=== PATIENT | female | born 1960 | race Caucasian/White ===

== ENCOUNTER 2016-05-23 11:23 | Outpatient (CLI) | payer MEDICARE ==
[~2016-05-23] VITALS: Ht 156.2 cm; Wt 61.8 kg
--- NOTE | ~2016-05-23 | HEMODYNAMI ---
PATIENT:CORRINE TOMLIN MEDICAL RECORD: [id number] : 56 LOCATION:[facility] ADMISSION DATE: 05/23/16 Generatedon:05/23/201613:53 Patient name: CORRINE TOMLIN Patient #: [id number] SSN: : 1960 Date of study: 05/23/2016 Page: Of Hemodynamic Procedure Report Patient Data Patient Demographics First Name: CORRINE Gender: Female Last Name: SADA : 1960 [facility] Initial: GET Age: 55 year(s) Patient #: [id number] Race: Additional ID: [id number] Contact details [address]: [address] [place] [address] State: [place] City: [place] Zip code: [address] Past Medical History Allergies Allergen Reaction Date Comments Reported Other allergy 07/14/2015 lisinopril Admission Admission Data Admission Date: 05/23/2016 Admission Time: 11:23 Admit Source: Emergency department Lab Results Lab Result Date: 05/23/2016 Lab Result Time: 0:00 Biochemistry Name Units Result Min Max CK-MB ng/ml 0.5 --(*---)-- 0 3.6 Creatinine mg/dl 0.8 --(-*--)-- 0.6 1.3 Troponin l ng/ml 0.017 --(-*--)-- 0 0.06 CBC Name Units Result Min Max Hemoglobin g/dl 12.9 -*(----)-- 13.5 17.5 Procedure Procedure Types Cath Procedure Diagnostic Procedure LHC LHC w/Coronaries PCI Procedure PTCA Initial Procedure Description Procedure Date Procedure Date: 05/23/2016 Procedure Start Time: 13:37 Procedure End Time: 13:52 Procedure Staff Name Function Geoffrey Mcduffie MD Performing Physician Reanna Hanks RT Scrub John Paul Moran RN Nurse Frida Field RT Monitor Procedure Data Cath Procedure Fluoroscopy Diagnostic fluoroscopy Total fluoroscopy Time: 2.3 time: 2.3 min min Diagnostic fluoroscopy Total fluoroscopy dose: 574 dose: 574 mGy mGy Contrast Material Contrast Material Type Amount (ml) Isovue 300 86 Entry Location Entry Primary Successful Side Size Upsize Upsize Entry Closure Succes sful Closure Location (Fr) 1 (Fr) 2 (Fr) Remarks Device Remarks Femoral Right 5 Fr 6 Fr Vascade artery Short Closure System Estimated blood loss: 10 ml Diagnostic catheters Device Type Used For End Catheter Placement Cordis 5Fr Pigtail LV Angiography Catheter (MP) Cordis 5Fr JL 4.0 Left Coronary Catheter (MP) Angiography Cordis 5Fr 3DRC Catheter (MP) Procedure Complications No complications Procedure Medications Medication Administration Route Dosage Oxygen NC 2 l/min Heparin Flush Bag added to field 2 bags (1000units/500ml NS) 0.9% NaCl I.V. 100 ml/hr Benadryl I.V. 50 mg Fentanyl I.V. 50 mcg Versed I.V. 1 mg Fentanyl I.V. 50 mcg Versed I.V. 1 mg Heparin Bolus I.V. 4000 units Plavix P.O. 75 mg Hemodynamics Rest Heart Rate: 75 (bpm) Snapshots Pre Cath Intra NCS Post Cath Vital Signs Time Heart Resp SPO2 NIBP (mmHg) Rhythm Pain Sedation Rate (ipm) (%) Status Level (bpm) 13:29:48 71 16 99 174/95(158) NSR 0 (11) 10(A) , No pain 13:34:10 70 18 98 178/108(160) NSR 0 (11) 10(A) , No pain 13:38:34 74 17 96 156/100(126) NSR 0 (11) 9(A) , No pain 13:42:52 81 16 95 140/87(107) NSR 0 (11) 9(A) , No pain 13:47:02 81 17 95 158/94(133) NSR 0 (11) 9(A) , No pain 13:51:22 80 11 97 149/80(118) NSR 0 (11) 9(A) , No pain Medications Time Medication Route Dose Verified Delivered Reason Notes Effectiveness by by 13:37:33 Oxygen NC 2 John Paul Coker used for l/min Dean Moran synchronizer RN 13:37:50 Heparin Flush added 2 John Paul Coker used for Bag to bags Dean Moran synchronizer (1000units/500ml field RN NS) 13:38:01 0.9% NaCl I.V. 100 John Paul John Paul Per physician ml/hr Dean Moran RN RN 13:38:09 Benadryl I.V. 50 mg John Paul John Paul Per physician Dean Moran RN RN 13:38:17 Fentanyl I.V. 50 John Paul John Paul for sedation mcg Dean Moran RN RN 13:38:23 Versed I.V. 1 mg John Paul John Paul for sedation Dean Moran RN RN 13:43:28 Fentanyl I.V. 50 John Paul John Paul for sedation mcg Dean Moran RN RN 13:43:30 Versed I.V. 1 mg John Paul John Paul for sedation Dean Moran RN RN 13:43:39 Heparin Bolus I.V. 4000 John Paul John Paul for units Dean Moran RN anticoagulation RN 13:49:58 Plavix P.O. 75 mg John Paul John Paul for Dean Moran RN antiplatelet RN therapy Procedure Log Time Note 13:05:15 John Paul Moran RN sent for patient. Start room use. 13:19:19 Time tracking: Call back 13:19:23 Plan of Care:Hemodynamics will remain stable., Cardiac rhythm will remain stable., Comfort level will be maintained., Respiratory function will remain adequate., Patient/ family verbilizes understanding of procedure., Procedure tolerated without complication., Recovers from procedure without complications.. 13:19:26 ACC Patient presents with Unstable Angina CCS Anginal Class 4--Inability to carry out any physical activity w/o angina. Angina may occur at rest. 13:19:33 Admit Source: Emergency department 13:19:35 Diagnostic Cath status Urgent 13:19:48 H&P Date Dictated: 05/23/2016 ER History on chart.. 13:21:14 Lab Result : Creatinine 0.8 mg/dl 13:21:14 Lab Result : CK-MB 0.5 ng/ml 13:21:14 Lab Result : Troponin l 0.017 ng/ml 13:21:14 Lab Result : Hemoglobin 12.9 g/dl 13:21:55 Patient received from ED to CCL 1 Alert and oriented. Tansferred to table in Supine position. 13:21:56 Warm blankets applied, and ascencion hugger turned on for patient comfort. 13:21:57 Correct patient and procedure confirmed by team. 13:21:59 ECG and BP/O2 sat monitors applied to patient. 13:21:59 Full Disclosure recording started 13:28:38 Vital chart was started 13:33:47 Rhythm: sinus rhythm 13:33:50 Pre-procedure instructions explained to patient. 13:33:50 Pre-op teaching completed and patient verbalized understanding. 13:33:52 Family in waiting room. 13:33:54 Patient NPO since Midnight. 13:33:59 Is the patient allergic to Iodine/contrast media? No. 13:34:01 Was the patient premedicated? No 13:34:07 Patient diabetic? No. 13:34:10 Previous problem with sedation/anesthesia? No ? 13:34:11 Snore? Yes 13:34:12 Sleep apnea? No 13:34:13 Deviated septum? No 13:34:13 Opens mouth fully? Yes 13:34:14 Sticks out tongue? Yes 13:34:17 Airway obstruction? No ? 13:34:19 Dentures? No ? 13:34:22 Pre procedure: right dorsailis pedis pulse 2+ Normal; easily identifiable; not easily obliterated 13:34:24 Patient pain scale 0/10 ?. 13:34:29 IV patent on arrival in right hand with 0.9% NaCl at [facility]. 13:34:34 Right groin area was prepped with chlora-prep and draped in sterile fashion 13:34:35 Alarms reviewed by R. N. 13:34:35 Sharps counted by scrub and verified by R.N. 13:34:37 Final Timeout: patient, procedure, and site verified with staff and physician. All members of the team are in agreement. 13:34:39 Right groin site verified by team. 13:34:42 Physical assessment completed. ASA score P 3 - A patient with severe systemic disease as per Geoffrey Mcduffie MD. 13:34:46 Sedation plan: IV Moderate Sedation Versed, Fentanyl 13:36:27 Zero performed for pressure channel P1 13:36:53 Use device set Femoral Dx 13:36:54 Acist Syringe opened to sterile field. 13:36:55 Bag Decanter opened to sterile field. 13:36:55 Cardinal Cath Pack opened to sterile field. 13:36:55 Terumo 5Fr [place] Sheath opened to sterile field. 13:36:56 St Wesley 260cm J .035 wire opened to sterile field. 13:37:00 Acist Hand Control opened to sterile field. 13:37:01 Acist Manifold opened to sterile field. 13:37:01 Cordis Infinity 5Fr Multipack catheter opened to sterile field. 13:37:02 Tegaderm 4 x 4 opened to sterile field. 13:37:03 IV Extension Set opened to sterile field. 13:37:06 Procedure started. 13:37:09 Local anesthetic to right femoral artery with Lidocaine 2% by Geoffrey Mcduffie MD.INITIAL ACCESS ONLY 13:37:16 A 5 Fr sheath was inserted into the Right Femoral artery 13:37:33 Oxygen 2 l/min NC was given by John Paul Moran RN; used for procedure; 13:37:41 Baseline sample Acquired. 13:37:50 Heparin Flush Bag (1000units/500ml NS) 2 bags added to field was given by John Paul Moran RN; used for procedure; 13:38:01 0.9% NaCl 100 ml/hr I.V. was given by John Paul Moran RN; Per physician; 13:38:08 A Cordis 5Fr Pigtail Catheter (MP) was advanced over the wire and used for LV Angiography. 13:38:09 Benadryl 50 mg I.V. was given by John Paul Moran RN; Per physician; 13:38:17 Fentanyl 50 mcg I.V. was given by John Paul Moran RN; for sedation; 13:38:23 Versed 1 mg I.V. was given by John Paul Moran RN; for sedation; 13:38:36 LV gram done using TAYLOR 13:38:40 EF : 50 % 13:38:43 Injector settings: Ml/sec: 5, Volume: 15, 13:38:44 Catheter removed. 13:38:52 A Cordis 5Fr JL 4.0 Catheter (MP) was advanced over the wire and used for Left Coronary Angiography. 13:41:39 Catheter removed. 13:41:53 A Cordis 5Fr 3DRC Catheter (MP) was advanced over the wire and used for . 13:42:19 Munguia Whisper J 300cm 0.014 guide wire opened to sterile field. 13:42:20 Acquia BasixCompak Inflation Kit opened to sterile field. 13:42:21 Terumo 6Fr [place] Sheath opened to sterile field. 13:42:29 Cordis 6FR XBLAD 3.5 guide catheter opened to sterile field. 13:42:39 Sheath upsized to a 6 Fr Short. 13:43:28 Fentanyl 50 mcg I.V. was given by John Paul Moran RN; for sedation; 13:43:30 Versed 1 mg I.V. was given by John Paul Moran RN; for sedation; 13:43:39 Heparin Bolus 4000 units I.V. was given by John Paul Moran RN; for anticoagulation; 13:43:54 ACC PCI Site: [facility] has 70% stenosis. 13:43:55 ACC Pre-intervention SREEDHAR Flow is 3. 13:44:41 6 Fr XBLAD 3.5 guide catheter was inserted over the wire 13:44:44 Whisper wire advanced. 13:45:02 Inflation number: 1 A [place] Sci Macomb 3.0 X 15 balloon was prepped and advanced across the Mid CX, then inflated to 21 CORINA for 0:08 (min:sec). 13:45:47 Inflation number: 2 The [place] Sci Macomb 3.0 X 15 balloon was reinflated across the Mid CX, to 23 CORINA for 0:30 (min:sec). 13:46:03 Vascade 6/7 Fr Closure Device opened to sterile field. 13:46:09 ACC Post-intervention SREEDHAR Flow is 3. 13:46:12 Balloon removed over the wire. 13:46:13 Wire removed. 13:46:13 Guide catheter removed. 13:46:20 Sheath removed intact; hemostasis achieved with Vascade Closure System to the Right Femoral artery. 13:46:21 Procedure ended.(Physican Out) 13:46:57 Fluoroscopy time 02.30 minutes. 13:47:04 Flurop Dose total: 574 13:47:04 Fluoroscopy dose: 574 mGy 13:47:07 Contrast amount:Isovue 300 86ml. 13:47:08 Sharps counted by scrub and verified by R.N. 13:47:09 Insertion/operative site no bleeding no hematoma. 13:47:12 Post-op/insertion site Right Femoral artery dressed using a 4 x 4 and Tegaderm. 13:47:15 Post right femoral artery:stable, clean and dry 13:47:17 Post Procedure Pulses reassessed and unchanged 13:47:20 Post-procedure physical assessment completed. ASA score P 2 - A patient with mild systemic disease as per Geoffrey Mcduffie MD. 13:47:22 Post procedure rhythm: unchanged. 13:47:24 Estimated blood loss: 10 ml 13:47:26 Post procedure instruction explained to patient.Patient verbalizes understanding. 13:47:26 Patient needs reinforcement of post procedure teaching. 13:47:31 Procedure type changed to Cath procedure, Diagnostic procedure, LHC, LHC w/Coronaries, PCI procedure, PTCA Initial 13:47:38 Procedure Complication : No complications 13:47:40 See physician's report for complete and final results. 13:47:48 Report given to PCU. 13:49:58 Plavix 75 mg P.O. was given by John Paul Moran RN; for antiplatelet therapy; 13:52:31 Patient transfered to PCU with Bed. 13:52:39 Procedure ended. 13:52:39 Full Disclosure recording stopped 13:53:00 End room use (Document Last) 13:53:14 Vital chart was stopped Intervention Summary Intervention Notes Time ActionType Lesion and Equipment Action# Pressure Duration Attributes Used 13:45:02 Inflate Mid CX [place] 1 21 00:08 balloon Sci Macomb 3.0 X 15 balloon 13:45:47 Reinflate Mid CX [place] 2 23 00:30 balloon Sci [place]omb 3.0 X 15 balloon Device Usage Item Name Manufacture Quantity Catalog Number Hospital Part Current [facility] Lot# / Charge Number Stock Stock Serial# Code Acist Acist 1 90130 197751 905354 308885 20 Syringe Medical Systems Inc Bag Microtek 1 2002S 748652 95857 814911 5 Decanter Medical Inc. Cardinal Cardinal 1 [id number] 101893 37615 785883 5 Cath Pack Health Terumo 5Fr Terumo 1 [id number] 308358 516121 665923 [address] [facility] Wesley 1 489947 516077 180094 563138 30 260cm J .035 wire Acist Hand Acist 1 37362 739650 902115 859536 5 Control Medical Systems Inc Acist Acist 1 98506 769651 548439 426458 5 Manifold Medical Systems Inc Cordis Cardinal 1 SO7135 763612 36448 139881 30 Infinity Health 5Fr Multipack catheter Tegaderm 4 3M 1 1626W 580343 782240 194764 5 x 4 IV Hospira 1 83702-03 468632 55542 530445 5 Extension Set Cordis 5Fr Cardinal 1 698904 5 Pigtail Health Catheter (MP) Cordis 5Fr Cardinal 1 449950 5 JL 4.0 Health Catheter (MP) Cordis 5Fr Cardinal 1 547240 5 3DRC Health Catheter (MP) Munguia Munguia 1 [id number] 921631 878489 870818 5 Whisper J Vascular 300cm 0.014 guide wire Merit Merit 1 [id number] 196299 145559 929077 15 [employer] Medical Inflation Kit Terumo 6Fr Terumo 1 FGX931 138558 904560 339895 40 Colebrook Sheath Cordis 6FR Cardinal 1 [id number] 692893 689587 366857 10 XBLAD 3.5 Health guide catheter Dayton Sci Dayton 1 [id number] 057426 245055 766020 1 [id number] [employer] 3.0 X 15 balloon Vascade 6/7 Cardiva 1 [id number] 163130 212058 388697 5 Fr Closure Medical, Device Inc. Signature Audit [place] Stage Time Signature Unsigned Intra-Procedure 05/23/2016 Frida 1:53:10 PM Counts RT(R) Signatures Monitor : Frida Signature : Counts RT Date : Time : [facility] [address] [place] [address]
[~2016-05-23 11:23] MED LIST: ADVAIR HFA [SP]12 GM INH; ASPIRIN EC81 M1 PO; ATROVENT HFA12.9 GM INH; BENADRYL25 MG PO; FLUTICASONE PRO16 GM NS; HCTZ25 MG PO; INCRUSE ELPT INH 62. IH; ISOSORBIDE DINI20 MG PO; LANOXIN125 MCG PO; LOPRESSOR25 MG PO; MELATONIN 3 MG1 TAB PO; METOPROLOL TART50 MG PO; NEURONTIN 300300 MG PO; NITRO-DUR0.4 MG TRANSDERM; NITROQUICK0.4 MG SL; NITROSTAT0.4 MG; PLAVIX75 MG PO; PRAVACHOL40 MG PO; PROAIR HFA8.5 GM INH; PROTONIX40 MG PO; PROZAC20 MG PO; RANEXA500 MG PO; SINGULAIR10 MG PO; SPIRIVA18 MCG INH; SYMBICORT 16010.2 GM INH
[2016-05-23 11:51] LABS: BASOPHILS 0.4 % (0.0-2.0); EOSINOPHILS 2.7 % (0-7); HEMATOCRIT 38.7 % (36.0-48.0); HEMOGLOBIN 12.9 g/dL (12-16); IMMATURE GRANULOCYTES 0.2 % (0-5); LYMPHOCYTES 24.7 % (15-50); MCH 29.1 pg (26.0-34.0); MCHC 33.3 g/dL (31.0-37.0); MCV 87.2 fL (80.0-100.0); MEAN PLATELET VOLUME 8.5 fL (7.4-10.4); MONOCYTES 11.9 % (2-11); NEUTROPHILS 60.1 % (40-80); PLATELET COUNT 257 10x3/uL (130-400); RBC 4.44 10x6/uL (4.00-5.40); RDW 14.5 % (11.5-14.5); WBC 5.6 10x3/uL (4.8-10.8)
[2016-05-23 12:05] LABS: ALBUMIN 3.8 g/dL (3.4-5.0); ALKALINE PHOSPHATASE 76 U/L (46-116); ALT (SGPT) 26 U/L (10-68); BILIRUBIN - TOTAL 0.36 mg/dL (0.2-1.3); CALC OSMOLALITY 263 mosm/kg (275-300); CALCIUM 9.6 mg/dL (8.5-10.1); CARBON DIOXIDE 31.8 mmol/L (21.0-32.0); CHLORIDE - SERUM 95 mmol/L (98-107); CREATININE - SERUM 0.8 mg/dL (0.6-1.3); GLUCOSE 87 mg/dL (74-106); POTASSIUM - SERUM 3.9 mmol/L (3.5-5.1); SODIUM 133 mmol/L (136-145); UREA NITROGEN 9 mg/dL (7-18); eGFR NON AFRICAN AMERICAN 78 mL/min (90-120)
[2016-05-23 12:16] LABS: CKMB 0.5 U/L (0.0-3.6); CREATINE KINASE 47 UL (21-215)
[2016-05-23 12:20] LABS: TROPONIN-I < 0.017 ng/mL (0.000-0.060)
[2016-05-23 13:33] LABS: CALC OSMOLALITY 264 mosm/kg (275-300); CALCIUM 9.6 mg/dL (8.5-10.1); CARBON DIOXIDE 30.6 mmol/L (21.0-32.0); CHLORIDE - SERUM 95 mmol/L (98-107); CREATININE - SERUM 0.8 mg/dL (0.6-1.3); GLUCOSE 85 mg/dL (74-106); SODIUM 134 mmol/L (136-145); UREA NITROGEN 8 mg/dL (7-18); eGFR NON AFRICAN AMERICAN 78 mL/min (90-120)
--- NOTE | 2016-05-23 14:15 | NUR ---
RECIEVED FROM SEED SPECIALIST BY BED. VS WNL. RIGHT GROIN STABLE WITHOUT BLEEDING OR HEMATOMA NOTED. WILL MONITOR.
[2016-05-23] MEDS ORDERED: NEURONTIN 300300 MG PO (14:26)
[2016-05-23 14:43] VITALS: BP 186/93; Ht 156.2 cm; Wt 61.8 kg
--- NOTE | 2016-05-23 17:46 | NUR ---
BED REST UP GROIN STABLE. IV AND TELEMETRY DCD. DC PLAN GIVEN. UNDERSTANDING VOICED.
--- NOTE | 2016-05-23 18:34 | NUR ---
ESCORTED TO CAR BY W/C.
--- NOTE | 2016-05-28 11:11 | HP ---
PATIENT: CORRINE ORELLANA MEDICAL RECORD: [id number] ACCOUNT: [id number] LOCATION:[facility] : 56 ADMISSION DATE: 05/23/16 HISTORY AND PHYSICAL EXAMINATION DIAGNOSES: 1. Unstable angina. 2. Coronary artery disease. 3. Previous percutaneous transluminal coronary angioplasty stent. 4. Hypertension. 5. Hyperlipidemia. 6. Smoking history. 7. Chronic obstructive pulmonary disease. HISTORY OF PRESENT ILLNESS: Ms. Orellana presents with 2 weeks of increasing chest pain or chest discomfort. She has no class IV unstable angina with rest pain. She has a past history of cardiac stents, the last being approximately 1 year ago. PHYSICAL EXAMINATION: GENERAL APPEARANCE: Well-nourished, well-developed, appears stated age. Level of distress, comfortable. PSYCHIATRIC: Mental status, alert, normal affect. Orientation, oriented to time, place and person. EYES: Lids and conjunctiva, noninjected. No discharge, no pallor. ENT: Lips, teeth, gums, normal dentition. Oropharynx, no cyanosis, no pallor. NECK: Carotid arteries, bilateral normal upstroke, no bruits, no thrills. JUGULAR VEINS: No jugular venous pressure or distention. CERVICAL LYMPH NODES: Nontender, nonenlarged. THYROID: Not enlarged. Nontender. No nodules. LUNGS: Respiratory effort, unlabored. CHEST: Normal curvature. No thoracic deformity. No chest wall tenderness. Percussion, resonant. Auscultation, clear. No wheezes, no rales, no rhonchi. CARDIOVASCULAR: Precordial exam, nondisplaced. No heaves or pericardial thrills. Rate and rhythm, regular. Heart sounds, normal S1, normal S2. No S3, no gallop, no rub. Systolic murmur, not heard. Diastolic murmur, not heard. EXTREMITIES: No cyanosis, no edema. Peripheral pulses, full and equal in all extremities, except as noted. No bruits appreciated. ABDOMEN: Soft, nondistended. Normal aorta. No bruit. Nontender. No masses. Liver, nontender, no hepatomegaly. Spleen, nontender, no splenomegaly. MUSCULOSKELETAL: No joint tenderness. No joint swelling. No erythema. NEUROLOGICAL: Normal gait, normal strength, normal tone. SKIN: Warm and dry. REVIEW OF SYSTEMS: The patient reports easy bruising but reports no swollen glands. The patient reports no fever, no night sweats, no significant weight gain, no significant weight loss. No significant exercise tolerance. The patient reports no dry eyes, no irritation, no vision change. Patient reports no difficulty hearing and no ear pain. Patient reports no frequent nose bleeds or nose and sinus problems. Patient reports on arm pain on exertion. No shortness of breath while lying down. No history of heart murmur. Patient reports no cough, no wheezing or coughing up blood. Patient reports no abdominal pain, no vomiting. Normal appetite. No diarrhea and not vomiting blood. No nausea and no constipation. Patient reports no incontinence. No difficulty urinating. No hematuria. No increased frequency. Patient reports HISTORY AND PHYSICAL [id number] ORELLANACORRINE DEUTSCH no muscle aches. No weakness, no arthralgias, no back pain. No swelling of the extremities. Patient reports no abnormal mole, no jaundice, no rashes. Reports no loss of consciousness. No weakness and no numbness. No seizures, dizziness, or headaches. The patient reports no depression, no sleep disturbance, feeling safe in a relationship and no alcohol abuse. Patient reports on fatigue. Reports no runny nose or sinus pressure. No itching, no hives, and no frequent sneezing. OVERALL IMPRESSION: Increasing angina, unstable fashion now with episodes of rest pain. Her EKG is with no acute ST-T abnormalities, but she has continued to have pain while in the ER. We will proceed with coronary angiography. Further care depends upon the findings of the angiography. TRANSINT:[id number] Voice Confirmation ID: [id number] DOCUMENT ID: [id number] JOZEF HARDING MD at 1111 CC: [id number] DICTATION DATE: 05/23/16 1309 VMWARE ARCHITECT: 05/23/16 1320 DEP CLI 05/23/16 [place] [address]
--- NOTE | 2016-05-28 11:11 | OP ---
PATIENT NAME: CORRINE TOMLIN MEDICAL RECORD: [id number] :56 LOCATION:D.OPS ADMISSION DATE: SURGEON: JOZEF HARDING MD DATE OF OPERATION: 05/23/2016 PROCEDURES: 1. PTCA, left circumflex. 2. Left heart catheterization. 3. Selective coronary angiography. 4. Left ventriculogram. INDICATION: Unstable angina. PROCEDURE IN DETAIL: After informed consent was obtained and after detailed explanation of risks, benefits as well as alternative therapies, the patient elected to proceed with angiogram and angioplasty. The right femoral area was prepped and draped in normal sterile fashion. The right femoral artery was cannulated via modified Seldinger technique with placement of 6-Georgian sheath. All catheters exchanged through this sheath. FINDINGS: The left ventriculogram was performed in standard 30-degree TAYLOR view, reveals good cardiac wall motion throughout all segments. Overall ejection fraction estimated 60%. SELECTIVE CORONARY ANGIOGRAPHY: 1. Left main is really nonexistent. There are separate ostia ____ circumflex and LAD. 2. Left anterior descending has previously placed stents proximally. These are widely patent with no significant restenosis. No disease elsewise to the LAD or its branches. 3. Left circumflex has previously placed stents in the proximal aspect. There is 70% to 75% stenosis with a combination of in-stent restenosis, hazy area and a crux of the vessel that the stent is not well opposed. 4. The right coronary has previously placed stents. These are widely patent with no significant restenosis. No disease elsewise. PERCUTANEOUS TRANSLUMINAL CORONARY ANGIOPLASTY OF THE LEFT CIRCUMFLEX: High pressure PTCA was performed to the area of in-stent restenosis with a 3-0 balloon taken to 23 atmospheres. Result was 0% residual stenosis. OVERALL IMPRESSION: Successful percutaneous transluminal coronary angioplasty for in-stent restenosis of the left circumflex. TRANSINT:[id number] Voice Confirmation ID: [id number] DOCUMENT ID: [id number] JOZEF HARDING MD at 1111 CC: [id number] DICTATION DATE: 05/23/16 1352 LABORER CHEESEMAKING: 05/23/16 1404 DEP CLI 05/23/16 [place] [address]
== END 2016-05-23 18:35 | disposition home or self-care (01) ==
LOC: OBSVTIME → D.OPS 11:23 → D.ER 11:23 → EDSTATUS 12:50 → D.M2 13:55 → D.ER 13:55 → OBSVTIME 16:38 → D.M2 16:38 → D.OPS 16:38 → D.M2 18:35 → D.OPS 18:35 → D.M2 18:35
PROVIDERS: Family Medicine; Internal Medicine Interventional Cardiology
DX: I25.110 Atherosclerotic heart disease of native coronary artery with unstable angina pectoris (principal); T82.855A Stenosis of coronary artery stent, initial encounter; I10 Essential (primary) hypertension; F17.200 Nicotine dependence, unspecified, uncomplicated; J44.9 Chronic obstructive pulmonary disease, unspecified

== ENCOUNTER → 2016-07-14 10:29 | Outpatient (CLI) | payer MEDICARE ==
[2016-05-23 14:43] VITALS: BMI 25.3
== END | disposition home or self-care (01) ==
LOC: D.RT 10:29
DX: J44.9 Chronic obstructive pulmonary disease, unspecified (principal)

== ENCOUNTER 2016-07-22 19:10 | Emergency (ER) | payer MEDICARE ==
[2016-05-23 14:43] VITALS: BMI 25.3
[2016-07-22 19:51] LABS: BASOPHILS 0.3 % (0.0-2.0); EOSINOPHILS 1.5 % (0-7); HEMATOCRIT 35.3 % (36.0-48.0); IMMATURE GRANULOCYTES 0.1 % (0-5); MCH 29.5 pg (26.0-34.0); MCV 86.7 fL (80.0-100.0); MEAN PLATELET VOLUME 9.3 fL (7.4-10.4); MONOCYTES 11.8 % (2-11); NEUTROPHILS 57.3 % (40-80); PLATELET COUNT 207 10x3/uL (130-400); RBC 4.07 10x6/uL (4.00-5.40); RDW 12.8 % (11.5-14.5); WBC 7.3 10x3/uL (4.8-10.8)
[2016-07-22 20:12] LABS: ALBUMIN 3.9 g/dL (3.4-5.0); ALKALINE PHOSPHATASE 69 U/L (46-116); ALT (SGPT) 28 U/L (10-68); CALC OSMOLALITY 258 mosm/kg (275-300); CALCIUM 9.1 mg/dL (8.5-10.1); CARBON DIOXIDE 29.2 mmol/L (21.0-32.0); CHLORIDE - SERUM 94 mmol/L (98-107); CREATININE - SERUM 0.6 mg/dL (0.6-1.3); GLUCOSE 100 mg/dL (74-106); POTASSIUM - SERUM 3.5 mmol/L (3.5-5.1); PROTEIN - SERUM 7.3 g/dL (6.4-8.2); SODIUM 129 mmol/L (136-145); UREA NITROGEN 12 mg/dL (7-18); eGFR NON AFRICAN AMERICAN > 90 mL/min (90-120)
[2016-07-22 20:19] LABS: APPEARANCE CLEAR (CLEAR); BILIRUBIN NEGATIVE (NEGATIVE); COLOR YELLOW (YELLOW); GLUCOSE NEGATIVE (NEGATIVE); KETONE NEGATIVE (NEGATIVE); LEUKOCYTE ESTERASE NEGATIVE (NEGATIVE); NITRITE NEGATIVE (NEGATIVE); PROTEIN NEGATIVE (NEGATIVE); SPECIFIC GRAVITY 1.005 (1.005-1.020); UROBILINOGEN NORMAL (NORMAL)
[2016-07-22 20:23] LABS: CKMB 0.4 U/L (0.0-3.6); CREATINE KINASE 73 UL (21-215); PRO BNP 52 pg/mL (0-125)
[2016-07-22 20:39] LABS: TROPONIN-I < 0.017 ng/mL (0.000-0.060)
== END 2016-07-22 21:30 | disposition home or self-care (01) ==
LOC: D.ER 19:10
PROVIDERS: Emergency Medicine; Nurse Practitioner Family
DX: R07.9 Chest pain, unspecified (principal); R11.0 Nausea; J44.9 Chronic obstructive pulmonary disease, unspecified; F32.9 Major depressive disorder, single episode, unspecified; I10 Essential (primary) hypertension; E78.5 Hyperlipidemia, unspecified; Z86.73 Personal history of transient ischemic attack (TIA), and cerebral infarction without residual deficits

== ENCOUNTER 2016-10-14 08:00 | Observation (INO) | payer MEDICARE ==
[~2016-10-14] VITALS: Ht 156.2 cm; Wt 63.3 kg
--- NOTE | ~2016-10-14 | HEMODYNAMI ---
PATIENT:CORRINE TOMLIN MEDICAL RECORD: [id number] : 56 LOCATION:[facility] D.2117 ADMISSION DATE: 10/14/16 Generatedon:10/15/20169:55 Patient name: CORRINE TOMLIN Patient #: [id number] SSN: : 1960 Date of study: 10/15/2016 Page: Of Hemodynamic Procedure Report Patient Data Patient Demographics Procedure consent was obtained First Name: CORRINE Gender: Female Last Name: SADA : 1960 Middle Initial: GET Age: 56 year(s) Patient #: [id number] Race: Additional ID: [id number] Contact details Address: [address] [place] [address] State: [place] City: [place] Zip code: [address] Past Medical History Allergies Allergen Reaction Date Comments Reported Other allergy 07/14/2015 lisinopril Admission Admission Data Admission Date: 10/14/2016 Admission Time: 11:43 Room #: D.2117 Lab Results Lab Result Date: 10/15/2016 Lab Result Time: 9:45 Biochemistry Name Units Result Min Max BUN mg/dl 7 --(*---)-- 7 18 Creatinine mg/dl 0.6 --(*---)-- 0.6 1.3 CBC Name Units Result Min Max Hematocrit % 35.6 *-(----)-- 42 54 Hemoglobin g/dl 12 *-(----)-- 13.5 17.5 Procedure Procedure Types Cath Procedure Diagnostic Procedure LHC LHC w/Coronaries Miscellaneous Procedures Moderate Sedation up to 15 minutes Procedure Description Procedure Date Procedure Date: 10/15/2016 Procedure Start Time: 9:41 Procedure End Time: 9:55 Procedure Staff Name Function Geoffrey Mcduffie MD Performing Physician Frida Field RT Scrub John Paul Moran RN Nurse Duglas Yuen RT Monitor Procedure Data Cath Procedure Fluoroscopy Diagnostic fluoroscopy Total fluoroscopy Time: 1.5 time: 1.5 min min Diagnostic fluoroscopy Total fluoroscopy dose: 457 dose: 457 mGy mGy Contrast Material Contrast Material Type Amount (ml) Isovue 300 72 Entry Location Entry Primary Successful Side Size Upsize Upsize Entry Closure Succes sful Closure Location (Fr) 1 (Fr) 2 (Fr) Remarks Device Remarks Femoral Right 5 Fr Exoseal artery Estimated blood loss: 5 ml Diagnostic catheters Device Type Used For End Catheter Placement Cordis 5Fr Pigtail Procedure Catheter (MP) Cordis 5Fr JL 4.0 Procedure Catheter (MP) Cordis 5Fr 3DRC Catheter Procedure (MP) Procedure Medications Medication Administration Route Dosage Oxygen NC 2 l/min Heparin Flush Bag added to field 2 bags (1000units/500ml NS) 0.9% NaCl I.V. 100 ml/hr Fentanyl I.V. 50 mcg Versed I.V. 1 mg Fentanyl I.V. 50 mcg Versed I.V. 1 mg Hemodynamics Rest Heart Rate: 69 (bpm) Pressure Samples Time Site Value (mmHg) Purpose Heart Use Rate(bpm) 9:42 LV 165/17,25 Snapshot 80 Snapshots Pre Cath Intra NCS Post Cath Vital Signs Time Heart Resp SPO2 etCO2 UP0tste NIBP (mmHg) Rhythm Pain Sedation Rate (ipm) (%) (mmHg) (mmHg) Status Level (bpm) 9:22:32 68 17 93 0 0 166/94(120) NSR 0 (11) 10(A) , No pain 9:26:53 73 17 93 0 0 175/102(141) NSR 0 (11) 10(A) , No pain 9:31:15 77 17 100 0 0 169/93(138) NSR 0 (11) 10(A) , No pain 9:35:31 66 17 98 0 0 140/80(113) NSR 0 (11) 10(A) , No pain 9:39:47 65 17 97 0 0 132/78(110) NSR 0 (11) 9(A) , No pain 9:44:03 71 17 97 0 0 149/74(121) NSR 0 (11) 9(A) , No pain 9:48:23 70 16 96 0 0 117/70(91) NSR 0 (11) 9(A) , No pain 9:52:33 66 10 96 0 0 110/71(90) NSR 0 (11) 9(A) , No pain Medications Time Medication Route Dose Verified Delivered Reason Notes Effect iveness by by 9:28:08 Oxygen NC 2 John Paul John Paul Per l/min Dean Moran RN physician RN 9:28:17 Heparin Flush added 2 John Paul John Paul used for Bag to bags Dean Moran managing partner (1000units/500ml field RN NS) 9:28:30 0.9% NaCl I.V. 100 John Paul John Paul Per ml/hr Dean Moran RN physician RN 9:38:00 Fentanyl I.V. 50 John Paul John Paul for domi Moran RN sedation RN 9:38:07 Versed I.V. 1 mg John Paul John Paul for Dean Moran RN sedation RN 9:45:48 Fentanyl I.V. 50 John Paul John Paul for domi Moran RN sedation RN 9:45:53 Versed I.V. 1 mg John Paul John Paul for Dean Moran RN sedation mottle lay up operator Log Time Note 9:06:11 Frida Counts RT(R) sent for patient. Start room use. 9:06:12 Time tracking: Regular hours 9:06:18 Plan of Care:Hemodynamics will remain stable., Cardiac rhythm will remain stable., Comfort level will be maintained., Respiratory function will remain adequate., Patient/ family verbilizes understanding of procedure., Procedure tolerated without complication., Recovers from procedure without complications.. 9:21:21 Patient received from PCU to CCL 1 Alert and oriented. Tansferred to table in Supine position. 9:21:22 Warm blankets applied, and ascencion hugger turned on for patient comfort. 9:21:23 Correct patient and procedure confirmed by team. 9:21:24 Signed procedure consent form obtained from patient. 9:21:25 ECG and BP/O2 sat monitors applied to patient. 9:21:25 Vital chart was started 9:21:28 Rhythm: sinus rhythm 9:21:30 Full Disclosure recording started 9:24:47 H&P Date Dictated: 10/14/2016 Within 30 days and on chart.. 9:24:48 Pre-procedure instructions explained to patient. 9:24:49 Pre-op teaching completed and patient verbalized understanding. 9:25:02 Family unavailable. 9:25:06 Patient NPO since Midnight. 9:25:22 Is the patient allergic to Iodine/contrast media? No. 9:25:31 Is patient on blood thinner?Yes 9:25:34 ACC The patient was administered the following blood thiners within the last 24 hours: ACCPlavix 9:25:35 Patient diabetic? No. 9:25:37 Previous problem with sedation/anesthesia? No ? 9:25:38 Snore? Yes 9:25:40 Sleep apnea? No 9:25:41 Deviated septum? No 9:25:42 Opens mouth fully? Yes 9:25:43 Sticks out tongue? Yes 9:25:56 Airway obstruction? Yes COPD/ASTHMA 9:25:59 Dentures? No ? 9:26:04 Pre procedure: right dorsailis pedis pulse Doppler 9:26:09 Patient pain scale 1/10 ?. 9:26:20 IV left forearm D/C'd due to infiltration. 9:26:29 IV started by John Paul Moran RN inright hand with a 22 gauge IV catheter with 0.9% NaCl at KVO. 9:28:08 Oxygen 2 l/min NC was administered by John Paul Morna RN; Per physician; 9:28:17 Heparin Flush Bag (1000units/500ml NS) 2 bags added to field was administered by John Paul Moran RN; used for procedure; 9:28:30 0.9% NaCl 100 ml/hr I.V. was administered by John Paul Moran RN; Per physician; 9:29:54 IV Extension Set opened to sterile field. 9:29:55 22g IV Catheter opened to sterile field. 9:30:30 Lab Result : BUN 7 mg/dl 9:30:30 Lab Result : Hemoglobin 12 g/dl 9:30:30 Lab Result : Creatinine 0.6 mg/dl 9:30:30 Lab Result : Hematocrit 35.6 % 9:30:33 Lab results completed and on chart. 9:30:35 Right groin area was prepped with chlora-prep and draped in sterile fashion 9:30:36 Alarms reviewed by R. N. 9:30:37 Sharps counted by scrub and verified by R.N. 9:30:40 Use device set Femoral Dx 9:30:41 Tegaderm 4 x 4 opened to sterile field. 9:30:41 Acist Manifold opened to sterile field. 9:30:42 Acist Hand Control opened to sterile field. 9:30:43 Acist Syringe opened to sterile field. 9:30:43 Bag Decanter opened to sterile field. 9:30:44 Medline Cath Pack opened to sterile field. 9:30:45 Terumo 5Fr [place] Sheath opened to sterile field. 9:30:47 St Wesley 260cm J .035 wire opened to sterile field. 9:30:47 Diagnostic Infinity 5Fr Multipack catheter opened to sterile field. 9:31:47 Baseline sample Acquired. 9:31:58 Physician paged 9:37:12 Physician arrived 9:37:12 --------ALL STOP TIME OUT------ 9:37:13 Final Timeout: patient, procedure, and site verified with staff and physician. All members of the team are in agreement. 9:37:14 Right groin site verified by team. 9:37:17 Physical assessment completed. ASA score P 2 - A patient with mild systemic disease as per Geoffrey Mcduffie MD. 9:37:19 Sedation plan: IV Moderate Sedation Versed, Fentanyl 9:38:00 Fentanyl 50 mcg I.V. was administered by John Paul Moran RN; for sedation; 9:38:01 Zero performed for pressure channel P1 9:38:07 Versed 1 mg I.V. was administered by John Paul Moran RN; for sedation; 9:41:18 Procedure started. 9:41:21 Local anesthetic to right femoral artery with Lidocaine 2% by Geoffrey Mcduffie MD.INITIAL ACCESS ONLY 9:41:29 A 5 Fr sheath was inserted into the Right Femoral artery 9:42:22 A Cordis 5Fr Pigtail Catheter (MP) was advanced over the wire and used for Procedure. 9:42:54 LV gram done using TAYLOR 9:42:56 Injector settings: Ml/sec: 10, Volume: 20, 9:43:01 EF : 60 % 9:43:03 Catheter exchanged over wire. 9:43:07 A Cordis 5Fr JL 4.0 Catheter (MP) was advanced over the wire and used for Procedure. 9:43:26 LCA angiography performed. 9:45:41 Catheter exchanged over wire. 9:45:48 Fentanyl 50 mcg I.V. was administered by John Paul Moran RN; for sedation; 9:45:48 A Cordis 5Fr 3DRC Catheter (MP) was advanced over the wire and used for Procedure. 9:45:53 Versed 1 mg I.V. was administered by John Paul Moran RN; for sedation; 9:46:29 RCA angiography performed. 9:48:06 Catheter removed. 9:48:12 Cordis 5Fr Exoseal opened to sterile field. 9:48:18 Sheath removed intact; hemostasis achieved with Exoseal to the Right Femoral artery. 9:48:20 Procedure ended.(Physican Out) 9:53:27 Fluoroscopy time 01.50 minutes. 9:53:31 Flurop Dose total: 457 9:53:31 Fluoroscopy dose: 457 mGy 9:53:35 Contrast amount:Isovue 300 72ml. 9:53:36 Sharps counted by scrub and verified by R.N. 9:53:38 Insertion/operative site no bleeding no hematoma. 9:53:44 Post-op/insertion site Right Femoral artery dressed using a 4 x 4 and Tegaderm. 9:53:48 Post right femoral artery:stable, soft, clean and dry 9:53:49 Post Procedure Pulses reassessed and unchanged 9:53:52 Post-procedure physical assessment completed. ASA score P 2 - A patient with mild systemic disease as per Geoffrey Mcduffie MD. 9:53:54 Post procedure rhythm: unchanged. 9:53:57 Estimated blood loss: 5 ml 9:53:58 Post procedure instruction explained to patient.Patient verbalizes understanding. 9:53:58 Patient needs reinforcement of post procedure teaching. 9:54:33 Procedure type changed to Cath procedure, Diagnostic procedure, LHC, LHC w/Coronaries, Miscellaneous Procedures, Moderate Sedation up to 15 minutes 9:54:59 Procedure and supply charges have been captured, reviewed, submitted and are correct. 9:55:08 Vital chart was stopped 9:55:10 See physician's report for complete and final results. 9:55:13 Report given to PCU. 9:55:16 Patient transfered to PCU with Stretcher. 9:55:19 Procedure ended. 9:55:19 Full Disclosure recording stopped 9:55:22 End room use (Document Last) Device Usage Item Name Manufacture Quantity Catalog Hospital Part Current Minimal L ot# / Number Charge Number Stock Stock Serial# Code IV Hospira 1 51040-83 [id number] 25396 [id number] 5 Extension Set 22g IV B. Monique 1 4205570-11 258221 108182 564352 5 Catheter Tegaderm 4 3M 1 1626W 410458 169159 877343 5 x 4 Acist Acist 1 13710 985198 618306 324253 5 Manifold Medical Systems Inc Acist Hand Acist 1 52688 422513 644900 700140 5 Control Medical Systems Inc Acist Acist 1 80418 406946 928740 146693 20 Syringe Medical Systems Inc Bag Microtek 1 2002S 179678 03974 489633 5 Decanter Medical Inc. Medline Cardinal 1 [id number] 175629 21335 766077 5 Cath Pack Health Terumo 5Fr Terumo 1 [id number] 260831 023732 545830 [address] Wesley 1 539920 414572 179529 524783 30 260cm J .035 wire Diagnostic Cardinal 1 [id number] 522086 78190 849543 30 Infinity Health 5Fr Multipack catheter Cordis 5Fr Cardinal 1 074246 5 Pigtail Health Catheter (MP) Cordis 5Fr Cardinal 1 082349 5 JL 4.0 Health Catheter (MP) Cordis 5Fr Cardinal 1 320449 5 3DRC Health Catheter (MP) Cordis 5Fr Cardinal 1 EX500 648913 850285 247976 10 TerraWi Signature Audit [place] Stage Time Signature Unsigned Intra-Procedure 10/15/2016 Duglas Yuen 9:55:54 AM RT(R) Signatures Monitor : Duglas Yuen RT Signature : Date : Time : [facility] [address] [place] [address]
--- NOTE | ~2016-10-14 | DS ---
PATIENT:CORRINE ORELLANA :56 MEDICAL RECORD: [id number] DISCHARGE SUMMARY ADMISSION DATE: 10/15/16 DISCHARGE DATE: 10/15/16 DISCHARGE DIAGNOSES: 1. Angina. 2. Coronary artery disease. 3. Chronic obstructive pulmonary disease. 4. Smoking history. 5. Hypertension. HOSPITAL COURSE: Ms. Orellana presented with anginal symptomatology, found to have restenosis of her stents in the LAD and circumflex. He was discharged with Imdur. We will follow up for CABG evaluation by Dr Valenzuela. TRANSINT:[id number] Voice Confirmation ID: [id number] DOCUMENT ID: [id number] JOZEF HARDING MD CC: [id number] DICTATION DATE: 10/15/16 0954 [place] PATROL LIEUTENANT: 10/16/16 0125 DIS IN 10/15/16 [id number] [place] [address]
--- NOTE | ~2016-10-14 | OP ---
PATIENT NAME: CORRINE TOMLIN MEDICAL RECORD: [id number] :56 LOCATION:D.M2 D.2117 ADMISSION DATE:10/15/16 SURGEON: JOZEF HARDING MD DATE OF OPERATION: 10/15/2016 PROCEDURES: 1. Left heart catheterization. 2. Selective coronary angiography. 3. Left ventriculogram. INDICATION: Angina and coronary artery disease. DESCRIPTION OF PROCEDURE: After informed consent was obtained and after detailed explanation of risks, benefits as well as alternative therapies, the patient elected to proceed with angiogram and heart catheterization. The right femoral area was prepped and draped in normal sterile fashion. The right femoral artery was cannulated via modified Seldinger technique with placement of 6-[place] sheath. All catheters exchanged through this sheath. FINDINGS: Left ventriculogram was performed in standard 30-degree TAYLOR view, reveals good cardiac wall motion throughout all segments. Overall ejection fraction estimated at 60%. SELECTIVE CORONARY ANGIOGRAPHY: 1. Left main is nonexistent. There are separate ostiums to the LAD and circumflex. 2. LAD has previously placed stents and throughout the proximal aspect, there is at least 70% to 80% in-stent restenosis at 1-2 points. 3. Left circumflex has previously placed stents throughout the proximal aspect. There is an 80% to 90% in-stent restenosis. 4. Right coronary is widely patent. Previously placed stent in the mid right coronary is widely patent. OVERALL IMPRESSION: Significant restenosis of the LAD and left circumflex stents at this time. Evaluate for coronary bypass graft surgery. TRANSINT:[id number] Voice Confirmation ID: [id number] DOCUMENT ID: [id number] JOZEF HARDING MD CC: [id number] DICTATION DATE: 10/15/16 0950 MAGNETIC TESTER: 10/15/16 1834 DIS IN 10/15/16 [facility] [address] [place] [address]
[2016-10-14 09:57] LABS: BASOPHILS 0.2 % (0-2); EOSINOPHILS 1.6 % (0-7); HEMATOCRIT 35.6 % (36.0-48.0); IMMATURE GRANULOCYTES 0.2 % (0-5); LYMPHOCYTES 17.5 % (15-50); MCH 29.5 pg (26.0-34.0); MCHC 33.7 g/dL (31.0-37.0); MCV 87.5 fL (80.0-100.0); MEAN PLATELET VOLUME 8.7 fL (7.4-10.4); MONOCYTES 11.5 % (2-11); PLATELET COUNT 226 10x3/uL (130-400); RBC 4.07 10x6/uL (4.00-5.40); RDW 12.5 % (11.5-14.5)
[2016-10-14 10:32] LABS: ALBUMIN 3.5 g/dL (3.4-5.0); ALKALINE PHOSPHATASE 85 U/L (46-116); ALT (SGPT) 26 U/L (10-68); BILIRUBIN - TOTAL 0.19 mg/dL (0.2-1.3); CALC OSMOLALITY 260 mosm/kg (275-300); CALCIUM 8.8 mg/dL (8.5-10.1); CARBON DIOXIDE 28.4 mmol/L (21.0-32.0); CHLORIDE - SERUM 96 mmol/L (98-107); CREATININE - SERUM 0.6 mg/dL (0.6-1.3); GLUCOSE 98 mg/dL (74-106); PROTEIN - SERUM 7.3 g/dL (6.4-8.2); SODIUM 131 mmol/L (136-145); UREA NITROGEN 7 mg/dL (7-18); eGFR NON AFRICAN AMERICAN > 90 mL/min (90-120)
[2016-10-14 10:36] LABS: CHOL - HDL RATIO 2.8 ratio (2.3-4.1); CHOLESTEROL, TOTAL 146 mg/dL (0-200); CKMB 0.2 U/L (0.0-3.6); CREATINE KINASE 52 UL (21-215); HDL CHOLESTEROL 53 mg/dL (32-96); LDL CHOLESTEROL 80 mg/dL (0-100); LDL-HDL RATIO 1.5 ratio (1.5-3.5); PRO BNP 109 pg/mL (0-125); TRIGLYCERIDE 66 mg/dL (30-200)
[2016-10-14 10:44] LABS: TROPONIN-I < 0.017 ng/mL (0.000-0.060)
--- NOTE | 2016-10-14 11:55 | NUR ---
TRANSFER FROM ER BY W/C. ANDREWINTED TO ROOM. CALL LIGHT IN REACH. WILL CONT. PLAN OF CARE.
[2016-10-14] MEDS ORDERED: INCRUSE ELLI62.5 MCG INH (12:13)
[2016-10-14 12:16] VITALS: BP 137/72; Ht 156.2 cm; Wt 63.3 kg
[2016-10-14 12:26] VITALS: BP 137/72
[2016-10-14 16:30] VITALS: BP 117/59
[2016-10-14 19:00] VITALS: BP 135/63
--- NOTE | 2016-10-14 19:00 | NUR ---
RECEIVED REPORT AND ASSUMED PT CARE FROM DAY SHIFT NURSE @ THIS TIME.
[2016-10-15] VITALS: BP 106/55
--- NOTE | 2016-10-15 03:48 | NUR ---
PT RESTING WELL WITHOUT C/O OR DISTRESS NOTED. NO NEEDS VOICED. CALL LIGHT WITHIN REACH. WILL MONITOR.
[2016-10-15 04:00] VITALS: BP 128/75
--- NOTE | 2016-10-15 07:36 | HP ---
PATIENT: CORRINE ORELLANA MEDICAL RECORD: [id number] ACCOUNT: [id number] LOCATION:D. D.2117 : 56 ADMISSION DATE: 10/14/16 HISTORY AND PHYSICAL EXAMINATION DATE OF SERVICE: 10/14/2016 DIAGNOSES: 1. Unstable angina. 2. Coronary artery disease. 3. Status post multivessel percutaneous transluminal coronary angioplasty stent. 4. Hypertension. 5. Hyperlipidemia. HISTORY OF PRESENT ILLNESS: Mrs. Orellana presents with anginal symptomatology. Last cardiac intervention was just in May. She has multiple stents in all of her cardiac vessel. PHYSICAL EXAMINATION: GENERAL APPEARANCE: Well-nourished, well-developed, appears stated age. Level of distress, comfortable. PSYCHIATRIC: Mental status, alert, normal affect. Orientation, oriented to time, place and person. EYES: Lids and conjunctiva, noninjected. No discharge, no pallor. ENT: Lips, teeth, gums, normal dentition. Oropharynx, no cyanosis, no pallor. NECK: Carotid arteries, bilateral normal upstroke, no bruits, no thrills. JUGULAR VEINS: No jugular venous pressure or distention. CERVICAL LYMPH NODES: Nontender, nonenlarged. THYROID: Not enlarged. Nontender. No nodules. LUNGS: Respiratory effort, unlabored. CHEST: Normal curvature. No thoracic deformity. No chest wall tenderness. Percussion, resonant. Auscultation, clear. No wheezes, no rales, no rhonchi. CARDIOVASCULAR: Precordial exam, nondisplaced. No heaves or pericardial thrills. Rate and rhythm, regular. Heart sounds, normal S1, normal S2. No S3, no gallop, no rub. Systolic murmur, not heard. Diastolic murmur, not heard. EXTREMITIES: No cyanosis, no edema. Peripheral pulses, full and equal in all extremities, except as noted. No bruits appreciated. ABDOMEN: Soft, nondistended. Normal aorta. No bruit. Nontender. No masses. Liver, nontender, no hepatomegaly. Spleen, nontender, no splenomegaly. MUSCULOSKELETAL: No joint tenderness. No joint swelling. No erythema. NEUROLOGICAL: Normal gait, normal strength, normal tone. SKIN: Warm and dry. REVIEW OF SYSTEMS: The patient reports easy bruising but reports no swollen glands. The patient reports no fever, no night sweats, no significant weight gain, no significant weight loss. No significant exercise tolerance. The patient reports no dry eyes, no irritation, no vision change. Patient reports no difficulty hearing and no ear pain. Patient reports no frequent nose bleeds or nose and sinus problems. Patient reports on arm pain on exertion. No shortness of breath while lying down. No history of heart murmur. Patient reports no cough, no wheezing or coughing up blood. Patient reports no abdominal pain, no vomiting. Normal appetite. No diarrhea and not vomiting blood. No nausea and no constipation. Patient reports no incontinence. No difficulty urinating. No hematuria. No increased frequency. Patient reports HISTORY AND PHYSICAL [id number] ORELLANA,CORRINE DEUTSCH no muscle aches. No weakness, no arthralgias, no back pain. No swelling of the extremities. Patient reports no abnormal mole, no jaundice, no rashes. Reports no loss of consciousness. No weakness and no numbness. No seizures, dizziness, or headaches. The patient reports no depression, no sleep disturbance, feeling safe in a relationship and no alcohol abuse. Patient reports on fatigue. Reports no runny nose or sinus pressure. No itching, no hives, and no frequent sneezing. OVERALL IMPRESSION: Unstable angina with multiple previously placed stents. We will proceed with repeat coronary angiography. Further care depends upon findings of the angiography. TRANSINT:[id number] Voice Confirmation ID: [id number] DOCUMENT ID: [id number] JOZEF HARDING MD at 0736 CC: [id number] DICTATION DATE: 10/14/16 1302 [place] MAN: 10/14/16 1612 [facility] [address] [place] [address]
[2016-10-15 07:56] VITALS: BP 108/62
--- NOTE | 2016-10-15 09:15 | NUR ---
PRE-OPS GIVEN. TO WHEELAGE CLERK BY BED.
--- NOTE | 2016-10-15 10:18 | NUR ---
BACK FROM SENIOR DATA QUALITY ANALYST. VS WNL. RIGHT GROIN STABLE WITHOUT BLEEDING OR HEMATOMA NOTED. WILL MONITOR.
--- NOTE | 2016-10-15 12:00 | NUR ---
BR UP. GROIN STABLE.
[2016-10-15] MEDS ORDERED: ISOSORBIDE MONO60 M1 PO (12:31)
[2016-10-15 12:44] VITALS: BP 121/66
--- NOTE | 2016-10-15 15:06 | NUR ---
IV AND TELEMETRY DCD. DC PLANS GIVEN. UNDERSTANDING VOICED. ESCORTED TO CAR BY W/C.
== END 2016-10-15 15:07 | disposition home or self-care (01) ==
LOC: OBSVTIME → EDSTATUS 08:00 → D.ER 09:22 → OBSVTIME 10:56 → D.M2 10:56 → EDSTATUS 11:43 → D.OPS 11:43 → D.M2 11:43 → D.OPS 11:44 → D.M2 11:44 → OBSVTIME 10-15 09:52 → D.M2 10-15 09:52 → D.OPS 10-15 09:52 → D.M2 10-15 15:07
PROVIDERS: Emergency Medicine; ADMIT Internal Medicine Interventional Cardiology
DX: T82.855A Stenosis of coronary artery stent, initial encounter (principal); Y83.8 Other surgical procedures as the cause of abnormal reaction of the patient, or of later complication, without mention of misadventure at the time of the procedure; I25.110 Atherosclerotic heart disease of native coronary artery with unstable angina pectoris; Z87.891 Personal history of nicotine dependence; I10 Essential (primary) hypertension; E78.5 Hyperlipidemia, unspecified; J44.9 Chronic obstructive pulmonary disease, unspecified

== ENCOUNTER 2016-10-19 14:18 | Inpatient (IN) | payer MEDICARE ==
[~2016-10-19] VITALS: Ht 156.2 cm; Wt 63.2 kg
[2016-10-19] VITALS (38 sets, daily range): BP systolic 92–151; BP diastolic 49–88; BMI 26.0
--- NOTE | 2016-10-19 14:08 | NUR ---
REC'D PT VIA WHEELCHAIR FROM ADMISSIONS. PT AAOX4, C/O PRESSURE IN CHEST. PTS DAUGHTER AND GRAND DAUGHTER ACCOMPANIED HER. ASSESSMENT COMPLETED, SEE FLOW SHEET. ROOM FREE OF CLUTTER, CALL LIGHT IN REACH, WILL CONTINUE TO MONITOR PT.
[~2016-10-19 14:18] MED LIST changes: +INCRUSE ELLI62.5 MCG INH; +ISOSORBIDE MONO60 M1 PO
--- NOTE | 2016-10-19 15:00 | NUR ---
20G PIV TO RIGHT FOREARM, FLUSHES EASILY, NO C/O PAIN, NO SIGNS OF INFILTRATION. WILL CONTINUE TO MONITOR PT.
--- NOTE | 2016-10-19 15:45 | NUR ---
DR. BOLES AT THE BEDSIDE
--- NOTE | 2016-10-19 16:00 | NUR ---
20G IV TO RIGHT AC, FLUSHES EASILY, NO PAIN, NO SIGNS OF INFILTRATION. WILL CONTINUE TO MONITOR PT.
--- NOTE | 2016-10-19 16:28 | NUR ---
AT THE BEDSIDE SPEAKING WITH PT.
[2016-10-19 18:04] LABS: HEMATOCRIT 37.1 % (36.0-48.0); HEMOGLOBIN 12.6 g/dL (12-16); MCH 29.6 pg (26.0-34.0); MCV 87.3 fL (80.0-100.0); MEAN PLATELET VOLUME 8.7 fL (7.4-10.4); RBC 4.25 10x6/uL (4.00-5.40); RDW 12.4 % (11.5-14.5); WBC 7.3 10x3/uL (4.8-10.8)
[2016-10-19 18:07] LABS: PLATELET COUNT 284 10x3/uL (130-400)
[2016-10-19 18:12] LABS: APTT 31.5 SECONDS (22.8-39.4); INR 0.89 (0.85-1.17); PROTIME 11.9 SECONDS (11.6-15.0)
[2016-10-19 18:19] LABS: ALKALINE PHOSPHATASE 101 U/L (46-116); ALT (SGPT) 27 U/L (10-68); BILIRUBIN - TOTAL 0.28 mg/dL (0.2-1.3); CALC OSMOLALITY 253 mosm/kg (275-300); CALCIUM 9.6 mg/dL (8.5-10.1); CARBON DIOXIDE 30.3 mmol/L (21.0-32.0); CHLORIDE - SERUM 93 mmol/L (98-107); CREATININE - SERUM 0.6 mg/dL (0.6-1.3); GLUCOSE 90 mg/dL (74-106); POTASSIUM - SERUM 3.8 mmol/L (3.5-5.1); PROTEIN - SERUM 9.1 g/dL (6.4-8.2); SODIUM 127 mmol/L (136-145); UREA NITROGEN 10 mg/dL (7-18); eGFR NON AFRICAN AMERICAN > 90 mL/min (90-120)
[2016-10-19 18:21] LABS: PLT FUNCT.(P2Y12) PLAVIX 163 PRU (194-418)
--- NOTE | 2016-10-19 19:30 | NUR ---
REPORT RECIEVED. ASSESSMENT COMPLETE PER FLOW SHEET. PT AWAKE ALERT ORIENTED X3 EYES PERRLA 4MM BRISK. O2 VIA RA O2 SAT 98% RR 16 NON LABORED BILAT LUNGS CLEAR. HEART S1S2 HR 98 NSR. BP 98/56 VIA NIBP L ARM. NITRO INFUSING AT 16ML/HR DECREASED TO 15ML/HR WILL REASSESS BP. DENIES CHEST PAIN. BS ACTIVE X4 DENIES PAIN ABD SOFT NON TENDER. BILAT SCD'S ON NO NEW FINDINGS. BILAT RADIAL PEDAL PULSES PALP +2. R WRIST AND R AC PIV PATENT REFER TO FLOW SHEET FOR INFUSIONS. DENIES NEEDS. VSS. WILL CONTINUE TO MONITOR.
--- NOTE | 2016-10-19 21:12 | NUR ---
FAMILY AT BEDSIDE. GIVEN UPDATE. [facility] VSS. WILL CONTINUE TO MONITOR.
--- NOTE | 2016-10-19 22:10 | NUR ---
UP OOB TO BEDSIDE COMMODE. NO NEW FINDINGS. DENIES CP VSS WILL CONTINUE TO MONITOR.
--- NOTE | 2016-10-19 23:00 | NUR ---
REASSESSMENT COMPLETE NO NEW FINDINGS. VSS. PTT READ BACK 105 HEP. HELD FOR 30 MINUTES AND RATE CHANGE DECREASED DOWN 200MCG/HR FROM 1000MCG/HR. WILL REASSESS IN 6H PER PROTOCOL. NEEDS MET.
[2016-10-20] VITALS (89 sets, daily range): BP systolic 89–131; BP diastolic 40–90; Ht 156.2 cm; Wt 63.2 kg
--- NOTE | 2016-10-20 01:16 | NUR ---
UP OOB TO BEDSIDE COMMODE. 400 CC MERISSA URINE NOTED. DENIES CHEST PAIN OR NEEDS VSS WILL CONTINUE TO MONITOR.
--- NOTE | 2016-10-20 03:31 | NUR ---
REASSESSMENT COMPLETE PER FLOW SHEET. NO NEW FINDINGS. DENIES CHEST PAIN OR NEEDS. WILL CONTINUE TO MONITOR.
--- NOTE | 2016-10-20 05:16 | NUR ---
ASSISTED TO BEDSIDE COMMODE. 200 CC MERISSA URINE NOTED. DENIES CHEST PAIN AT THIS TIME. VSS. NO NEWCHANGES. WILL CONTINUE TO MONITOR.
[2016-10-20 06:13] LABS: HEMATOCRIT 33.8 % (36.0-48.0); HEMOGLOBIN 11.3 g/dL (12-16); MCH 29.1 pg (26.0-34.0); MCHC 33.4 g/dL (31.0-37.0); MCV 87.1 fL (80.0-100.0); MEAN PLATELET VOLUME 8.9 fL (7.4-10.4); RBC 3.88 10x6/uL (4.00-5.40); RDW 12.4 % (11.5-14.5)
--- NOTE | 2016-10-20 06:56 | NUR ---
PTT 68.6 NO CHANGE NEEDED AT THIS TIME. WILL REASSESS IN 6H.
--- NOTE | 2016-10-20 10:22 | NUR ---
0730 UP FROM BED, AMBULATED TO BATHROOM. VOIDED AND BRUSHED TEETH. BACK TO BEDSIDE. ALL VITALS WNL. AM ASSESSMENT DOCUMENTED PER FLOWSHEET. 1023 AM MEDS GIVEN PER JUL.
--- NOTE | 2016-10-20 19:35 | NUR ---
REC'D PT AWAKE, ALERT, ORIENTED X 3, RESTING IN BED ON ROOM AIR WATCHING TV, BBS CLEAR TO AUSCULTATION, MAEE, RIGHT WRIST PIV WITH NS @ 30CC/HR AND NITROGLYCERIN @ 5ML/HR, RIGHT A/C PIV WITH HEPARIN @ 800 UNITS/HR INCREASED TO 900 UNITS/HR PER HEPARIN PROTOCOL, PT REPORTS SMALL AMOUNT OF CP THAT HAS RESOLVED AFTER "LYING BACK AND RELAXING", BP STABLE, TRACE AMOUNT OF EDEMA NOTED TO ANKLES, ASSISTED PT TO REPOSITION FOOT OF BED TO ELEVATED FEET, CONTROL FOR BED PLACED IN PT'S REACH AND INSTRUCTIONS PROVIDED, PT DENIES FURTHER NEEDS, SR UP X 2, BED IN LOW POSITION, CALL LIGHT IN REACH.
--- NOTE | 2016-10-20 20:35 | NUR ---
PT ASSISTED UP TO BATHROOM, GAIT STEADY
--- NOTE | 2016-10-20 20:45 | NUR ---
PT ASSISTED BACK TO BED, EVENING MEDS GIVEN, BP STABLE 114/73, PT DENIES FURTHER NEEDS.
--- NOTE | 2016-10-20 21:00 | NUR ---
DAUGHTER AT BS, PT AND DAUGHTER INQUIRING ABOUT AN ADVANCE DIRECTIVE PACKET, PACKET PROVIDED AND QUESTIONS ANSWERED, PT DENIES FURTHER NEEDS, SR UP X 2, CALL LIGHT IN REACH.
--- NOTE | 2016-10-20 21:45 | NUR ---
PT COMPLAINS OF SLIGHT CHEST PRESSURE AFTER VISITATION, NITROGLYCERIN INCREASED TO 10CC/HR, BP 108/65, WILL MONITOR CLOSELY FOR CHANGES.
--- NOTE | 2016-10-20 22:00 | NUR ---
PT REPORTS NO CHEST PAIN AT THIS TIME, BP STABLE, PT DENIES NEEDS, SR UP X 2, CALL LIGHT IN REACH.
--- NOTE | 2016-10-20 23:30 | NUR ---
REASSESSMENT COMPLETED, PT RESTING ON SIDE IN BED EYES CLOSED, RESP EVEN AND UNLABORED, VSS, WILL CONT TO MONITOR FOR CHANGES.
[2016-10-21] VITALS (86 sets, daily range): BP systolic 90–149; BP diastolic 47–88
--- NOTE | 2016-10-21 02:00 | NUR ---
NO CHANGES IN STATUS AT THIS TIME.
--- NOTE | 2016-10-21 03:00 | NUR ---
PT ASSISTED UP TO BATHROOM, DENIES PAIN, BACK TO BED WITHOUT DIFFICULTY, PT REQUESTING A COKE FLOAT AT THIS TIME PROVIDED, DENIES FURTHER NEEDS.
--- NOTE | 2016-10-21 04:30 | NUR ---
NO CHANGES IN STATUS AT THIS TIME, VSS, WILL CONT TO MONITOR CLOSELY FOR CHANGES.
--- NOTE | 2016-10-21 06:15 | NUR ---
NO VISITORS IN AT THIS TIME, AM MEDS GIVEN, LAB AT FOR AM LAB DRAW, VSS.
[2016-10-21 06:36] LABS: HEMATOCRIT 34.8 % (36.0-48.0); HEMOGLOBIN 11.6 g/dL (12-16); MCH 29.2 pg (26.0-34.0); MCHC 33.3 g/dL (31.0-37.0); MCV 87.7 fL (80.0-100.0); MEAN PLATELET VOLUME 8.6 fL (7.4-10.4); RBC 3.97 10x6/uL (4.00-5.40); RDW 12.4 % (11.5-14.5); WBC 7.3 10x3/uL (4.8-10.8)
[2016-10-21 09:20] LABS: HEPATITIS C ANTIBODY 0.2 (0.0-0.9)
--- NOTE | 2016-10-21 09:30 | NUR ---
AM MEDS GIVEN WITH NO COMPLICATIONS. PATIENT SITTING UP IN BED. NO OTHER NEEDS AT THIS TIME.
--- NOTE | 2016-10-21 10:05 | NUR ---
NO CHEM PANEL OR XRAY PERFORMED THIS AM. NOTIFIED MAYTE ERICKSON TO SEE IF ORDERS NEED TO BE ENTERED.
--- NOTE | 2016-10-21 10:27 | NUR ---
PT UP TO TOILET. NO DISTRESS NOTED.
--- NOTE | 2016-10-21 10:38 | NUR ---
PT AMBULATED TO BATHROOM INDEPENDENTLY WITH NO COMPLICATIONS.
--- NOTE | 2016-10-21 13:41 | NUR ---
* Is the patient Alert and Oriented? Yes 0 * How many steps to enter\exit or inside your home? 3 0 * PCP Irma Jane APN ([facility]) 0 * Pharmacy [facility] [address] 0 * Preadmission Environment Home Alone 0 * ADLs Independent 0 * List name and contact numbers for known caregivers / representatives who currently or will assist patient after discharge: Daughter - Brit Brooke [phone] Daughter - Reanna Plummer [phone] 0 * Additional services required to return to the preadmission environment? No 0 * Can the patient safely return to the preadmission environment? Yes 0 * Has this patient been hospitalized within the prior 30 days at any hospital? No 10/21/2016 13:42 DCP: Discharge Planning Patient Name: CORRINE TOMLIN Admission Status: Urgent Accout number: [id number] Admission Date: 10-19-2016 : 1960 Admission Diagnosis: Attending: SIMONE Current LOS: 2 Anticipated DC Date: 10-29-2016 Planned Disposition: Home Primary Insurance: MEDICARE A & B Discharge Planning Comments: CM met with patient to assess dc plans/needs. Patient states she lives alone & is independent with all ADL's & IADL's, but has had difficulties performing these activities due to SOB & severe weakness. She denies having home health services in the past and was not using any assistive devices for mobility. At nd, she plans to return home. Her daughters will assist with any needs. She states she is but has been estranged from her for approximately 6 months. She has completed a Living Will / HealthCare POA Application & request a witness for completion. Spoke with Medical Records - Notary will come witness this afternoon. Answered questions and concerns. CM will follow. Summer Clerk: Elizabeth Baltazar
--- NOTE | 2016-10-21 13:47 | NUR ---
DR. MILLER WANTS PT TO BE PUT ON HUMIDIFIED O2 2L VIA NC.
--- NOTE | 2016-10-21 16:04 | NUR ---
DR. BOLES IN ROOM. ASKED ABOUT CHEST PAIN. INSTRUCTED PATIENT TO NOTIFY NURSING STAFF IF CHEST PAIN OCCURS. PATIENT DENIES CHEST PAIN AT THIS TIME. NITROGLYCERIN RUNNING AT 5 ML/HR. LET PATIENT KNOW CABG SCHEDULED FOR TUESDAY.
--- NOTE | 2016-10-21 18:03 | NUR ---
PT ACCIDENTLY PULLED OUT R AC IV. 22 GAUGE PERIPHERAL IV INSERTED ON RIGHT FOREARM. STICK X 1.
--- NOTE | 2016-10-21 19:12 | NUR ---
REPORT RECIEVED. ASSESSMENT COMPLETE PER FLOW SHEET. VSS. PT AWAKE ALERT ORIENTED X3. O2 VIA NC 2L O2 SAT 98% RR 16 NON LABORED BILAT LUNGS CLEAR. HEART S1S2 HR 98 NSR. BP 137/88 NITRO DPP AT 10ML/HR. DENIES CHEST PAIN AT THIS TIME AND WITH AMBULATION. BS ACTIVE X4. ABD SOFT NON TENDER. BILAT RADIAL AND PEDAL PULSES PALP +2. NO EDEMA NOTED X4 EXTREMETIES. GENERALIZED BODY BRUISING NOTED. GIVEN WATER PER REQUEST. ASSISTED TO BEDSIDE COMMODE 400 CC MERISSA URINE NOTED. DENEIS FURTHER NEEDS. WILL CONTINUE TO MONITOR.Y
--- NOTE | 2016-10-21 20:10 | NUR ---
PT C/O OF 5/10 CP, HR 99 NSR. BP 118/71. NITRO INCREASED TO 15ML/HR. WILL CONTINUE TO MONITOR.
--- NOTE | 2016-10-21 21:00 | NUR ---
PT DENIES RELEAF, CP STILL 5/10. HR 94 NSR BP 116/60 NITRO INCREASED TO 20.
--- NOTE | 2016-10-21 21:20 | NUR ---
NO VISITORS AT THIS TIME. VSS. WILLCONTINUE TO MONITOR.
--- NOTE | 2016-10-21 22:15 | NUR ---
PT STATES CP MINIMAL RELIEF RATES 3/10 HR 84 NSR. BP 124/74. NITRO INCREASED TO 25ML/HR
--- NOTE | 2016-10-21 23:15 | NUR ---
REASSESSMENT COMPLETE PER FLOW SHEET. VSS. NO NEW CHANGES. PT STATES CP RESOLVED AT THIS TIME. WILL CONTINUE TOMONITOR.
--- NOTE | 2016-10-21 23:34 | NUR ---
NITRO DECREASED TO 20ML/HR
--- NOTE | 2016-10-21 23:41 | NUR ---
PTT 71, NO RATE CHANGE NEEDED TO IV HEP PER PROTOCOL. WILL CONTINUE TO MONITOR.
[2016-10-22] VITALS (79 sets, daily range): BP systolic 90–144; BP diastolic 22–101
--- NOTE | 2016-10-22 01:12 | NUR ---
ASSISTED TO BEDSIDE COMMODE. 400 CC MERISSA URINE NOTED. DENIES CP OR NEEDS AT THIS TIME. WILL CONTINUE TO MONITOR.
--- NOTE | 2016-10-22 03:24 | NUR ---
REASSESSMENT COMPLETE PER FLOW SHEET. VSS. NO NEW CHANGES. WILL CONTINUE TO MONITOR.
[2016-10-22 05:37] LABS: HEMOGLOBIN 9.8 g/dL (12-16); MCH 29.1 pg (26.0-34.0); MCHC 32.7 g/dL (31.0-37.0); MEAN PLATELET VOLUME 8.3 fL (7.4-10.4); RBC 3.37 10x6/uL (4.00-5.40); RDW 12.5 % (11.5-14.5); WBC 6.7 10x3/uL (4.8-10.8)
--- NOTE | 2016-10-22 07:54 | NUR ---
PT ALERT AND ORIENTED. NO CHEST PAIN AT THIS TIME. R-FOREARM IV PATENT, NO SWELLING OR TENDERNESS NOTED. HEPARIN RUNNING AT 800 UNITS/HR. R-WRIST PERIPHERAL IV PATENT, NONTENDER. NS RUNNING AT 30ML/HR. NITROGLECERIN RUNNING AT 20ML/HR. HUMIDIFIED 02 AT 2L NC. RADIAL AND PEDAL PULSES PALPABLE. SKIN WARM AND DRY. BED LOW, CALL LIGHT AND PERSONAL ITEMS WITHIN REACH. NO NEEDS AT THIS TIME.
--- NOTE | 2016-10-22 08:55 | NUR ---
AM MEDS ADMINISTER WITH NO COMPLICATIONS. PT ATE 90% OF BREAKFAST TRAY. DRANK 360 ML OF ORAL FLUIDS. COFFEE AND WATER PROVIDE. NO OTHER NEEDS AT THIS TIME.
--- NOTE | 2016-10-22 09:10 | NUR ---
Nutrition follow-up: Diet: Regular PO intake ~100% of most meals Labs reviewed Pt scheduled for CABG 10/25/16 RDN following.
[2016-10-22 10:19] LABS: PLT FUNCT.(P2Y12) PLAVIX 271 PRU (194-418)
--- NOTE | 2016-10-22 10:45 | NUR ---
PT UP TO TOILET. NO DISTRESS NOTED.
--- NOTE | 2016-10-22 14:01 | NUR ---
PT RESTING. REPORTS NO CHEST PAIN AT THIS TIME.
--- NOTE | 2016-10-22 16:25 | NUR ---
URINE SAMPLE COLLECTED
--- NOTE | 2016-10-22 16:30 | NUR ---
PT RESTING, WATCHING TELEVISION. DENIES NEEDS AT THIS TIME. DENIES PAIN. CALL LIGHT IN REACH.
[2016-10-22 16:38] LABS: APPEARANCE CLEAR (CLEAR); BILIRUBIN NEGATIVE (NEGATIVE); COLOR STRAW (YELLOW); GLUCOSE NEGATIVE (NEGATIVE); KETONE NEGATIVE (NEGATIVE); LEUKOCYTE ESTERASE NEGATIVE (NEGATIVE); NITRITE NEGATIVE (NEGATIVE); PROTEIN NEGATIVE (NEGATIVE); UROBILINOGEN NORMAL (NORMAL)
--- NOTE | 2016-10-22 19:58 | NUR ---
1500 REASSESSMENT MISLABELED WITH 1300.
--- NOTE | 2016-10-22 23:15 | NUR ---
1914- REPORT RECVD. CARE. ASSUMED. INITIAIL ASSMNT COMPLETED. SEE FLOWSHEET FOR ALL FINDINGS. AWAKE AND AOX4. RESP EVEN AND UNLABORED. LUNGS CTA. SPO2 96% ON O2 AT 2.5 LPM NC. SR ON THE MONITOR. DENIES CHEST DISCOMFORT. NTG GTT TITRATION IN USE. SYS B/P WITHIN PARAMETERS. PULSES PALP. SCDS IN USE. AFEBRILE. UP WITH BRP. ABD SOFT, BSA X4. VOIDING NO DIFF. REPOSITIONS SELF INDEPENDENTLY. PO FLUIDS AT BEDSIDE. HEPARIN GTT IN PROGRESS. HOB UP. C/L IN REACH. CONT CURRENT POC. 2114- HS MEDS GIVEN. TITRATED NTG OFF AT THIS TIME. HS SNACK GIVEN. PO FLUIDS AT BEDSIDE. DENIES FURTHER NEEDS. HOB UP. C/L IN REACH. CONT CURRENT POC. 2314-REASSESSMENT COMPLEED. SEE FLOWSHEET FOR ALL FINDINGS. RESTFUL. AOX4. RESP EVEN AND UNLABORED. LUNGS CTA. SPO2 96% ON O2 AT 2.5 LPM NC. SR ON THE MONITOR. DENIES CHEST DISCOMFORT. NTG GTT TITRATION IN USE. SYS B/P WITHIN PARAMETERS. PULSES PALP. SCDS IN USE. AFEBRILE. UP WITH BRP. ABD SOFT, BSA X4. VOIDING NO DIFF. REPOSITIONS SELF INDEPENDENTLY. PO FLUIDS AT BEDSIDE. HEPARIN GTT IN PROGRESS. HOB UP. C/L IN REACH. CONT CURRENT POC.
[2016-10-23] VITALS (37 sets, daily range): BP systolic 90–141; BP diastolic 43–94
--- NOTE | 2016-10-23 00:13 | NUR ---
NO CHANGES TO HEPARIN GTT PER PROTOCOL AT 69.4 GTT REMAINS AT 900 UNITS/HR.
--- NOTE | 2016-10-23 03:15 | NUR ---
REASSESSMENT COMPLEED. SEE FLOWSHEET FOR ALL FINDINGS. RESTFUL. AOX4. RESP EVEN AND UNLABORED. LUNGS CTA. SPO2 96% ON O2 AT 2.5 LPM NC. SR ON THE MONITOR. DENIES CHEST DISCOMFORT. NTG GTT TITRATION IN USE. SYS B/P WITHIN PARAMETERS. PULSES PALP. SCDS IN USE. AFEBRILE. UP WITH BRP. ABD SOFT, BSA X4. VOIDING NO DIFF. REPOSITIONS SELF INDEPENDENTLY. PO FLUIDS AT BEDSIDE. HEPARIN GTT IN PROGRESS. HOB UP. C/L IN REACH. CONT CURRENT POC.
--- NOTE | 2016-10-23 05:00 | NUR ---
RESTING IN BED NO DISTRESS. VSS. C/L IN REACH. CONT POC.
[2016-10-23 05:26] LABS: BASOPHILS 0.1 % (0-2); EOSINOPHILS 2.6 % (0-7); HEMATOCRIT 33.4 % (36.0-48.0); HEMOGLOBIN 10.9 g/dL (12-16); IMMATURE GRANULOCYTES 0.2 % (0-5); LYMPHOCYTES 22.4 % (15-50); MCHC 32.6 g/dL (31.0-37.0); MCV 88.8 fL (80.0-100.0); MEAN PLATELET VOLUME 8.7 fL (7.4-10.4); MONOCYTES 8.7 % (2-11); PLATELET COUNT 247 10x3/uL (130-400); RBC 3.76 10x6/uL (4.00-5.40); RDW 12.6 % (11.5-14.5); WBC 8.2 10x3/uL (4.8-10.8)
[2016-10-23 05:51] LABS: CALC OSMOLALITY 272 mosm/kg (275-300); CALCIUM 9.2 mg/dL (8.5-10.1); CHLORIDE - SERUM 101 mmol/L (98-107); CREATININE - SERUM 0.7 mg/dL (0.6-1.3); GLUCOSE 103 mg/dL (74-106); MAGNESIUM - SERUM 1.8 mg/dL (1.8-2.4); PHOSPHOROUS 4.3 mg/dL (2.5-4.9); POTASSIUM - SERUM 3.8 mmol/L (3.5-5.1); PRO BNP 309 pg/mL (0-125); SODIUM 137 mmol/L (136-145); UREA NITROGEN 10 mg/dL (7-18); eGFR NON AFRICAN AMERICAN > 90 mL/min (90-120)
--- NOTE | 2016-10-23 06:45 | NUR ---
NO CHANGE TO HEPARIN GTT. WITHIN THERAPEUTIC RANGE.
--- NOTE | 2016-10-23 11:00 | NUR ---
INCREASED HEPARIN DRIP TO 1000 UNITS/HR PER PROTOCOL.
--- NOTE | 2016-10-23 13:32 | HP ---
PATIENT: CORRINE TOMLIN MEDICAL RECORD: [id number] ACCOUNT: [id number] LOCATION:[facility].CV06 : 56 ADMISSION DATE: 10/19/16 HISTORY AND PHYSICAL EXAMINATION CORRINE Day (56yo, F) ID# [id number]. 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 Prescription: [facility] MEDICAID ADMINISTRATION - Member is eligible. Chief Complaint Coronary artery disease s/p LCEA 10/01/13 CAD Patient's Care Team Referring Provider (): JOSE ROBERTO MASON APN: [address] [place] [address] [place] [address], , Referring Provider: MAGGI DIGGS MD: [address] [place] [phone], , Notes: [facility] ([place] [address] [facility] [address], , [facility] ([place]): [address] [facility] [address], [facility] [place] [address], , Vitals BP:112/70 sitting R arm 10/19/2016 01:08 pmHR:80R/R 10/19/2016 01:08 pmHt:5 ft 1 in 10/19/2016 01:04 pmWt:139 lbs 10/19/2016 01:07 pmBMI:26.3 10/19/2016 01:07 pmAllergies Reviewed Allergies NKDAMedications Medications not reviewed (last reviewed 06/09/2016) Adult Low Dose Aspirin 81 mg tablet,delayed release Take 1 tablet(s) every day by oral route.07/24/14 enteredCharity McAllisterChantix Starting Month Box 0.5 mg (11)-1 mg (42) tablets in dose pack03/15/16 filledCaremarkclopidogrel 75 mg /25/17 filledCaremarkfluconazole 150 mg segumo90/14/16 filledCaremarkFLUoxetine 20 mg /16/17 filledCaremarkfluticasone 50 mcg/actuation nasal spray,winszhwrmc52/25/17 filledCaremarkgabapentin 300 mg izpfsab40/01/17 filledCaremarkhydroCHLOROthiazide 25 mg /25/17 filledCaremarkIncruse Ellipta 62.5 mcg/actuation powder for inhalation Inhale 1 puff(s) every day by inhalation route.10/07/16 filledCaremarkipratropium-albuterol 0.5 mg-3 mg(2.5 mg base)/3 mL nebulization soln Inhale 3 mL 4 times a day by nebulization route. Note: continue rxn107/01/15 Dickson Linares MDisosorbide mononitrate ER 60 mg tablet,extended release 24 hr10/15/16 filledCaremarkmetoprolol tartrate 25 mg tablet 1/2 tablet twice daily10/07/16 filledCaremarkmetoprolol tartrate 50 mg HISTORY AND PHYSICAL [id number] CORRINE TOMLIN gpxhea39/10/14 filledCaremarkmontelukast 10 mg tablet 1 PO AT QRHGZWE96/25/17 filledCaremarknitroglycerin 0.2 mg/hr transdermal 24 hour patch07/30/16 filledCaremarknitroglycerin 0.4 mg sublingual pmedkh49/13/17 filledCaremarkomeprazole 20 mg capsule,delayed release Take 1 capsule(s) every day by oral route for 30 days.04/28/15 Ameya Herreraravastatin 40 mg /30/17 filledCaremarkpromethazine 6.25 mg-codeine 10 mg/5 mL syrup Take 5 mL every 6 hours by oral route.04/27/16 Ameya Herreraromethazine 6.25 mg/5 mL syrup03/29/16 filledCaremarkSpiriva with HandiHaler 18 mcg and inhalation capsules Inhale 1 capsule(s) every day by inhalation route as directed.01/30/16 auth requestedShital Rosario Perles 100 mg capsule Take 2 capsule(s) 3 times a day by oral route for 30 days.04/27/16 Dickson Linares MDtrradhamcinolone acetonide 0.1 % topical cream04/17/16 filledCaremarkVentolin HFA 90 mcg/actuation aerosol ixaloch75/02/17 filledCaremarkZostavax (PF) 19,400 unit/0.65 mL subcutaneous raozcxmsgg13/06/16 filledCaremarkVaccines Vaccines not reviewed (last reviewed 06/09/2016) Vaccine TypeDateAmt.RouteSiteLot #Mfr.Exp. DateDate on VISVIS GivenVaccinatorInfluenzainfluenza, high dose [id number] polysaccharide [id number] Reviewed Problems Acute coronary syndrome - Onset: 10/19/2016 Chronic obstructive lung disease Asthma Gastroesophageal reflux disease Sleep related hypoxemia Bronchitis Hypertensive disorder Atelectasis Cough Coronary arteriosclerosis Hyperlipidemia Allergic rhinitis Carotid artery stenosis, Bilateral Obstructive sleep apnea syndrome Candidiasis of mouth Family History Discussed Family History Mother- Heart diseaseMaternal Grandmother- Heart diseaseSocial History Discussed Social History Cardiology and General Family history of heart disease?: Y Smoking Status: Former smoker (Notes: quit 2010) Non-smoker High Cholesterol: Y High blood pressure: Y Alcohol intake: None Marital status: Single Caffeine intake: Occasional HISTORY AND PHYSICAL [id number] CORRINE TOMLIN Chewing tobacco: none Surgical History Reviewed Surgical History Other - 06/2014 - PTCA/stent Exploration carotid artery - 2013 - left side Other - 04/15/2013 - PTCA/Stent Other - 12/2012 - RCEA Exploration carotid artery - 2012 - right side [employer] History (not configured) Obstetric History Obstetric History not reviewed (last reviewed 06/09/2016) Past Medical History Discussed Past Medical History Alcoholism: Y Arrhythmia: Y - [place] COPD: Y Carotid Stenosis: Y Coronary Artery Disease: Y - [place] X 2 Depression: Y Heart Disease: Y - heart attack High Blood Pressure: Y Shortness of Breath: Y Notes: fibromyalgia Documents for Discussion N/A Screening None recorded. HPI Coronary Artery Disease F/U Reported by patient. Severity: chest discomfort with household activities/yard work ("at rest. put my self on a nitroblycerin patch. 0.2mh/hr"); has used Nitroglycerin Context: smoker Associated Symptoms: chest pain with exertion; dyspnea with exertion Notes: O2 at night unstable and nocturnal angina ROS Patient reports exercise intolerance but reports no fever, no night sweats, no significant weight gain, and no significant weight loss. She reports vision change but reports no dry eyes and no irritation. She reports difficulty hearing and ear pain. She reports nose/sinus problems but reports no frequent nosebleeds. She reports snoring and dry mouth but reports no sore throat, no bleeding gums, no mouth ulcers, no oral abnormalities, and no teeth problems. She reports shortness of breath when walking but reports no chest pain, no arm pain on exertion, no palpitations, and no known heart murmur. She reports cough, wheezing, and shortness of breath but reports no coughing up blood. She reports muscle aches, muscle weakness, and arthralgias/joint pain but reports no back pain and no swelling in the extremities. She reports itching and dry skin but reports no abnormal mole, no jaundice, and no rashes. She reports weakness and numbness but reports no loss of consciousness, no seiz ures, no dizziness, and no headaches. She reports depression and sleep disturbances but reports feeling safe in relationship and no alcohol abuse. She reports fatigue. She reports swollen glands, easy bruising, and excessive HISTORY AND PHYSICAL [id number] CORRINE TOMLIN bleeding. She reports sinus pressure, itching, and hives but reports no runny nose and no frequent sneezing. She reports no jugular vein distension and no swollen glands. She reports no abdominal pain, no vomiting, normal appetite, no diarrhea, not vomiting blood, no nausea, and no cons tipation. She reports no incontinence, no difficulty urinating, no hematuria, and no increased frequency. ROS as noted in the HPI Physical Exam Patient is a 56-year-old female. Constitutional: General Appearance: well nourished and well developed. Level of Distress: no acute distress. Ambulation: ambulating normally. Ears: Cerumen negative. Canal: no erythema or swelling. Tympanic Membrane: no bulging or fluid and perforated. Nasal: Nasal Mucosa: edematous and irritated and no discharge. Septum: not markedly deformed. Oropharynx: Lips, Teeth, and Gums normal dentition and lips. Oral Mucosa no ulcer, mass, inflammation, swelling, or leukoplakia and moist. Palate: normal hard palate and soft palate. Tongue: no erythema, lesions, enlargement, or swelling. Tonsils: no enlargement or lesions. Posterior Pharynx no enlargement, erythema, exudate, ulcers, mass, or white patches and cobblestoning. Neck: Neck: supple, trachea midline, no masses, and Full ROM; bilateral carotid bruits. Thyroid: no enlargement or nodules and non-tender. Jugular Veins: no jugular venous distention or caceres a waves present and normal jugular venous pressure. Lungs: Respiratory effort: unlabored. Inspection: normal curve and chest wall expansion; no deformity, tenderness, or swelling; and tactile fremitus present and equal on both sides. Auscultation: decreased breath sounds,. Percussion: no dullness, flatness, or hyperresonance. Cardiovascular: Precordial Exam: non displaced focal PMI. Heart Rate And Rhythm: normal heart rate and rhythm. Heart Sounds: no gallop, click, physiologically split S2, or pericardial friction rub and normal s1. Systolic Murmur: no systolic murmurs. Diastolic Murmur: no diastolic murmurs. Observation/Palpation o f peripheral vascular system: no cyanosis or varicosity changes and normal dorsalis pedis and posterior tibialis; bilateral carotid bruits. Abdomen: Inspection and Palpation: no tenderness or masses and soft and non-distended. Liver: non-tender and no hepa tomegaly. Spleen: non-tender and no splenomegaly. Bowel Sounds: normal and no abdominal bruits. Lymphatic: no cervical lymph enlargement, axillary LAD, inguinal LAD, femoral LAD, supraclavicular LAD, or popliteal LAD. Musculoskeletal:: Motor Strength and Tone: normal bulk, tone, and motor strength. Gait and Station: normal gait, station, and tandem gait. Joints, Bones, and Muscles: no contractures, malalignment, tenderness, scoliosis, kyphosis, or bony abnormalities and normal movement of all extremities; bilateral chest wall rib pain sensitive to palpation. Extremities: Inspection/Palpation of digits and nails: no clubbing, cyanosis, petechiae, ischemia, edema, or nodular lesions. HISTORY AND PHYSICAL [id number] CORRINE TOMLIN Skin: Inspection and palpation: no rash, lesions, jaundice, ulcer, erythema, or induration and normal turgor. Neurologic: Mental Status/Orientation: oriented to person, place, problem/situation, and time. Mood/Affect: normal mood and affect. Sensation sensation normal. Cranial Nerves cranial nerves II - XII i ntact. Deep Tendon Reflexes upper extremities positive and lower extremities positive. Assessment / Plan intermediate coronary syndrome 1. Acute coronary syndrome I24.9: Acute ischemic heart disease, unspecified 2. Coronary arteriosclerosis I25.10: Atherosclerotic heart disease of [place] coronary artery without angina pectoris 3. Chronic obstructive lung disease J44.9: Chronic obstructive pulmonary disease, unspecified CHRONIC OBSTRUCTIVE PULMONARY DISEASE (COPD): CARE INSTRUCTIONS LEARNING ABOUT COPD AND HOW TO PREVENT LUNG INFECTIONS 4. Asthma J45.909: Unspecified asthma, uncomplicated CONTROLLING YOUR ASTHMA: CARE INSTRUCTIONS LEARNING ABOUT ASTHMA 5. Hyperlipidemia E78.5: Hyperlipidemia, unspecified HIGH CHOLESTEROL: CARE INSTRUCTIONS 6. Carotid artery stenosis - Bilateral I65.29: Occlusion and stenosis of unspecified carotid artery CAROTID STENOSIS: CARE INSTRUCTIONS 7. Obstructive sleep apnea syndrome G47.33: Obstructive sleep apnea (adult) (pediatric) SLEEP APNEA: CARE INSTRUCTIONS Discussion Notes will need admission for unstable angina. I have discussed her disease process with her in detail as well as the alternative methods of treatment. We discussed coronary artery bypass and the expected benefits and risk which included bleedi ng, infection, stroke, , and the imponderables. She understands all of the above and wishes to proceed with planned procedure. She will be admitted for heparin drip and nitroglycerin IV. We'll check P2Y12 and early operation next week. HISTORY AND PHYSICAL [id number] CORRINE TOMLIN EDWARD MD at 1332 CC: [id number] DICTATION DATE: 10/19/16 1300 INSOLE BEVELER: ANDRE 10/19/16 1400 [place] [address]
--- NOTE | 2016-10-23 16:57 | NUR ---
PHLEBO AT BEDSIDE DRAWING LAB.
--- NOTE | 2016-10-23 17:30 | NUR ---
NO CHANGE IN HEPARIN GTT.
--- NOTE | 2016-10-23 23:15 | NUR ---
1929- REPORT RECVD. CARE ASSUMED. INITIAL ASSMNT COMPLETED. SEE FLOWSHEET FOR ALL FINDINGS. AWAKE AOX4. UP IN CHAIR. SPO2 97% ON O2 AT 2.5 LPM NC. SR ON THE MONITOR. DENIES CHEST DISCOMFORT. NTG GTT TITRATION IN USE. SYS B/P WITHIN PARAMETERS. PULSES PALP. SCDS IN USE. AFEBRILE. UP WITH BRP. ABD SOFT, BSA X4. VOIDING NO DIFF. REPOSITIONS SELF INDEPENDENTLY. PO FLUIDS AT BEDSIDE. HEPARIN GTT IN PROGRESS. HOB UP. C/L IN REACH. CONT CURRENT POC. 2114- HS MEDS GIVEN. TITRATED NTG OFF AT THIS TIME. HS SNACK GIVEN. PO FLUIDS AT BEDSIDE. DENIES FURTHER NEEDS. HOB UP. C/L IN REACH. CONT CURRENT POC. 2315-REASSESSMENT COMPLEED. SEE FLOWSHEET FOR ALL FINDINGS. ANXIOUS AND AWAKE, AOX4. RESP EVEN AND UNLABORED. LUNGS CTA. SPO2 96% ON O2 AT 2.5 LPM NC. SR ON THE MONITOR. DENIES CHEST DISCOMFORT. NTG GTT TITRATION IN USE. SYS B/P WITHIN PARAMETERS. PULSES PALP. SCDS IN USE. AFEBRILE. UP WITH BRP. ABD SOFT, BSA X4. VOIDING NO DIFF. REPOSITIONS SELF INDEPENDENTLY. PO FLUIDS AT BEDSIDE. HEPARIN GTT IN PROGRESS. HOB UP. C/L IN REACH. CONT CURRENT POC.
[2016-10-24] VITALS (59 sets, daily range): BP systolic 92–144; BP diastolic 44–93
--- NOTE | 2016-10-24 00:07 | NUR ---
NO CHANGE TO HEPARIN GTT. LEVEL IS IN THERAPEUTIC LEVEL.
--- NOTE | 2016-10-24 02:15 | NUR ---
PT REQUESTED PRN AMBIEN FOR INSOMNIA. FEELING ANXIOUS AND RESTLESS. VSS. UP TO BR TO VOID NO DIFF. CONT TO MONITOR.
--- NOTE | 2016-10-24 03:15 | NUR ---
REASSESSMENT COMPLEED. SEE FLOWSHEET FOR ALL FINDINGS. RESTING. RESP EVEN AND UNLABORED. LUNGS CTA. SPO2 96% ON O2 AT 2.5 LPM NC. SR ON THE MONITOR. DENIES CHEST DISCOMFORT. NTG GTT TITRATION IN USE. SYS B/P WITHIN PARAMETERS. PULSES PALP. SCDS IN USE. AFEBRILE. UP WITH BRP. ABD SOFT, BSA X4. VOIDING NO DIFF. REPOSITIONS SELF INDEPENDENTLY. PO FLUIDS AT BEDSIDE. HEPARIN GTT IN PROGRESS. HOB UP. C/L IN REACH. CONT CURRENT POC.
[2016-10-24 04:52] LABS: BASOPHILS 0.3 % (0-2); EOSINOPHILS 3.3 % (0-7); HEMOGLOBIN 10.5 g/dL (12-16); IMMATURE GRANULOCYTES 0.1 % (0-5); LYMPHOCYTES 23.2 % (15-50); MCH 29.1 pg (26.0-34.0); MCHC 32.8 g/dL (31.0-37.0); MCV 88.6 fL (80.0-100.0); MEAN PLATELET VOLUME 8.1 fL (7.4-10.4); MONOCYTES 9.8 % (2-11); NEUTROPHILS 63.3 % (40-80); PLATELET COUNT 229 10x3/uL (130-400); RBC 3.61 10x6/uL (4.00-5.40); RDW 12.5 % (11.5-14.5); WBC 7.8 10x3/uL (4.8-10.8)
[2016-10-24 05:05] LABS: HEMOGLOBIN A1C 6.2 % (4.8-6.0)
--- NOTE | 2016-10-24 05:05 | NUR ---
PT RETURNED FROM XRAY VIA W/C. VSS. REMAINS IN NSR. REPOSITIONED SELF IN BED FOR COMFORT. C/L IN REACH. CONT CURRENT POC.
[2016-10-24 05:19] LABS: ALBUMIN 3.1 g/dL (3.4-5.0); ALKALINE PHOSPHATASE 78 U/L (46-116); ALT (SGPT) 29 U/L (10-68); BILIRUBIN - TOTAL 0.35 mg/dL (0.2-1.3); CALC OSMOLALITY 270 mosm/kg (275-300); CARBON DIOXIDE 29.7 mmol/L (21.0-32.0); CHLORIDE - SERUM 101 mmol/L (98-107); CHOLESTEROL, TOTAL 145 mg/dL (0-200); CREATININE - SERUM 0.8 mg/dL (0.6-1.3); FERRITIN 62 ng/mL (3-244); GLUCOSE 100 mg/dL (74-106); MAGNESIUM - SERUM 1.7 mg/dL (1.8-2.4); PHOSPHOROUS 3.5 mg/dL (2.5-4.9); POTASSIUM - SERUM 4.1 mmol/L (3.5-5.1); PROTEIN - SERUM 7.4 g/dL (6.4-8.2); SODIUM 136 mmol/L (136-145); T4 THYROXIN - FREE 0.93 ng/dL (0.76-1.46); THYROID STIMULATING HORMONE 1.93 uIU/mL (0.36-3.74); UREA NITROGEN 10 mg/dL (7-18); URIC ACID 3.7 mg/dL (2.6-7.2); eGFR NON AFRICAN AMERICAN 78 mL/min (90-120)
--- NOTE | 2016-10-24 05:44 | NUR ---
NO CHANGES TO HEPARIN GTT RATE. REMAINS AT 1000 UNITS/HR. LEVEL AT THERAPEUTIC RANGE.
[2016-10-24 06:25] LABS: % SATURATION 25 % (15-55); IRON 75 ug/dl (35-150); TOTAL IRON BIND CAPACITY 300 ug/dl (260-445); UNSAT IRON BIND CAPACITY 225 ug/dl (150-375)
[2016-10-24 11:48] LABS: HEMATOCRIT 34.1 % (36.0-48.0); MCH 28.8 pg (26.0-34.0); MCHC 32.3 g/dL (31.0-37.0); MCV 89.3 fL (80.0-100.0); MEAN PLATELET VOLUME 8.6 fL (7.4-10.4); PLATELET COUNT 280 10x3/uL (130-400); RBC 3.82 10x6/uL (4.00-5.40); RDW 12.7 % (11.5-14.5); WBC 7.3 10x3/uL (4.8-10.8)
[2016-10-24 11:52] LABS: PLT FUNCT.(P2Y12) PLAVIX 271 PRU (194-418)
[2016-10-24 11:56] LABS: APTT 50.6 SECONDS (22.8-39.4); INR 0.91 (0.85-1.17); PROTIME 12.1 SECONDS (11.6-15.0)
--- NOTE | 2016-10-24 12:20 | NUR ---
HEPARIN DRIP ADJUSTED PER PROTOCOL.
[2016-10-24 12:38] LABS: COLD SCREEN @ 4 DEGREES NEGATIVE (NEGATIVE); COLD SCREEN ROOM TEMP NEGATIVE (NEGATIVE)
--- NOTE | 2016-10-24 17:40 | NUR ---
NO CHANGE IN HEPARIN DRIP PER PROTOCOL.
--- NOTE | 2016-10-24 23:30 | NUR ---
1929- REPORT RECVD. CARE ASSUMED. INITIAL ASSMNT COMPLETED. SEE FLOWSHEET FOR ALL FINDINGS. AWAKE AOX4. UP IN CHAIR. SPO2 97% ON O2 AT 2.5 LPM NC. SR ON THE MONITOR. DENIES CHEST DISCOMFORT. NTG GTT TITRATION IN USE. SYS B/P WITHIN PARAMETERS. PULSES PALP. SCDS IN USE. AFEBRILE. UP WITH BRP. ABD SOFT, BSA X4. VOIDING NO DIFF. REPOSITIONS SELF INDEPENDENTLY. PO FLUIDS AT BEDSIDE. HEPARIN GTT IN PROGRESS. HOB UP. C/L IN REACH. CONT CURRENT POC. 2100- HS MEDS GIVEN. TITRATED NTG OFF AT THIS TIME. PRN AMBIEN PER REQUEST. HS SNACK GIVEN. PO FLUIDS AT BEDSIDE. DENIES FURTHER NEEDS. HOB UP. C/L IN REACH. CONT CURRENT POC. 2315-REASSESSMENT COMPLEED. SEE FLOWSHEET FOR ALL FINDINGS. ANXIOUS AND AWAKE, AOX4. RESP EVEN AND UNLABORED. LUNGS CTA. SPO2 96% ON O2 AT 2.5 LPM NC. SR ON THE MONITOR. DENIES CHEST DISCOMFORT. NTG GTT TITRATION IN USE. SYS B/P WITHIN PARAMETERS. PULSES PALP. SCDS IN USE. AFEBRILE. UP WITH BRP. ABD SOFT, BSA X4. VOIDING NO DIFF. REPOSITIONS SELF INDEPENDENTLY. HEPARIN GTT IN PROGRESS. VERBALIZES UNDERSTANDING R/T NPO AFTER MN. ALL BEDSIDE FLUIDS REMOVED. HOB UP. C/L IN REACH. CONT CURRENT POC.
[2016-10-25] VITALS (64 sets, daily range): BP systolic 88–140; BP diastolic 7–91
--- NOTE | 2016-10-25 01:05 | NUR ---
RESTING SIDE LYING WITH NO DISTRESS. VSS. C/L IN REACH. CONT CURRENT POC.
--- NOTE | 2016-10-25 03:30 | NUR ---
REASSESSMENT COMPLEED. SEE FLOWSHEET FOR ALL FINDINGS. RESTING. RESP EVEN AND UNLABORED. LUNGS CTA. SPO2 96% ON O2 AT 2.5 LPM NC. SR ON THE MONITOR. DENIES CHEST DISCOMFORT. NTG GTT TITRATION IN USE. SYS B/P WITHIN PARAMETERS. PULSES PALP. SCDS IN USE. AFEBRILE. UP WITH BRP. ABD SOFT, BSA X4. VOIDING NO DIFF. REPOSITIONS SELF INDEPENDENTLY. DENIES NEEDS. HOB UP. C/L IN REACH. CONT CURRENT POC.
--- NOTE | 2016-10-25 05:00 | NUR ---
HIBICLENS BATH AND FINAL CLIPPING COMPLETED. LINENS CHANGED.
[2016-10-25 05:41] LABS: BASOPHILS 0.3 % (0-2); EOSINOPHILS 3.6 % (0-7); HEMATOCRIT 33.3 % (36.0-48.0); IMMATURE GRANULOCYTES 0.2 % (0-5); LYMPHOCYTES 24.8 % (15-50); MCH 29.4 pg (26.0-34.0); MEAN PLATELET VOLUME 8.4 fL (7.4-10.4); MONOCYTES 9.8 % (2-11); NEUTROPHILS 61.3 % (40-80); PLATELET COUNT 253 10x3/uL (130-400); RBC 3.74 10x6/uL (4.00-5.40); RDW 12.7 % (11.5-14.5); WBC 6.7 10x3/uL (4.8-10.8)
--- NOTE | 2016-10-25 05:45 | NUR ---
PER DR LESLIE VIA PHONE. PRE OP MEDS GIVEN. NITRO PASTE TO BOTH WRISTS.
[2016-10-25 06:03] LABS: CALC OSMOLALITY 270 mosm/kg (275-300); CALCIUM 9.2 mg/dL (8.5-10.1); CARBON DIOXIDE 27.3 mmol/L (21.0-32.0); CHLORIDE - SERUM 101 mmol/L (98-107); CREATININE - SERUM 0.8 mg/dL (0.6-1.3); GLUCOSE 95 mg/dL (74-106); PHOSPHOROUS 3.9 mg/dL (2.5-4.9); POTASSIUM - SERUM 3.9 mmol/L (3.5-5.1); SODIUM 136 mmol/L (136-145); UREA NITROGEN 10 mg/dL (7-18); eGFR NON AFRICAN AMERICAN 78 mL/min (90-120)
--- NOTE | 2016-10-25 06:50 | NUR ---
PT TRANSPORTING TO OR VIA BED WITH OR TEAM. DR LESLIE, DESSERT CUP MACHINE FEEDER AND SUNDAY STERLING AT BEDSIDE.
[2016-10-25 08:08] LABS: PLT FUNCT.(P2Y12) PLAVIX 294 PRU (194-418)
--- NOTE | 2016-10-25 09:13 | NUR ---
NUTRITION MONITORING & EVAL CHART REVIEWED. PT OOR FOR PROCEDURE. WILL PROVIDE DIET WHEN RESUMED. MONITOR PT PROGRESS. RD FOLLOWING
[2016-10-25 13:27] LABS: HEMATOCRIT 30.8 % (36.0-48.0); HEMOGLOBIN 10.5 g/dL (12-16); MCH 30.7 pg (26.0-34.0); MCHC 34.1 g/dL (31.0-37.0); MCV 90.1 fL (80.0-100.0); MEAN PLATELET VOLUME 8.9 fL (7.4-10.4); RBC 3.42 10x6/uL (4.00-5.40); RDW 13.1 % (11.5-14.5)
[2016-10-25 13:35] LABS: WBC 13.8 10x3/uL (4.8-10.8)
[2016-10-25 13:43] LABS: APTT 41.8 SECONDS (22.8-39.4)
[2016-10-25 13:44] LABS: INR 1.24 (0.85-1.17); PROTIME 15.5 SECONDS (11.6-15.0)
[2016-10-25 13:45] LABS: CALC OSMOLALITY 285 mosm/kg (275-300); CALCIUM 7.6 mg/dL (8.5-10.1); CARBON DIOXIDE 23.3 mmol/L (21.0-32.0); CHLORIDE - SERUM 105 mmol/L (98-107); CREATININE - SERUM 0.5 mg/dL (0.6-1.3); GLUCOSE 207 mg/dL (74-106); POTASSIUM - SERUM 4.3 mmol/L (3.5-5.1); SODIUM 141 mmol/L (136-145); UREA NITROGEN 10 mg/dL (7-18); eGFR NON AFRICAN AMERICAN > 90 mL/min (90-120)
--- NOTE | 2016-10-25 13:48 | NUR ---
PT RETURNED TO ROOM AFTER SURGERY. SEE ASSESSMENT.
--- NOTE | 2016-10-25 17:00 | NUR ---
RECEIVED PT FOR CARE FROM THAI TENORIO RN. PT IN BILATERAL SOFT WRIST RESTRAINTS. PT RESTING COMFORTABLY AT THIS TIME. INVOS MONITOR: LEFT-65 RIGHT-63. MINIMAL CHEST TUBE OUTPUT. VSS AT THIS TIME. KCL RIDER INFUSING THROUGH BURETROL. SINUS RHYTHM ON MONITOR. RATE 95.
--- NOTE | 2016-10-25 19:15 | NUR ---
REPORT REC'D AND CARE ASSUMED, REC'D PT ON VENT VIA 7.0 ETT TAPED AT 22CM LIPLINE SEE FLOWSHEET FOR VENT SETTINGS, OGT TAPED SECURELY TO ETT, PLACEMENT VERIFIED VIA SM AIR BOLUS AUSCULTATED OVER EPIGASTRIM, RIJ SWAN YOSVANY SITTING AT APPROX 47CM, PRBC TUBING TO PROXIMAL LIMB OF SWAN, CORDIS WITH ZINACEF @ 11.4 AND INSULIN @ 2UNITS/HR, MANNIFOLD TO PROXIMAL INFUSION WITH PLASMALYTE @ 100CC/HR AND DOPAMINE @ 5MCG/KG/MIN OR 11.6CC/HR, MIDSTERNAL DRSG CDI, LEFT RADIAL ASHLEY FLEXION BOARD IN USE, LEVELED AND ZEROED WITH RETURN OF APPROPRIATE WAVEFORM, SUBSTERNAL DRSG CDI WITH MEDIASTINAL X 2 AND PLEURAL X 1 CT'S TO 20CM H20 SUCTION NO AIR LEAK NOTED, COBAN DRSG TO RIGHT LEG WITH SERENA DRAIN X 1 COMPRESSED WITH BLOODY DRAINAGE, STEFAN /SCD TO LEFT LEG, PP BY DOPPLER, PT AWAKENS TO VERBAL STIMULI, FOLLOWING COMMANDS, NODDING YES AND NO APPROPRIATELY, BILAT SOFT WRIST RESTRAINTS INTACT, 1:1 NURSE IN DOORWAY.
--- NOTE | 2016-10-25 20:30 | NUR ---
ROUTINE MEDS GIVEN, ORAL CARE PROVIDED.
--- NOTE | 2016-10-25 21:00 | NUR ---
PT REPOSITIONED ONTO RIGHT SIDE SUPPORTED WITH PILLOWS, ORAL CARE PROVIDED, PT MORE AWAKE AT THIS TIME.
--- NOTE | 2016-10-25 21:15 | NUR ---
PT COUGHING AND GAGGING ON ETT, SMALL AMOUNT EMESIS NOTED AROUND ETT, ORAL CARE PROVIDED, REGLAN GIVEN SLOW IVP, EVENING MEDS HELD AT THIS TIME, NO VISITORS IN.
--- NOTE | 2016-10-25 21:55 | NUR ---
RT AT BS, PT MORE AWAKE FOLLOWING COMMANDS, VENT CHANGED TO SIMV
--- NOTE | 2016-10-25 21:55 | NUR ---
RT AT BS, PT MORE AWAKE, FOLLOWING COMMANDS, PT CHANGED TO SIMV
--- NOTE | 2016-10-25 22:30 | NUR ---
ABG DRAWN AND RATE DECREASED TO 12, TREATING ABG VALUES PER STANDING ORDERS.
--- NOTE | 2016-10-25 22:35 | NUR ---
CM- 7 BEAT RUN OF VTACH NOTED THEN RETURNED TO SR @ 95, PT RESTING EYES CLOSED ON VENT, BP 101/57
--- NOTE | 2016-10-25 22:55 | NUR ---
DR. BOLES NOTIFIED OF VTACH, ABG VALUES AND UPDATE GIVEN, NEW ORDERS REC'D.
--- NOTE | 2016-10-25 23:15 | NUR ---
REASSESSMENT COMPLETE, PT REMAINS ON VENT, RT WEANING TOLERATED, PT MORE AWAKE FOR LONGER PERIODS OF TIME, REMAINS CALM ON VENT, CM-SR WITH OCCASIONAL PVC'S, TEMP P/M VVI 60 VMA 10 CURRENTLY SENSING, CT'S REMAIN TO 20CM H2O SUCTION, NO AIR LEAK NOTED, SEE FLOWSHEET FOR GTT'S, WILL CONT TO MONITOR CLOSELY FOR CHANGES.
[2016-10-26] VITALS (96 sets, daily range): BP systolic 92–138; BP diastolic 50–75
--- NOTE | 2016-10-26 | NUR ---
RT AT BS, RATE DECREASED TO 10, PT REMAINS CALM AND COOPERATIVE.
--- NOTE | 2016-10-26 02:00 | NUR ---
RT AT BS, PT PLACED ON CPAP, RESP RATE 17-23, BP 133/71, WILL CONT TO MONITOR CLOSELY FOR CHANGES.
--- NOTE | 2016-10-26 02:45 | NUR ---
NIF AND VC DONE WITH PT, VALUES BORDERLINE, PT REPOSITIONED UP IN BED AND ALLOWED TO REST WILL TRY AGAIN IN AN HOUR
--- NOTE | 2016-10-26 03:20 | NUR ---
RADIOLOGY @ BS, AM CXR OBTAINED, PT REMAINS ON CPAP, RESP 18, O2 SAT 96% WEANING DOPAMINE TOLERATED
--- NOTE | 2016-10-26 03:45 | NUR ---
RT AT BS, NIF AND VC RETRIED WITH PT
--- NOTE | 2016-10-26 03:55 | NUR ---
PT EXTUBATED TO O2 @ 4LITERS, ORAL CARE PROVIDED, SOFT WRIST RESTRAINTS REMOVED AND PT GIVEN INSTRUCTIONS ON NOT PULLING ON LINES OR TUBES, PT NODS HEAD IN UNDERSTANDING, VSS, TOLERATED WELL
--- NOTE | 2016-10-26 04:25 | NUR ---
MORPHINE MANAGER BILINGUAL INITIATED AND INSTRUCTIONS ON USE PROVIDED, PT VERBALIZES UNDERSTANDING, VSS, MANAGER BILINGUAL BUTTON IN REACH.
--- NOTE | 2016-10-26 06:00 | NUR ---
AM LAB DRAWN FROM CV AND SENT TO LAB, DAUGHTER AT , UPDATE GIVEN AND QUESTIONS ANSWERED.
[2016-10-26 06:15] LABS: HEMATOCRIT 26.1 % (36.0-48.0); HEMOGLOBIN 8.8 g/dL (12-16); MCH 30.3 pg (26.0-34.0); MCHC 33.7 g/dL (31.0-37.0); MEAN PLATELET VOLUME 8.9 fL (7.4-10.4); RBC 2.9 10x6/uL (4.00-5.40); RDW 13.5 % (11.5-14.5); WBC 8.5 10x3/uL (4.8-10.8)
[2016-10-26 06:27] LABS: ALKALINE PHOSPHATASE 44 U/L (46-116); ALT (SGPT) 32 U/L (10-68); BILIRUBIN - TOTAL 0.87 mg/dL (0.2-1.3); CALC OSMOLALITY 290 mosm/kg (275-300); CALCIUM 8.7 mg/dL (8.5-10.1); CARBON DIOXIDE 28.5 mmol/L (21.0-32.0); CHLORIDE - SERUM 110 mmol/L (98-107); CREATININE - SERUM 0.6 mg/dL (0.6-1.3); POTASSIUM - SERUM 4.1 mmol/L (3.5-5.1); PROTEIN - SERUM 6.6 g/dL (6.4-8.2); SODIUM 146 mmol/L (136-145); UREA NITROGEN 10 mg/dL (7-18); eGFR NON AFRICAN AMERICAN > 90 mL/min (90-120)
[2016-10-26 06:29] LABS: GLUCOSE 116 mg/dL (74-106)
--- NOTE | 2016-10-26 07:30 | NUR ---
SHIFT ASSESSMENT VIA FLOWSHEET, SEE FOR DETAILS.
--- NOTE | 2016-10-26 07:57 | NUR ---
ABG RESULTS REVIEWED, K+ TREATED PER STANDING ORDER.
--- NOTE | 2016-10-26 09:12 | NUR ---
PT PERFORMED I/S WITH RT. PULLS 500 ON I/S. DISCUSSED IMPORTANCE OF COUGHING AND DEEP BREATHING, PT VERBALIZED UNDERSTANDING.
--- NOTE | 2016-10-26 10:05 | NUR ---
BREATHING TREATMENT PER RT. O2 DECREASED TO 3L NC, SP02 96%.
--- NOTE | 2016-10-26 10:15 | NUR ---
I/S PERFORMED BY PATIENT, 500-750. STRONG, NON-PRODUCTIVE COUGH NOTED.
--- NOTE | 2016-10-26 11:00 | NUR ---
REASSESSMENT VIA FLOWSHEET, SEE FOR DETAILS.
--- NOTE | 2016-10-26 12:06 | NUR ---
PT'S DAUGHTER AT BEDSIDE, UPDATE PROVIDED. PT AWAKE AND CONVERSING WITH VISITOR.
--- NOTE | 2016-10-26 14:10 | NUR ---
BREATHING TREATMENT PER RT. PT PERFORMS I/S, 750.
--- NOTE | 2016-10-26 15:30 | NUR ---
REASSESSMENT VIA FLOWSHEET, SEE FOR DETAILS.
--- NOTE | 2016-10-26 16:28 | NUR ---
DR BOLES HERE TO SEE PT, NEW ORDERS RECEIVED.
--- NOTE | 2016-10-26 18:15 | NUR ---
PT'S DAUGHTER AT BEDSIDE, UPDATE PROVIDED.
--- NOTE | 2016-10-26 19:30 | NUR ---
REPORT REC'D AND CARE ASSUMED, REC'D PT AWAKE, ALERT, ORIENTED X 3, O2 @ 6LITERS VIA NC, BREATHING TX IN PROGRESS, PT DENIES PAIN REPORTS BEING SLEEPY, MIDSTERNAL DRSG CDI, MALLORY BAR DRSG CDI SITTING AT APPROX 50CM LINE, DISTAL LIMB WITH INSULIN ON HOLD, PROXIMAL LIMB WITH THE PRBC TUBING CLAMPED, MANNIFOLD TO PROXIMAL INFUSION WITH PLASMALYTE @ 30CC/HR AND DOPAMINE @ 7.1 CC/HR OR 3MCG/KG/MIN, LDLSCL DRSG CDI WITH BURETROL @ 10CC/HR AND MORPHINE PAPER TUBE MACHINE OPERATOR 1MG Q1OMIN WITH 24MG Q4HR LOCKOUT, LEFT RADIAL ASHLEY WITH FLEXION BOARD IN USE, LEVELED AND ZEROED WITH RETURN OF APPROPRIATE WAVEFORM, SUBSTERNAL DRSG CDI CT'S X 3 MEDIASTINAL X 2 AND PLEURAL X 1, ALL TO 20CM H2O SUCTION, NO AIR LEAK NOTED, SANGUINOUS DRAINAGE PRESENT, EXTERNAL P/M VVI 60 VMA 10, CM-ST @ 113, ABD ROUND, SOFT, BS HYPOACTIVE, CRITICORE SNOW PATENT DRAINING CLEAR YELLOW URINE, RIGHT LEG DRSGS CDI, SERENA X 1, COMPRESSED WITH SANGUINOUS DRAINAGE NOTED, BILAT TEDS/SCDS, PPP, SR UP X 2, PAPER TUBE MACHINE OPERATOR BUTTON IN REACH, PT DENIES NEEDS, 1:1 NURSE IN DOORWAY.
--- NOTE | 2016-10-26 21:15 | NUR ---
EVENING MEDS GIVEN, NO VISITORS IN AT THIS TIME, TEMP PER CRITICORE 39, PT'S HOB ELEVATED, IS DONE WITH PT, PT WEAKLY PULLING 250-500, DEEP BREATHING AND COUGHING ENCOURAGED, TYLENOL GIVEN PO FOR TEMP, PT DENIES FURTHER NEEDS.
--- NOTE | 2016-10-26 22:50 | NUR ---
PT UNCOMFORTABLE IN BED, PARTIAL LINEN CHANGE PROVIDED AND PT REPOSITIONED UP IN BED AND ONTO LEFT SIDE SUPPORTED WITH PILLOW, PT STATES "THAT FEELS ALOT BETTER", TEMP 38.9 BY CRITICORE, VSS, WILL CONT TO MONITOR CLOSELY FOR CHANGES.
--- NOTE | 2016-10-26 23:45 | NUR ---
REASSESSMENT COMPLETED, PT STATES " I AM TRYING TO COUGH" HOB ELEVATED AND YANMARYUR PLACED IN HAND, PT STATES " WHAT DO I DO", IS DONE WITH PT AFTER SOME INSTRUCTION PT ABLE TO PULL 500 CONSISTENTLY, NONPRODUCTIVE COUGH NOTED, PT DENIES PAIN OR OTHER NEEDS.
[2016-10-27] VITALS (73 sets, daily range): BP systolic 94–131; BP diastolic 51–89
--- NOTE | 2016-10-27 01:30 | NUR ---
PT AWAKE, REPOSITIONED FOR COMFORT, PT USING IS ON OWN, NEEDS REMINDING TO WHAT TO DO TO USE CORRECTLY, O2 SAT 94%, ICE WATER PROVIDED ON REQUEST, DOPE HOUSE OPERATOR HELPER IN REACH.
--- NOTE | 2016-10-27 02:12 | NUR ---
PT'S TEMP PER CRITICORE 39.0 C, ORAL TEMP 100.0, TYLENOL 650MG GIVEN PO, PT REPOSITIONED UP IN BED FOR COMFORT, HEELS BRIDGED AND ARMS ELEVATED FOR COMFORT, WILL CONTINUE TO MONITOR FOR CHANGES.
--- NOTE | 2016-10-27 04:00 | NUR ---
RADIOLOGY AT BS FOR AM CXR
--- NOTE | 2016-10-27 05:00 | NUR ---
COMPLETE BATH AND LINEN CHANGE PROVIDED, CHLORIHEXIDINE WIPES USED, PT REPOSITIONED UP IN BED FOR COMFORT, TOLERATED WELL.
--- NOTE | 2016-10-27 06:00 | NUR ---
AM LAB DRAWN FROM CVL AND SENT TO LAB, LDLSCL DRSG CHANGED PER Luz LESLIE RN, NO VISITORS IN AT THIS TIME.
[2016-10-27 06:15] LABS: HEMATOCRIT 24.3 % (36.0-48.0); MCH 30.3 pg (26.0-34.0); MCHC 32.9 g/dL (31.0-37.0); RBC 2.64 10x6/uL (4.00-5.40); RDW 13.9 % (11.5-14.5)
[2016-10-27 06:18] LABS: WBC 12.9 10x3/uL (4.8-10.8)
[2016-10-27 06:28] LABS: ALBUMIN 3.6 g/dL (3.4-5.0); ALKALINE PHOSPHATASE 50 U/L (46-116); ALT (SGPT) 28 U/L (10-68); CALCIUM 8.3 mg/dL (8.5-10.1); CARBON DIOXIDE 26.7 mmol/L (21.0-32.0); CHLORIDE - SERUM 102 mmol/L (98-107); GLUCOSE 128 mg/dL (74-106); PROTEIN - SERUM 6.4 g/dL (6.4-8.2); SODIUM 138 mmol/L (136-145); eGFR NON AFRICAN AMERICAN 78 mL/min (90-120)
[2016-10-27 06:29] LABS: CALC OSMOLALITY 279 mosm/kg (275-300); CREATININE - SERUM 0.8 mg/dL (0.6-1.3); UREA NITROGEN 19 mg/dL (7-18)
--- NOTE | 2016-10-27 07:15 | NUR ---
SHIFT ASSESSMENT VIA FLOWSHEET, SEE FOR DETAILS.
--- NOTE | 2016-10-27 08:30 | NUR ---
CHEST TUBES D/C'D BY DR BOLES.
--- NOTE | 2016-10-27 09:00 | NUR ---
A LINE AND SWAN YOSVANY D/C'D PER ORDER WITH CATH TIP INTACT.
--- NOTE | 2016-10-27 10:55 | NUR ---
PT OOB TO CHAIR WITH PHYSICAL THERAPY ASSIST.
--- NOTE | 2016-10-27 11:15 | NUR ---
REASSESSMENT VIA FLOWSHEET, SEE FOR DETAILS.
--- NOTE | 2016-10-27 13:57 | NUR ---
PT AMBULATED APPROX 87FT WITH PHYSICAL THERAPY ASSIST.
--- NOTE | 2016-10-27 14:16 | NUR ---
Nutrition follow-up: Diet now clear liquids post-surgery Labs reviewed Wt: 150# RDN monitoring pts diet advancement and tolerance.
--- NOTE | 2016-10-27 15:15 | NUR ---
REASSESSMENT VIA FLOWSHEET, SEE FOR DETAILS.
--- NOTE | 2016-10-27 15:40 | NUR ---
DR BOLES HERE FOR ROUNDS, FAMILY AT BEDSIDE, UPDATE PROVIDED.
--- NOTE | 2016-10-27 17:31 | NUR ---
ASSISTED PT TO BATHROOM FOR VOID.
--- NOTE | 2016-10-27 19:20 | NUR ---
REC'D PT SITTING UP IN BED WATCHING TV, O2 @ 4LITERS VIA NC, AWAKE, ALERT, ORIENTED X 4, LDLSCL DRSG CDI BOTH PORTS SALINE LOCKED, MIDSTERNAL DRSG CDI, SUBSTERNAL DRSG CDI, EXTERNAL P/M WIRES TAPED SECURELY TO UPPER ABD, TEMP P/M VVI 60 VMA 10, CM-ST @ 110, ABD ROUND, SOFT, BS HYPOACTIVE X 4, RIGHT LEG DRSGS CDI, GENERALIZED EDEMA TO LOWER EXT'S, PP WEAKLY PALPABLE, SR UP X 2, BED IN LOW POSITION, CALL LIGHT IN REACH.
--- NOTE | 2016-10-27 20:45 | NUR ---
EVENING MEDS GIVEN ORDERED, PT ASSISTED UP TO BATHROOM, PT COMPLAINS DIZZINESS UPON SITTING UP ON SIDE OF BED, HAD PT REMAIN ON SIDE OF BED UNTIL DIZZINESS SUBSIDED, VOIDED 100CC CONCENTRATED URINE, BACK TO BED WITHOUT DIFFICULTY.
--- NOTE | 2016-10-27 21:40 | NUR ---
DAUGHTERS AT BS, UPDATE GIVEN AND QUESTIONS ANSWERED.
--- NOTE | 2016-10-27 23:53 | NUR ---
PT AWAKE, COMPLAINS OF INCISIONAL PAIN WHEN COUGHING, RATING PAIN "5" ON 0-10 PAIN SCALE, NORCO 10/325 GIVEN PO, PT DENIES FURTHER NEEDS.
[2016-10-28] VITALS (25 sets, daily range): BP systolic 99–132; BP diastolic 57–79
--- NOTE | 2016-10-28 00:15 | NUR ---
PT ASSISTED UP TO BATHROOM, EXP WHEEZES AUDIBLE, PT VOIDED 150CC, ASSISTED BACK TO BED AND REPOSITIONED UP FOR COMFORT, IS DONE WITH PT, PT PULLING 750 AT THIS TIME, SR UP X 2, CALL LIGHT IN REACH.
--- NOTE | 2016-10-28 02:00 | NUR ---
PT RESTING IN BED, EYES CLOSED, RESP EVEN AND UNLABORED, VSS, WILL CONT TO MONITOR FOR CHANGES.
--- NOTE | 2016-10-28 03:10 | NUR ---
PT ASSISTED UP TO BATHROOM TO VOID, BACK TO BED WITHOUT DIFFICULTY ASSISTED TO POSITION FOR COMFORT, ICE WATER PROVIDED ON REQUEST, PT DENIES FURTHER NEEDS.
--- NOTE | 2016-10-28 04:40 | NUR ---
PT TAKEN TO RADIOLOGY FOR PA AND LATERAL, PT TOLERATED WELL, REPORTS SEEING BLACK SPOTS AT TIMES WHEN FIRST GETTING UP.
--- NOTE | 2016-10-28 05:00 | NUR ---
PT RETURNED TO ROOM WISHES TO RETURN TO BED UNTIL BREAKFAST, STATES " I WANT TO TRY AND NAP A LITTLE", RIGHT LEG DRSGS CHANGED, INCISIONS X 3 WITH IGNACIO WELL APPROXIMATED, PAINTED WITH BETADINE AND BETADINE OINTMENT APPLIED, COVERED WITH 4X4'S AND MEDIPORE TAPE, PT REPOSITIONED UP IN BED FOR COMFORT, PT DENIES FURTHER NEEDS, CALL LIGHT IN REACH.
--- NOTE | 2016-10-28 05:45 | NUR ---
PT REQUESTING PAIN PILL, RATING PAIN "3" ON 0-10 PAIN SCALE, NORCO PROVIDED, DENIES FURTHER NEEDS, VISIBLE TO NURSES STATION.
[2016-10-28 06:17] LABS: HEMATOCRIT 23.3 % (36.0-48.0); MCH 29.6 pg (26.0-34.0); MCHC 32.2 g/dL (31.0-37.0); MCV 92.1 fL (80.0-100.0); MEAN PLATELET VOLUME 9.1 fL (7.4-10.4); RBC 2.53 10x6/uL (4.00-5.40); WBC 11.6 10x3/uL (4.8-10.8)
[2016-10-28 06:26] LABS: HEMOGLOBIN 7.5 g/dL (12-16)
--- NOTE | 2016-10-28 06:29 | NUR ---
NO VISITORS IN AT THIS TIME, PT RESTING IN BED EYES CLOSED, RESP EVEN AND UNLABORED, NO DISTRESS NOTED, VSS.
[2016-10-28 06:35] LABS: ALBUMIN 3.4 g/dL (3.4-5.0); ALKALINE PHOSPHATASE 51 U/L (46-116); CALCIUM 8.7 mg/dL (8.5-10.1); CARBON DIOXIDE 29.2 mmol/L (21.0-32.0); CHLORIDE - SERUM 98 mmol/L (98-107); CREATININE - SERUM 0.6 mg/dL (0.6-1.3); GLUCOSE 100 mg/dL (74-106); POTASSIUM - SERUM 4.1 mmol/L (3.5-5.1); PROTEIN - SERUM 6.7 g/dL (6.4-8.2); SODIUM 135 mmol/L (136-145); eGFR NON AFRICAN AMERICAN > 90 mL/min (90-120)
[2016-10-28 06:42] LABS: ALT (SGPT) 41 U/L (10-68); CALC OSMOLALITY 270 mosm/kg (275-300); UREA NITROGEN 14 mg/dL (7-18)
--- NOTE | 2016-10-28 07:00 | NUR ---
PT REPORT REC'D, PT CARE ASSUMED. PT [id number] SITTING UP IN BED, NO C/O PAIN, VSS 2LNC. PT USING INCENTIVE SPIROMETER, INHALING 750 ON METER. LEFT SUBCLAVIAN CVL S/L'ED, DRESSING CDI. MIDSTERNAL INCISION, DRESSING CDI, SUBSTERNAL TPM WIRES SECURED TO CHEST, DRESSING CDI. RIGHT LEG HARVEST SITES, DRESSINGS CDI. PT UP TO BATHROOM WITH ASSISTANCE. TPM VVI-60. SHIFT ASSESSMENT COMPLETED, SEE FLOW SHEET, ROOM FREE OF CLUTTER, CALL LIGHT IN REACH, WILL CONTINUE TO MONITOR PT.
--- NOTE | 2016-10-28 07:15 | NUR ---
TRANSFERERD PT FROM BED TO CHAIR, PT TOLERATED WELL, WILL CONTINUE TO MONITOR PT.
--- NOTE | 2016-10-28 07:45 | NUR ---
DR. BOLES AT THE BEDSIDE, ALL QUESTIONS ANSWERED, VSS, WILL CONTINUE TO MONITOR PT.
--- NOTE | 2016-10-28 08:15 | NUR ---
PT HAD SOFT BOWEL MOVEMENT, WILL CONTINUE TO MONITOR PT.
--- NOTE | 2016-10-28 08:49 | TEE ---
PATIENT:CORRINE TOMLIN MEDICAL RECORD: [id number] LOCATION:[place] [address] AGE OF PATIENT: 56 ADMISSION DATE: 10/19/16 SEX: F REFERRING PHYSICIAN: INTERPRETING PHYSICIAN: JOZEF HARDING MD TRANSESOPHAGEAL ECHOCARDIOGRAM RUBY CHARGE Y INDICATIONS: CABG PREMEDICATIONS: PATIENT'S RESPONSE PROCEDURE DOPPLER MEASUREMENTS: LVIT LA PA RA LVOT RVOT Asc. Ao AV Gradient Peak AV Mean AV Area MV Gradient Peak MV Mean MV Area INTERPRETATION: LVd: 4.0 cm LVs: 2.6 cm Doppler: 2-D: COLOR FLOW DOPPLER NORMAL SALINE STUDY: MISCELLANOUS: DIAGNOSIS: PLAN: Reweaver:2 Dr. Esteban Advertising Sales Consultant: Manuel ESPARZA COMMENTS: DATE OF SERVICE: 10/25/2016 Transesophageal echo evaluation of valvular structures during bypass surgery. FINDINGS: 1. Left ventricular chamber size is within normal limits. Left ventricular systolic function is normal. Overall ejection fraction estimated at 55%. 2. Left atrium, right atrium, and right ventricle chamber sizes are within normal limits. TRANSESOPHAGEAL ECHOCARDIOGRAM REPORT [id number] CORRINE TOMLIN 3. Valvular structures have normal structure and motion. 4. Doppler interrogation reveals trace mitral regurgitation. No other valvular insufficiency or stenosis. 5. No evidence of pericardial effusion or left ventricular thrombus. TRANSINT:[id number] Voice Confirmation ID: [id number] DOCUMENT ID: [id number] at [id number] CC: [id number] DICTATION DATE: 10/26/16 1144 JACKER: 10/27/16 0415 ADM IN [place] [address] [place] [address]
--- NOTE | 2016-10-28 09:00 | NUR ---
PHYSCIAL THERAPY IN WITH PT, PT AMBULATED APPROX 102FEET, PT TOLERATED WELL, WILL CONITNUE TO MONITOR PT.
--- NOTE | 2016-10-28 09:06 | NUR ---
PT FAMILY AT THE BEDSIDE, ALL QUESTIONS ANSWERED, VSS, WILL CONITNUE TO MONITOR PT.
--- NOTE | 2016-10-28 09:16 | NUR ---
PT C/O FEELING NAUSEOUS, ZOFRAN GIVEN, COOL RAG TO HEAD, BARF BAG JUST IN CASE, WILL CONTINUE TO MONITOR PT. WILL CONTINUE TO MONITOR PT.
--- NOTE | 2016-10-28 10:47 | NUR ---
AT THE BEDSIDE, [facility], WILL CONTINUE TO MONITOR PT.
--- NOTE | 2016-10-28 11:00 | NUR ---
PT RESTING WITH EYES CLOSED RESTING IN CHAIR. NO C/O PAIN, VSS. REASSESSMENT COMPELTED, SEE FLOW SHEET. ROOM FREE OF CLUTTER, CALL LIGHT IN REACH, WILL CONTINUE TO MONITOR PT.
--- NOTE | 2016-10-28 13:16 | NUR ---
10/28/2016 13:15 DCP: Discharge Planning Patient Name: CORRINE TOMLIN Encounter No: [id number] : 1960 Primary Insurance: MEDICARE A & B Anticipated DC Date: 10-29-2016 Planned Disposition: Home DCP follow-up note: Patient in agreement with discharge plan. No changes to plan. Case management will follow and assist as needed. Elizabeth Baltazar
--- NOTE | 2016-10-28 15:00 | NUR ---
PT RESTING WITH EYES CLOSED IN CHAIR, NO C/O PAIN, VSS. REASESSMENT COMPLETED, SEE FLOW SHEET. ROOM FREE OF CLUTTER, CALL LIGHT IN REACH, WILL CONTINUE TO MONITOR PT.
--- NOTE | 2016-10-28 15:15 | NUR ---
PT FAMILY AT THE BEDSIDE, ALL QUESTIONS ANSWERED, VSS, WILL CONTINUE TO MONITOR PT.
--- NOTE | 2016-10-28 16:29 | NUR ---
PT C/O "PAIN RATED 6/10" ON 1-10 SLIDING SCALE, PAIN MEDS GIVEN, WILL REASSESS PAIN. WILL CONTINUE TO MONITOR PT.
--- NOTE | 2016-10-28 18:00 | NUR ---
PT FAMILY AT THE BEDSIDE, ALL QUESTIONS ANSWERED, VSS, WILL CONTINUE TO MONITOR PT.
--- NOTE | 2016-10-28 19:30 | NUR ---
REPORT REC'D AND CARE ASSUMED, PT SITTING UP IN RECLINER WATCHING TV, AWAKE, ALERT, ORIENTED X 3, O2 @ 2LITERS VIA NC, BBS WITH EXP WHEEZES NOTED, LDLSCL DRSG CDI BOTH PORTS SALINE LOCKED, MIDSTERNAL DRSG CDI, SUBSTERNAL DRSG CDI TO PREVIOUS CT INSERTION SITES AND EXTERNAL P/M WIRES, EXTERNAL P/M VVI 60 VMA 10, CM-ST @ 104, P/M SENSING, RIGHT LEG DRSGS CDI, PPP, BILAT TEDS ON, CALL LIGHT IN REACH, PT DENIES PAIN OR NEEDS.
--- NOTE | 2016-10-28 19:45 | NUR ---
PT REQUESTING ASSISTANCE TO BATHROOM AND THEN WISHES TO GO BACK TO BED, GAIT STEADY, PT VOIDED 300 DARK YELLOW URINE, ASSISTED BACK TO BED, SCD'S APPLIED AND TURNED ON, SR UP X 2, BED IN LOW POSITION, VISIBLE TO NURSES STATION.
--- NOTE | 2016-10-28 20:55 | NUR ---
EVENING MEDS GIVEN WITH SIPS OF WATER, PT DENIES PAIN, VSS.
--- NOTE | 2016-10-28 21:05 | NUR ---
DAUGHTER AT , UPDATE GIVEN AND QUESTIONS ANSWERED.
--- NOTE | 2016-10-28 23:20 | NUR ---
PT ASSISTED UP TO BATHROOM, VOIDED 150CC, PT COMPLAINS OF SOB UPON RETURNING TO BED, O2 SAT 88-91%, AUDIBLE WHEEZES HEARD, RT NOTIFIED OF NEED FOR PRN TREATMENT.
--- NOTE | 2016-10-28 23:30 | NUR ---
PT COMPLAINS OF NAUSEA, 4MG ZOFRAN GIVEN SLOW IVP FOR NAUSEA, PT REPOSITIONED UP IN BED.
--- NOTE | 2016-10-28 23:40 | NUR ---
BREATHING TX IN PROGRESS, O2 SAT INCREASED TO 96%.
[2016-10-29] VITALS (24 sets, daily range): BP systolic 97–145; BP diastolic 46–80
--- NOTE | 2016-10-29 01:45 | NUR ---
PT AWAKE SITTING UP IN BED USING IS, PULLING 750, PT COMPLAINS OF INCISIONAL DISCOMFORT, NORCO GIVEN FOR PAIN, RATING "4" ON 0-10 PAIN SCALE, PT DENIES FURTHER NEEDS.
--- NOTE | 2016-10-29 02:30 | NUR ---
PT AWAKE UNABLE TO SLEEP, REQUESTING WARM WATER FOR TEA, PROVIDED AT THIS TIME.
--- NOTE | 2016-10-29 04:20 | NUR ---
PT TAKEN TO RADIOLOGY FOR PA AND LATERAL.
--- NOTE | 2016-10-29 04:40 | NUR ---
PT BACK FROM RADIOLOGY, ASSISTED TO BATHROOM, COMPLETE BED LINEN CHANGE PROVIDED, PT ASSISTED TO RECLINER FEET ELEVATED, CALL LIGHT PLACED WITHIN REACH, PT DENIES FURTHER NEEDS.
--- NOTE | 2016-10-29 05:15 | NUR ---
PT SLEEPING IN RECLINER, RESP EVEN AND UNLABORED, VSS.
[2016-10-29 06:18] LABS: HEMATOCRIT 21.5 % (36.0-48.0); MCH 29.4 pg (26.0-34.0); MCHC 32.1 g/dL (31.0-37.0); MCV 91.5 fL (80.0-100.0); MEAN PLATELET VOLUME 8.7 fL (7.4-10.4); RBC 2.35 10x6/uL (4.00-5.40); RDW 13.5 % (11.5-14.5)
[2016-10-29 06:23] LABS: HEMOGLOBIN 6.9 g/dL (12-16); WBC 8.4 10x3/uL (4.8-10.8)
[2016-10-29 06:32] LABS: ALBUMIN 3.1 g/dL (3.4-5.0); ALKALINE PHOSPHATASE 52 U/L (46-116); ALT (SGPT) 39 U/L (10-68); BILIRUBIN - TOTAL 0.56 mg/dL (0.2-1.3); CALC OSMOLALITY 270 mosm/kg (275-300); CALCIUM 8.7 mg/dL (8.5-10.1); CARBON DIOXIDE 31.5 mmol/L (21.0-32.0); CHLORIDE - SERUM 98 mmol/L (98-107); CREATININE - SERUM 0.5 mg/dL (0.6-1.3); GLUCOSE 117 mg/dL (74-106); PROTEIN - SERUM 6.4 g/dL (6.4-8.2); SODIUM 135 mmol/L (136-145); UREA NITROGEN 13 mg/dL (7-18); eGFR NON AFRICAN AMERICAN > 90 mL/min (90-120)
--- NOTE | 2016-10-29 06:45 | NUR ---
PT ASSISTED TO RESTROOM AND BACK TO RECLINER, PT COMPLAINS OF MILD INCISIONAL DISCOMFORT, HYDROCODONE GIVEN PO AT THIS TIME, PT DENIES FURTHER NEEDS, CALL LIGHT IN REACH.
--- NOTE | 2016-10-29 08:03 | NUR ---
UNIT 1 OF 2 PRBC INFUSION STARTED. PT INSTRUCTED ON S/SX OF TRANSFUSION REACTION.
--- NOTE | 2016-10-29 09:41 | NUR ---
Nutrition follow-up: Diet has advanced to full liquids PO intake 25-50% of meals Labs reviewed Wt: 144# RDN will order nutritional supplement with meals. RDN following.
--- NOTE | 2016-10-29 11:30 | NUR ---
PRBC INFUSION COMPLETED WITHOUT S/SX OF REACTION NOTED. PT CURRENTLY DOING IS.
--- NOTE | 2016-10-29 13:27 | NUR ---
MAYTE RN AT BEDSIDE DISCUSSING DC PLANNED FOR TOMORROW. PACER WIRES DC'D PER MAYTE. PT REMAINS IN BED AT THIS TIME. CALL LIGHT IN REACH.
--- NOTE | 2016-10-29 13:58 | NUR ---
RECEIVED PT FOR CARE FROM DEREK BARROW RN.
--- NOTE | 2016-10-29 15:35 | NUR ---
PT C/O PAIN. GAVE NORCO P.O. PER PT REQUEST. VSS AT THIS TIME. PT SITTING UP IN CHAIR
--- NOTE | 2016-10-29 18:15 | NUR ---
ORAL CARE PERFORMED WITH PERIDEX ORDERED
--- NOTE | 2016-10-29 20:30 | NUR ---
RECEIVED CARE OF PT, ASSESSMENT PER FLOWSHEET. PT ALERT AND ORIENTED X 4, ON 2L O2 VIA NC, BREATH SOUNDS DIMINISHED IN BASES, HR ST ON CM AT A RATE OF 112, MIDSTERNAL AND SUBSTERNAL INCISIONS HEEL PADDER, WOUND EDGES WELL APPROXIMATED, RT LEG DRESSINGS CDI, PPP, DENIES ANY NEEDS AT THIS TIME, VSS.
--- NOTE | 2016-10-29 21:11 | NUR ---
PT C/O INCISIONAL PAIN 6/10 ON PAIN SCALE. PRN PO PAIN MED ADMINISTERED PER PT REQUEST ALONG WITH PRN ZOFRAN FOR NAUSEA. WILL MONITOR FOR DESIRED EFFECT.
--- NOTE | 2016-10-29 23:45 | NUR ---
REASSESSMENT PER FLOWSHEET, NO ACUTE CHANGES NOTED. LITTLE TO NO SPUTUM EXPECTORATED WITH COUGH, WILL CONT TO ENCOURAGE IS AND DEEP BREATHING, VSS.
[2016-10-30] VITALS (24 sets, daily range): BP systolic 96–148; BP diastolic 47–85
--- NOTE | 2016-10-30 01:50 | NUR ---
PT RESTING IN BED WITH EYES CLOSED, VSS, CONT POC.
--- NOTE | 2016-10-30 04:21 | NUR ---
PRN PO PAIN MED ADMINISTERED FOR PT C/O INCISIONAL PAIN 5/10 ON PAIN SCALE PER MD ORDER.
--- NOTE | 2016-10-30 05:07 | NUR ---
BACK FROM RADIOLOGY FOR PA AND LAT CXR, PT ASSISTED TO CHAIR, CALL LIGHT, IS IN REACH, COFFEE PROVIDED PER REQUEST, STATES PAIN HAS IMPROVED FROM PO PAIN MED, VSS.
[2016-10-30 06:11] LABS: HEMATOCRIT 30.5 % (36.0-48.0); HEMOGLOBIN 10.1 g/dL (12-16); MCH 29.4 pg (26.0-34.0); MCHC 33.1 g/dL (31.0-37.0); MCV 88.7 fL (80.0-100.0); MEAN PLATELET VOLUME 8.7 fL (7.4-10.4); RBC 3.44 10x6/uL (4.00-5.40); RDW 14.5 % (11.5-14.5)
[2016-10-30 06:40] LABS: ALBUMIN 3.3 g/dL (3.4-5.0); ALKALINE PHOSPHATASE 63 U/L (46-116); ALT (SGPT) 43 U/L (10-68); BILIRUBIN - TOTAL 0.72 mg/dL (0.2-1.3); CALC OSMOLALITY 273 mosm/kg (275-300); CARBON DIOXIDE 33.3 mmol/L (21.0-32.0); CHLORIDE - SERUM 97 mmol/L (98-107); CREATININE - SERUM 0.6 mg/dL (0.6-1.3); GLUCOSE 109 mg/dL (74-106); POTASSIUM - SERUM 3.7 mmol/L (3.5-5.1); SODIUM 136 mmol/L (136-145); UREA NITROGEN 14 mg/dL (7-18); eGFR NON AFRICAN AMERICAN > 90 mL/min (90-120)
--- NOTE | 2016-10-30 12:08 | OP ---
PATIENT NAME: CORRINE TOMLIN MEDICAL RECORD: [id number] :56 LOCATION:[facility] D.CV06 ADMISSION DATE:10/19/16 SURGEON: ZANE VALENZUELA MD DATE OF OPERATION: 10/25/2016 SURGEON: Zane Valenzuela MD ANESTHESIA: General endotracheal, Dr. Steel. OPERATIONS PERFORMED: Aortocoronary artery bypass utilizing left internal thoracic, left anterior descending and reverse saphenous vein segment to the obtuse marginal coronary artery. PREOPERATIVE DIAGNOSIS: Intermediate coronary syndrome. POSTOPERATIVE DIAGNOSIS: Intermediate coronary syndrome. INDICATION FOR OPERATION: Severe occlusive coronary artery disease with unstable angina. FINDINGS OF THE OPERATION: The left internal thoracic and right greater saphenous vein were of excellent quality for grafting. The target vessels were of good caliber and quality. ESTIMATED BLOOD LOSS: Cell Saver was used. DESCRIPTION OF PROCEDURE: After informed consent, adequate preoperative medication evaluation, the patient was brought to the operating room and placed on the table in the supine position. After induction of general endotracheal anesthesia and application of appropriate monitoring devices, the chest, neck, abdomen, and both legs were prepped and draped in a sterile field, utilizing Betadine scrub, alcohol, and Betadine solution. A Betadine-impregnated drape was also used ____. Saphenous vein was harvested from the right leg and prepared for reverse saphenous vein grafting. The leg was closed over drains utilizing 3-0 Vicryl and skin khai. A median sternotomy incision was used and dissection carried down the fascia. Hemostasis maintained with electrocautery. Sternum was divided. Innominate vein was identified and protected. Left internal thoracic was taken down and prepared for grafting. The patient was given a calculated dose of heparin, cannulated in a standard fashion utilizing 1 aortic, one two-stage cannula in the atrium and inferior vena cava. The patient was placed on cardiopulmonary bypass, cooled to 32 degrees centigrade. A cross clamp was placed just proximal to the aortic cannula and the patient was given cardioplegic solution through the aortic root. The patient was given a cold induction and cold maintenance. The patient was given cold intermittent cardioplegic solution throughout the procedure, through the root, through the grafts or a combination of both. The first vessel to be grafted was the obtuse marginal, was grafted end-to-side utilizing a running 7-0 Prolene suture. The grafts were measured back to the aorta and a proximal anastomosis fashioned utilizing running 6-0 Prolene suture. Next, left internal thoracic was brought through the hole in pericardium, sutured left anterior descending end-to-side utilizing a running 8-0 Prolene suture. Pedicle was attached to epicardium with 7-0 Prolene suture. The patient was given warm cardioplegic reperfusion and controlled reperfusion. The patient rewarmed to 37 degrees centigrade. Two atrial and 2 ventricular pacing wires were placed on the heart and brought through the epigastric area. The patient was weaned OPERATIVE REPORT [id number] CORRINE TOMLIN cardiopulmonary bypass. After being stable off bypass, she was given a calculated dose of protamine to reverse the heparin. Hemostasis was achieved. A #40 right angle and #36 chest tubes were brought into the gastric area and placed in mediastinum. A separate left pleural tube was connected to underwater seal and suction. Chest was again irrigated. Instrument count and sponge count were correct times 2. Chest was closed in layers utilizing #7 wire on the sternum, #2 Vicryl on linea alba and pectoralis fascia. Subcutaneous tissue was approximated with 3-0 Vicryl and skin approximated with 3-0 subcuticular Vicryl. Sterile dressings were applied. The patient tolerated the procedure well and was transferred to [facility] in satisfactory condition. TRANSINT:[id number] Voice Confirmation ID: [id number] DOCUMENT ID: [id number] ZANE VALENZUELA MD at 1208 CC: [id number] DICTATION DATE: 10/25/16 1412 CARBOY FILLER: 10/26/16 0111 ADM IN [place] [id number] [place] [id number]
--- NOTE | 2016-10-30 18:27 | NUR ---
ORAL CARE PERFORMED WITH PERIDEX ORDERED
--- NOTE | 2016-10-30 19:44 | NUR ---
PT C/O INCISIONAL PAIN 5/10 ON PAIN SCALE, PRN PO PAIN MED ADMINISTERED PER PT REQUEST AND MD ORDER, WILL MONITOR FOR EFFECT.
--- NOTE | 2016-10-30 22:10 | NUR ---
PT DAUGHTERS IN FOR VISITATION, ALL QUESTIONS ANSWERED, HOT WATER PROVIDED FOR TEA PER REQUEST, ALL OTHER NEEDS DENIED, VSS.
--- NOTE | 2016-10-30 23:30 | NUR ---
REASSESSMENT PER FLOWSHEET, NO ACUTE CHANGES NOTED. LITTLE TO NO SPUTUM EXPECTORATED WITH COUGH, WILL CONT TO ENCOURAGE IS AND DEEP BREATHING, VSS.
[2016-10-31] VITALS (24 sets, daily range): BP systolic 97–155; BP diastolic 49–110
--- NOTE | 2016-10-31 01:36 | NUR ---
PT C/O INCISIONAL PAIN 5/10 ON PAIN SCALE, PRN PO PAIN MED ADMINISTERED PER MD ORDER. WILL MONITOR.
--- NOTE | 2016-10-31 03:30 | NUR ---
REASSESSMENT PER FLOWSHEET. ASSISTED PT TO CHAIR, FEET RECLINED, CALL LIGHT IN REACH, VSS.
--- NOTE | 2016-10-31 06:14 | NUR ---
PT C/O INCISIONAL PAIN 4/10 ON PAIN SCALE, PRN PO PAIN MED ADMINISTERED PER REQUEST.
[2016-10-31 06:25] LABS: HEMATOCRIT 32.4 % (36.0-48.0); HEMOGLOBIN 10.5 g/dL (12-16); MCH 29.1 pg (26.0-34.0); MCHC 32.4 g/dL (31.0-37.0); MCV 89.8 fL (80.0-100.0); MEAN PLATELET VOLUME 8.6 fL (7.4-10.4); RBC 3.61 10x6/uL (4.00-5.40); RDW 14.2 % (11.5-14.5); WBC 6.6 10x3/uL (4.8-10.8)
[2016-10-31 06:48] LABS: ALBUMIN 3.4 g/dL (3.4-5.0); ALKALINE PHOSPHATASE 74 U/L (46-116); ALT (SGPT) 56 U/L (10-68); BILIRUBIN - TOTAL 0.52 mg/dL (0.2-1.3); CALC OSMOLALITY 272 mosm/kg (275-300); CALCIUM 9.3 mg/dL (8.5-10.1); CHLORIDE - SERUM 95 mmol/L (98-107); CREATININE - SERUM 0.6 mg/dL (0.6-1.3); GLUCOSE 101 mg/dL (74-106); POTASSIUM - SERUM 3.8 mmol/L (3.5-5.1); PROTEIN - SERUM 7.3 g/dL (6.4-8.2); SODIUM 136 mmol/L (136-145); UREA NITROGEN 15 mg/dL (7-18); eGFR NON AFRICAN AMERICAN > 90 mL/min (90-120)
--- NOTE | 2016-10-31 18:15 | NUR ---
ORAL CARE PERFORMED WITH PERIDEX ORDERED
--- NOTE | 2016-10-31 18:26 | NUR ---
ORAL CARE PERFORMED WITH PERIDEX ORDERED
--- NOTE | 2016-10-31 19:00 | NUR ---
REPORT RECEIVED AND ASSESSMENT COMPLETED. SEE FLOWSHEET FOR FULL DETAILS. 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 ALL INCISIONS OPEN TO AIR AND PACE MAKER NO LONGER PRESENT. PT IS ON 2L NC O2 WITH SAT AT 95%. WILL ATTEMPT TO TITRATE THROUGH THE SHIFT. VSS. WILL MONITOR
--- NOTE | 2016-10-31 21:39 | NUR ---
2100 MEDS GIVEN. O2 STILL AT 2LNC. NO CHANGES IN STATUS AT THIS TIME, VSS. WILL CONTINUE TO MONITOR FOR CHANGES.
--- NOTE | 2016-10-31 23:25 | NUR ---
reassessment completed see flowsheet for full details. pt states she has muscle cramps, and requested her potassium be drawn. no signs of ectopy at this time. will continue to monitor closely for rhythm changes
[2016-11-01] VITALS (22 sets, daily range): BP systolic 88–137; BP diastolic 48–89
--- NOTE | 2016-11-01 01:00 | NUR ---
PT RETURNED TO BED FROM CHAIR AND HAS DRIFTED TO SLEEP. VSS. CALL LIGHT IS IN REACH. NO DIGS OF ANY DISTRESS. K+ RESULTS BACK 4.1.WILL CONTINUE TO MONITOR FOR CHANGES
--- NOTE | 2016-11-01 03:00 | NUR ---
REASSESSMENT COMPLETED. SEE FLOWSHEET FOR FULL DETAILS. PT PROVIDED WITH HEATING PAD AND NORCO FOR PAIN. NO OTHER CHANGES AT THIS TIME
--- NOTE | 2016-11-01 04:55 | NUR ---
PT BACK TO RESTING IN BED. NO OTHER CHANGES AT THIS TIME. VSS. WILL MONITOR.
[2016-11-01 06:56] LABS: HEMATOCRIT 33.4 % (36.0-48.0); HEMOGLOBIN 10.8 g/dL (12-16); MCH 29.4 pg (26.0-34.0); MCHC 32.3 g/dL (31.0-37.0); MEAN PLATELET VOLUME 8.6 fL (7.4-10.4); RBC 3.67 10x6/uL (4.00-5.40); RDW 14.1 % (11.5-14.5); WBC 7.9 10x3/uL (4.8-10.8)
[2016-11-01 07:14] LABS: ALBUMIN 3.3 g/dL (3.4-5.0); ALKALINE PHOSPHATASE 82 U/L (46-116); ALT (SGPT) 56 U/L (10-68); BILIRUBIN - TOTAL 0.48 mg/dL (0.2-1.3); CALC OSMOLALITY 271 mosm/kg (275-300); CALCIUM 9.3 mg/dL (8.5-10.1); CARBON DIOXIDE 35.1 mmol/L (21.0-32.0); CHLORIDE - SERUM 96 mmol/L (98-107); CREATININE - SERUM 0.7 mg/dL (0.6-1.3); GLUCOSE 106 mg/dL (74-106); PROTEIN - SERUM 7.3 g/dL (6.4-8.2); SODIUM 136 mmol/L (136-145); UREA NITROGEN 13 mg/dL (7-18); eGFR NON AFRICAN AMERICAN > 90 mL/min (90-120)
--- NOTE | 2016-11-01 09:20 | NUR ---
NUTRITION MONITORING & EVAL CHART REVIEWED, FAMILY AT BEDSIDE. TOLERATING REG DIET. 50% INTAKE BREAKFAST. WILL CONTINUE TO PROVIDE DIET, MONITOR PO INTAKE. RD FOLLOWING
--- NOTE | 2016-11-01 09:23 | NUR ---
Patient Name: CORRINE TOMLIN Encounter No: [id number] : 1960 Primary Insurance: MEDICARE A & B Anticipated DC Date: 10-29-2016 Planned Disposition: Home External Planned Provider: : DCP follow-up note: Patient and family in agreement with discharge plan. No changes to plan. Case management will follow and assist as needed. Elizabeth Baltazar
--- NOTE | 2016-11-01 10:10 | NUR ---
11/01/2016 10:10 DCP: Discharge Planning Patient Name: CORRINE TOMLIN Encounter No: [id number] : 1960 Primary Insurance: MEDICARE A & B Anticipated DC Date: 10-29-2016 Planned Disposition: Home DCP follow-up note: Patient and family in agreement with discharge plan. No changes to plan. Case management will follow and assist as needed. Elizabeth Baltazar
--- NOTE | 2016-11-01 10:15 | NUR ---
ORAL CARE DONE WITH PERIDEX
--- NOTE | 2016-11-01 11:35 | NUR ---
DR MILLER HERE. INSTRUCT TO WALK PT WITH NO O2 AND SEE WHAT O2 SAT IS. PT UP WITH PT. O2 SAT MACHINE ON. O2 SAT 84 PERCENT. PLACED BACK ON O2 2LITERS. DR MILLER NOTIFIED.
--- NOTE | 2016-11-01 17:00 | NUR ---
CARE ASSUMED OF PT. VSS AT THIS TIME. DENIES NEEDS AT THIS TIME. CALL LIGHT IN REACH.
--- NOTE | 2016-11-01 18:37 | NUR ---
ORAL CARE PERFORMED WITH PERIDEX ORDERED
--- NOTE | 2016-11-01 19:40 | NUR ---
Assessment complete. See flowsheet. Pt awake and sitting in bedside chair upon entrance into room. HR 125BPM. BP/SPO2 stable. pt calm and cooperative; oriented x4 and following all conversation with no neuro deficits noted. Pt moving all extremities with 4/5 strength. No edema noted. Pt receiving O2 @ 2L NC with lung sounds clear to all iverson with diminished lower lobes. HR ST with S1S2 auscultated. All peripheral pulses +2 with capillary refill <3 seconds. Left DLSC CVL site CDI; saline locked with no s/s infection. Abdomen soft and flat with BS present to all quadrants. Pain, nausea denied. Pt ambulating steady to bathroom and helped back to bed to position for comfort with monitoring equipment placed. Midsternal incision site CDI; open to air with NO s/s infection and no drainage noted. Right leg harvest incision sites all open to air with no s/s infection. Previous chest tube and pacemaker wire insertion sites visualized; CDI and open to air. Pain medication previously administered by AM nurse. See MAR. STEFAN hosalejandra secure. SCDs resecured. Warm blanket provided with heat pack provided for pt left shoulder per request. temp 98.5F orally. Call light and bedside table placed within pt reach. CPOC.
--- NOTE | 2016-11-01 21:40 | NUR ---
Pt self-ambulating to bathroom with no deficits noted. VSS. Pt back to bed. Further needs denied. CPOC.
--- NOTE | 2016-11-01 23:40 | NUR ---
Reassessment complete. See flowsheet. Pt resting with VSS and awakens to verbal stimulation with no neuro changes to note from previous assessment. O2 @ 2L NC. Lung sounds remain clear to all iverson with diminished lower lobes. HR ST 103BPM with S1S2 auscultated. All peripheral pulses +2 with capillary refill <3 seconds. All incision sites remain CDI; unchanged. CVL site remains CDI, saline locked. Abdomen soft with BS present to all quadrants. Pt continues to self-ambulate and position for comfort. Pain denied at this time. Call light and bedside table remain within pt reach. CPOC.
[2016-11-02] VITALS (13 sets, daily range): BP systolic 83–127; BP diastolic 47–78
--- NOTE | 2016-11-02 01:40 | NUR ---
Warm pack reheated for sore left shoulder. Warm blanket provided and decaf cofee provided per request. VSS. No other changes to note.
--- NOTE | 2016-11-02 02:20 | NUR ---
Pt up to bedside chair to rest. VSS. Call light and bedside table placed within pt reach.
--- NOTE | 2016-11-02 02:31 | NUR ---
Pt c/o pain to left shoulder rated 5/10 on numerical pain scale. [place] 10mg 1 tab administered per pt request. See MAR.
--- NOTE | 2016-11-02 03:40 | NUR ---
Reassessment complete. See flowsheet. Pt awake and exiting restroom on entrance into room with no neuro changes to note from previous assessment. O2 @ 2L NC. Lung sounds remain clear to all iverson with diminished lower lobes. HR ST 107BPM with S1S2 auscultated. All peripheral pulses +2 with capillary refill <3 seconds. All incision sites remain CDI; unchanged. CVL site remains CDI, saline locked. Abdomen soft with BS present to all quadrants. Pt continues to self-ambulate and position for comfort. Pain denied at this time. Further needs denied at this time and pt positioning in bedside chair. Call light and bedside table remain within pt reach. CPOC.
--- NOTE | 2016-11-02 04:39 | NUR ---
Pt to wheelchair for AM PA/LAT on telemetry
--- NOTE | 2016-11-02 04:50 | NUR ---
Pt back from RAD and helped to bedside chair. VSS. Call light and bedside table placed within pt reach. Fresh ice water provided per pt request.
[2016-11-02 06:31] LABS: ALBUMIN 3.5 g/dL (3.4-5.0); ALKALINE PHOSPHATASE 84 U/L (46-116); ALT (SGPT) 52 U/L (10-68); BILIRUBIN - TOTAL 0.47 mg/dL (0.2-1.3); CALC OSMOLALITY 267 mosm/kg (275-300); CALCIUM 9.8 mg/dL (8.5-10.1); CARBON DIOXIDE 33.1 mmol/L (21.0-32.0); CHLORIDE - SERUM 94 mmol/L (98-107); CREATININE - SERUM 0.7 mg/dL (0.6-1.3); GLUCOSE 115 mg/dL (74-106); MAGNESIUM - SERUM 2.1 mg/dL (1.8-2.4); PHOSPHOROUS 4.6 mg/dL (2.5-4.9); POTASSIUM - SERUM 4.4 mmol/L (3.5-5.1); PROTEIN - SERUM 7.8 g/dL (6.4-8.2); SODIUM 133 mmol/L (136-145); UREA NITROGEN 15 mg/dL (7-18); eGFR NON AFRICAN AMERICAN > 90 mL/min (90-120)
--- NOTE | 2016-11-02 07:00 | NUR ---
PT REPORT REC'D, PT CARE ASSUMED. PT [id number] SITTING UP IN CHAIR, C/O PAIN RATED "2/10" WARM BLANKET APPLIED TO SHOULDER, PAIN MEDS GIVEN PRIOR TO SHIFT. LEFT SUBCLAVIAN CVL S/L'ED DRESSING CDI. UP TO BATHROOM NEEDED. MIDSTERNAL INCISION OPEN TO AIR, CDI, NO DRAINAGE NOTED. SUBSTERNAL OLD TPM WIRE SITES, OPEN TO AIR, CDI, NO DRAINAGE NOTED. RIGHT LEG HARVEST SITES, OPEN TO AIR, NO DRAIANGE NOTED. SHIFT ASSESSMENT COMPLETED, SEE FLOW SHEET. ROOM FREE OF CLUTTER, CALL LIGHT IN REACH, ROOM FREE OF CLUTTER, CLOSE TO NURSES STATION, WILL CONTINUE TO MONITOR PT.
[2016-11-02 07:21] LABS: HEMATOCRIT 33.4 % (36.0-48.0); HEMOGLOBIN 10.8 g/dL (12-16); MCH 29.2 pg (26.0-34.0); MCHC 32.3 g/dL (31.0-37.0); MCV 90.3 fL (80.0-100.0); RBC 3.7 10x6/uL (4.00-5.40); RDW 14.3 % (11.5-14.5)
[2016-11-02 07:24] LABS: WBC 10.5 10x3/uL (4.8-10.8)
--- NOTE | 2016-11-02 07:50 | NUR ---
DR. BOLES AT THE BEDSIDE, ALL QUESTIONS ANSWERED, WILL CONTINUE TO MONITOR
--- NOTE | 2016-11-02 10:18 | NUR ---
PT C/O SHOULDER PAIN RATED 7/10, ACHING, PAIN MEDS GIVEN, REPOSITIONED PT, WILL CONTINUE TO MONITOR PT.
--- NOTE | 2016-11-02 11:00 | NUR ---
PT RESTING IN BED WITH EYES CLOSED, PT C/O SHOULDER PAIN RATED "1/10", REASSESSMENT COMPLETED, SEE FLOW SHEET. ROOM FREE OF CLUTTER, CALL LIGHT IN REACH, BED ALARM ACTIVE, WILL CONTINUE TO MONITOR PT.
--- NOTE | 2016-11-02 11:01 | NUR ---
11/02/2016 10:59 DCP: Discharge Planning Patient Name: CORRINE TOMLIN Encounter No: [id number] : 1960 Primary Insurance: MEDICARE A & B Anticipated DC Date: 10-29-2016 Planned Disposition: Home DCP follow-up note: Order rec'd for portable O2. Patient currently uses [facility] in [place] for home O2. Order faxed for portable. They will deliver portable to hospital prior to dc. Anticipate DC this afternoon. Patient and family in agreement with discharge plan. No changes to plan. Case management will follow and assist as needed. Elizabeth Baltazar
--- NOTE | 2016-11-02 12:28 | NUR ---
NO VISITORS AT THIS TIME, PT RESTING WITH EYES CLOSED, NO C/O PAIN, VSS, WILL CONTINUE TO MONITOR PT.
[2016-11-02] MEDS ORDERED: HYDROCODONE-APA1 TAB PO (13:43)
[2016-11-02] MEDS ORDERED: LOPRESSOR25 MG PO (13:47)
[2016-11-02] MEDS ORDERED: LASIX40 MG PO (13:49)
--- NOTE | 2016-11-02 15:00 | NUR ---
PT SITTING UP IN CHAIR, NO C/O PAIN, VSS, REASSESSMENT COMPLETED, SEE FLOW SHEET. ROOM FREE OF CLUTTER, CALL LIGHT IN REACH, WILL CONTINUE TO MONITOR PT.
--- NOTE | 2016-11-02 15:17 | NUR ---
DR. MILLER AT THE BEDSIDE.
--- NOTE | 2016-11-02 15:22 | NUR ---
11/02/2016 15:20 DCP: Discharge Planning Portable O2 has been delivered by [facility] ([facility]). Anticipate dc this afternoon.
--- NOTE | 2016-11-02 16:13 | NUR ---
SPOKE WITH ADE CHUN AT DR. MILLER'S OFFICE, PT HAS F/U APPT 12/22/16 AT 1130.
--- NOTE | 2016-11-02 16:58 | NUR ---
DC'ED LEFT SUBCLAVIAN CVL, TIP INTACT, 4X4'S APPLIED, TEGADERM APPLIED, WILL CONTINUE TO MONITOR FOR BLEEDING.
--- NOTE | 2016-11-02 17:00 | NUR ---
DISCHARGE INSTURCTIONS GIVEN, PT VERBALIZED UNDERSTANDING. DISCHARGE PAPERWORK SIGNED.
--- NOTE | 2016-11-02 17:10 | NUR ---
WHEELED PT OUT TO PT'S DAUGHTER'S VEHICLE, PTS DAUGHTER LORRA DRIVING PT HOME.
== END 2016-11-02 17:10 | disposition home or self-care (01) | DRG 235 ==
LOC: D.CVICU 14:18
PROVIDERS: Internal Medicine Pulmonary Disease; ADMIT Internal Medicine Cardiovascular Disease
PROC: 021009W Bypass Coronary Artery, One Artery from Aorta with Autologous Venous Tissue, Open Approach (ICD-10-PCS; 2016-10-25)
PROC: 06BP0ZZ Excision of Right Saphenous Vein, Open Approach (ICD-10-PCS; 2016-10-25)
PROC: 5A1221Z Performance of Cardiac Output, Continuous (ICD-10-PCS; 2016-10-25)
PROC: 02100AC Bypass Coronary Artery, One Artery from Thoracic Artery with Autologous Arterial Tissue, Open Approach (ICD-10-PCS; principal; 2016-10-25 07:30)
DX: I25.110 Atherosclerotic heart disease of native coronary artery with unstable angina pectoris (principal); J96.21 Acute and chronic respiratory failure with hypoxia; D62 Acute posthemorrhagic anemia; E87.1 Hypo-osmolality and hyponatremia; Z95.5 Presence of coronary angioplasty implant and graft; I65.29 Occlusion and stenosis of unspecified carotid artery; J44.9 Chronic obstructive pulmonary disease, unspecified; K21.9 Gastro-esophageal reflux disease without esophagitis; F32.9 Major depressive disorder, single episode, unspecified; I10 Essential (primary) hypertension; E78.5 Hyperlipidemia, unspecified; J45.909 Unspecified asthma, uncomplicated; E87.70 Fluid overload, unspecified; Z87.891 Personal history of nicotine dependence

== ENCOUNTER → 2016-11-18 08:58 | Outpatient (CLI) | payer MEDICARE ==
[2016-10-20 13:09] VITALS: BMI 27.2
[~2016-11-18 08:58] MED LIST changes: +HYDROCODONE-APA1 TAB PO; +LASIX40 MG PO
[2016-11-18 09:28] LABS: HEMATOCRIT 37.7 % (36.0-48.0); HEMOGLOBIN 12.2 g/dL (12-16); MCHC 32.4 g/dL (31.0-37.0); MCV 89.8 fL (80.0-100.0); MEAN PLATELET VOLUME 8.5 fL (7.4-10.4); RBC 4.2 10x6/uL (4.00-5.40); RDW 13.7 % (11.5-14.5); WBC 4.8 10x3/uL (4.8-10.8)
[2016-11-18 09:54] LABS: CALC OSMOLALITY 274 mosm/kg (275-300); CALCIUM 9.3 mg/dL (8.5-10.1); CARBON DIOXIDE 26.7 mmol/L (21.0-32.0); CHLORIDE - SERUM 102 mmol/L (98-107); CREATININE - SERUM 0.8 mg/dL (0.6-1.3); GLUCOSE 128 mg/dL (74-106); SODIUM 137 mmol/L (136-145); UREA NITROGEN 10 mg/dL (7-18); eGFR NON AFRICAN AMERICAN 78 mL/min (90-120)
== END | disposition home or self-care (01) ==
LOC: D.LAB 08:58 → D.RAD 09:15
PROVIDERS: Internal Medicine Cardiovascular Disease
DX: D64.9 Anemia, unspecified (principal); Z95.1 Presence of aortocoronary bypass graft; J90 Pleural effusion, not elsewhere classified

== ENCOUNTER 2017-01-30 11:18 | Outpatient (CLI) | payer MEDICARE ==
[~2017-01-30] VITALS: Ht 156.2 cm; Wt 58.7 kg
--- NOTE | ~2017-01-30 | HEMODYNAMI ---
PATIENT:CORRINE TOMLIN MEDICAL RECORD: [id number] : 56 LOCATION[id number] ADMISSION DATE: 01/30/17 Generatedon:01/31/20179:04 Patient name: CORRINE TOMLNI Patient #: [id number] SSN: : 1960 Date of study: 01/31/2017 Page: Of Hemodynamic Procedure Report Patient Data Patient Demographics Procedure consent was obtained First Name: CORRINE Gender: Female Last Name: SADA : 1960 [facility] Initial: GET Age: 56 year(s) Patient #: [id number] Race: Additional ID: [id number] Contact details [address]: [address] [place] [address] State: [place] City: [place] Zip code: [address] Past Medical History Allergies Allergen Reaction Date Comments Reported Other allergy 07/14/2015 lisinopril Admission Admission Data Admission Date: 01/30/2017 Admission Time: 13:18 Room #: D.2119 Lab Results Lab Result Date: 01/31/2017 Lab Result Time: 0:00 Biochemistry Name Units Result Min Max BUN mg/dl 8 --(*---)-- 7 18 Creatinine mg/dl 0.7 --(*---)-- 0.6 1.3 CBC Name Units Result Min Max Hemoglobin g/dl 12.1 *-(----)-- 13.5 17.5 Procedure Procedure Types Cath Procedure Diagnostic Procedure LHC LHC w/Coronaries w/Grafts PCI Procedure SVG-BMS/MARIA TERESA Initial Miscellaneous Procedures Moderate Sedation up to 30 minutes Procedure Description Procedure Date Procedure Date: 01/31/2017 Procedure Start Time: 8:16 Procedure End Time: 9:02 Procedure Staff Name Function Arnav Noyola RT Monitor John Paul Moran RN Nurse Adonay Esteban MD Performing Physician Musa Comer RT Monitor Procedure Data Cath Procedure Fluoroscopy Diagnostic fluoroscopy Total fluoroscopy Time: 8.6 time: 8.6 min min Diagnostic fluoroscopy Total fluoroscopy dose: 777 dose: 777 mGy mGy Contrast Material Contrast Material Type Amount (ml) Isovue 300 147 Entry Location Entry Primary Successful Side Size Upsize Upsize Entry Closure Succes sful Closure Location (Fr) 1 (Fr) 2 (Fr) Remarks Device Remarks Femoral Right 5 Fr 6 Fr Exoseal artery Short Estimated blood loss: 10 ml Diagnostic catheters Device Type Used For End Catheter Placement Cordis 5Fr JL 4.0 Procedure Catheter (MP) Diagnostic Infinity 5Fr Procedure JL 3.5 catheter Diagnostic Infinity 5Fr Procedure IM catheter Cordis 5Fr 3DRC Catheter Procedure (MP) Cordis 5Fr Pigtail Procedure Catheter (MP) Procedure Medications Medication Administration Route Dosage Oxygen NC 2 l/min Heparin Flush Bag added to field 2 bags (1000units/500ml NS) 0.9% NaCl I.V. 100 ml/hr Fentanyl I.V. 50 mcg Versed I.V. 1 mg Fentanyl I.V. 50 mcg Versed I.V. 1 mg Heparin Bolus I.V. 6000 units Plavix P.O. 600 mg Hemodynamics Rest HGB: 12.1 (g/dl) Heart Rate: 88 (bpm) Pressure Samples Time Site Value (mmHg) Purpose Heart Use Rate(bpm) 8:33 LV 134/1,14 Snapshot 93 8:33 LV 143/-11,11 Pullback 97 8:33 AO 152/75(112) Pullback 97 Gradients Valve Time Site 1 Site 2 Mean SEP/DFP Peak To Heart Use (mmHg) (sec/min) Peak Rate (mmHg) (bpm) Aortic 8:33 LV AO 0 8 0 97 143/-11,11 152/75(112) Calculations Valve P-P Mean Valve Index Valve Source Name Gradient Area Flow (cm2) Aortic 0 0 0 0 Snapshots Pre Cath Intra NCS Post Cath Vital Signs Time Heart Resp SPO2 NIBP (mmHg) Rhythm Pain Sedation Rate (ipm) (%) Status Level (bpm) 8:00:39 88 18 93 171/106(144) NSR 0 (11) 10(A) , No pain 8:04:57 86 18 92 187/101(151) NSR 0 (11) 10(A) , No pain 8:09:11 85 19 92 147/92(118) NSR 0 (11) 10(A) , No pain 8:13:23 89 19 96 156/90(122) NSR 0 (11) 10(A) , No pain 8:17:33 86 17 95 114/73(92) NSR 0 (11) 9(A) , No pain 8:21:39 86 19 95 110/68(102) NSR 0 (11) 9(A) , No pain 8:25:40 86 19 96 104/73(94) NSR 0 (11) 9(A) , No pain 8:30:29 92 17 96 137/81(112) NSR 0 (11) 9(A) , No pain 8:34:35 96 17 96 145/94(113) NSR 0 (11) 9(A) , No pain 8:38:45 96 18 97 158/93(127) NSR 0 (11) 9(A) , No pain 8:42:59 94 17 98 159/93(120) NSR 0 (11) 9(A) , No pain 8:47:13 97 17 98 167/97(128) NSR 0 (11) 10(A) , No pain 8:50:35 95 18 99 175/103(135) NSR 0 (11) 10(A) , No pain 8:54:55 91 14 98 168/103(130) NSR 0 (11) 10(A) , No pain 8:59:12 88 14 99 165/97(118) NSR 0 (11) 10(A) , No pain Medications Time Medication Route Dose Verified Delivered Reason Notes Effectiveness by by 8:04:44 Oxygen NC 2 John Paul John Paul Per physician l/min Dean Moran RN RN 8:04:54 Heparin Flush added 2 John Paul John Paul used for Bag to bags Dean Moran RN procedure (1000units/500ml field RN NS) 8:05:05 0.9% NaCl I.V. 100 John Paul John Paul Per physician ml/hr Dean Moran RN RN 8:10:31 Fentanyl I.V. 50 John Paul John Paul for sedation mcg Dean Moran RN RN 8:10:37 Versed I.V. 1 mg John Paul John Paul for sedation Dean Moran RN RN 8:16:32 Fentanyl I.V. 50 John Paul John Paul for sedation mcg Dean Moran RN RN 8:16:36 Versed I.V. 1 mg John Paul John Paul for sedation Dean Moran RN RN 8:36:59 Heparin Bolus I.V. 6000 John Paul Coker for units Dean Moran RN anticoagulation RN 8:49:49 Plavix P.O. 600 John Paul Coker for mg Dean Moran RN antiplatelet RN therapy Procedure Log Time Note 7:35:55 John Paul Moran RN sent for patient. Start room use. 7:44:56 Time tracking: Regular hours 7:45:00 Plan of Care:Hemodynamics will remain stable., Cardiac rhythm will remain stable., Comfort level will be maintained., Respiratory function will remain adequate., Patient/ family verbilizes understanding of procedure., Procedure tolerated without complication., Recovers from procedure without complications.. 7:53:11 Patient received from PCU to CCL 2 Alert and oriented. Tansferred to table in Supine position. 7:53:12 Correct patient and procedure confirmed by team. 7:53:12 Warm blankets applied, and ascencion hugger turned on for patient comfort. 7:53:13 Signed procedure consent form obtained from patient. 7:53:14 ECG and BP/O2 sat monitors applied to patient. 7:59:32 Vital chart was started 7:59:34 Baseline sample Acquired. 7:59:39 Rhythm: sinus rhythm 7:59:49 H&P Date Dictated: 01/30/2017 Within 30 days and on chart.. 7:59:50 Pre-procedure instructions explained to patient. 7:59:51 Pre-op teaching completed and patient verbalized understanding. 7:59:52 Family in patients room. 7:59:53 Patient NPO since Midnight. 7:59:54 Is the patient allergic to Iodine/contrast media? No. 7:59:58 Is patient on blood thinner?No 8:00:02 Patient diabetic? No. 8:00:06 Patient not . Patient is over age 55. 8:00:10 Previous problem with sedation/anesthesia? No ? 8:00:11 Snore? Yes 8:00:12 Sleep apnea? No 8:00:13 Deviated septum? No 8:00:14 Opens mouth fully? Yes 8:00:15 Sticks out tongue? Yes 8:00:18 Airway obstruction? Yes COPD 8:00:44 Dentures? No ? 8:00:46 Pre procedure: right dorsailis pedis pulse 1+ Palpable, but thready & weak; easily obliterated 8:00:49 Patient pain scale 0/10 ?. 8:01:05 IV patent on arrival in left hand with 0.9% NaCl at [facility]. 8:01:07 Lab results completed and on chart. 8:01:10 Right groin area was prepped with chlora-prep and draped in sterile fashion 8::11 Sharps counted by scrub and verified by R.N. 8::11 Alarms reviewed by R. N. 8:04:44 Oxygen 2 l/min NC was administered by John Paul Moran RN; Per physician; 8:04:54 Heparin Flush Bag (1000units/500ml NS) 2 bags added to field was administered by John Paul Moran RN; used for procedure; 8:05:05 0.9% NaCl 100 ml/hr I.V. was administered by John Paul Moran RN; Per physician; 8::59 Lab Result : Hemoglobin 12.1 g/dl 8::59 Lab Result : Creatinine 0.7 mg/dl 8::59 Lab Result : BUN 8 mg/dl 8:10:04 Physician arrived 8:10:05 --------ALL STOP TIME OUT------ 8:10:06 Final Timeout: patient, procedure, and site verified with staff and physician. All members of the team are in agreement. 8:10:08 Right groin site verified by team. 8:10:12 Physical assessment completed. ASA score P 2 - A patient with mild systemic disease as per John Paul Moran RN. 8:10:16 Sedation plan: IV Moderate Sedation Versed, Fentanyl 8:10:31 Fentanyl 50 mcg I.V. was administered by John Paul Moran RN; for sedation; 8:10:37 Versed 1 mg I.V. was administered by John Paul Moran RN; for sedation; 8:15:25 Use device set Femoral Dx 8:15:27 Bag Decanter opened to sterile field. 8:15:27 Acist Syringe opened to sterile field. 8:15:28 Medline Cath Pack opened to sterile field. 8:15:29 Terumo 5Fr Moose Pass Sheath opened to sterile field. 8:15:30 St Wesley 260cm J .035 wire opened to sterile field. 8:15:32 Acist Manifold opened to sterile field. 8:15:32 Acist Hand Control opened to sterile field. 8:15:35 Diagnostic Infinity 5Fr Multipack catheter opened to sterile field. 8:15:36 Tegaderm 4 x 4 opened to sterile field. 8:16:18 Procedure started. 8:16:19 Full Disclosure recording started 8:16:23 Local anesthetic to right femoral artery with Lidocaine 2% by Adonay Esteban MD.INITIAL ACCESS ONLY 8:16:32 Fentanyl 50 mcg I.V. was administered by John Paul Moran RN; for sedation; 8:16:36 Versed 1 mg I.V. was administered by John Paul Moran RN; for sedation; 8:17:58 A 5 Fr sheath was inserted into the Right Femoral artery 8:19:27 A Cordis 5Fr JL 4.0 Catheter (MP) was advanced over the wire and used for Procedure. 8:19:47 Zero performed for pressure channel P1 8:21:05 Catheter removed. 8:21:32 unable to cannulate 8:21:40 A Diagnostic Infinity 5Fr JL 3.5 catheter was advanced over the wire and used for Procedure. 8:22:39 LCA angiography performed. 8:24:03 A Diagnostic Infinity 5Fr IM catheter was advanced over the wire and used for Procedure. 8:26:20 Catheter removed. unable to cannulate vessel. 8:26:34 A Cordis 5Fr 3DRC Catheter (MP) was advanced over the wire and used for Procedure. 8:28:36 DOVER to LAD angiography performed. 8:28:48 RCA angiography performed. 8:30:12 SVG to OM angiography performed. 8:31:50 Catheter removed. 8:32:22 High Pressure Extension Tubing (Carlito) opened to sterile field. 8:32:23 Munguia BMW Waldor[place] 2 J-tip 300cm 0.014 guide wir opened to sterile field. 8:32:24 Axela BasixCompak Inflation Kit opened to sterile field. 8:33:09 A Cordis 5Fr Pigtail Catheter (MP) was advanced over the wire and used for Procedure. 8:33:33 LV hemodynamics recorded. 8:33:36 LV gram done using TAYLOR 8:33:41 EF : 60 % 8:35:07 Catheter removed. 8:35:08 Proceeding to intervention. 8:35:20 Terumo 6Fr Moose Pass Sheath opened to sterile field. 8:35:32 Sheath upsized to a 6 Fr Short. 8:35:52 Medtronic Launcher 6Fr AR 1.0 SH guide catheter opened to sterile field. 8:36:24 6 Fr AR 1 SH guide catheter was inserted over the wire 8:36:59 Heparin Bolus 6000 units I.V. was administered by John Paul Moran RN; for anticoagulation; 8:39:00 BMW wire advanced. 8:39:03 Wire advanced across lesion. 8:41:24 Inflation Number: 1 A Nicolas OTW 2.75 x 38 stent was prepped and advanced across the Aorta Left -> 1st Ob Monserrat. The stent was deployed at 10 CORINA for 0:10 (min:sec). 8:41:56 Stent catheter was removed intact over wire. 8:45:10 Inflation Number: 2 A [place] OTW 2.75 x 26 stent was prepped and advanced across the Aorta Left -> 1st Ob Monserrat. The stent was deployed at 12 CORINA for 0:10 (min:sec). 8:45:55 Stent catheter was removed intact over wire. 8:47:31 Guide catheter removed. 8:47:31 Wire removed. 8:48:24 Cordis 6Fr Exoseal opened to sterile field. 8:49:15 Sheath removed intact; hemostasis achieved with Exoseal to the Right Femoral artery. 8:49:19 Procedure ended.(Physican Out) 8:49:43 Fluoroscopy time 08.60 minutes. 8:49:49 Fluoroscopy dose: 777 mGy 8:49:49 Flurop Dose total: 777 8:49:49 Plavix 600 mg P.O. was administered by John Paul Moran RN; for antiplatelet therapy; 8:50:00 Contrast amount:Isovue 300 147ml. 8:50:01 Sharps counted by scrub and verified by R.N. 8:52:45 Procedure type changed to Cath procedure, Diagnostic procedure, LHC, LHC w/Coronaries w/Grafts, PCI procedure, SVG-BMS/MARIA TERESA Initial, Miscellaneous Procedures, Moderate Sedation up to 30 minutes 8:59:39 Insertion/operative site no bleeding no hematoma. 8:59:47 Post-op/insertion site Right Femoral artery dressed using a 4 x 4 and Tegaderm. 8:59:56 Post right femoral artery:stable, oozing 9:00:53 Post-procedure physical assessment completed. ASA score P 2 - A patient with mild systemic disease as per Adonay Esteban MD. 9:01:13 Post procedure rhythm: sinus rhythm 9:01:16 Estimated blood loss: 10 ml 9:01:18 Post procedure instruction explained to patient.Patient verbalizes understanding. 9:01:20 Patient needs reinforcement of post procedure teaching. 9:01:21 Procedure and supply charges have been captured, reviewed, submitted and are correct. 9:01:55 Vital chart was stopped 9:01:56 See physician's report for complete and final results. 9:01:59 Report given to PCU. 9:02:04 Full Disclosure recording stopped 9:02:04 Procedure ended. 9:02:10 End room use (Document Last) Intervention Summary Intervention Notes Time ActionType Lesion and Equipment Action# Pressure Duration Attributes Used 8:41:24 Place stent Aorta Left Nicolas OTW 1 10 00:10 -> 1st Ob 2.75 x 38 Monserrat stent 8:45:10 Place stent Aorta Left Nicolas OTW 2 12 00:10 -> 1st Ob 2.75 x 26 Monserrat stent Device Usage Item Name Manufacture Quantity Catalog Hospital Part Current Minim al Lot# / Number Charge Number Stock Stock Serial# Code Acist Acist 1 [id number] [id number] 149420 030249 20 Syringe Medical Systems Inc Bag Microtek 1 2002S 327231 96513 891626 5 DecFanTree Medical Inc. Medline Cardinal 1 [id number] 074107 99412 766300 5 Cath Pack Health Terumo 5Fr Terumo 1 [id number] 270957 391974 155388 [address] [facility] Wesley 1 796370 740347 098918 639461 30 260cm J .035 wire Acist Hand Acist 1 32102 163643 055638 304127 5 Control Medical Systems Inc Acist Acist 1 22882 090362 138728 380543 5 Manifold Medical Systems Inc Diagnostic Cardinal 1 [id number] 356581 08862 211223 30 Revelation 5Fr Multipack catheter Tegaderm 4 3M 1 1626W 615075 905571 296846 5 x 4 Cordis 5Fr Cardinal 1 [id number] 5 JL 4.0 Health Catheter (MP) Diagnostic Cardinal 1 [id number] 556576 308780 531941 5 Infinity Health 5Fr JL 3.5 catheter Diagnostic Cardinal 1 [id number] 048531 618462 168279 5 Infinity Health 5Fr IM catheter Cordis 5Fr Cardinal 1 425570 5 3DRC Health Catheter (MP) High Merit 1 [id number] 328266 29771 999673 10 Pressure Medical Extension Tubing (Esteban) Munguia BMW Munguia 1 [id number] 330957 919102 027788 5 Waldorf 2 Vascular J-tip 300cm 0.014 guide wir Merit Merit 1 [id number] 267063 830247 965991 15 BasixCompak Medical Inflation Kit Cordis 5Fr Cardinal 1 962147 5 Pigtail Health Catheter (MP) Terumo 6Fr Terumo 1 [id number] 187937 422694 847117 40 Moose Pass Sheath Medtronic Medtronic 1 [id number] 614955 83754 415065 1 Launcher 6Fr AR 1.0 SH guide catheter [place] OTW Medtronic 1 [id number] 558542 7297392 615486 5 [id number] 2.75 x 38 stent [place] OTW Medtronic 1 [id number] 174794 6660612 857944 5 [id number] 2.75 x 26 stent Cordis 6Fr Cardinal 1 [id number] 411467 133195 438106 10 [facility] Signature Audit [place] Stage Time Signature Unsigned Intra-Procedure 01/31/2017 Musa Comer 9:04:17 AM RT(R) (CV) Signatures Monitor : Arnav Noyola RT Signature : Date : Time : Monitor : Musa Comer RT Signature : Date : Time : [facility] [address] [place], [place] [address]
[2017-01-30 12:00] LABS: BASOPHILS 0.3 % (0-2); HEMATOCRIT 36.4 % (36.0-48.0); HEMOGLOBIN 11.9 g/dL (12-16); LYMPHOCYTES 40.4 % (15-50); MCH 28.7 pg (26.0-34.0); MCHC 32.7 g/dL (31.0-37.0); MCV 87.9 fL (80.0-100.0); MEAN PLATELET VOLUME 9.3 fL (7.4-10.4); MONOCYTES 9.6 % (2-11); NEUTROPHILS 47.7 % (40-80); PLATELET COUNT 213 10x3/uL (130-400); RBC 4.14 10x6/uL (4.00-5.40); RDW 14.4 % (11.5-14.5); WBC 6.1 10x3/uL (4.8-10.8)
[2017-01-30 12:21] LABS: ALBUMIN 3.5 g/dL (3.4-5.0); ALKALINE PHOSPHATASE 82 U/L (46-116); ALT (SGPT) 28 U/L (10-68); BILIRUBIN - TOTAL 0.22 mg/dL (0.2-1.3); CALC OSMOLALITY 279 mosm/kg (275-300); CARBON DIOXIDE 27.3 mmol/L (21.0-32.0); CHLORIDE - SERUM 104 mmol/L (98-107); CREATININE - SERUM 0.7 mg/dL (0.6-1.3); GLUCOSE 79 mg/dL (74-106); PROTEIN - SERUM 7.9 g/dL (6.4-8.2); SODIUM 141 mmol/L (136-145); UREA NITROGEN 13 mg/dL (7-18); eGFR NON AFRICAN AMERICAN > 90 mL/min (90-120)
[2017-01-30 12:37] LABS: CHOL - HDL RATIO 2.8 ratio (2.3-4.1); CHOLESTEROL, TOTAL 151 mg/dL (0-200); CKMB 0.1 U/L (0.0-3.6); CREATINE KINASE 62 UL (21-215); HDL CHOLESTEROL 55 mg/dL (32-96); LDL CHOLESTEROL 87 mg/dL (0-100); LDL-HDL RATIO 1.6 ratio (1.5-3.5); PRO BNP 692 pg/mL (0-125); TRIGLYCERIDE 47 mg/dL (30-200); TROPONIN-I < 0.017 ng/mL (0.000-0.060)
--- NOTE | 2017-01-30 13:36 | NUR ---
RECEIVED REPORT FROM [facility] NURSE. PT COMING TO FLOOR VIA WHEELCHAIR.
--- NOTE | 2017-01-30 14:06 | NUR ---
[facility], PT TRANSFERED SELF TO BED WITHOUT ANY PROBLEMS. DENIES ANY CHEST PAIN AT THIS TIME. ORIENTED PT TO ROOM AND CALL LIGHT. HEART MONITOR PLACED ON PT AND IV FLUIDS STARTED TO INFUSE AT 50CC/HR. O2 PLACED ON 2L NC. ASSESSMENT DONE AT THIS TIME. WILL START PLAN OF CARE.
[2017-01-30 14:34] VITALS: BP 169/89; Ht 156.2 cm; Wt 58.7 kg
[2017-01-30] MEDS ORDERED: IPRAT-ALBUT 0.5-3 ML UPD (14:50)
[2017-01-30 20:00] VITALS: BP 141/79
--- NOTE | 2017-01-30 22:01 | NUR ---
INITAIL ROUNDS COMPLETED AT 1915 HRS. PT DENIED ANY DISCOMFORT. ASSESSMENT COMPLETED AT 2004 HRS. SSS. SR PER CM HR 77 O2 2LNC. LUNGS CTA. IV TO R HAD WITH NS AT 50C/HR. IV PATENT. PT DENIED ANY DISCOMFORT. PT CURRENTLY RESTING WITH EYES CLOSED. RESP EVEN AND REGULAR. SR UP X2, CALL LIGHT WITHIN REACH.
[2017-01-31] VITALS: BP 161/84
--- NOTE | 2017-01-31 00:11 | NUR ---
ATTEMPTED TO DO TIMED EKG BUT ACQUISITION MODE TO MACHINE BROKEN. NITROPATCH. REMOVED BY PT FOR C/O SOSA. WILL CONTINUE TO MONITOR.
--- NOTE | 2017-01-31 02:45 | NUR ---
PT RESTING WITH EYES CLOSED. RESP EVEN AND REGULAR. SR UP X2, CALL LIGHT WITHIN REACH.
[2017-01-31 04:00] VITALS: BP 149/93
--- NOTE | 2017-01-31 04:50 | NUR ---
PT RESTING WITH EYES CLOSED. RESP EVEN AND REGULAR. SR UP X2, CALL LIGHT WITHIN REACH.
[2017-01-31 05:48] LABS: BASOPHILS 0.4 % (0-2); EOSINOPHILS 3.6 % (0-7); HEMATOCRIT 37.2 % (36.0-48.0); HEMOGLOBIN 12.1 g/dL (12-16); IMMATURE GRANULOCYTES 0.2 % (0-5); MCH 28.5 pg (26.0-34.0); MCHC 32.5 g/dL (31.0-37.0); MCV 87.7 fL (80.0-100.0); MEAN PLATELET VOLUME 9.6 fL (7.4-10.4); MONOCYTES 10.5 % (2-11); NEUTROPHILS 44.3 % (40-80); PLATELET COUNT 221 10x3/uL (130-400); RBC 4.24 10x6/uL (4.00-5.40); RDW 14.6 % (11.5-14.5); WBC 5.5 10x3/uL (4.8-10.8)
[2017-01-31 05:59] LABS: CALC OSMOLALITY 280 mosm/kg (275-300); CALCIUM 8.6 mg/dL (8.5-10.1); CARBON DIOXIDE 29.1 mmol/L (21.0-32.0); CHLORIDE - SERUM 106 mmol/L (98-107); CREATININE - SERUM 0.7 mg/dL (0.6-1.3); GLUCOSE 96 mg/dL (74-106); POTASSIUM - SERUM 4.1 mmol/L (3.5-5.1); SODIUM 142 mmol/L (136-145); UREA NITROGEN 8 mg/dL (7-18); eGFR NON AFRICAN AMERICAN > 90 mL/min (90-120)
--- NOTE | 2017-01-31 06:02 | NUR ---
VSS THROUGHUOT NIGHT. SR PER CM. PT DENIED ANY DISCOMFORT. NEEDS MET; WILL CONTINUE TO MONITOR.
--- NOTE | 2017-01-31 07:07 | NUR ---
[facility] PRE-OP MEDS GIVEN. WILL CONTINUE TO MONITOR.
--- NOTE | 2017-01-31 07:20 | NUR ---
ASSESSMENT COMPLETED. TELEMERTY SHOWS SR. O2 AT 2 LM. PRE OPED FOR HUMAN RESOURCES COORDINATOR. TO HUMAN RESOURCES COORDINATOR PER BED.
--- NOTE | 2017-01-31 07:20 | NUR ---
ASSESSMENT COMPLETED. TELEMERTY SHOWS SR. LEFT HAND IV WITH NS. TO VP PUBLISHER DEVELOPMENT PER BED
--- NOTE | 2017-01-31 09:31 | NUR ---
BACK FROM VICE PRESIDENT OF TALENT MANAGEMENT. RIGHT GROIN SOFT WITH DRSG DRY AND INTACT. B/P UP. TELEMERTY SHOWS SR. WILL MONITOR
[2017-01-31] MEDS ORDERED: PLAVIX75 MG PO (10:56)
--- NOTE | 2017-01-31 18:01 | NUR ---
DCD. IV DCD WITH TIP INTACT. TO PRIVATE CAR PER WHEEL CHAIR
== END 2017-01-31 18:03 | disposition home or self-care (01) ==
LOC: OBSVTIME → D.ER 11:18 → D.OPS 11:18 → OBSVTIME 13:18 → D.ER 13:18 → D.M2 13:18 → EDSTATUS 01-31 08:00 → D.M2 01-31 18:03 → D.OPS 01-31 18:03
PROVIDERS: Emergency Medicine; Family Medicine Adult Medicine
DX: I10 Essential (primary) hypertension (principal); E78.5 Hyperlipidemia, unspecified; J44.9 Chronic obstructive pulmonary disease, unspecified; Z01.812 Encounter for preprocedural laboratory examination
CPT/HCPCS: 93459; C9604

== ENCOUNTER 2017-04-26 11:41 | Observation (INO) | payer MEDICARE ==
[~2017-04-26] VITALS: Ht 156.2 cm; Wt 60.5 kg
--- NOTE | ~2017-04-26 | HEMODYNAMI ---
PATIENT:CORRINE TOMLIN MEDICAL RECORD: [id number] : 56 LOCATION:[address] ADMISSION DATE: 04/26/17 Generatedon:04/27/201710:18 Patient name: CORRINE TOMLIN Patient #: [id number] SSN: : 1960 Date of study: 04/27/2017 Page: Of Hemodynamic Procedure Report Patient Data Patient Demographics Procedure consent was obtained First Name: CORRINE Gender: Female Last Name: SADA : 1960 Middle Initial: GET Age: 56 year(s) Patient #: [id number] Race: Additional ID: [id number] Contact details [address]: [address] [place] [address] State: [place] City: [place] Zip code: [address] Past Medical History Allergies Allergen Reaction Date Comments Reported Other allergy 07/14/2015 lisinopril Admission Admission Data Admission Date: 04/26/2017 Admission Time: 14:44 Room #: D2115 Lab Results Lab Result Date: 04/27/2017 Lab Result Time: 0:00 Biochemistry Name Units Result Min Max BUN mg/dl 14 --(--*-)-- 7 18 Creatinine mg/dl 0.6 --(*---)-- 0.6 1.3 CBC Name Units Result Min Max Hemoglobin g/dl 12.4 *-(----)-- 13.5 17.5 Procedure Procedure Types Cath Procedure Diagnostic Procedure LHC LHC w/Coronaries w/Grafts Miscellaneous Procedures Moderate Sedation up to 15 minutes Procedure Description Procedure Date Procedure Date: 04/27/2017 Procedure Start Time: 10:03 Procedure End Time: 10:17 Procedure Staff Name Function Geoffrey Mcduffie MD Performing Physician Arnav Noyola RT Monitor Tati Damon RT Scrub John Paul Moran RN Nurse Procedure Data Cath Procedure Fluoroscopy Diagnostic fluoroscopy Total fluoroscopy Time: 2.7 time: 2.7 min min Diagnostic fluoroscopy Total fluoroscopy dose: 126 dose: 126 mGy mGy Contrast Material Contrast Material Type Amount (ml) Isovue 300 69 Entry Location Entry Primary Successful Side Size Upsize Upsize Entry Closure Succes sful Closure Location (Fr) 1 (Fr) 2 (Fr) Remarks Device Remarks Femoral Right 5 Fr Exoseal artery Estimated blood loss: 10 ml Diagnostic catheters Device Type Used For End Catheter Placement MULTIPACK Pigtail 5 Fr Procedure catheter MULTIPACK JL 4.0 5Fr Procedure catheter MULTIPACK 3DRC 5Fr Procedure catheter DIAGNOSTIC AR 2 MOD 5 Fr Procedure catheter ([id number]) Procedure Complications No complications Procedure Medications Medication Administration Route Dosage Oxygen NC 2 l/min Heparin Flush Bag added to field 2 bags (1000units/500ml NS) 0.9% NaCl I.V. 100 ml/hr Fentanyl I.V. 50 mcg Versed I.V. 1 mg Fentanyl I.V. 50 mcg Versed I.V. 1 mg Hemodynamics Rest HGB: 12.4 (g/dl) Heart Rate: 78 (bpm) Pressure Samples Time Site Value (mmHg) Purpose Heart Use Rate(bpm) 10:08 AO 94/59(75) Snapshot 83 Snapshots Pre Cath Intra NCS Post Cath Vital Signs Time Heart Resp SPO2 etCO2 NIBP (mmHg) Rhythm Pain Sedation Rate (ipm) (%) (mmHg) Status Level (bpm) 9:49:44 75 16 93 0 170/91(134) NSR 0 (11) 10(A) , No pain 9:54:10 77 17 92 0 162/95(132) NSR 0 (11) 10(A) , No pain 9:58:36 73 19 99 35.1 152/89(127) NSR 0 (11) 10(A) , No pain 10:03:59 80 16 99 35.8 173/103(139) NSR 0 (11) 9(A) , No pain 10:08:16 82 17 86 11.2 114/74(88) NSR 0 (11) 9(A) , No pain 10:12:27 81 18 96 9.7 111/68(88) NSR 0 (11) 9(A) , No pain 10:16:37 79 8 98 12.7 107/66(84) NSR 0 (11) 9(A) , No pain Medications Time Medication Route Dose Verified Delivered Reason Notes Effec tiveness by by 9:58:00 Oxygen NC 2 Geoffrey Verduzcoy Per l/min Reta Moran RN physician 9:58:08 Heparin Flush added 2 Geoffrey Coker used for Bag to bags Reta Moran RN procedure (1000units/500ml field NS) 9:58:18 0.9% NaCl I.V. 100 Geoffrey Coker Per ml/hr Reta Moran RN physician 10:02:22 Fentanyl I.V. 50 Geoffrey Verduzcoy for mcg Reta Moran RN sedation 10:02:28 Versed I.V. 1 mg Geoffrey Verduzcoy for Reta Moran RN sedation 10:10:09 Fentanyl I.V. 50 Geoffrey Verduzcoy for mcg Reta Moran RN sedation 10:10:13 Versed I.V. 1 mg Geoffrey Coker for Reta Moran RN sedation Procedure Log Time Note 9:11:49 Diagnostic Cath status Elective 9:11:50 Time tracking: Regular hours 9:11:57 Plan of Care:Hemodynamics will remain stable., Cardiac rhythm will remain stable., Comfort level will be maintained., Respiratory function will remain adequate., Patient/ family verbilizes understanding of procedure., Procedure tolerated without complication., Recovers from procedure without complications.. 9:13:21 H&P Date Dictated: 04/26/2017 Within 30 days and on chart.. 9:14:01 Lab Result : BUN 14 mg/dl 9:14:01 Lab Result : Creatinine 0.6 mg/dl 9:14:01 Lab Result : Hemoglobin 12.4 g/dl 9:30:59 John Paul Moran RN sent for patient. Start room use. 9:45:10 Patient received from PCU to CCL 3 Alert and oriented. Tansferred to table in Supine position. 9:45:11 Warm blankets applied, and ascencion hugger turned on for patient comfort. 9:45:12 Correct patient and procedure confirmed by team. 9:45:14 Signed procedure consent form obtained from patient. 9:45:16 ECG and BP/O2 sat monitors applied to patient. 9:48:24 Vital chart was started 9:55:27 Baseline sample Acquired. 9:55:31 Rhythm: sinus rhythm 9:55:35 Full Disclosure recording started 9:55:36 Pre-procedure instructions explained to patient. 9:55:36 Pre-op teaching completed and patient verbalized understanding. 9:55:38 Family in patients room. 9:55:40 Patient NPO since Midnight. 9:55:42 Is the patient allergic to Iodine/contrast media? No. 9:55:46 Is patient on blood thinner?Yes 9:55:49 ACC The patient was administered the following blood thiners within the last 24 hours: ACCPlavix 9:55:53 Patient diabetic? No. 9:55:56 Patient not . Patient is over age 55. 9:55:57 Previous problem with sedation/anesthesia? No ? 9:55:58 Snore? Yes 9:56:04 Sleep apnea? No 9:56:05 Deviated septum? No 9:56:06 Opens mouth fully? Yes 9:56:07 Sticks out tongue? Yes 9:56:09 Airway obstruction? Yes COPD 9:56:13 Dentures? No ? 9:56:17 Pre procedure: right dorsailis pedis pulse 1+ Palpable, but thready & weak; easily obliterated 9:56:20 Patient pain scale 0/10 ?. 9:56:26 IV patent on arrival in left forearm with 0.9% NaCl at KVO. 9:56:28 Lab results completed and on chart. 9:56:31 Right groin area was prepped with chlora-prep and draped in sterile fashion 9:56:32 Alarms reviewed by R. N. 9:56:33 Sharps counted by scrub and verified by R.N. 9:56:37 Use device set Femoral Dx 9:56:40 Tegaderm 4 x 4 (1626W) opened to sterile field. 9:56:42 ACIST Manifold (09444) opened to sterile field. 9:56:42 ACIST Hand Control (33376) opened to sterile field. 9:56:44 ACIST Syringe (25410) opened to sterile field. 9:56:44 Bag Decanter (2002S) opened to sterile field. 9:56:44 Medline Cath Pack ([id number]) opened to sterile field. 9:56:45 SHEATH 5FR [place] (QKE681) opened to sterile field. 9:56:45 DIAGNOSTIC WIRE .035 260cm J wire (374124) opened to sterile field. 9:56:48 DIAGNOSTIC Multipack 5Fr catheter set (CS1308) opened to sterile field. 9:56:49 PERCUTANEOUS ENTRY 19GA needle opened to sterile field. 9:58:00 Oxygen 2 l/min NC was administered by John Paul Moran RN; Per physician; 9:58:08 Heparin Flush Bag (1000units/500ml NS) 2 bags added to field was administered by John Paul Moran RN; used for procedure; 9:58:18 0.9% NaCl 100 ml/hr I.V. was administered by John Paul Moran RN; Per physician; 10:00:21 IV Extension Set opened to sterile field. 10:00:27 --------ALL STOP TIME OUT------ :00:28 Final Timeout: patient, procedure, and site verified with staff and physician. All members of the team are in agreement. 10:00:32 Right groin site verified by team. 10:00:35 Physical assessment completed. ASA score P 2 - A patient with mild systemic disease as per Geoffrey Mcduffie MD. 10:00:40 Sedation plan: IV Moderate Sedation Medication:Versed, Fentanyl 10:02:22 Fentanyl 50 mcg I.V. was administered by John Paul Moran RN; for sedation; 10::28 Versed 1 mg I.V. was administered by John Paul Moran RN; for sedation; 10:03:30 Procedure started. 10:03:33 Local anesthetic to right femoral artery with Lidocaine 2% by Geoffrey Mcduffie MD.INITIAL ACCESS ONLY 10:04:40 A 5 Fr sheath was inserted into the Right Femoral artery 10:05:01 A MULTIPACK Pigtail 5 Fr catheter was advanced over the wire and used for Procedure. 10:05:46 LV angiography performed. 10:05:47 LV gram done using TAYLOR 10:05:53 EF : 60 % 10:05:58 Injector settings: Ml/sec: 10, Volume: 20, 10:06:00 Catheter removed. 10:06:06 Zero performed for pressure channel P1 10:06:20 A MULTIPACK JL 4.0 5Fr catheter was advanced over the wire and used for Procedure. 10:06:53 LCA angiography performed. 10:07:33 Catheter removed. 10:07:37 A MULTIPACK 3DRC 5Fr catheter was advanced over the wire and used for Procedure. 10:08:46 DOVER to LAD angiography performed. 10:08:53 Catheter removed. 10:09:25 A DIAGNOSTIC AR 2 MOD 5 Fr catheter ([id number]) was advanced over the wire and used for Procedure. 10:10:09 Fentanyl 50 mcg I.V. was administered by John Paul Moran RN; for sedation; 10:10:13 Versed 1 mg I.V. was administered by John Paul Moran RN; for sedation; 10:10:25 RCA angiography performed. 10:12:21 SVG to Circ angiography performed. 10:12:24 Catheter removed. 10:12:26 EXOSEAL 5Fr (EX500) opened to sterile field. 10:12:54 Sheath removed intact; hemostasis achieved with Exoseal to the Right Femoral artery. 10:13:32 Fluoroscopy time 02.70 minutes. 10:13:40 Fluoroscopy dose: 126 mGy 10:13:40 Flurop Dose total: 126 10:13:55 Contrast amount:Isovue 300 69ml. 10:13:56 Sharps counted by scrub and verified by R.N. 10:13:59 Insertion/operative site no bleeding no hematoma. 10:14:02 Post-op/insertion site Right Femoral artery dressed using a 4 x 4 and Tegaderm. 10:14:03 Post Procedure Pulses reassessed and unchanged 10:14:05 Post-procedure physical assessment completed. ASA score P 2 - A patient with mild systemic disease as per Geoffrey Mcduffie MD. 10:14:08 Post procedure rhythm: unchanged. 10:14:43 Estimated blood loss: 10 ml 10:14:45 Post procedure instruction explained to patient.Patient verbalizes understanding. 10:14:45 Patient needs reinforcement of post procedure teaching. 10:15:11 Procedure type changed to Cath procedure, Diagnostic procedure, LHC, LHC w/Coronaries w/Grafts, Miscellaneous Procedures, Moderate Sedation up to 15 minutes 10:15:12 Procedure ended.(Physican Out) 10:15:25 Procedure and supply charges have been captured, reviewed, submitted and are correct. 10:15:56 Procedure Complication : No complications 10:17:42 Vital chart was stopped 10:17:42 See physician's report for complete and final results. 10:17:45 Report given to PCU. 10:17:47 Patient transfered to PCU with Bed. 10:17:49 Procedure ended. 10:17:49 Full Disclosure recording stopped 10:17:52 End room use (Document Last) Device Usage Item Name Manufacture Quantity Catalog Hospital Part Current Minimal Lot# / Number Charge Number Stock Stock Serial# Code Eliseo 4 x 3M 1 1626W [id number] 594147 700573 5 4 (1626W) ACIST Acist 1 67814 693617 126183 144750 5 Manifold Medical (05434) Systems Inc ACIST Hand Acist 1 46572 906631 063866 643121 5 Control Medical (94008) Systems Inc ACIST Acist 1 14817 686189 750966 004520 20 Syringe Medical (06793) Systems Inc Bag Decanter Microtek 1 2002S 358577 48222 064319 5 (2001S) Medical Inc. Medline Cath Cardinal 1 [id number] 002072 32974 186775 5 Pack Health ([id number]) SHEATH 5FR Terumo 1 ZUB605 802930 935385 621604 40 [place] (JLU239) DIAGNOSTIC [facility] 1 276382 995191 219839 771459 30 WIRE .035 260cm J wire (133585) DIAGNOSTIC Cardinal 1 JS6121 791396 09517 758520 30 Multipack Health 5Fr catheter set (OC4663) PERCUTANEOUS Cook Medical 1 P08532 343162 043017 5 ENTRY 19GA needle IV Extension Hospira 1 01320-67 268462 54679 298008 5 Set MULTIPACK Cardinal 1 328424 5 Pigtail 5 Fr Health catheter MULTIPACK JL Cardinal 1 409375 5 4.0 5Fr Health catheter MULTIPACK Cardinal 1 945979 5 3DRC 5Fr Health catheter DIAGNOSTIC Cardinal 1 [id number] 317008 190324 845640 20 AR 2 MOD 5 Health Fr catheter ([id number]) EXOSEAL 5Fr Cardinal 1 EX500 286118 362688 739828 10 (EX500) Health Signature Audit [place] Stage Time Signature Unsigned Intra-Procedure 04/27/2017 Arnav Noyola 10:18:06 AM RT(R) Signatures Monitor : Arnav Noyola RT Signature : Date : Time : [facility] [address] [address]
[~2017-04-26 11:41] MED LIST changes: +IPRAT-ALBUT 0.5-3 ML UPD
[2017-04-26 12:15] LABS: BASOPHILS 0.3 % (0-2); EOSINOPHILS 1.3 % (0-7); HEMOGLOBIN 12.4 g/dL (12-16); LYMPHOCYTES 36.1 % (15-50); MCH 30.2 pg (26.0-34.0); MCHC 33.5 g/dL (31.0-37.0); MEAN PLATELET VOLUME 9.9 fL (7.4-10.4); MONOCYTES 10.8 % (2-11); NEUTROPHILS 51.5 % (40-80); PLATELET COUNT 229 10x3/uL (130-400); RBC 4.11 10x6/uL (4.00-5.40); RDW 12.7 % (11.5-14.5)
[2017-04-26 12:31] LABS: ALBUMIN 3.6 g/dL (3.4-5.0); ALKALINE PHOSPHATASE 86 U/L (46-116); ALT (SGPT) 28 U/L (10-68); CALC OSMOLALITY 278 mosm/kg (275-300); CALCIUM 9.2 mg/dL (8.5-10.1); CARBON DIOXIDE 30.7 mmol/L (21.0-32.0); CHLORIDE - SERUM 103 mmol/L (98-107); CREATININE - SERUM 0.6 mg/dL (0.6-1.3); GLUCOSE 95 mg/dL (74-106); PROTEIN - SERUM 7.6 g/dL (6.4-8.2); SODIUM 139 mmol/L (136-145); UREA NITROGEN 14 mg/dL (7-18); eGFR NON AFRICAN AMERICAN > 90 mL/min (90-120)
[2017-04-26 12:42] LABS: CHOL - HDL RATIO 2.6 ratio (2.3-4.1); CHOLESTEROL, TOTAL 144 mg/dL (0-200); CKMB 0.4 U/L (0.0-3.6); CREATINE KINASE 100 UL (21-215); HDL CHOLESTEROL 56 mg/dL (32-96); LDL CHOLESTEROL 63 mg/dL (0-100); LDL-HDL RATIO 1.1 ratio (1.5-3.5); TRIGLYCERIDE 126 mg/dL (30-200)
[2017-04-26 12:43] LABS: POTASSIUM - SERUM 4.3 mmol/L (3.5-5.1); TROPONIN-I < 0.017 ng/mL (0.000-0.060)
[2017-04-26 15:31] VITALS: BP 163/76; Ht 156.2 cm; Wt 60.5 kg
[2017-04-26 15:40] VITALS: BP 163/76
[2017-04-26] MEDS ORDERED: PLAVIX75 MG PO (15:46)
[2017-04-26] MEDS ORDERED: SINGULAIR10 MG PO (15:48)
[2017-04-26] MEDS ORDERED: CALTRATE+D3 PL1 EACH PO (15:50)
[2017-04-26] MEDS ORDERED: BIOTIN5 MG PO (15:51)
--- NOTE | 2017-04-26 19:59 | NUR ---
PT RESTING COMFORTABLY AT THIS TIME, STATES SHE DID HAVE CHEST PAIN EARLIER BUT DID NOT REPORT IT TO NURSE. PT IS ASKING FOR DECAFF COFFEE, OTHERWISE NO NEEDS. CONTINUE TO MONITOR CLOSELY. BED LOW, CALL LIGHT IN REACH, SIDE RAILS X 2, HOB 25 DEGREES.
[2017-04-26 21:29] VITALS: BP 153/81
--- NOTE | 2017-04-26 22:53 | NUR ---
BEDTIME SNACK OF ORANGE SHERBERT GIVEN BEFORE PT GOES NPO. NO OTHER NEEDS. CONTINUE TO MONITOR CLOSELY.
[2017-04-27 00:48] VITALS: BP 173/73
[2017-04-27 05:25] VITALS: BP 113/72
--- NOTE | 2017-04-27 06:23 | NUR ---
PT RESTING COMFORTABLY, NO NEEDS. CONTINUE TO MONITOR CLOSELY.
[2017-04-27 08:09] VITALS: BP 124/63
--- NOTE | 2017-04-27 09:41 | NUR ---
PRE-OPS GIVEN. 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 WILL CONT. PLAN OF CARE.
--- NOTE | 2017-04-27 10:16 | HP ---
PATIENT: CORRINE ORELLANA MEDICAL RECORD: [id number] ACCOUNT: [id number] LOCATION:[facility].2115 : 56 ADMISSION DATE: 04/26/17 HISTORY AND PHYSICAL EXAMINATION ADMITTING DIAGNOSES: 1. Angina. 2. Coronary artery disease. 3. Previous coronary bypass graft surgery. 4. Previous percutaneous transluminal coronary angioplasty stent. 5. Hypertension. 6. Hyperlipidemia. 7. Smoking. 8. Chronic obstructive pulmonary disease. HISTORY OF PRESENT ILLNESS: Ms. Orellana presents with 1 week of increasing episodes of chest pain and chest discomfort, compatible with angina. She had bypass surgery earlier in the year. She had threatened graft failure in January, underwent PTCA stent of the vein graft to the circumflex. She also has concomitant disease to the RCA. Her chest pain is increasing. She is having radiation to the jaw and radiation to her shoulder, just like that of her previous angina. PHYSICAL EXAMINATION: GENERAL APPEARANCE: Well-nourished, well-developed, appears stated age. Level of distress, comfortable. PSYCHIATRIC: Mental status, alert, normal affect. Orientation, oriented to time, place and person. EYES: Lids and conjunctiva, noninjected. No discharge, no pallor. ENT: Lips, teeth, gums, normal dentition. Oropharynx, no cyanosis, no pallor. NECK: Carotid arteries, bilateral normal upstroke, no bruits, no thrills. JUGULAR VEINS: No jugular venous pressure or distention. CERVICAL LYMPH NODES: Nontender, nonenlarged. THYROID: Not enlarged. Nontender. No nodules. LUNGS: Respiratory effort, unlabored. CHEST: Normal curvature. No thoracic deformity. No chest wall tenderness. Percussion, resonant. Auscultation, clear. No wheezes, no rales, no rhonchi. CARDIOVASCULAR: Precordial exam, nondisplaced. No heaves or pericardial thrills. Rate and rhythm, regular. Heart sounds, normal S1, normal S2. No S3, no gallop, no rub. Systolic murmur, not heard. Diastolic murmur, not heard. EXTREMITIES: No cyanosis, no edema. Peripheral pulses, full and equal in all extremities, except as noted. No bruits appreciated. ABDOMEN: Soft, nondistended. Normal aorta. No bruit. Nontender. No masses. Liver, nontender, no hepatomegaly. Spleen, nontender, no splenomegaly. MUSCULOSKELETAL: No joint tenderness. No joint swelling. No erythema. NEUROLOGICAL: Normal gait, normal strength, normal tone. SKIN: Warm and dry. REVIEW OF SYSTEMS: The patient reports easy bruising but reports no swollen glands. The patient reports no fever, no night sweats, no significant weight gain, no significant weight loss. No significant exercise tolerance. The patient reports no dry eyes, no irritation, no vision change. Patient reports no difficulty hearing and no ear pain. Patient reports no frequent nose bleeds or nose and sinus problems. Patient reports on arm pain on exertion. No shortness of breath while lying down. No history of heart murmur. Patient HISTORY AND PHYSICAL [id number] CORRINE ORELLANA reports no cough, no wheezing or coughing up blood. Patient reports no abdominal pain, no vomiting. Normal appetite. No diarrhea and not vomiting blood. No nausea and no constipation. Patient reports no incontinence. No difficulty urinating. No hematuria. No increased frequency. Patient reports no muscle aches. No weakness, no arthralgias, no back pain. No swelling of the extremities. Patient reports no abnormal mole, no jaundice, no rashes. Reports no loss of consciousness. No weakness and no numbness. No seizures, dizziness, or headaches. The patient reports no depression, no sleep disturbance, feeling safe in a relationship and no alcohol abuse. Patient reports on fatigue. Reports no runny nose or sinus pressure. No itching, no hives, and no frequent sneezing. OVERALL IMPRESSION: Chest pain in an unstable fashion, most likely she has recurrent hemodynamically significant coronary artery disease. We will proceed with coronary angiography. Further care depends upon findings of the angiography. TRANSINT:[id number] Voice Confirmation ID: [id number] DOCUMENT ID: [id number] JOZEF HARDING MD at 1016 CC: [id number] DICTATION DATE: 04/26/17 1610 PHYSICIAN SPECIALIST: 04/26/17 1720 [place] [address]
--- NOTE | 2017-04-27 10:39 | NUR ---
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 VS WNL. RIGHT GROIN STABLE WITHOUT BLEEDING OR HEMATOMA NPOTED.
[2017-04-27] MEDS ORDERED: ISOSORBIDE MONO30 M1 PO (10:57)
--- NOTE | 2017-04-27 12:40 | NUR ---
BED REST UP. GROIN STABLE.
[2017-04-27 12:54] VITALS: BP 118/70
--- NOTE | 2017-04-27 13:43 | NUR ---
IV AND TELEMETRY DCD. DC PLANS GIVEN. UNDERSTANDING VOICED.
--- NOTE | 2017-04-27 15:25 | NUR ---
ESCORTED TO CAR BY W/C.
--- NOTE | 2017-05-11 15:46 | OP ---
PATIENT NAME: CORRINE TOMLIN MEDICAL RECORD: [id number] :56 LOCATION:[facility] [address]2115 ADMISSION DATE:04/26/17 SURGEON: JOZEF HARDING MD DATE OF OPERATION: 04/27/2017 PROCEDURES: 1. Left heart catheterization. 2. Selective coronary angiography. 3. Left ventriculogram. 4. Vein graft angiography. 5. DOVER angiography. INDICATION: Angina and coronary artery disease. PROCEDURE IN DETAIL: After informed consent was obtained and after a detailed explanation of the risks, benefits as well as alternative therapies, the patient elected to proceed with angiogram and heart catheterization. The right femoral area was prepped and draped in normal sterile fashion. The right femoral artery was cannulated via modified Seldinger technique with placement of 5-Estonian sheath. All catheters exchanged through this sheath. FINDINGS: Left ventriculogram was performed in the standard 30-degree TAYLOR view reveals good cardiac wall motion throughout all segments. Overall ejection fraction is 60%. SELECTIVE CORONARY ANGIOGRAPHY: 1. Left main showed no significant angiographic disease. 2. Left anterior descending is totally occluded in mid vessel. 3. DOVER to the distal LAD is widely patent. Distal LAD is diffusely diseased, but widely patent. 4. Left circumflex, first obtuse marginal was totally occluded. Vein graft to the circumflex obtuse marginal is widely patent. Distal obtuse marginal was small, diffusely diseased, but patent. 5. The right coronary artery has mild irregularities, but no flow-limiting stenosis. OVERALL IMPRESSION: Wide patency of the vein graft to the circumflex and DOVER to the LAD with no significant disease of the RCA. Continue medical management of the coronary artery disease and cardiac risk factors. TRANSINT:[id number] Voice Confirmation ID: [id number] DOCUMENT ID: [id number] JOZEF HARDING MD at 1546 CC: [id number] DICTATION DATE: 04/27/17 1020 TRAVELIFT OPERATOR: 04/27/17 1449 DIS IN 04/27/17 [facility] [address] [id number]
--- NOTE | 2017-05-11 15:46 | DS ---
PATIENT:CORRINE ORELLANA :56 MEDICAL RECORD: [id number] DISCHARGE SUMMARY ADMISSION DATE: 04/26/17 DISCHARGE DATE: 04/27/17 DATE OF SERVICE: 04/27/2017 DISCHARGE DIAGNOSES: 1. Angina. 2. Coronary artery disease. 3. Previous coronary bypass graft surgery. 4. Previous PTCA and stent. 5. Hypertension. 6. Hyperlipidemia. HOSPITAL COURSE: Ms. Orellana presents with anginal symptomatology; however, cardiac catheterization reveals wide patency of her previously placed stents. She does have diffuse distal disease. She was placed on Imdur 30 mg b.i.d. in addition to her current medications. Follow up with [facility] in 1 month. TRANSINT:[id number] Voice Confirmation ID: [id number] DOCUMENT ID: [id number] JOZEF HARDING MD at 1546 CC: [id number] DICTATION DATE: 04/27/17 1019 PARTS CATALOGER: 04/28/17 0848 DIS IN 04/27/17 [id number] [place] [address]
== END 2017-04-27 15:32 | disposition home or self-care (01) ==
LOC: D.ER 11:41 → D.M2 14:44 → OBSVTIME 14:44 → D.M2 04-27 15:32
PROVIDERS: Emergency Medicine; ADMIT Internal Medicine Interventional Cardiology
DX: I25.119 Atherosclerotic heart disease of native coronary artery with unspecified angina pectoris (principal); Z95.5 Presence of coronary angioplasty implant and graft; Z95.1 Presence of aortocoronary bypass graft; Z72.0 Tobacco use; J44.9 Chronic obstructive pulmonary disease, unspecified; I10 Essential (primary) hypertension; E78.5 Hyperlipidemia, unspecified; I25.82 Chronic total occlusion of coronary artery

== ENCOUNTER → 2017-07-04 10:39 | Outpatient (CLI) | payer MEDICARE, MEDICAID ==
[2017-04-26 15:31] VITALS: BMI 24.7
[~2017-07-04 10:39] MED LIST changes: +BIOTIN5 MG PO; +CALTRATE+D3 PL1 EACH PO; +ISOSORBIDE MONO30 M1 PO
== END | disposition home or self-care (01) ==
LOC: D.RT 06-27 08:00 → D.RAD 06-27 09:00 → D.RT 06-29 09:00
DX: J44.9 Chronic obstructive pulmonary disease, unspecified (principal)

== ENCOUNTER 2017-07-31 16:16 | Outpatient (CLI) | payer MEDICARE, MEDICAID ==
[~2017-07-31] VITALS: Ht 156.2 cm; Wt 61.7 kg
--- NOTE | ~2017-07-31 | HEMODYNAMI ---
PATIENT:CORRINE TOMLIN MEDICAL RECORD: [id number] : 56 LOCATION:[facility] D.2132 ADMISSION DATE: 07/31/17 Generatedon:08/01/201716:21 Patient name: CORRINE TOMLIN Patient #: [id number] SSN: : 1960 Date of study: 08/01/2017 Page: Of Hemodynamic Procedure Report Patient Data Patient Demographics Procedure consent was obtained First Name: CORRINE Gender: Female Last Name: SADA : 1960 Middle Initial: GET Age: 57 year(s) Patient #: [id number] Race: Additional ID: [id number] Contact details [address]: [address] [place] [address] State: [place] City: [place] Zip code: [address] Past Medical History Allergies Allergen Reaction Date Comments Reported Other allergy 07/14/2015 lisinopril Other allergy 08/01/2017 Lisinopril Admission Admission Data Admission Date: 07/31/2017 Admission Time: 18:07 Room #: D.2132 Procedure Procedure Types Cath Procedure Diagnostic Procedure LHC [facility] w/Coronaries w/Grafts Sedation Charges Moderate Sedation up to 15 minutes PCI Procedure Coronary Stent Coronary Stent Initial Procedure Description Procedure Date Procedure Date: 08/01/2017 Procedure Start Time: 16:04 Procedure End Time: 16:18 Procedure Staff Name Function Geoffrey Mcduffie MD Performing Physician Frida Field RT Monitor John Paul Moran RN Nurse Tati Damon RT Scrub Gabbi Toledo RT Monitor Procedure Data Cath Procedure Fluoroscopy Diagnostic fluoroscopy Total fluoroscopy Time: 3 time: 3 min min Diagnostic fluoroscopy Total fluoroscopy dose: 354 dose: 354 mGy mGy Contrast Material Contrast Material Type Amount (ml) Isovue 300 95 Entry Location Entry Primary Successful Side Size Upsize Upsize Entry Closure Succes sful Closure Location (Fr) 1 (Fr) 2 (Fr) Remarks Device Remarks Femoral Right 6 Fr Exoseal artery Short Estimated blood loss: 10 ml Diagnostic catheters Device Type Used For End Catheter Placement MULTIPACK Pigtail 5 Fr LV Angiography catheter MULTIPACK JL 4.0 5Fr Procedure catheter MULTIPACK 3DRC 5Fr Procedure catheter DIAGNOSTIC AR 2 MOD 5 Fr Procedure catheter ([id number]) Procedure Complications No complications Procedure Medications Medication Administration Route Dosage Oxygen NC 2 l/min Heparin Flush Bag added to field 2 bags (1000units/500ml NS) 0.9% NaCl I.V. 100 ml/hr Fentanyl I.V. 50 mcg Versed I.V. 1 mg Plavix P.O. 75 mg Fentanyl I.V. 50 mcg Versed I.V. 1 mg Heparin Bolus I.V. 4000 units Hemodynamics Rest Pre Cath Intra NCS Post Cath Vital Signs Time Heart Resp SPO2 etCO2 NIBP (mmHg) Rhythm Pain Sedation Rate (ipm) (%) (mmHg) Status Level (bpm) 15:54:28 89 16 92 0 198/126(165) NSR 0 (11) 10(A) , No pain 15:59:23 87 16 98 33.1 189/103(149) NSR 0 (11) 10(A) , No pain 16:04:12 87 17 99 37.6 181/97(146) NSR 0 (11) 9(A) , No pain 16:08:52 91 16 93 34.6 149/85(121) NSR 0 (11) 9(A) , No pain 16:13:33 93 17 95 39 142/84(123) NSR 0 (11) 9(A) , No pain 16:18:16 98 16 97 39 153/87(124) NSR 0 (11) 9(A) , No pain Medications Time Medication Route Dose Verified Delivered Reason Notes Effectiveness by by 15:55:08 Oxygen NC 2 Geoffrey Coker Per physician l/min Reta Moran RN 15:55:17 Heparin Flush added 2 Geoffrey Coker used for Bag to bags Reta Moran RN procedure (1000units/500ml field NS) 15:55:25 0.9% NaCl I.V. 100 Geoffrey Coker Per physician ml/hr Reta Moran RN 15:59:41 Fentanyl I.V. 50 Geoffrey Coker for sedation mcg Reta Moran RN 15:59:46 Versed I.V. 1 mg Geoffrey Coker for sedation Reta Moran RN 16:03:39 Plavix P.O. 75 mg Geoffrey Coker for Reta Moran RN antiplatelet therapy 16:05:51 Fentanyl I.V. 50 Geoffrey Coker for sedation mcg Reta Moran RN 16:05:55 Versed I.V. 1 mg Geoffrey Coker for sedation Reta Moran RN 16:11:08 Heparin Bolus I.V. 4000 Geoffrey Coker for units Reta Moran RN anticoagulation Procedure Log Time Note 15:30:52 John Paul Moran RN sent for patient. Start room use. 15:39:53 Time tracking: Regular hours 15:39:58 Plan of Care:Hemodynamics will remain stable., Cardiac rhythm will remain stable., Comfort level will be maintained., Respiratory function will remain adequate., Patient/ family verbilizes understanding of procedure., Procedure tolerated without complication., Recovers from procedure without complications.. 15:47:22 Patient received from PCU to CCL 1 Alert and oriented. Tansferred to table in Supine position. 15:47:23 Warm blankets applied, and ascencion hugger turned on for patient comfort. 15:47:23 Correct patient and procedure confirmed by team. 15:47:25 Signed procedure consent form obtained from patient. 15:47:26 ECG and BP/O2 sat monitors applied to patient. 15:47:27 Full Disclosure recording started 15:52:35 Vital chart was started 15:52:37 Rhythm: sinus rhythm 15:52:45 H&P Date Dictated: 08/01/2017 Within 30 days and on chart., H&P Addendum completed by physician on day of procedure. (MUST COMPLETE FOR ALL OUTPATIENTS). 15:52:56 Pre-procedure instructions explained to patient. 15:53:38 Family in waiting room. 15:53:43 Patient NPO since Midnight. 15:54:52 Patient allergic to Other allergyLisinopril 15:54:56 Is the patient allergic to Iodine/contrast media? No. 15:55:00 Is patient on blood thinner?Yes 15:55:03 ACC The patient was administered the following blood thiners within the last 24 hours: ACCPlavix 15:55:08 Oxygen 2 l/min NC was administered by John Paul Moran RN; Per physician; 15:55:17 Heparin Flush Bag (1000units/500ml NS) 2 bags added to field was administered by John Paul Moran RN; used for procedure; 15:55:25 0.9% NaCl 100 ml/hr I.V. was administered by John Paul Moran RN; Per physician; 15:58:09 Patient diabetic? No. 15:58:16 Snore? Yes 15:58:55 IV patent on arrival in left forearm with 0.9% NaCl at [facility]. 15:59:01 Lab results completed and on chart. 15:59:17 Right groin area was prepped with chlora-prep and draped in sterile fashion 15:59:19 Alarms reviewed by R. N. 15:59:19 Sharps counted by scrub and verified by R.N. 15:59:22 Physician arrived 15:59:23 --------ALL STOP TIME OUT------ 15:59:24 Final Timeout: patient, procedure, and site verified with staff and physician. All members of the team are in agreement. 15:59:26 Right groin site verified by team. 15:59:30 Physical assessment completed. ASA score P 2 - A patient with mild systemic disease as per Geoffrey Mcduffie MD. 15:59:33 Physical assessment completed. ASA score P 2 - A patient with mild systemic disease as per Geoffrey Mcduffie MD. 15:59:40 Sedation plan: IV Moderate Sedation Medication:Versed, Fentanyl 15:59:41 Fentanyl 50 mcg I.V. was administered by John Paul Moran RN; for sedation; 15:59:46 Versed 1 mg I.V. was administered by John Paul Moran RN; for sedation; 16:00:18 Use device set Femoral Dx 16:00:19 ACIST Syringe (41068) opened to sterile field. 16:00:19 Bag Decanter (2001S) opened to sterile field. 16:00:20 Medline Cath Pack ([id number]) opened to sterile field. 16:00:31 DIAGNOSTIC WIRE .035 260cm J wire (452572) opened to sterile field. 16:00:32 ACIST Hand Control (49085) opened to sterile field. 16:00:33 ACIST Manifold (12815) opened to sterile field. 16:00:34 DIAGNOSTIC Multipack 5Fr catheter set (UX1251) opened to sterile field. 16:00:34 Tegaderm 4 x 4 (1626W) opened to sterile field. 16:00:35 PERCUTANEOUS ENTRY 19GA needle opened to sterile field. 16:00:38 SHEATH 6FR Fairbury (UCC593) opened to sterile field. 16:01:33 Zero performed for pressure channel P1 16:01:42 Zero performed for pressure channel P1 16:02:28 Airway obstruction? Yes COPD 16:03:39 Plavix 75 mg P.O. was administered by John Paul Moran RN; for antiplatelet therapy; 16:04:20 Procedure started. 16:04:24 Local anesthetic to right femoral artery with Lidocaine 2% by Geoffrey Mcduffie MD.INITIAL ACCESS ONLY 16:04:35 A 6 Fr Short sheath was inserted into the Right Femoral artery 16:05:32 A MULTIPACK Pigtail 5 Fr catheter was advanced over the wire and used for LV Angiography. 16:05:51 Fentanyl 50 mcg I.V. was administered by John Paul Moran RN; for sedation; 16:05:55 Versed 1 mg I.V. was administered by John Paul Moran RN; for sedation; 16:05:56 EF : 60 % 16:06:04 Catheter removed. 16:06:24 A MULTIPACK JL 4.0 5Fr catheter was advanced over the wire and used for Procedure. 16:06:30 LCA angiography performed. 16:06:52 Catheter removed. 16:07:02 A MULTIPACK 3DRC 5Fr catheter was advanced over the wire and used for Procedure. 16:07:22 DOVER to LAD angiography performed. 16:08:00 Catheter removed. 16:08:17 A DIAGNOSTIC AR 2 MOD 5 Fr catheter ([id number]) was advanced over the wire and used for Procedure. 16:09:24 SVG to Circ angiography performed. 16:11:08 Heparin Bolus 4000 units I.V. was administered by John Paul Moran RN; for anticoagulation; 16:11:33 WHISPER 300cm guide wire ([id number]) opened to sterile field. 16:11:56 GUIDE 6FR XBLAD 3.5 catheter ([id number]) opened to sterile field. 16:12:02 Proceeding to intervention. 16:12:05 INFLATOR Merit BasixCompak (BB6561) opened to sterile field. 16:12:26 6 Fr XBLAD 3.5 guide catheter was inserted over the wire 16:12:31 whis wire advanced. 16:12:33 Wire advanced across lesion. 16:13:33 Inflation Number: 1 A MICHAEL OTW 2.5 x 15 stent ([id number]) was prepped and advanced across the Prox CX. The stent was deployed at 21 CORINA for 0:10 (min:sec). 16:13:44 EXOSEAL 6Fr (EX600) opened to sterile field. 16:13:55 Wire removed. 16:13:56 Guide catheter removed. 16:14:08 Sheath removed intact; hemostasis achieved with Exoseal to the Right Femoral artery. 16:14:10 Procedure ended.(Physican Out) 16:15:52 Fluoroscopy time 03.00 minutes. 16:15:58 Flurop Dose total: 354 16:15:58 Fluoroscopy dose: 354 mGy 16:16:03 Contrast amount:Isovue 300 95ml. 16:16:05 Sharps counted by scrub and verified by R.N. 16:16:10 Insertion/operative site no bleeding no hematoma. 16:16:16 Post-op/insertion site Right Femoral artery dressed using a 4 x 4 and Tegaderm. 16:16:19 Post Procedure Pulses reassessed and unchanged 16:16:23 Post-procedure physical assessment completed. ASA score P 2 - A patient with mild systemic disease as per Geoffrey Mcduffie MD. 16:16:27 Post procedure rhythm: unchanged. 16:16:30 Estimated blood loss: 10 ml 16:16:32 Post procedure instruction explained to patient.Patient verbalizes understanding. 16:18:01 Procedure type changed to Cath procedure, Diagnostic procedure, LHC, LHC w/Coronaries w/Grafts, Sedation Charges, Moderate Sedation up to 15 minutes, PCI procedure, Coronary Stent, Coronary Stent Initial 16:18:04 Procedure and supply charges have been captured, reviewed, submitted and are correct. 16:18:34 Procedure Complication : No complications 16:18:38 Vital chart was stopped 16:18:40 See physician's report for complete and final results. 16:18:41 Report given to Pre/Post Procedure Room. 16:18:45 Patient transfered to Pre/Post Procedure Room with Stretcher. 16:18:49 Procedure ended. 16:18:49 Full Disclosure recording stopped 16:19:01 End room use (Document Last) Intervention Summary Intervention Notes Time ActionType Lesion and Equipment Action# Pressure Duration Attributes Used 16:13:33 Place stent Prox CX MICHAEL OTW 2.5 1 21 00:10 x 15 stent ([id number]) Device Usage Item Name Manufacture Quantity Catalog Hospital Part Current Minim al Lot# / Number Charge Number Stock Stock Serial# Code ACIST Syringe Acist 1 73755 812243 321783 869110 20 (85175) Medical Systems Inc Bag Decanter Microtek 1 2001S 977288 75233 950330 5 () Medical Inc. Medline Cath Cardinal 1 [id number] 904528 71234 279390 5 Pack Health ([id number]) DIAGNOSTIC [facility] 1 670337 822918 304288 585064 30 WIRE .035 260cm J wire (876279) ACIST Hand Acist 1 95502 520942 337158 427737 5 Control Medical (30768) Systems Inc ACIST Acist 1 14911 239386 679591 323575 5 Manifold Medical (56242) Systems Inc DIAGNOSTIC Cardinal 1 PL5277 326552 09089 367328 30 Multipack 5Fr Health catheter set (NL3444) Tegaderm 4 x 3M 1 1626W 919371 438272 694886 5 4 (1626W) PERCUTANEOUS Cook Medical 1 H98770 878614 996270 5 ENTRY 19GA needle SHEATH 6FR Terumo 1 RMH959 480542 602831 406867 40 Fairbury (EYI366) MULTIPACK Cardinal 1 693174 5 Pigtail 5 Fr Health catheter MULTIPACK JL Cardinal 1 849955 5 4.0 5Fr Health catheter MULTIPACK Cardinal 1 128006 5 3DRC 5Fr Health catheter DIAGNOSTIC AR Cardinal 1 [id number] 988691 517327 516733 20 2 MOD 5 Fr Health catheter (716624N) WHISPER 300cm Munguia 1 [id number] 202043 053733 153190 5 guide wire Vascular ([id number]) GUIDE 6FR Cardinal 1 [id number] 116428 750110 591201 10 XBLAD 3.5 Health catheter ([id number]) INFLATOR Merit 1 OI8905 989498 505766 362307 15 [email or web address] [facility] BasixCompak (QL0207) MICHAEL OTW 2.5 Medtronic 1 [id number] 163775 93887 113725 5 [id number] x 15 stent ([id number]) EXOSEAL 6Fr Cardinal 1 EX600 108877 301630 003451 10 (EX600) Health Signature Audit Gamerco Stage Time Signature Unsigned Intra-Procedure 08/01/2017 Gabbi Toledo 4:21:27 PM RT(R) Signatures Monitor : Frida Signature : Counts RT Date : Time : Monitor : Gabbi Toledo Signature : RT Date : Time : [address] [address]
--- NOTE | ~2017-07-31 | HP ---
PATIENT: CORRINE ORELLANA MEDICAL RECORD: [id number] ACCOUNT: [id number] LOCATION:[facility] : 56 ADMISSION DATE: 07/31/17 HISTORY AND PHYSICAL EXAMINATION DIAGNOSES: 1. Unstable angina. 2. Coronary artery disease. 3. Status post coronary bypass graft surgery. 4. Status post multivessel percutaneous transluminal coronary angioplasty stent. 5. Chronic obstructive pulmonary disease. 6. Smoking history. 7. Hypertension. HISTORY OF PRESENT ILLNESS: Ms. Orellana presents with unstable anginal symptomatology, last cardiac intervention was in January. Her chest pain has been increasing. She has been increasing her anginal nitrate use over the past 2 weeks. Her chest pain is now severe. REVIEW OF SYSTEMS: The patient reports easy bruising but reports no swollen glands. The patient reports no fever, no night sweats, no significant weight gain, no significant weight loss. No significant exercise tolerance. The patient reports no dry eyes, no irritation, no vision change. Patient reports no difficulty hearing and no ear pain. Patient reports no frequent nose bleeds or nose and sinus problems. Patient reports on arm pain on exertion. No shortness of breath while lying down. No history of heart murmur. Patient reports no cough, no wheezing or coughing up blood. Patient reports no abdominal pain, no vomiting. Normal appetite. No diarrhea and not vomiting blood. No nausea and no constipation. Patient reports no incontinence. No difficulty urinating. No hematuria. No increased frequency. Patient reports no muscle aches. No weakness, no arthralgias, no back pain. No swelling of the extremities. Patient reports no abnormal mole, no jaundice, no rashes. Reports no loss of consciousness. No weakness and no numbness. No seizures, dizziness, or headaches. The patient reports no depression, no sleep disturbance, feeling safe in a relationship and no alcohol abuse. Patient reports on fatigue. Reports no runny nose or sinus pressure. No itching, no hives, and no frequent sneezing. PHYSICAL EXAMINATION: GENERAL APPEARANCE: Well-nourished, well-developed, appears stated age. Level of distress, comfortable. PSYCHIATRIC: Mental status, alert, normal affect. Orientation, oriented to time, place and person. EYES: Lids and conjunctiva, noninjected. No discharge, no pallor. ENT: Lips, teeth, gums, normal dentition. Oropharynx, no cyanosis, no pallor. NECK: Carotid arteries, bilateral normal upstroke, no bruits, no thrills. JUGULAR VEINS: No jugular venous pressure or distention. CERVICAL LYMPH NODES: Nontender, nonenlarged. THYROID: Not enlarged. Nontender. No nodules. LUNGS: Respiratory effort, unlabored. CHEST: Normal curvature. No thoracic deformity. No chest wall tenderness. Percussion, resonant. Auscultation, clear. No wheezes, no rales, no rhonchi. CARDIOVASCULAR: Precordial exam, nondisplaced. No heaves or pericardial thrills. Rate and rhythm, regular. Heart sounds, normal S1, normal S2. No S3, HISTORY AND PHYSICAL [id number] DOMINGO ORELLANAMARY ANNE MARTINEZN no gallop, no rub. Systolic murmur, not heard. Diastolic murmur, not heard. EXTREMITIES: No cyanosis, no edema. Peripheral pulses, full and equal in all extremities, except as noted. No bruits appreciated. ABDOMEN: Soft, nondistended. Normal aorta. No bruit. Nontender. No masses. Liver, nontender, no hepatomegaly. Spleen, nontender, no splenomegaly. MUSCULOSKELETAL: No joint tenderness. No joint swelling. No erythema. NEUROLOGICAL: Normal gait, normal strength, normal tone. SKIN: Warm and dry. OVERALL IMPRESSION: Chest pain compatible with angina, most likely she does have recurrent hemodynamically significant coronary artery disease. We will proceed with coronary angiography. Further care depends upon findings of the angiography. TRANSINT:[id number] Voice Confirmation ID: [id number] DOCUMENT ID: [id number] JOZEF HARDING MD at 1140 CC: [id number] DICTATION DATE: 08/01/17 1329 ROLL HAND: 08/01/17 1358 DEP CLI 08/02/17 [facility] [address] [place] [address]
--- NOTE | ~2017-07-31 | OP ---
PATIENT NAME: CORRINE TOMLIN MEDICAL RECORD: [id number] :56 LOCATION:[facility] ADMISSION DATE: SURGEON: JOZEF HARDING MD DATE OF OPERATION: 08/01/2017 PROCEDURES: 1. PTCA stent left circumflex. 2. Left heart catheterization. 3. Selective coronary angiography. 4. Vein graft angiography. 5. DOVER angiography. 6. Left ventriculogram. INDICATION: Unstable angina and coronary artery disease. PROCEDURE IN DETAIL: After informed consent was obtained and after detailed explanation of risks, benefits as well as alternative therapies, the patient elected to proceed with angiogram and angioplasty. The right femoral area was prepped and draped in normal sterile fashion. Right femoral artery was cannulated via modified Seldinger technique with placement of 6-Danish sheath. All catheters exchanged through this sheath. FINDINGS: Left ventriculogram was performed in the standard 30-degree TAYLOR view reveals good cardiac wall motion throughout all segments. Overall ejection fraction estimated 60%. SELECTIVE CORONARY ANGIOGRAPHY: 1. Left main showed no significant angiographic disease. 2. Left anterior descending is totally occluded. 3. DOVER to the LAD is widely patent. 4. Left circumflex has previously placed stents in the AV groove circumflex up to 80% in-stent restenosis. The first obtuse marginal was totally occluded. 5. Vein graft to the first obtuse marginal has previously placed stents, these are widely patent. The distal obtuse marginal is widely patent; however, does not fill the circumflex itself secondary to 100% occlusion of the first obtuse marginal at its ostium. 6. The right coronary has moderate irregularities, but no flow-limiting stenosis. PTCA STENT OF THE LEFT CIRCUMFLEX: The stent used was a 2.5 x 15 mm Nicolas. Result was 0% residual stenosis. OVERALL IMPRESSION: Successful percutaneous transluminal coronary angioplasty stent of the left circumflex going from 80% initial stenosis to 0% residual stenosis. TRANSINT:[id number] Voice Confirmation ID: [id number] DOCUMENT ID: [id number] OPERATIVE REPORT [id number] TOMLINCORRINE VÁZQUEZ JOZEF HDEZ MD at 1140 CC: [id number] DICTATION DATE: 08/01/17 1620 DICE TABLE OPERATOR: 08/01/17 1657 DEP CLI 08/02/17 [facility] [address] [place] [address]
[2017-07-31 16:48] LABS: BASOPHILS 0.3 % (0-2); EOSINOPHILS 2.4 % (0-7); HEMATOCRIT 36.9 % (36.0-48.0); HEMOGLOBIN 12.1 g/dL (12-16); LYMPHOCYTES 43.7 % (15-50); MCH 29.4 pg (26.0-34.0); MCHC 32.8 g/dL (31.0-37.0); MCV 89.8 fL (80.0-100.0); MEAN PLATELET VOLUME 9.4 fL (7.4-10.4); NEUTROPHILS 41.6 % (40-80); PLATELET COUNT 189 10x3/uL (130-400); RBC 4.11 10x6/uL (4.00-5.40); RDW 12.7 % (11.5-14.5); WBC 5.7 10x3/uL (4.8-10.8)
[2017-07-31 17:12] LABS: ALBUMIN 3.5 g/dL (3.4-5.0); ALKALINE PHOSPHATASE 71 U/L (46-116); ALT (SGPT) 37 U/L (10-68); CALC OSMOLALITY 275 mosm/kg (275-300); CALCIUM 8.9 mg/dL (8.5-10.1); CARBON DIOXIDE 28.5 mmol/L (21.0-32.0); CHLORIDE - SERUM 102 mmol/L (98-107); CREATININE - SERUM 0.8 mg/dL (0.6-1.3); GLUCOSE 103 mg/dL (74-106); POTASSIUM - SERUM 3.7 mmol/L (3.5-5.1); PROTEIN - SERUM 7.7 g/dL (6.4-8.2); SODIUM 138 mmol/L (136-145); UREA NITROGEN 13 mg/dL (7-18); eGFR NON AFRICAN AMERICAN 78 mL/min (90-120)
[2017-07-31 17:31] LABS: CHOL - HDL RATIO 3.6 ratio (2.3-4.1); CHOLESTEROL, TOTAL 151 mg/dL (0-200); CKMB 0.5 U/L (0.0-3.6); CREATINE KINASE 78 UL (21-215); HDL CHOLESTEROL 42 mg/dL (32-96); LDL CHOLESTEROL 66 mg/dL (0-100); LDL-HDL RATIO 1.6 ratio (1.5-3.5); TRIGLYCERIDE 217 mg/dL (30-200); TROPONIN-I < 0.017 ng/mL (0.000-0.060)
[2017-07-31 21:53] VITALS: BP 117/62
[2017-08-01] VITALS (7 sets, daily range): BP systolic 107–160; BP diastolic 58–81; Ht 156.2 cm; Wt 61.7 kg
[2017-08-02 04:00] VITALS: BP 160/91
[2017-08-02 08:25] VITALS: BP 116/64
== END 2017-08-02 10:15 | disposition home or self-care (01) ==
LOC: OBSVTIME → D.ER 16:16 → D.OPS 16:16 → D.EDHOLD 18:07 → D.M2 18:07 → D.ER 18:07 → OBSVTIME 18:07 → D.EDHOLD 20:06 → D.M2 20:06 → EDSTATUS 08-01 12:00 → D.M2 08-02 10:15 → D.OPS 08-02 10:15
PROVIDERS: Family Medicine
DX: I25.110 Atherosclerotic heart disease of native coronary artery with unstable angina pectoris (principal); I10 Essential (primary) hypertension; J44.9 Chronic obstructive pulmonary disease, unspecified; Z95.1 Presence of aortocoronary bypass graft; Z01.812 Encounter for preprocedural laboratory examination
CPT/HCPCS: 93459; C9600

== ENCOUNTER 2017-11-12 13:41 | Emergency (ER) | payer MEDICARE, MEDICAID ==
[~2017-11-12] VITALS: Ht 156.2 cm; Wt 58.6 kg
[2017-11-12 13:42] VITALS: Ht 156.2 cm; Wt 58.6 kg
[2017-11-12 13:59] LABS: BASOPHILS 0.2 % (0-2); EOSINOPHILS 1.3 % (0-7); HEMATOCRIT 37.6 % (36.0-48.0); HEMOGLOBIN 12.7 g/dL (12-16); IMMATURE GRANULOCYTES 0.2 % (0-5); MCH 29.8 pg (26.0-34.0); MCHC 33.8 g/dL (31.0-37.0); MCV 88.3 fL (80.0-100.0); MEAN PLATELET VOLUME 9.6 fL (7.4-10.4); MONOCYTES 9.4 % (2-11); NEUTROPHILS 57.9 % (40-80); PLATELET COUNT 203 10x3/uL (130-400); RBC 4.26 10x6/uL (4.00-5.40); RDW 12.4 % (11.5-14.5); WBC 5.5 10x3/uL (4.8-10.8)
[2017-11-12 14:13] LABS: APTT 30.7 SECONDS (22.8-39.4); INR 0.99 (0.85-1.17); PROTIME 12.7 SECONDS (11.6-15.0)
[2017-11-12 14:18] LABS: ALBUMIN 3.7 g/dL (3.4-5.0); ALKALINE PHOSPHATASE 84 U/L (46-116); ALT (SGPT) 21 U/L (10-68); BILIRUBIN - TOTAL 0.24 mg/dL (0.2-1.3); CALC OSMOLALITY 271 mosm/kg (275-300); CALCIUM 9.2 mg/dL (8.5-10.1); CARBON DIOXIDE 27.6 mmol/L (21.0-32.0); CHLORIDE - SERUM 102 mmol/L (98-107); CREATININE - SERUM 0.7 mg/dL (0.6-1.3); GLUCOSE 88 mg/dL (74-106); POTASSIUM - SERUM 4.2 mmol/L (3.5-5.1); PROTEIN - SERUM 8.1 g/dL (6.4-8.2); SODIUM 137 mmol/L (136-145); UREA NITROGEN 10 mg/dL (7-18); eGFR NON AFRICAN AMERICAN > 90 mL/min (90-120)
[2017-11-12] MEDS ORDERED: HYDROCODON-ACE1 EAC7 PO (14:37)
[2017-11-12 14:38] LABS: CKMB 0.4 U/L (0.0-3.6); CREATINE KINASE 55 UL (21-215); PRO BNP 291 pg/mL (0-125); TROPONIN-I < 0.017 ng/mL (0.000-0.060)
[2017-11-12 15:43] VITALS: BP 128/72
== END 2017-11-12 15:44 | disposition home or self-care (01) ==
LOC: D.ER 13:41
PROVIDERS: Emergency Medicine
DX: I20.9 Angina pectoris, unspecified (principal); S40.022A Contusion of left upper arm, initial encounter; V43.52XA Car driver injured in collision with other type car in traffic accident, initial encounter; Y93.89 Activity, other specified; Y92.410 Unspecified street and highway as the place of occurrence of the external cause; I10 Essential (primary) hypertension; Z86.79 Personal history of other diseases of the circulatory system; J44.9 Chronic obstructive pulmonary disease, unspecified

== ENCOUNTER → 2017-12-07 18:42 | Outpatient (CLI) | payer MEDICARE, MEDICAID ==
[2017-11-12 13:42] VITALS: BMI 24.0
[~2017-12-07 18:42] MED LIST changes: +HYDROCODON-ACE1 EAC7 PO
== END | disposition home or self-care (01) ==
LOC: D.MAMMO 11-03 11:30
DX: Z12.31 Encounter for screening mammogram for malignant neoplasm of breast (principal)

== ENCOUNTER 2017-12-24 10:06 | Observation (INO) | payer MEDICARE, MEDICAID ==
[~2017-12-24] VITALS: Ht 156.2 cm; Wt 63.2 kg
--- NOTE | ~2017-12-24 | HEMODYNAMI ---
PATIENT:CORRINE TOMLIN MEDICAL RECORD: [id number] : 56 [id number] ADMISSION DATE: 12/24/17 Generatedon:12/26/20178:37 Patient name: CORRINE TOMLIN Patient #: [id number] SSN: : 1960 Date of study: 12/26/2017 Page: Of Hemodynamic Procedure Report Patient Data Patient Demographics Procedure consent was obtained First Name: CORRINE Gender: Female Last Name: SADA : 1960 Middle Initial: GET Age: 57 year(s) Patient #: [id number] Race: Additional ID: [id number] Contact details [address]: [address] [place] [address] State: [place] City: [place] Zip code: [address] Past Medical History Allergies Allergen Reaction Date Comments Reported Other allergy 07/14/2015 lisinopril Other allergy 08/01/2017 Lisinopril Other allergy 12/26/2017 Lisinopril Admission Admission Data Admission Date: 12/24/2017 Admission Time: 12:41 Room #: D.2120 Lab Results Lab Result Date: 12/26/2017 Lab Result Time: 0:00 Biochemistry Name Units Result Min Max BUN mg/dl 13 --(--*-)-- 7 18 Creatinine mg/dl 0.6 --(*---)-- 0.6 1.3 CBC Name Units Result Min Max Hemoglobin g/dl 13.3 -*(----)-- 13.5 17.5 Procedure Procedure Types Cath Procedure Diagnostic Procedure LHC LHC w/Coronaries w/Grafts Sedation Charges Moderate Sedation up to 15 minutes Procedure Description Procedure Date Procedure Date: 12/26/2017 Procedure Start Time: 8:11 Procedure End Time: 8:36 Procedure Staff Name Function Adonay Esteban MD Performing Physician Jaden Gandhi RN Nurse Tati Damon RT Scrub Frida Field RT Monitor Procedure Data Cath Procedure Fluoroscopy Diagnostic fluoroscopy Total fluoroscopy Time: 6.5 time: 6.5 min min Diagnostic fluoroscopy Total fluoroscopy dose: 345 dose: 345 mGy mGy Contrast Material Contrast Material Type Amount (ml) Isovue 300 58 Entry Location Entry Primary Successful Side Size Upsize Upsize Entry Closure Succes sful Closure Location (Fr) 1 (Fr) 2 (Fr) Remarks Device Remarks Femoral Right 5 Fr Exoseal artery Estimated blood loss: 5 ml Diagnostic catheters Device Type Used For End Catheter Placement MULTIPACK JL 4.0 5Fr Left Coronary catheter Angiography DIAGNOSTIC AR MOD 5Fr Right Coronary Catheter ([id number]) Angiography DIAGNOSTIC AR MOD 5Fr SVG Angiography Catheter ([id number]) DIAGNOSTIC IM 5Fr Internal mammary catheter ([id number]) arteriography MULTIPACK Pigtail 5 Fr LV Angiography catheter Procedure Complications No complications Procedure Medications Medication Administration Route Dosage 0.9% NaCl I.V. 100 ml/hr Oxygen etCO2 Nasal cannula 2 l/min Heparin Flush Bag added to field 2 bags (1000units/500ml NS) Lidocaine 2% added to field 20 Versed I.V. 1 mg Fentanyl I.V. 50 mcg Versed I.V. 1 mg Fentanyl I.V. 50 mcg Hemodynamics Rest Heart Rate: 96 (bpm) Pressure Samples Time Site Value (mmHg) Purpose Heart Use Rate(bpm) 8:31 LV 184/-19,7 EDP 96 8:31 AO 180/86(128) Pullback 92 8:31 LV 188/-17,4 Pullback 92 Gradients Valve Time Site 1 Site 2 Mean SEP/DFP Peak To Heart Use (mmHg) (sec/min) Peak Rate (mmHg) (bpm) Aortic 8:31 LV AO 11 27 8 92 188/-17,4 180/86(128) Calculations Valve P-P Mean Valve Index Valve Source Name Gradient Area Flow (cm2) Aortic 8 11 8 11 Snapshots Pre Cath Intra NCS Post Cath Vital Signs Time Heart Resp SPO2 etCO2 NIBP (mmHg) Rhythm Pain Sedation Rate (ipm) (%) (mmHg) Status Level (bpm) 7:52:16 82 15 100 35.3 196/108(164) NSR 0 (11) 10(A) , No pain 7:57:03 82 13 100 27.1 192/107(147) NSR 0 (11) 10(A) , No pain 8:01:47 82 13 99 36.1 177/90(131) NSR 0 (11) 10(A) , No pain 8:06:24 78 15 97 28.6 120/81(103) NSR 0 (11) 10(A) , No pain 8:10:58 80 10 96 31.6 117/79(104) NSR 0 (11) 10(A) , No pain 8:16:08 84 12 98 34.6 168/93(139) NSR 0 (11) 10(A) , No pain 8:20:48 88 12 97 36.1 164/91(124) NSR 0 (11) 10(A) , No pain 8:25:29 87 13 98 42.1 154/88(129) NSR 0 (11) 9(A) , No pain 8:30:08 90 15 99 36.1 161/100(139) NSR 0 (11) 9(A) , No pain 8:34:48 88 14 99 41.4 162/93(131) NSR 0 (11) 9(A) , No pain Medications Time Medication Route Dose Verified Delivered Reason Notes Effe ctiveness by by 7:58:26 0.9% NaCl I.V. 100 Jaden Jaden Per ml/hr Lorigan Lorigan physician RN RN 7:58:36 Oxygen etCO2 2 Jaden Jaden Per Nasal l/min Lorigan Lorigan physician cannula RN RN 7:58:49 Heparin Flush added 2 Jaden Jaden used for Bag to bags Lorigan Lorigan procedure (1000units/500ml field RN RN NS) 7:59:00 Lidocaine 2% added 20ml Jaden Jaden for local to vial Lorigan Lorigan anesthetic field RN RN 8:03:23 Versed I.V. 1 mg Jaden Jaden for Lorigan Lorigan sedation RN RN 8:03:32 Fentanyl I.V. 50 Jaden Jaden for mcg Lorigan Lorigan sedation RN RN 8:13:49 Versed I.V. 1 mg Jaden Jaden for Lorigan Lorigan sedation RN RN 8:13:55 Fentanyl I.V. 50 Jaden Jaden for mcg Lorigan Lorigan sedation RN resident care manager rn Log Time Note 7:36:14 Signed procedure consent form obtained from patient. 7:36:15 Time tracking: Regular hours (M-F 7:00 - 5:00) 7:36:19 Plan of Care:Hemodynamics will remain stable., Cardiac rhythm will remain stable., Comfort level will be maintained., Respiratory function will remain adequate., Patient/ family verbilizes understanding of procedure., Procedure tolerated without complication., Recovers from procedure without complications.. 7:36:21 Jaden Gandhi RN sent for patient. Start room use. 7:37:35 Patient allergic to Other allergyLisinopril 7:37:55 Lab Result : BUN 13 mg/dl 7:37:55 Lab Result : Creatinine 0.6 mg/dl 7:37:55 Lab Result : Hemoglobin 13.3 g/dl 7:43:32 Patient received from Med II to CCL 1 Alert and oriented. Tansferred to table in Supine position. 7:43:34 Warm blankets applied, and ascencion hugger turned on for patient comfort. 7:43:35 Correct patient and procedure confirmed by team. 7:43:35 ECG and BP/O2 sat monitors applied to patient. 7:50:42 Vital chart was started 7:50:45 Rhythm: sinus rhythm 7:50:49 Full Disclosure recording started 7:57:25 H&P Date Dictated: 12/25/2017 Within 30 days and on chart.. 7:57:26 Pre-procedure instructions explained to patient. 7:57:27 Pre-op teaching completed and patient verbalized understanding. 7:57:30 Family unavailable. 7:57:39 Is the patient allergic to Iodine/contrast media? No. 7:57:50 Is patient on blood thinner?Yes 7:57:52 ACC The patient was administered the following blood thiners within the last 24 hours: ACCPlavix 7:57:55 Patient diabetic? No. 7:57:58 Previous problem with sedation/anesthesia? No ? 7:57:59 Snore? Yes 7:58:00 Sleep apnea? Yes 7:58:01 Deviated septum? No 7:58:02 Opens mouth fully? Yes 7:58:02 Sticks out tongue? Yes 7:58:04 Airway obstruction? No ? 7:58:05 Dentures? No ? 7:58:17 Pre procedure: right dorsailis pedis pulse 2+ Normal; easily identifiable; not easily obliterated 7:58:21 Patient pain scale 0/10 ?. 7:58:26 0.9% NaCl 100 ml/hr I.V. was administered by Jaden Gandhi RN; Per physician; 7:58:32 IV patent on arrival in left antecubital with 0.9% NaCl at KVO. 7:58:35 Lab results completed and on chart. 7:58:36 Oxygen 2 l/min etCO2 Nasal cannula was administered by Jaden Gandhi RN; Per physician; 7:58:38 Right groin area was prepped with chlora-prep and draped in sterile fashion 7:58:39 Alarms reviewed by R. N. 7:58:39 Sharps counted by scrub and verified by R.N. 7:58:45 Use device set Femoral Dx 7:58:45 ACIST Syringe (37384) opened to sterile field. 7:58:46 Bag Decanter (2002S) opened to sterile field. 7:58:46 Medline Cath Pack ([id number]) opened to sterile field. 7:58:47 DIAGNOSTIC WIRE .035 260cm J wire (839162) opened to sterile field. 7:58:48 ACIST Hand Control (63708) opened to sterile field. 7:58:48 ACIST Manifold (38104) opened to sterile field. 7:58:49 Heparin Flush Bag (1000units/500ml NS) 2 bags added to field was administered by Jaden Gandhi RN; used for procedure; 7:58:49 DIAGNOSTIC Multipack 5Fr catheter set ([id number]) opened to sterile field. 7:58:49 Tegaderm 4 x 4 (1626W) opened to sterile field. 7:58:52 SHEATH Prelude 5Fr 0.035 ([id number]-[id number]) opened to sterile field. 7:59:00 Lidocaine 2% 20ml vial added to field was administered by Jaden Gandhi RN; for local anesthetic; 8:00:48 Final Timeout: patient, procedure, and site verified with staff and physician. All members of the team are in agreement. 8:00:50 Right groin site verified by team. 8:00:53 Physical assessment completed. ASA score P 2 - A patient with mild systemic disease as per Adonay Esteban MD. 8:00:57 Sedation plan: IV Moderate Sedation Medication:Versed, Fentanyl 8:03:23 Versed 1 mg I.V. was administered by Jaden Gandhi RN; for sedation; 8:03:32 Fentanyl 50 mcg I.V. was administered by Jaden Gandhi RN; for sedation; 8:11:42 Procedure started. 8:11:48 Local anesthetic to right femoral artery with Lidocaine 2% by Adonay Esteban MD.INITIAL ACCESS ONLY 8:13:49 Versed 1 mg I.V. was administered by Jaden Gandhi RN; for sedation; 8::55 Fentanyl 50 mcg I.V. was administered by Jaden Gandhi RN; for sedation; 8:18:09 A 5 Fr sheath was inserted into the Right Femoral artery 8:18:18 A MULTIPACK JL 4.0 5Fr catheter was advanced over the wire and used for Left Coronary Angiography. 8:20:51 Catheter removed. 8:21:45 A DIAGNOSTIC AR MOD 5Fr Catheter ([id number]) was advanced over the wire and used for Right Coronary Angiography. 8:23:33 A DIAGNOSTIC AR MOD 5Fr Catheter ([id number]) was advanced over the wire and used for SVG Angiography.to OM 8:23:48 A DIAGNOSTIC IM 5Fr catheter ([id number]) was advanced over the wire and used for Internal mammary arteriography. 8:26:02 GLIDE WIRE ANGLE 260cm ([id number]) opened to sterile field. 8:26:20 Exch Weston wire advanced. 8:29:35 Wire removed. 8:29:48 Catheter removed. 8:30:32 A MULTIPACK Pigtail 5 Fr catheter was advanced over the wire and used for LV Angiography. 8:31:03 LV gram done using TAYLOR 8:31:16 LV hemodynamics recorded. 8:31:18 Injector settings: Ml/sec: 10, Volume: 20, 8:31:24 EF : 60 % 8:31:41 Catheter removed. 8:32:49 Sheath removed intact; hemostasis achieved with Exoseal to the Right Femoral artery. 8:32:53 EXOSEAL 5Fr (EX500) opened to sterile field. 8:32:55 Procedure ended.(Physican Out) 8:33:05 Fluoroscopy time 06.50 minutes. 8:33:09 Flurop Dose total: 345 8:33:09 Fluoroscopy dose: 345 mGy 8:33:13 Contrast amount:Isovue 300 58ml. 8:33:14 Sharps counted by scrub and verified by R.N. 8:33:15 Insertion/operative site no bleeding no hematoma. 8:33:30 Post-op/insertion site Right Femoral artery dressed using a 4 x 4 and Tegaderm. 8:33:34 Post right femoral artery:stable, clean and dry 8:33:36 Post Procedure Pulses reassessed and unchanged 8:33:39 Post-procedure physical assessment completed. ASA score P 2 - A patient with mild systemic disease as per Adonay Esteban MD. 8:33:42 Post procedure rhythm: unchanged. 8:33:46 Estimated blood loss: 5 ml 8:33:47 Post procedure instruction explained to patient.Patient verbalizes understanding. 8:33:48 Patient needs reinforcement of post procedure teaching. 8:34:12 Procedure type changed to Cath procedure, Diagnostic procedure, LHC, LHC w/Coronaries w/Grafts, Sedation Charges, Moderate Sedation up to 15 minutes 8:34:17 Procedure Complication : No complications 8:34:19 See physician's report for complete and final results. 8:34:32 Procedure and supply charges have been captured, reviewed, submitted and are correct. 8:35:48 Vital chart was stopped 8:35:56 Report given to PCU. 8:35:59 Patient transfered to PCU with Bed. 8:36:07 Procedure ended. 8:36:07 Full Disclosure recording stopped 8:36:12 End room use (Document Last) Device Usage Item Name Manufacture Quantity Catalog Number Hospital Part Current M inimal Lot# / Charge Number Stock Stock Serial# Code ACIST Syringe Acist 1 53545 588304 737618 713250 2 0 (71879) [employer] Bag Decanter Microtek 1 864992 04722 494842 5 () [employer] Inc. Medline Cath Cardinal 1 [id number] 077561 35812 307540 5 Pack Health ([id number]) DIAGNOSTIC WIRE [facility] Wesley 1 027425 345767 722364 315720 3 0 .035 260cm J wire (509411) ACIST Hand Acist 1 20115 845124 466754 578185 5 Control (60943) [employer] ACIST Manifold Acist 1 43804 222079 954858 457771 5 (13322) [employer] DIAGNOSTIC Cardinal 1 OA2650 818662 73350 587579 3 0 Multipack 5Fr Health catheter set ([id number]) Tegaderm 4 x 4 3M 1 1626W 253841 361903 938407 5 (1626W) SHEATH Prelude Merit 1 [id number] 001307 341741 073443 5 5Fr 0.035 Medical ([id number]-[id number]) MULTIPACK JL Cardinal 1 895590 5 4.0 5Fr Health catheter DIAGNOSTIC AR Cardinal 1 [id number] 573928 267643 195298 1 5 MOD 5Fr Health Catheter ([id number]) DIAGNOSTIC IM Cardinal 1 [id number] 928325 698941 637588 5 5Fr catheter Health (020634N) GLIDE WIRE Terumo 1 [id number] 059488 197955 222058 5 ANGLE 260cm ([id number]) MULTIPACK Cardinal 1 136436 5 Pigtail 5 Fr Health catheter EXOSEAL 5Fr Cardinal 1 EX500 230234 897174 837775 1 0 (EX500) Health Signature Audit Austin Stage Time Signature Unsigned Intra-Procedure 12/26/2017 Frida 8:37:12 AM Counts RT(R) Signatures Monitor : Frida Signature : Counts RT Date : Time : [address] [address]
[2017-12-24 10:33] LABS: BASOPHILS 0.3 % (0-2); EOSINOPHILS 1.9 % (0-7); HEMOGLOBIN 12.8 g/dL (12-16); LYMPHOCYTES 26.1 % (15-50); MCH 29.6 pg (26.0-34.0); MCHC 33.7 g/dL (31.0-37.0); MCV 87.8 fL (80.0-100.0); MEAN PLATELET VOLUME 9.3 fL (7.4-10.4); MONOCYTES 10.5 % (2-11); NEUTROPHILS 61.2 % (40-80); PLATELET COUNT 211 10x3/uL (130-400); RBC 4.33 10x6/uL (4.00-5.40); RDW 12.8 % (11.5-14.5); WBC 6.2 10x3/uL (4.8-10.8)
[2017-12-24 10:41] LABS: APTT 30.4 SECONDS (22.8-39.4)
[2017-12-24 10:42] LABS: D-DIMER-QUANTITATIVE 0.29 ug/mLFEU (0.20-0.54)
[2017-12-24 10:46] LABS: ALBUMIN 3.5 g/dL (3.4-5.0); ALKALINE PHOSPHATASE 88 U/L (46-116); ALT (SGPT) 33 U/L (10-68); BILIRUBIN - TOTAL 0.21 mg/dL (0.2-1.3); CALC OSMOLALITY 272 mosm/kg (275-300); CALCIUM 8.9 mg/dL (8.5-10.1); CARBON DIOXIDE 28.7 mmol/L (21.0-32.0); CHLORIDE - SERUM 102 mmol/L (98-107); CREATININE - SERUM 0.7 mg/dL (0.6-1.3); GLUCOSE 86 mg/dL (74-106); PROTEIN - SERUM 7.9 g/dL (6.4-8.2); SODIUM 137 mmol/L (136-145); UREA NITROGEN 12 mg/dL (7-18); eGFR NON AFRICAN AMERICAN > 90 mL/min (90-120)
[2017-12-24 10:47] LABS: INR 0.91 (0.85-1.17); PROTIME 11.9 SECONDS (11.6-15.0)
[2017-12-24 10:57] LABS: CKMB 0.3 U/L (0.0-3.6); CREATINE KINASE 49 UL (21-215); PRO BNP 220 pg/mL (0-125); TROPONIN-I < 0.017 ng/mL (0.000-0.060)
[2017-12-24 12:30] VITALS: BP 167/90
[2017-12-24 13:30] VITALS: BP 167/81
[2017-12-24 14:43] LABS: CKMB 0.4 U/L (0.0-3.6); CREATINE KINASE 49 UL (21-215)
[2017-12-24 14:45] LABS: TROPONIN-I < 0.017 ng/mL (0.000-0.060)
[2017-12-24 17:31] VITALS: Ht 156.2 cm; Wt 63.2 kg
[2017-12-24 18:39] VITALS: BP 178/83
[2017-12-24 18:58] LABS: CKMB 0.5 U/L (0.0-3.6); CREATINE KINASE 43 UL (21-215); TROPONIN-I < 0.017 ng/mL (0.000-0.060)
[2017-12-24 20:00] VITALS: BP 127/71
[2017-12-24 23:57] VITALS: BP 136/75
[2017-12-25 04:00] VITALS: BP 140/83
[2017-12-25 04:12] LABS: CKMB 0.4 U/L (0.0-3.6); CREATINE KINASE 54 UL (21-215)
[2017-12-25 04:15] LABS: TROPONIN-I < 0.017 ng/mL (0.000-0.060)
[2017-12-25 09:35] LABS: BASOPHILS 0.2 % (0-2); EOSINOPHILS 1.6 % (0-7); HEMATOCRIT 39.7 % (36.0-48.0); HEMOGLOBIN 13.3 g/dL (12-16); IMMATURE GRANULOCYTES 0.2 % (0-5); LYMPHOCYTES 27.5 % (15-50); MCH 29.4 pg (26.0-34.0); MCHC 33.5 g/dL (31.0-37.0); MCV 87.8 fL (80.0-100.0); MEAN PLATELET VOLUME 9.4 fL (7.4-10.4); MONOCYTES 9.9 % (2-11); NEUTROPHILS 60.6 % (40-80); PLATELET COUNT 218 10x3/uL (130-400); RBC 4.52 10x6/uL (4.00-5.40); RDW 12.9 % (11.5-14.5); WBC 5.7 10x3/uL (4.8-10.8)
[2017-12-25 09:40] LABS: CALC OSMOLALITY 273 mosm/kg (275-300); CALCIUM 9.1 mg/dL (8.5-10.1); CARBON DIOXIDE 29.4 mmol/L (21.0-32.0); CHLORIDE - SERUM 103 mmol/L (98-107); CREATININE - SERUM 0.6 mg/dL (0.6-1.3); GLUCOSE 95 mg/dL (74-106); POTASSIUM - SERUM 4.3 mmol/L (3.5-5.1); SODIUM 137 mmol/L (136-145); UREA NITROGEN 13 mg/dL (7-18); eGFR NON AFRICAN AMERICAN > 90 mL/min (90-120)
[2017-12-25 12:55] VITALS: BP 131/78
[2017-12-25 20:00] VITALS: BP 124/70
[2017-12-26] VITALS: BP 110/59
[2017-12-26 04:00] VITALS: BP 120/67
== END 2017-12-26 11:45 | disposition home or self-care (01) ==
LOC: D.ER 10:06 → D.EDHOLD 12:41 → D.M2 12:41 → OBSVTIME 12-26 → D.CLR 12-26 09:17
PROVIDERS: Family Medicine; Internal Medicine Cardiovascular Disease
DX: I25.110 Atherosclerotic heart disease of native coronary artery with unstable angina pectoris (principal); Z95.1 Presence of aortocoronary bypass graft; J44.9 Chronic obstructive pulmonary disease, unspecified; F32.9 Major depressive disorder, single episode, unspecified; I10 Essential (primary) hypertension; E78.5 Hyperlipidemia, unspecified

== ENCOUNTER → 2018-05-04 10:55 | Outpatient (CLI) | payer MEDICARE, MEDICAID ==
[2017-12-24 17:31] VITALS: BMI 27.0
== END | disposition home or self-care (01) ==
LOC: D.RT 10:55
DX: J44.9 Chronic obstructive pulmonary disease, unspecified (principal)

== ENCOUNTER → 2018-05-04 16:48 | Outpatient (CLI) | payer MEDICARE, MEDICAID ==
[2017-12-24 17:31] VITALS: BMI 27.0
== END | disposition home or self-care (01) ==
LOC: D.CT 16:48
DX: R09.02 Hypoxemia (principal)

== ENCOUNTER 2018-05-08 17:13 | Inpatient (IN) | payer MEDICARE, MEDICAID ==
[~2018-05-08] VITALS: Ht 156.2 cm; Wt 62.5 kg
--- NOTE | ~2018-05-08 | MORECARE ---
CASE MANAGEMENT DISCHARGE SUMMARY PATIENT: CORRINE TOMLIN UNIT: [id number] ADM DATE: 05/08/18 AGE: 57 : 56 SEX: F ROOM/BED: D.2117 AUTHOR: JOSÉ MIGUEL DAMON PHYSICIAN: REFERRING PHYSICIAN: RABIA BROWNING MD DATE OF SERVICE: 05/10/18 Discharge Plan Patient Name: CORRINE TOMLIN Facility: [facility]:[place] : 1960 Planned Disposition: Home Anticipated Discharge Date: 05/09/18 Discharge Date: 05/09/2018 Expected LOS: 1 Initial Reviewer: [email or web address] Initial Review Date: 05/10/2018 Generated: 05/10/18 8:07 am Patient Name: CORRINE TOMLIN Page [id number] at 0707 All edits/amendments must be made on the electronic document DICTATION DATE: 05/10/18705 FLAT GRINDER OPERATOR: ANDRE 05/10/18705 RPT#: [id number] DC DATE:05/09/18 STATUS: DIS IN [facility] [address] [place] [address] END OF REPORT
[2018-05-08 17:39] LABS: BASOPHILS 0.1 % (0-2); EOSINOPHILS 1.7 % (0-7); HEMATOCRIT 39.3 % (36.0-48.0); HEMOGLOBIN 13.1 g/dL (12-16); IMMATURE GRANULOCYTES 0.1 % (0-5); LYMPHOCYTES 27.9 % (15-50); MCH 29.6 pg (26.0-34.0); MCHC 33.3 g/dL (31.0-37.0); MCV 88.9 fL (80.0-100.0); MEAN PLATELET VOLUME 9.5 fL (7.4-10.4); NEUTROPHILS 60.2 % (40-80); PLATELET COUNT 238 10x3/uL (130-400); RBC 4.42 10x6/uL (4.00-5.40); RDW 12.9 % (11.5-14.5); WBC 7.2 10x3/uL (4.8-10.8)
[2018-05-08 17:49] LABS: INR 0.93 (0.85-1.17)
[2018-05-08 18:02] LABS: ALBUMIN 3.7 g/dL (3.4-5.0); ALKALINE PHOSPHATASE 87 U/L (46-116); ALT (SGPT) 23 U/L (10-68); BILIRUBIN - TOTAL 0.18 mg/dL (0.2-1.3); CALC OSMOLALITY 276 mosm/kg (275-300); CALCIUM 8.9 mg/dL (8.5-10.1); CARBON DIOXIDE 27.1 mmol/L (21.0-32.0); CHLORIDE - SERUM 101 mmol/L (98-107); CREATININE - SERUM 0.9 mg/dL (0.6-1.3); GLUCOSE 72 mg/dL (74-106); POTASSIUM - SERUM 3.4 mmol/L (3.5-5.1); PROTEIN - SERUM 8.8 g/dL (6.4-8.2); SODIUM 139 mmol/L (136-145); UREA NITROGEN 12 mg/dL (7-18); eGFR NON AFRICAN AMERICAN 68 mL/min (90-120)
[2018-05-08 18:11] LABS: CKMB 0.5 U/L (0.0-3.6); CREATINE KINASE 62 UL (21-215); MAGNESIUM - SERUM 1.8 mg/dL (1.8-2.4); TROPONIN-I < 0.017 ng/mL (0.000-0.060)
[2018-05-08 20:27] LABS: CKMB 28.1 U/L (0.0-3.6); CREATINE KINASE 52 UL (21-215); TROPONIN-I < 0.017 ng/mL (0.000-0.060)
[2018-05-08] MEDS ORDERED: OMEPRAZOLE20 M1 PO (21:44)
[2018-05-08 22:26] VITALS: Ht 156.2 cm; Wt 62.5 kg
[2018-05-09 00:29] VITALS: BP 121/62
[2018-05-09 04:48] VITALS: BP 101/49
[2018-05-09 04:57] LABS: ALBUMIN 3.2 g/dL (3.4-5.0); ALKALINE PHOSPHATASE 70 U/L (46-116); ALT (SGPT) 19 U/L (10-68); BILIRUBIN - TOTAL 0.19 mg/dL (0.2-1.3); CALC OSMOLALITY 278 mosm/kg (275-300); CARBON DIOXIDE 28.5 mmol/L (21.0-32.0); CHLORIDE - SERUM 103 mmol/L (98-107); CKMB 0.4 U/L (0.0-3.6); CREATINE KINASE 46 UL (21-215); CREATININE - SERUM 0.8 mg/dL (0.6-1.3); GLUCOSE 95 mg/dL (74-106); PROTEIN - SERUM 7.7 g/dL (6.4-8.2); SODIUM 140 mmol/L (136-145); TROPONIN-I < 0.017 ng/mL (0.000-0.060); UREA NITROGEN 13 mg/dL (7-18); eGFR NON AFRICAN AMERICAN 78 mL/min (90-120)
[2018-05-09 05:10] LABS: CALCIUM 9.1 mg/dL (8.5-10.1); POTASSIUM - SERUM 4.3 mmol/L (3.5-5.1)
[2018-05-09 07:04] LABS: BASOPHILS 0.4 % (0-2); EOSINOPHILS 1.9 % (0-7); HEMATOCRIT 37.5 % (36.0-48.0); HEMOGLOBIN 12.2 g/dL (12-16); IMMATURE GRANULOCYTES 0.2 % (0-5); LYMPHOCYTES 31.5 % (15-50); MCHC 32.5 g/dL (31.0-37.0); MCV 89.3 fL (80.0-100.0); MEAN PLATELET VOLUME 9.9 fL (7.4-10.4); MONOCYTES 15.3 % (2-11); NEUTROPHILS 50.7 % (40-80); PLATELET COUNT 226 10x3/uL (130-400); RDW 13.1 % (11.5-14.5)
[2018-05-09 07:09] LABS: WBC 5.3 10x3/uL (4.8-10.8)
[2018-05-09 08:25] VITALS: BP 99/59
[2018-05-09 08:47] LABS: CKMB 0.6 U/L (0.0-3.6); CREATINE KINASE 51 UL (21-215); TROPONIN-I < 0.017 ng/mL (0.000-0.060)
[2018-05-09] MEDS ORDERED: LOPRESSOR25 MG PO (11:21)
[2018-05-09 12:13] VITALS: BP 107/68
== END 2018-05-09 15:35 | disposition home or self-care (01) | DRG 313 ==
LOC: D.ER 17:13 → D.M2 19:32
PROVIDERS: Family Medicine
DX: R07.9 Chest pain, unspecified (principal); I25.110 Atherosclerotic heart disease of native coronary artery with unstable angina pectoris; I10 Essential (primary) hypertension; E78.5 Hyperlipidemia, unspecified; K21.9 Gastro-esophageal reflux disease without esophagitis; F32.9 Major depressive disorder, single episode, unspecified; Z95.5 Presence of coronary angioplasty implant and graft; Z95.1 Presence of aortocoronary bypass graft; Z87.891 Personal history of nicotine dependence; Z86.73 Personal history of transient ischemic attack (TIA), and cerebral infarction without residual deficits

== ENCOUNTER 2018-08-04 10:58 | Observation (INO) | payer MEDICARE, MEDICAID ==
[~2018-08-04] VITALS: Ht 156.2 cm; Wt 63.6 kg
--- NOTE | ~2018-08-04 | HEMODYNAMI ---
PATIENT:CORRINE TOMLIN MEDICAL RECORD: [id number] : 56 [facility] [id number] ADMISSION DATE: 08/04/18 Generatedon:08/05/201811:09 Patient name: CORRINE TOMLIN Patient #: [id number] SSN: : 1960 Date of study: 08/05/2018 Page: Of Hemodynamic Procedure Report Patient Data Patient Demographics Procedure consent was obtained First Name: CORRINE Gender: Female Last Name: SADA : 1960 Middle Initial: GET Age: 58 year(s) Patient #: [id number] Race: Additional ID: [id number] Contact details [address]: [address] [place] [address] State: [place] City: [place] Zip code: [address] Past Medical History Allergies Allergen Reaction Date Comments Reported Other allergy 07/14/2015 lisinopril Other allergy 08/01/2017 Lisinopril Other allergy 12/26/2017 Lisinopril Other allergy 08/05/2018 LISINOPRIL Admission Admission Data Admission Date: 08/04/2018 Admission Time: 13:49 Room #: D.2117 Height (in.): 61.42 BSA: 1.63 (m2) Height (cm.): 156 BMI: 25.89 (kg/m2) Weight (lbs.): 138.89 Weight (kg.): 63 Lab Results Lab Result Date: 08/05/2018 Lab Result Time: 0:00 Biochemistry Name Units Result Min Max BUN mg/dl 12 --(-*--)-- 7 18 Creatinine mg/dl 0.8 --(-*--)-- 0.6 1.3 CBC Name Units Result Min Max Hemoglobin g/dl 11.7 *-(----)-- 13.5 17.5 Procedure Procedure Types Cath Procedure Diagnostic Procedure LHC LHC w/Coronaries w/Grafts Procedure Description Procedure Date Procedure Date: 08/05/2018 Procedure Start Time: 11:00 Procedure End Time: 11:07 Procedure Staff Name Function Joey Galvan MD Performing Physician Gabbi Toledo RT Monitor Jaden Gandhi RN Nurse Arnav Noyola RT Scrub Procedure Data Cath Procedure Fluoroscopy Diagnostic fluoroscopy Total fluoroscopy Time: 0.8 time: 0.8 min min Diagnostic fluoroscopy Total fluoroscopy dose: 222 dose: 222 mGy mGy Contrast Material Contrast Material Type Amount (ml) Isovue 300 50 Entry Location Entry Primary Successful Side Size Upsize Upsize Entry Closure Succes sful Closure Location (Fr) 1 (Fr) 2 (Fr) Remarks Device Remarks Femoral Right 5 Fr Exoseal artery Estimated blood loss: 10 ml Diagnostic catheters Device Type Used For End Catheter Placement MULTIPACK JL 4.0 5Fr Procedure catheter MULTIPACK 3DRC 5Fr Procedure catheter MULTIPACK Pigtail 5 Fr Procedure catheter Procedure Complications No complications Procedure Medications Medication Administration Route Dosage 0.9% NaCl I.V. 100 ml/hr Oxygen etCO2 Nasal cannula 2 l/min Heparin Flush Bag added to field 2 bags (1000units/500ml NS) Lidocaine 2% added to field 20 Versed I.V. 2 mg Fentanyl I.V. 100 mcg Hemodynamics Rest BSA: 1.63 (m2) HGB: 11.7 (g/dl) O2 Consumption: Estimated: 158.31 (ml/min) O2 Co nsumption indexed: Estimated:97.12 (ml/min/m) Heart Rate: 76 (bpm) Pressure Samples Time Site Value (mmHg) Purpose Heart Use Rate(bpm) 11:02 LV 103/14,19 Snapshot 77 Gradients Valve Time Site Site Mean SEP/DFP Peak To Heart Use 1 2 (mmHg) (sec/min) Peak Rate (mmHg) (bpm) Aortic 11:03 LV AO 77 Snapshots Pre Cath Intra NCS Post Cath Vital Signs Time Heart Resp SPO2 etCO2 NIBP (mmHg) Rhythm Pain Sedation Rate (ipm) (%) (mmHg) Status Level (bpm) 10:49:51 77 12 99 36.1 177/97(144) NSR 0 (11) 10(A) , No pain 10:54:17 75 11 94 45.2 151/76(119) NSR 0 (11) 10(A) , No pain 10:58:39 77 12 94 46 140/81(117) NSR 0 (11) 10(A) , No pain 11:02:51 76 12 92 20.3 106/70(82) NSR 0 (11) 9(A) , No pain 11:07:03 77 19 93 27.1 117/65(100) NSR 0 (11) 9(A) , No pain Medications Time Medication Route Dose Verified Delivered Reason Notes Eff ectiveness by by 10:50:10 0.9% NaCl I.V. 100 Jaden Jaden Per ml/hr Hiram Gandhi physician RN RN 10:50:23 Oxygen etCO2 2 Jaden Jaden for low 02 Nasal l/min Lorigan Lorigan sats cannula RN RN 10:50:33 Heparin Flush added 2 Jaden Jaden used for Bag to bags Lorigan Lorigan procedure (1000units/500ml field RN RN NS) 10:50:46 Lidocaine 2% added 20ml Jaden Jaden for local to vial Lorigan Lorigan anesthetic field RN RN 10:59:37 Versed I.V. 2 mg Jaden Jaden for Lorigan Lorigan sedation RN RN 10:59:45 Fentanyl I.V. 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 Start room use. 10:17:31 Time tracking: Call back (After hours or weekends) 10:17:40 Plan of Care:Hemodynamics will remain stable., Cardiac rhythm will remain stable., Comfort level will be maintained., Respiratory function will remain adequate., Patient/ family verbilizes understanding of procedure., Procedure tolerated without complication., Recovers from procedure without complications.. 10:31:09 Patient Height : 61.42 inches 10:31:14 Patient Weight : 138.89 lbs 10:33:37 Lab Result : Hemoglobin 11.7 g/dl 10:33:37 Lab Result : Creatinine 0.8 mg/dl 10:33:37 Lab Result : BUN 12 mg/dl 10:34:00 Patient received from Pre/Post Procedure Room to CCL 1 Alert and oriented. Tansferred to table in Supine position. 10:34:10 Warm blankets applied, and ascencion hugger turned on for patient comfort. 10:34:12 Correct patient and procedure confirmed by team. 10:34:14 Signed procedure consent form obtained from patient. 10:34:18 ECG and BP/O2 sat monitors applied to patient. 10:34:33 Pre-procedure instructions explained to patient. 10:34:36 Pre-op teaching completed and patient verbalized understanding. 10:34:39 Family in waiting room. 10:34:58 Diagnostic Cath status Elective 10:48:28 Vital chart was started 10:50:10 0.9% NaCl 100 ml/hr I.V. was administered by Jaden Gandhi RN; Per physician; 10:50:23 Oxygen 2 l/min etCO2 Nasal cannula was administered by Jaden Gandhi RN; for low 02 sats; 10:50:33 Heparin Flush Bag (1000units/500ml NS) 2 bags added to field was administered by Jaden Gandhi RN; used for procedure; 10:50:46 Lidocaine 2% 20ml vial added to field was administered by Jaden Gandhi RN; for local anesthetic; 10:54:48 Baseline sample Acquired. 10:54:58 Rhythm: sinus rhythm 10:55:02 Full Disclosure recording started 10:56:16 Patient NPO since Midnight. 10:56:29 Patient allergic to Other allergyLISINOPRIL 10:56:38 Is the patient allergic to Iodine/contrast media? No. 10:56:42 Is patient on blood thinner?Yes 10:58:05 Patient diabetic? No. 10:58:13 Snore? Yes 10:58:15 Sleep apnea? No 10:58:28 Airway obstruction? Yes copd, ASTHMA 10:58:38 Pre procedure: right dorsailis pedis pulse Doppler 10:58:44 Patient pain scale 0/10 ?. 10:58:51 IV patent on arrival in left forearm with 0.9% NaCl at KVO. 10:58:55 Lab results completed and on chart. 10:58:59 Right groin area was prepped with chlora-prep and draped in sterile fashion 10:59:01 Alarms reviewed by R. N. 10:59:01 Sharps counted by scrub and verified by R.N. 10:59:06 Physician arrived 10:59:06 --------ALL STOP TIME OUT------ 10:59:08 Final Timeout: patient, procedure, and site verified with staff and physician. All members of the team are in agreement. 10:59:11 Right groin site verified by team. 10:59:27 Maximum allowable Isovue 300 dose 300ml. Physician notified. (300ml for normal creatinines. For patients with creatinine of 1.7 or higher multiply weight(kg) x 5 divided by creatinine.) 10:59:37 Versed 2 mg I.V. was administered by Jaden Gandhi RN; for sedation; 10:59:43 Fire Safety Assessment: A--An alcohol-based skin anteseptic being used preoperatively., C--Open oxygen or nitrous oxide is being used., D--An ESU, laser, or fiber-optic light is being used. 10:59:45 Fentanyl 100 mcg I.V. was administered by Jaden Gandhi RN; for sedation; 10:59:48 Physical assessment completed. ASA score P 2 - A patient with mild systemic disease as per Joey Galvan MD. 10:59:53 Sedation plan: IV Moderate Sedation Medication:Versed, Fentanyl 11:00:01 Use device set Femoral Dx 11:00:03 ACIST Syringe (53860) opened to sterile field. 11:00:03 Bag Decanter (2002S) opened to sterile field. 11:00:04 Medline Cath Pack ([id number]) opened to sterile field. 11:00:04 DIAGNOSTIC WIRE .035 260cm J wire (103536) opened to sterile field. 11:00:05 ACIST Hand Control (03984) opened to sterile field. 11:00:06 ACIST Manifold (68864) opened to sterile field. 11:00:07 DIAGNOSTIC Multipack 5Fr catheter set (HK4294) opened to sterile field. 11:00:08 Tegaderm 4 x 4 (1626W) opened to sterile field. 11:00:11 SHEATH 5FR [place] (STX754) opened to sterile field. 11:00:14 Procedure started. 11:00:31 Local anesthetic to right femoral artery with Lidocaine 2% by Joey Galvan MD.INITIAL ACCESS ONLY 11:00:42 A 5 Fr sheath was inserted into the Right Femoral artery 11:00:58 A MULTIPACK JL 4.0 5Fr catheter was advanced over the wire and used for Procedure. 11:01:03 LCA angiography performed. 11:01:07 Catheter removed. 11:01:20 A MULTIPACK 3DRC 5Fr catheter was advanced over the wire and used for Procedure. 11:01:37 SVG to Circ angiography performed. 11:01:47 Catheter removed. 11:02:21 A MULTIPACK Pigtail 5 Fr catheter was advanced over the wire and used for Procedure. 11:03:22 LV angiography performed. 11:03:41 EF : 55 % 11:03:44 LV hemodynamics recorded. 11:03:58 Catheter removed. 11:04:16 Sheath removed intact; hemostasis achieved with Exoseal to the Right Femoral artery. 11:04:25 EXOSEAL 5Fr (EX500) opened to sterile field. 11:04:30 Procedure ended.(Physican Out) 11:05:26 Fluoroscopy time 00.80 minutes. 11:05:30 Fluoroscopy dose: 222 mGy 11:05:30 Flurop Dose total: 222 11:05:33 Contrast amount:Isovue 300 50ml. 11:05:35 Sharps counted by scrub and verified by R.N. 11:05:37 Insertion/operative site no bleeding no hematoma. 11:05:42 Post right femoral artery:stable 11:05:45 Post Procedure Pulses reassessed and unchanged 11:05:50 Post-procedure physical assessment completed. ASA score P 2 - A patient with mild systemic disease as per Joey Galvan MD. 11:05:54 Post procedure rhythm: sinus rhythm 11:05:57 Estimated blood loss: 10 ml 11:05:59 Post procedure instruction explained to patient.Patient verbalizes understanding. 11:06:10 Procedure type changed to Cath procedure, Diagnostic procedure, LHC, LHC w/Coronaries w/Grafts 11:06:12 Procedure and supply charges have been captured, reviewed, submitted and are correct. 11:06:52 Procedure Complication : No complications 11:06:55 Vital chart was stopped 11:06:56 See physician's report for complete and final results. 11:06:59 Report given to Pre/Post Procedure Room. 11:07:02 Patient transfered to Pre/Post Procedure Room with Stretcher. 11:07:04 Procedure ended. 11:07:04 Full Disclosure recording stopped 11:07:09 End room use (Document Last) Device Usage Item Name Manufacture Quantity Catalog Hospital Part Current Minimal L ot# / Number Charge Number Stock Stock Serial# Code ACIST Acist 1 35787 [id number] 669778 384645 20 Cargomatic (60746[address] Er[address] Bag Microtek 1 935239 31299 240932 5 Decanter Medical Inc. () Medline Medline 1 [id number] 583715 29122 718996 5 Cath Pack ([id number]) DIAGNOSTIC [facility] [place] 1 805941 344759 151122 321946 30 WIRE .035 260cm J wire (024659) ACIST Hand Acist 1 79913 689525 213055 565647 5 Control Medical (68804) Systems Inc ACIST Acist 1 20667 147362 553051 490291 5 Manifold Medical (14987) Systems Inc DIAGNOSTIC Cardinal 1 [id number] 499259 81671 966311 30 Multipack Health 5Fr catheter set (NM4257) Tegaderm 4 3M 1 1626W 230128 678004 987190 5 x 4 (1626W) SHEATH 5FR Terumo 1 QOK172 054212 754959 094643 5 [place] (DJO183) MULTIPACK Cardinal 1 357822 5 JL 4.0 5Fr Health catheter MULTIPACK Cardinal 1 623678 5 3DRC 5Fr Health catheter MULTIPACK Cardinal 1 766527 5 Pigtail 5 Health Fr catheter EXOSEAL 5Fr Cardinal 1 EX500 985439 573493 917859 10 (EX500) Health Signature Audit [place] Stage Time Signature Unsigned Intra-Procedure 08/05/2018 Gabbi Toledo 11:09:38 AM RT(R) Signatures Monitor : Gabbi Toledo Signature : RT Date : Time : [address] [place] [address]
[~2018-08-04 10:58] MED LIST changes: +OMEPRAZOLE20 M1 PO
[2018-08-04 12:32] LABS: BASOPHILS 0.2 % (0-2); EOSINOPHILS 1.4 % (0-7); HEMATOCRIT 37.8 % (36.0-48.0); HEMOGLOBIN 12.6 g/dL (12-16); IMMATURE GRANULOCYTES 0.2 % (0-5); LYMPHOCYTES 29.4 % (15-50); MCH 29.4 pg (26.0-34.0); MCHC 33.3 g/dL (31.0-37.0); MCV 88.1 fL (80.0-100.0); MEAN PLATELET VOLUME 9.1 fL (7.4-10.4); MONOCYTES 7.9 % (2-11); NEUTROPHILS 60.9 % (40-80); PLATELET COUNT 235 10x3/uL (130-400); RBC 4.29 10x6/uL (4.00-5.40); RDW 13.1 % (11.5-14.5); WBC 5.6 10x3/uL (4.8-10.8)
[2018-08-04 12:45] LABS: ALBUMIN 3.9 g/dL (3.4-5.0); ALKALINE PHOSPHATASE 81 U/L (46-116); ALT (SGPT) 22 U/L (10-68); BILIRUBIN - TOTAL 0.27 mg/dL (0.2-1.3); CALC OSMOLALITY 276 mosm/kg (275-300); CALCIUM 9.1 mg/dL (8.5-10.1); CARBON DIOXIDE 30.5 mmol/L (21.0-32.0); CHLORIDE - SERUM 102 mmol/L (98-107); CREATININE - SERUM 0.8 mg/dL (0.6-1.3); GLUCOSE 90 mg/dL (74-106); POTASSIUM - SERUM 4.1 mmol/L (3.5-5.1); PROTEIN - SERUM 8.5 g/dL (6.4-8.2); SODIUM 140 mmol/L (136-145); UREA NITROGEN 8 mg/dL (7-18); eGFR NON AFRICAN AMERICAN 77 mL/min (90-120)
[2018-08-04 12:56] LABS: CKMB 0.7 U/L (0.0-3.6); CREATINE KINASE 69 UL (21-215); TROPONIN-I < 0.017 ng/mL (0.000-0.060)
--- NOTE | 2018-08-04 14:38 | NUR ---
TRANSFER FROM ER BY W/C. ANDREWINTED TO ROOM. CALL LIGHT IN REACH. WILL CONT. PLAN OF CARE.
[2018-08-04] MEDS ORDERED: ISOSORBIDE MONO60 M1 PO (15:04)
[2018-08-04 15:06] VITALS: BP 121/81; Ht 156.2 cm; Wt 63.6 kg
[2018-08-04 16:43] LABS: CKMB 0.3 U/L (0.0-3.6); CREATINE KINASE 59 UL (21-215)
[2018-08-04 16:44] LABS: TROPONIN-I < 0.017 ng/mL (0.000-0.060)
--- NOTE | 2018-08-04 19:45 | NUR ---
RECIEVED RESTING IN BED WITH EYES OPEN AND TV ON. ALERT AND ORIENTED X4. UP AD LIOB TO TOILET. O2@ 2 LITERS PER N/C IN PLACE. IV TO LEFT HAND SL.. TELEMETRY IN PLACE. DENIES ANY NEEDS AT THIS TIME.
[2018-08-04 21:17] VITALS: BP 127/67
[2018-08-04 23:15] LABS: CKMB 0.3 U/L (0.0-3.6); CREATINE KINASE 57 UL (21-215)
[2018-08-04 23:16] LABS: TROPONIN-I < 0.017 ng/mL (0.000-0.060)
[2018-08-05 01:04] VITALS: BP 132/71
[2018-08-05 03:55] VITALS: BP 139/83
[2018-08-05 04:59] LABS: BASOPHILS 0.2 % (0-2); EOSINOPHILS 1.5 % (0-7); HEMATOCRIT 35.9 % (36.0-48.0); HEMOGLOBIN 11.7 g/dL (12-16); IMMATURE GRANULOCYTES 0.2 % (0-5); LYMPHOCYTES 29.2 % (15-50); MCH 29.1 pg (26.0-34.0); MCHC 32.6 g/dL (31.0-37.0); MCV 89.3 fL (80.0-100.0); MEAN PLATELET VOLUME 9.7 fL (7.4-10.4); MONOCYTES 11.6 % (2-11); NEUTROPHILS 57.3 % (40-80); PLATELET COUNT 208 10x3/uL (130-400); RBC 4.02 10x6/uL (4.00-5.40); RDW 13.3 % (11.5-14.5)
[2018-08-05 05:25] LABS: ALBUMIN 3.2 g/dL (3.4-5.0); ALKALINE PHOSPHATASE 78 U/L (46-116); ALT (SGPT) 19 U/L (10-68); BILIRUBIN - TOTAL 0.18 mg/dL (0.2-1.3); CALC OSMOLALITY 277 mosm/kg (275-300); CARBON DIOXIDE 29.3 mmol/L (21.0-32.0); CHLORIDE - SERUM 103 mmol/L (98-107); CREATININE - SERUM 0.8 mg/dL (0.6-1.3); GLUCOSE 107 mg/dL (74-106); POTASSIUM - SERUM 4.5 mmol/L (3.5-5.1); PROTEIN - SERUM 7.7 g/dL (6.4-8.2); SODIUM 139 mmol/L (136-145); eGFR NON AFRICAN AMERICAN 77 mL/min (90-120)
[2018-08-05 05:30] LABS: UREA NITROGEN 12 mg/dL (7-18)
[2018-08-05 07:56] VITALS: BP 148/70
--- NOTE | 2018-08-05 10:35 | NUR ---
PT TO ACID CONCENTRATOR VIA BED
--- NOTE | 2018-08-05 10:35 | NUR ---
RECEIVED PT IN BED AAOX4 RESP UNLABORED SKIN W/D COLOR WNL DENIES ANY NEEDS OR DISCOMFORT WIOLL CONTINUE TO MONITOR
[2018-08-05] MEDS ORDERED: NORVASC2.5 MG PO (12:23)
[2018-08-05 13:35] VITALS: BP 146/79
--- NOTE | 2018-08-05 16:10 | NUR ---
REVIEWED DISCHARGE INSTRUCTIONS WITH PT STATES UNDERSTANDING COPY GIVEN DCD SALINE LOCK TO LEFT HAND WITH IV CATHETER INTACT SITE FREE OF REDNESS OR EDEMA PT DISCHARGED HOME IN STABLE CONDITION WITH ALL PERSONAL BELONGINGS LEFT UNIT VIA W/C
--- NOTE | 2018-08-06 10:39 | CN ---
PATIENT NAME:CORRINE TOMLIN MEDICAL RECORD: [id number] : 56 LOCATION:D. D.2117 ADMIT DATE: 08/04/18 ACCOUNT: [id number] CONSULTING PHYSICIAN: TERI ELLIOTT MD REFERRING PHYSICIAN: SETH STOREY MD DATE OF CONSULTATION: 08/05/2018 HISTORY OF PRESENT ILLNESS: A 58-year-old female with a known history of coronary artery disease, status post coronary bypass grafting subsequent intervention to the [place] circ, has a most recent angiography of [place] to the LAD, saphenous vein graft to the OM, LV function has been normal in the past, has been having problems with elevated blood pressure, marked constitutional symptoms, malaise and fatigue, intermittent chest pain radiating to the back. We are asked to see her concerning her cardiovascular status. PAST MEDICAL HISTORY: Include: 1. History of hypertension. 2. Hyperlipidemia. 3. Obstructive pulmonary disease. MEDICATIONS: Typically include Singulair 10 mg p.o. every day, aspirin 81 every day, Prozac 20 every day, Neurontin 600 b.i.d., Imdur 60 every day, metoprolol 25 b.i.d., pravastatin 40 q.h.s., Plavix 75 every day, ProAir 2 puffs every 4 hours. ALLERGIES: LISINOPRIL CAUSES COUGH. SOCIAL HISTORY: Nonsmoker, nondrinker. He is able to care of all his ADLs. REVIEW OF SYSTEMS: The patient reports easy bruising but reports no swollen glands. The patient reports no fever, no night sweats, no significant weight gain, no significant weight loss. No significant exercise tolerance. The patient reports no dry eyes, no irritation, no vision change. Patient reports no difficulty hearing and no ear pain. Patient reports no frequent nose bleeds or nose and sinus problems. Patient reports on arm pain on exertion. No shortness of breath while lying down. No history of heart murmur. Patient reports no cough, no wheezing or coughing up blood. Patient reports no abdominal pain, no vomiting. Normal appetite. No diarrhea and not vomiting blood. No nausea and no constipation. Patient reports no incontinence. No difficulty urinating. No hematuria. No increased frequency. Patient reports no muscle aches. No weakness, no arthralgias, no back pain. No swelling of the extremities. Patient reports no abnormal mole, no jaundice, no rashes. Reports no loss of consciousness. No weakness and no numbness. No seizures, dizziness, or headaches. The patient reports no depression, no sleep disturbance, feeling safe in a relationship and no alcohol abuse. Patient reports on fatigue. Reports no runny nose or sinus pressure. No itching, no hives, and no frequent sneezing. PHYSICAL EXAMINATION: GENERAL: Pleasant female in no acute distress. VITAL SIGNS: Blood pressure 139/83, pulse 71 and regular. HEENT: Normocephalic, atraumatic. NECK: No JVD or bruit. HEART: Regular, S4 gallop is noted. LUNGS: Prolonged respiratory phase. CONSULT REPORT [id number] CORRINE TOMLIN ABDOMEN: Soft, nontender. EXTREMITIES: Pulses 2+. No edema. IMPRESSION: Recurrent angina. PLAN: For angiography, intervention based on the above. TRANSINT:[id number] Voice Confirmation ID: [id number] DOCUMENT ID: [id number] TEIR ELLIOTT MD at 1039 CC: [id number] DICTATION DATE: 08/05/18 1041 RANCH SUPERVISOR: 08/05/18 1149 DIS IN 08/05/18 [facility] [address] [place] [address]
--- NOTE | 2018-08-06 10:39 | OP ---
PATIENT NAME: CORRINE TOMLIN MEDICAL RECORD: [id number] :56 LOCATION:D.M2 D.2117 ADMISSION DATE:08/04/18 SURGEON: TERI ELLIOTT MD DATE OF OPERATION: 08/05/2018 PROCEDURE: Left heart catheterization, selective coronary angiography, right femoral artery approach. CATHETERS: A 5-Portuguese sheath, 5/4 left and right Radha, 5/4 pig. The procedure was well tolerated. The patient was returned to the hernandez. Sheath removed. ExoSeal device placed. FINDINGS: Left ventriculography in 30-degree TAYLOR view: Normal wall motion, normal systolic function. CORONARY ANATOMY: LEFT MAIN: Left main is free of disease. LAD: LAD has luminal irregularities proximally. No flow obstructive disease. Small LAD, does not appear to the apex. CIRCUMFLEX: Circumflex has previously placed stent, widely patent, good runoff distally. RIGHT CORONARY ARTERY: The right coronary artery has recently placed stents, these are widely patent with good flow distally. Saphenous vein graft prior to the OM is widely patent. IMPRESSION: No evidence of subacute stent thrombosis, no evidence of restenosis. No evidence of progression of platinum disease. TRANSINT:[id number] Voice Confirmation ID: [id number] DOCUMENT ID: [id number] TERI ELLIOTT MD at 1039 CC: [id number] DICTATION DATE: 08/05/18 1114 DOUGH MOLDER: 08/05/18 1249 DIS IN 08/05/18 [facility] [address] [place] [address]
--- NOTE | 2018-08-07 08:35 | MORECARE ---
CASE MANAGEMENT DISCHARGE SUMMARY PATIENT: CORRINE TOMLIN UNIT: [id number] ADM DATE: 08/04/18 AGE: 58 : 56 SEX: F ROOM/BED: D.4387 AUTHOR: JOSÉ MIGUEL DAMON PHYSICIAN: REFERRING PHYSICIAN: SETH STOREY MD DATE OF SERVICE: 08/07/18 Discharge Plan Patient Name: CORRINE TOMLIN [facility] [facility] 1960 Planned Disposition: Home Anticipated Discharge Date: 08/05/18 Discharge Date: 08/05/2018 Expected LOS: 1 Initial Reviewer: [email or web address] Initial Review Date: 08/07/2018 Generated: 08/07/18 9:35 am Patient Name: CORRINE TOMLIN Page 75049 at 0835 All edits/amendments must be made on the electronic document DICTATION DATE: 08/07/18 0835 STATISTICS INTERN: ANDRE 08/07/18 0835 RPT#: [id number] DC DATE:08/05/18 STATUS: DIS IN [facility] [address] [place] [address] END OF REPORT
--- NOTE | 2018-08-07 08:43 | MORECARE ---
CASE MANAGEMENT DISCHARGE SUMMARY PATIENT: CORRINE TOMLIN UNIT: [id number] ADM DATE: 08/04/18 AGE: 58 : 56 SEX: F ROOM/BED: D.3187 AUTHOR: JOSÉ MIGUEL DAMON PHYSICIAN: REFERRING PHYSICIAN: SETH STOREY MD DATE OF SERVICE: 08/07/18 Discharge Plan Patient Name: CORRINE TOMLIN [facility] : 1960 Planned Disposition: Home Anticipated Discharge Date: 08/05/18 Discharge Date: 08/05/2018 Expected LOS: 1 Initial Reviewer: [email or web address] Initial Review Date: 08/07/2018 Generated: 08/07/18 9:42 am Patient Name: CORRINE TOMLIN Page [phone] at 0843 All edits/amendments must be made on the electronic document DICTATION DATE: 08/07/1842 SUPERVISOR CLAIMS: ANDRE 08/07/18 0842 RPT#: [id number] DC DATE:08/05/18 STATUS: DIS IN [facility] [address] [place] [address] END OF REPORT
== END 2018-08-05 16:10 | disposition home or self-care (01) ==
LOC: D.ER 10:58 → OBSVTIME 13:49 → D.M2 13:49
PROVIDERS: Emergency Medicine; ADMIT Family Medicine; ATTEND Family Medicine
DX: I25.119 Atherosclerotic heart disease of native coronary artery with unspecified angina pectoris (principal); I10 Essential (primary) hypertension; J44.9 Chronic obstructive pulmonary disease, unspecified; K21.9 Gastro-esophageal reflux disease without esophagitis; F32.9 Major depressive disorder, single episode, unspecified; Z86.73 Personal history of transient ischemic attack (TIA), and cerebral infarction without residual deficits; Z87.891 Personal history of nicotine dependence

== ENCOUNTER 2018-10-06 07:51 | Outpatient (CLI) | payer MEDICARE, MEDICAID ==
[~2018-10-06] VITALS: Ht 156.2 cm; Wt 63.6 kg
--- NOTE | ~2018-10-06 | HEMODYNAMI ---
PATIENT:CORRINE TOMLIN MEDICAL RECORD: [id number] : 56 LOCATION:[facility] ADMISSION DATE: 10/06/18 Generatedon:10/06/201810:22 Patient name: CORRINE TOMLIN Patient #: [id number] SSN: : 1960 Date of study: 10/06/2018 Page: Of Hemodynamic Procedure Report Patient Data Patient Demographics Procedure consent was obtained First Name: CORRINE Gender: Female Last Name: SADA : 1960 [facility] Initial: GET Age: 58 year(s) Patient #: [id number] Race: Additional ID: [id number] Contact details [address]: [address] [place] [address] State: [place] City: [place] Zip code: [address] Past Medical History Allergies Allergen Reaction Date Comments Reported Other allergy 07/14/2015 lisinopril Other allergy 08/01/2017 Lisinopril Other allergy 12/26/2017 Lisinopril Other allergy 08/05/2018 LISINOPRIL Admission Admission Data Admission Date: 10/06/2018 Admission Time: 7:51 Procedure Procedure Types Cath Procedure Diagnostic Procedure LHC LHC w/Coronaries w/Grafts FFR/IVUS FFR Initial Sedation Charges Moderate Sedation up to 15 minutes Procedure Description Procedure Date Procedure Date: 10/06/2018 Procedure Start Time: 10:04 Procedure End Time: 10:21 Procedure Staff Name Function Geoffrey Mcduffie MD Performing Physician Reanna Hanks RT Monitor Arnav Noyola RT Scrub Ana Gill RN Nurse Procedure Data Cath Procedure Fluoroscopy Diagnostic fluoroscopy Total fluoroscopy Time: 3.8 time: 3.8 min min Diagnostic fluoroscopy Total fluoroscopy dose: 529 dose: 529 mGy mGy Contrast Material Contrast Material Type Amount (ml) Isovue 370 97 Entry Location Entry Primary Successful Side Size Upsize Upsize Entry Closure Succes sful Closure Location (Fr) 1 (Fr) 2 (Fr) Remarks Device Remarks Femoral Right 5 Fr 6 Fr Exoseal artery Short Estimated blood loss: 5 ml Diagnostic catheters Device Type Used For End Catheter Placement MULTIPACK JL 4.0 5Fr Left Coronary catheter Angiography MULTIPACK 3DRC 5Fr Multi-vessel catheter Angiography DIAGNOSTIC AR2 MOD 5 Fr Multi-vessel catheter ([id number]) Angiography MULTIPACK Pigtail 5 Fr LV Angiography catheter Procedure Complications No complications Procedure Medications Medication Administration Route Dosage 0.9% NaCl I.V. 100 ml/hr Oxygen etCO2 Nasal cannula 2 l/min Lidocaine 2% added to field 20 Heparin Flush Bag added to field 2 bags (1000units/500ml NS) Versed I.V. 2 mg Fentanyl I.V. 50 mcg Hemodynamics Rest Heart Rate: 59 (bpm) Snapshots Pre Cath Intra NCS Post Cath Vital Signs Time Heart Resp SPO2 etCO2 NIBP (mmHg) Rhythm Pain Sedation Rate (ipm) (%) (mmHg) Status Level (bpm) 9:54:29 59 14 96 33.1 141/83(119) NSR 0 (11) 10(A) , No pain 9:58:43 62 16 97 32.4 150/84(130) NSR 0 (11) 9(A) , No pain 10:03:01 65 12 96 33.9 120/68(90) NSR 0 (11) 9(A) , No pain 10:07:11 66 10 96 31.6 108/64(89) NSR 0 (11) 9(A) , No pain 10:11:16 68 11 97 35.4 102/63(79) NSR 0 (11) 9(A) , No pain 10:15:20 67 13 96 37.7 98/61(76) NSR 0 (11) 9(A) , No pain 10:19:22 68 11 97 40.6 110/65(87) NSR 0 (11) 10(A) , No pain Medications Time Medication Route Dose Verified Delivered Reason Notes Effe ctiveness by by 9:53:31 0.9% NaCl I.V. 100 Geoffrey Ana used for ml/hr Reta Gill balance wheel screw hole driller 9:53:38 Oxygen etCO2 2 Geoffrey Ana used for Nasal l/min Reta Gill procedure cannula RN 9:53:42 Lidocaine 2% added 20ml Geoffrey Hale for local to vial Reta Mcduffie MD anesthetic field 9:53:47 Heparin Flush added 2 Geoffrey Geoffrey used for Bag to bags Reta Mcduffie MD procedure (1000units/500ml field NS) 9:57:06 Fentanyl I.V. 50 Geoffrey Perez for mcg Reta Gill sedation RN 9:57:52 Versed I.V. 2 mg Geoffrey Perez for Reta Gill sedation fish icer Log Time Note 9:13:02 Informed consent obtained and on chart 9:13:52 Arnav Hardwickley RT(R) sent for patient. Start room use. 9:13:53 Time tracking: Regular hours (M-F 7:00 - 5:00) 9:13:57 Plan of Care:Hemodynamics will remain stable., Cardiac rhythm will remain stable., Comfort level will be maintained., Respiratory function will remain adequate., Patient/ family verbilizes understanding of procedure., Procedure tolerated without complication., Recovers from procedure without complications.. 9:47:38 Patient received from Pre/Post Procedure Room to [facility] Alert and oriented. Tansferred to table in Supine position. 9:47:39 Warm blankets applied, and ascencion hugger turned on for patient comfort. 9:47:39 Correct patient and procedure confirmed by team. 9:47:40 ECG and BP/O2 sat monitors applied to patient. 9:53:22 Vital chart was started 9:53:23 ECG and BP/O2 sat monitors applied to patient. 9:53:26 Baseline sample Acquired. 9:53:29 Rhythm: sinus rhythm 9:53:31 0.9% NaCl 100 ml/hr I.V. was administered by Ana Gill RN; used for procedure; 9:53:31 Full Disclosure recording started 9:53:35 H&P Date Dictated: 10/06/2018 Within 30 days and on chart., H&P Addendum completed by physician on day of procedure. (MUST COMPLETE FOR ALL OUTPATIENTS). 9:53:36 Pre-procedure instructions explained to patient. 9:53:36 Pre-op teaching completed and patient verbalized understanding. 9:53:38 Oxygen 2 l/min etCO2 Nasal cannula was administered by Ana Gill RN; used for procedure; 9:53:40 Family in waiting room. 9:53:41 Patient NPO since Midnight. 9:53:42 Lidocaine 2% 20ml vial added to field was administered by Geoffrey Mcduffie MD; for local anesthetic; 9:53:43 Is the patient allergic to Iodine/contrast media? No. 9:53:45 Was the patient premedicated? No 9:53:46 Is patient on blood thinner?Yes 9:53:47 Heparin Flush Bag (1000units/500ml NS) 2 bags added to field was administered by Geoffrey Mcduffie MD; used for procedure; 9:53:47 Patient diabetic? No. 9:53:51 Previous problem with sedation/anesthesia? No ? 9:53:53 Snore? Yes 9:53:54 Sleep apnea? No 9:53:55 Deviated septum? No 9:53:55 Opens mouth fully? Yes 9:53:56 Sticks out tongue? Yes 9:54:01 Airway obstruction? Yes copd 9:54:21 ACC The patient was administered the following blood thiners within the last 24 hours: ACCPlavix 9:54:26 Dentures? No ? 9:54:28 Pre procedure: right dorsailis pedis pulse 2+ Normal; easily identifiable; not easily obliterated 9:54:30 Pre procedure: left dorsailis pedis pulse 2+ Normal; easily identifiable; not easily obliterated 9:54:32 Patient pain scale 0/10 ?. 9:54:37 IV patent on arrival in right forearm with 0.9% NaCl at [facility]. 9:54:39 Lab results completed and on chart. 9:54:42 Right groin area was prepped with chlora-prep and draped in sterile fashion 9:54:43 Alarms reviewed by R. N. 9:54:43 Sharps counted by scrub and verified by R.N. 9:56:38 Physician arrived 9:56:38 --------ALL STOP TIME OUT------ 9:56:39 Final Timeout: patient, procedure, and site verified with staff and physician. All members of the team are in agreement. 9:56:41 Right groin site verified by team. 9:56:44 Maximum allowable Isovue 300 dose 300ml. Physician notified. (300ml for normal creatinines. For patients with creatinine of 1.7 or higher multiply weight(kg) x 5 divided by creatinine.) 9:56:48 Fire Safety Assessment: A--An alcohol-based skin anteseptic being used preoperatively., C--Open oxygen or nitrous oxide is being used., D--An ESU, laser, or fiber-optic light is being used. 9:56:51 Physical assessment completed. ASA score P 2 - A patient with mild systemic disease as per Geoffrey Mcduffie MD. 9:56:54 Sedation plan: IV Moderate Sedation Medication:Versed, Fentanyl 9:56:59 Use device set Femoral Dx 9:57:00 ACIST Syringe (54595) opened to sterile field. 9:57:01 Bag Decanter (2002S) opened to sterile field. 9:57:01 Medline Cath Pack ([id number]) opened to sterile field. 9:57:02 DIAGNOSTIC WIRE .035 260cm J wire (657719) opened to sterile field. 9:57:03 ACIST Hand Control (18905) opened to sterile field. 9:57:04 ACIST Manifold (02443) opened to sterile field. 9:57:04 DIAGNOSTIC Multipack 5Fr catheter set (MV2399) opened to sterile field. 9:57:05 Tegaderm 4 x 4 (1626W) opened to sterile field. 9:57:06 Fentanyl 50 mcg I.V. was administered by Ana Gill RN; for sedation; 9:57:06 SHEATH 5FR [place] (QZN741) opened to sterile field. 9:57:52 Versed 2 mg I.V. was administered by Ana Gill RN; for sedation; 10:04:38 Procedure started. 10:04:47 Local anesthetic to right femoral artery with Lidocaine 2% by Geoffrey Mcduffie MD.INITIAL ACCESS ONLY 10:05:59 A 5 Fr sheath was inserted into the Right Femoral artery 10:08:11 Catheter removed. 10:08:15 A MULTIPACK JL 4.0 5Fr catheter was advanced over the wire and used for Left Coronary Angiography. 10:08:17 LCA angiography performed. 10:08:20 Injector settings: Ml/sec: 3, Volume: 6, 10:08:22 Catheter removed. 10:08:47 A MULTIPACK 3DRC 5Fr catheter was advanced over the wire and used for Multi-vessel Angiography. 10:08:51 DOVER angiography performed. 10:09:11 RCA angiography performed. 10:09:13 Injector settings: Ml/sec: 3, Volume: 6, 10:09:38 Catheter removed. 10:10:48 A DIAGNOSTIC AR2 MOD 5 Fr catheter ([id number]) was advanced over the wire and used for Multi-vessel Angiography. 10:10:56 SVG angiography performed. 10:10:58 Catheter removed. 10:11:49 A MULTIPACK Pigtail 5 Fr catheter was advanced over the wire and used for LV Angiography. 10:11:55 LV hemodynamics recorded. 10:11:56 LV gram done using TAYLOR 10:11:58 Injector settings: Ml/sec: 5, Volume: 15, 10:12:03 EF : 55 % 10:12:09 Catheter removed. 10:12:10 Proceeding to intervention. 10:12:45 [place] Verrata Plus pressure wire (29714B) opened to sterile field. 10:12:46 GUIDE 6FR AR 1.0 SH catheter ([id number]) opened to sterile field. 10:12:47 INFLATOR Merit BasixCompak (IQ7864) opened to sterile field. 10:12:48 SHEATH 6FR [place] (GQM169) opened to sterile field. 10:12:56 Sheath upsized to a 6 Fr Short. 10:13:03 6 Fr ar 1 sh guide catheter was inserted over the wire 10:13:09 FFR/IFR wire advanced. 10:13:45 Wire advanced across lesion. 10:14:13 Baseline FFR 1. 10:15:29 SVG - LCX lesion measured at 0.97 with IFR 10:15:34 Wire removed. 10:16:12 Guide catheter removed. 10:16:30 GUIDE 6FR XB 3.5 catheter ([id number]) opened to sterile field. 10:17:25 6 Fr xb 3.5 guide catheter was inserted over the wire 10:17:57 FFR/IFR wire advanced. 10:17:59 Wire advanced across lesion. 10:18:01 Baseline FFR 1. 10:18:11 LCX lesion measured at 1.00 with IFR 10:18:17 Wire removed. 10:18:17 Guide catheter removed. 10:18:28 EXOSEAL 6Fr (EX600) opened to sterile field. 10:19:00 Sheath removed intact; hemostasis achieved with Exoseal to the Right Femoral artery. 10:19:02 Procedure ended.(Physican Out) 10:19:34 Fluoroscopy time 03.80 minutes. 10:19:38 Flurop Dose total: 529 10:19:38 Fluoroscopy dose: 529 mGy 10:19:42 Contrast amount:Isovue 370 97ml. 10:19:43 Sharps counted by scrub and verified by R.N. 10:19:45 Insertion/operative site no bleeding no hematoma. 10:19:48 Post-op/insertion site Right Femoral artery dressed using a 4 x 4 and Tegaderm. 10:19:50 Post right femoral artery:stable 10:19:51 Post Procedure Pulses reassessed and unchanged 10:19:53 Post procedure rhythm: unchanged. 10:20:42 Estimated blood loss: 5 ml 10:20:44 Post procedure instruction explained to patient.Patient verbalizes understanding. 10:20:44 Patient needs reinforcement of post procedure teaching. 10:21:01 Procedure type changed to Cath procedure, Diagnostic procedure, LHC, LHC w/Coronaries w/Grafts, FFR/IVUS, FFR Initial, Sedation Charges, Moderate Sedation up to 15 minutes 10:21:02 Procedure and supply charges have been captured, reviewed, submitted and are correct. 10:21:05 Procedure Complication : No complications 10:21:07 Vital chart was stopped 10:21:07 See physician's report for complete and final results. 10:21:09 Report given to Pre/Post Procedure Room. 10:21:12 Patient transfered to Pre/Post Procedure Room with Stretcher. 10:21:14 Procedure ended. 10:21:14 Full Disclosure recording stopped 10:21:17 End room use (Document Last) Device Usage Item Name Manufacture Quantity Catalog Hospital Part Current Minima l Lot# / Number Charge Number Stock Stock Serial# Code ACIST Acist 1 17829 752892 133844 945621 20 Syringe Medical (14016) Systems Inc Bag Microtek 1 963670 45551 612878 5 Decanter Medical Inc. () Medline Medline 1 [id number] 036008 99850 680947 5 Cath Pack ([id number]) DIAGNOSTIC [facility] [place] 1 378759 085221 937857 104327 30 WIRE .035 260cm J wire (941235) ACIST Hand Acist 1 20033 182368 555682 673850 5 Control Medical (19962) Systems Inc ACIST Acist 1 07010 872703 749341 652536 5 Manifold Medical (43762) Systems Inc DIAGNOSTIC Cardinal 1 RK5154 778361 83423 278876 30 Multipack Health 5Fr catheter set (DP5813) Tegaderm 4 3M 1 1626W 703516 773633 580124 5 x 4 (1626W) SHEATH 5FR Terumo 1 OCA045 775437 594512 045313 5 [place] (NPD611) MULTIPACK Cardinal 1 775094 5 JL 4.0 5Fr Health catheter MULTIPACK Cardinal 1 564725 5 3DRC 5Fr Health catheter DIAGNOSTIC Cardinal 1 [id number] 472768 968995 787296 20 AR2 MOD 5 Health Fr catheter (925308U) MULTIPACK Cardinal 1 084137 5 Pigtail 5 Health Fr catheter [place] 1 94420Z 084022 [id number] 081561 5 Verrata Plus pressure wire (85218O) GUIDE 6FR Medtronic 1 [id number] 450409 53733 154442 1 AR 1.0 SH catheter ([id number]) INFLATOR Merit 1 ME0945 593262 155404 121515 15 Merit Medical BasixCompak (TC6058) SHEATH 6FR Terumo 1 FPB794 042433 770403 341220 40 [place] (SLE679) GUIDE 6FR Cardinal 1 [id number] 060005 214645 097285 2 XB 3.5 Health catheter ([id number]) EXOSEAL 6Fr Cardinal 1 EX600 392429 627015 550069 10 (EX600) Health Signature Audit [place] Stage Time Signature Unsigned Intra-Procedure 10/06/2018 Reanna Hanks 10:22:26 AM RT(R) Signatures Monitor : Reanna Hanks RT Signature : Date : Time : [facility] [address] [address]
[~2018-10-06 07:51] MED LIST changes: +NORVASC2.5 MG PO
[2018-10-06] MEDS ORDERED: TRELEGY ELLIPT1 EACH INH (08:08)
[2018-10-06 08:14] VITALS: BP 127/79; Ht 156.2 cm; Wt 63.6 kg
[2018-10-06 08:30] LABS: BASOPHILS 0.3 % (0-2); EOSINOPHILS 1.2 % (0-7); HEMATOCRIT 37.7 % (36.0-48.0); HEMOGLOBIN 12.6 g/dL (12-16); IMMATURE GRANULOCYTES 0.2 % (0-5); LYMPHOCYTES 25.3 % (15-50); MCH 28.7 pg (26.0-34.0); MCHC 33.4 g/dL (31.0-37.0); MCV 85.9 fL (80.0-100.0); MEAN PLATELET VOLUME 9.9 fL (7.4-10.4); MONOCYTES 10.5 % (2-11); NEUTROPHILS 62.5 % (40-80); PLATELET COUNT 228 10x3/uL (130-400); RBC 4.39 10x6/uL (4.00-5.40); RDW 13.2 % (11.5-14.5); WBC 5.9 10x3/uL (4.8-10.8)
[2018-10-06 08:47] LABS: CALC OSMOLALITY 276 mosm/kg (275-300); CARBON DIOXIDE 28.4 mmol/L (21.0-32.0); CHLORIDE - SERUM 102 mmol/L (98-107); CREATININE - SERUM 0.8 mg/dL (0.6-1.3); GLUCOSE 99 mg/dL (74-106); POTASSIUM - SERUM 4.2 mmol/L (3.5-5.1); SODIUM 138 mmol/L (136-145); UREA NITROGEN 16 mg/dL (7-18); eGFR NON AFRICAN AMERICAN 77 mL/min (90-120)
--- NOTE | 2018-10-06 10:50 | NUR ---
2L NC, NO RESP DISTRESS. RIGHT GROIN 5F EXOSEAL CDI, NO BLEEDING OR HEMATOMA NOTED. NO C/O PAIN OR NAUSEA. VSS. CALL LIGHT WITHIN REACH.
--- NOTE | 2018-10-06 11:05 | NUR ---
RESTING QUIETLY WITH EYES CLOSED. RIGHT GROIN 5F EXOSEAL CDI, NO BLEEDING OR HEMATOMA NOTED. DENIES ANY NEEDS. VSS. WILL CONTINUE TO MONITOR.
--- NOTE | 2018-10-06 11:40 | NUR ---
HOB ELEVATED 30 DEGREES. RIGHT GROIN 5F EXOSEAL CDI, NO BLEEDING NOTED. SIPPING ON DRINK AND EATING SANDWICH WITH NO C/O NAUSEA. VSS. WILL CONTINUE TO MONITOR CLOSELY.
--- NOTE | 2018-10-06 12:00 | NUR ---
DISCHARGE INSTRUCTIONS GIVEN, VERBALIZED UNDERSTANDING.
--- NOTE | 2018-10-06 12:18 | NUR ---
LEFT PIV D/C'D WITH CATHETER INTACT, BAND AID TO SITE. UP TO BEDSIDE TO GET DRESSED. AMBULATED TO RESTROOM.
--- NOTE | 2018-10-06 12:20 | NUR ---
3CC OF AIR REMOVED FROM TR BAND WITH NO BLEEDING NOTED.
--- NOTE | 2018-10-06 12:29 | NUR ---
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 LEFT FACILITY WITH FAMILY AND ALL PERSONAL BELONGINGS.
--- NOTE | 2018-10-13 11:27 | OP ---
PATIENT NAME: CORRINE TOMLIN MEDICAL RECORD: [id number] :56 LOCATION:D.CAT ADMISSION DATE: SURGEON: JOZEF HARDING MD DATE OF OPERATION: 10/06/2018 PROCEDURES: 1. Left heart catheterization. 2. Selective coronary angiography. 3. Left ventriculogram. 4. DOVER angiography. 5. Vein graft angiography. 6. IFR, left circumflex. PROCEDURE IN DETAIL: After informed consent was obtained and after a detailed description of risks, benefits as well as alternative therapies, the patient elected to proceed with angiogram and heart catheterization. The right femoral area was prepped and draped in normal sterile fashion. Right femoral artery was cannulated via modified Seldinger technique with placement of 6-[place] sheath. All catheters exchanged through this sheath. FINDINGS: The left ventriculogram was performed in standard 30-degree TAYLOR view, reveals good cardiac wall motion throughout all segments. Overall ejection fraction estimated 60%. SELECTIVE CORONARY ANGIOGRAPHY: 1. Left main is with no significant angiographic disease. 2. Left anterior descending has previously placed stents, these are widely patent. Distal LAD is perfused by patent DOVER. This is widely patent. 3. The left circumflex has previously placed stents. There is a questionable area of stenosis in the mid vessel. IFR was normal. 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 Vein graft to the first obtuse marginal is patent, previously placed stents are widely patent. There is an angiographically significant lesion after the vein graft just at the anastomosis of the vein graft and the circumflex; however, IFR is normal. 4. The right coronary artery has previously placed stents, these are widely patent with no significant restenosis. No disease elsewise. OVERALL IMPRESSION: No new hemodynamically significant disease, wide patency of all her previously placed stents and grafts. TRANSINT:[id number] Voice Confirmation ID: [id number] DOCUMENT ID: [id number] JOEZF HARDING MD at 1127 CC: [id number] DICTATION DATE: 10/06/18 1022 COTTON BAG CLIPPER: 10/06/18 1205 DEP CLI 10/06/18 [place] [address]
== END 2018-10-06 12:29 | disposition home or self-care (01) ==
LOC: D.CATH 07:51
PROVIDERS: ATTEND Internal Medicine Interventional Cardiology
DX: I25.119 Atherosclerotic heart disease of native coronary artery with unspecified angina pectoris (principal); Z95.1 Presence of aortocoronary bypass graft; Z95.5 Presence of coronary angioplasty implant and graft; Z01.812 Encounter for preprocedural laboratory examination

== ENCOUNTER 2019-07-13 12:43 | Inpatient (IN) | payer MEDICARE, MEDICAID ==
[~2019-07-13] VITALS: Ht 152.4 cm; Wt 60.9 kg
[~2019-07-13 12:43] MED LIST changes: +TRELEGY ELLIPT1 EACH INH
[2019-07-13 13:22] LABS: BASOPHILS 0.2 % (0-2); EOSINOPHILS 1.9 % (0-7); HEMATOCRIT 27.7 % (36.0-48.0); HEMOGLOBIN 8.9 g/dL (12-16); LYMPHOCYTES 19.8 % (15-50); MCH 27.8 pg (26.0-34.0); MCHC 32.1 g/dL (31.0-37.0); MCV 86.6 fL (80.0-100.0); MEAN PLATELET VOLUME 8.4 fL (7.4-10.4); MONOCYTES 9.5 % (2-11); NEUTROPHILS 68.6 % (40-80); RDW 16.4 % (11.5-14.5); WBC 5.9 10x3/uL (4.8-10.8)
[2019-07-13 13:23] LABS: PLATELET COUNT 257 10x3/uL (130-400)
--- NOTE | 2019-07-13 13:25 | NUR ---
PT TOOK ASPRIN AND PLAVIX LAST EVENING
[2019-07-13 13:33] LABS: CALC OSMOLALITY 276 mosm/kg (275-300); CALCIUM 8.3 mg/dL (8.5-10.1); CARBON DIOXIDE 28.5 mmol/L (21.0-32.0); CHLORIDE - SERUM 104 mmol/L (98-107); CREATININE - SERUM 0.8 mg/dL (0.6-1.3); GLUCOSE 105 mg/dL (74-106); POTASSIUM - SERUM 3.7 mmol/L (3.5-5.1); SODIUM 138 mmol/L (136-145); UREA NITROGEN 16 mg/dL (7-18); eGFR NON AFRICAN AMERICAN 77 mL/min (90-120)
[2019-07-13 13:45] LABS: ALBUMIN 2.9 g/dL (3.4-5.0); ALKALINE PHOSPHATASE 86 U/L (30-120); ALT (SGPT) 47 U/L (10-68); BILIRUBIN - TOTAL 0.32 mg/dL (0.2-1.3); PRO BNP 5271 pg/mL (0-125); PROTEIN - SERUM 7.1 g/dL (6.4-8.2); TROPONIN-I < 0.017 ng/mL (0.000-0.060)
[2019-07-13 15:01] VITALS: BP 183/94
[2019-07-13 18:11] LABS: CKMB 0.3 U/L (0.0-3.6); CREATINE KINASE 45 UL (21-215); TROPONIN-I < 0.017 ng/mL (0.000-0.060)
--- NOTE | 2019-07-13 18:56 | NUR ---
PT TAKEN TO FLOOR AND ROOM WAS DIRTY. TECH BROUGHT BACK TO ROOM 11
[2019-07-13 20:00] VITALS: BP 154/88
--- NOTE | 2019-07-13 20:41 | NUR ---
PATIENT ARRIVED TO FLOOR ESCORTED BY TELECOMMUNICATIONS NETWORK ENGINEER VIA WHEELCHAIR. PATIENT IS ALERT AND ORIENTED, RESTING COMFORTABLY IN BED. RESPIRATIONS ARE EVEN AND UNLABORED. NO S/S OF DISTRESS. NO C/O PAIN. CALL LIGHT WITHIN REACH. WILL CPOC.
[2019-07-13] MEDS ORDERED: RANEXA500 MG PO (21:27)
[2019-07-13 23:41] VITALS: Ht 152.4 cm; Wt 60.9 kg
[2019-07-13 23:49] LABS: CKMB 0.3 U/L (0.0-3.6); CREATINE KINASE 45 UL (21-215); TROPONIN-I < 0.017 ng/mL (0.000-0.060)
[2019-07-14] VITALS: BP 166/64
[2019-07-14 04:00] VITALS: BP 162/77
[2019-07-14 06:14] LABS: BASOPHILS 0.1 % (0-2); EOSINOPHILS 1.8 % (0-7); HEMOGLOBIN 10.1 g/dL (12-16); IMMATURE GRANULOCYTES 0.1 % (0-5); LYMPHOCYTES 21.1 % (15-50); MCH 27.3 pg (26.0-34.0); MCHC 31.6 g/dL (31.0-37.0); MCV 86.5 fL (80.0-100.0); MEAN PLATELET VOLUME 8.6 fL (7.4-10.4); MONOCYTES 12.4 % (2-11); NEUTROPHILS 64.5 % (40-80); PLATELET COUNT 271 10x3/uL (130-400); RDW 16.2 % (11.5-14.5); WBC 6.7 10x3/uL (4.8-10.8)
[2019-07-14 06:40] LABS: ALBUMIN 3.3 g/dL (3.4-5.0); ALKALINE PHOSPHATASE 94 U/L (30-120); ALT (SGPT) 46 U/L (10-68); BILIRUBIN - TOTAL 0.41 mg/dL (0.2-1.3); CALC OSMOLALITY 279 mosm/kg (275-300); CALCIUM 8.7 mg/dL (8.5-10.1); CARBON DIOXIDE 34.3 mmol/L (21.0-32.0); CHLORIDE - SERUM 99 mmol/L (98-107); CKMB 0.2 U/L (0.0-3.6); CREATINE KINASE 40 UL (21-215); CREATININE - SERUM 1.1 mg/dL (0.6-1.3); GLUCOSE 100 mg/dL (74-106); POTASSIUM - SERUM 3.8 mmol/L (3.5-5.1); PROTEIN - SERUM 8.1 g/dL (6.4-8.2); SODIUM 139 mmol/L (136-145); TROPONIN-I < 0.017 ng/mL (0.000-0.060); UREA NITROGEN 19 mg/dL (7-18); eGFR NON AFRICAN AMERICAN 53 mL/min (90-120)
--- NOTE | 2019-07-14 07:27 | NUR ---
PT RESTING PEACEFULLY, EYES CLOSED, BREATHS EVEN/REGULAR AND UNLABORED. NO FAMLY AT BEDSIDE. NO SIGNS OR SYMTPOMS OF ACUTE DISTRESS NTOED AT THIS TIME.C L IN REACH, SRX2.
[2019-07-14 10:17] VITALS: BP 100/58
[2019-07-14 11:29] LABS: BILIRUBIN NEGATIVE (NEGATIVE); GLUCOSE NEGATIVE (NEGATIVE); KETONE NEGATIVE (NEGATIVE); NITRITE NEGATIVE (NEGATIVE); UROBILINOGEN NORMAL (NORMAL)
[2019-07-14 11:32] LABS: BACTERIA FEW /hpf (NEGATIVE); RED CELLS - URINE NONE SEEN /hpf (0-5); WHITE CELLS - URINE 0-5 /hpf (NEGATIVE)
[2019-07-14 11:33] LABS: UDS - AMPHET NEGATIVE QUAL (NEGATIVE); UDS - BARB NEGATIVE QUAL (NEGATIVE); UDS - BENZO NEGATIVE QUAL (NEGATIVE); UDS - COCAINE NEGATIVE QUAL (NEGATIVE); UDS - OPIATE NEGATIVE QUAL (NEGATIVE); UDS - PCP NEGATIVE QUAL (NEGATIVE); UDS - THC NEGATIVE QUAL (NEGATIVE)
--- NOTE | 2019-07-14 13:05 | NUR ---
I have reviewed this patient and I concur with the Shift Assessment completed by the Licensed Practical Nurse today this shift.
[2019-07-14 13:16] VITALS: BP 106/68
--- NOTE | 2019-07-14 14:38 | NUR ---
PT AWAKE AND ORIENTED, SITTING IN BED WATCHING T/V. COMPLAINS OF BODY ACHES. ADMIN IBUPROHIN PER REQUEST. CL IN REACH, SRX2.
[2019-07-14 16:37] VITALS: BP 107/63
[2019-07-14 18:33] LABS: % SATURATION 6 % (15-55); IRON 24 ug/dl (35-150); TOTAL IRON BIND CAPACITY 375 ug/dl (260-445); UNSAT IRON BIND CAPACITY 351 ug/dl (150-375)
[2019-07-14 20:00] VITALS: BP 111/56
--- NOTE | 2019-07-14 22:32 | NUR ---
INITIAL ROUNDS COMPLETED AT 1915 HRS. PT DENIED ANY DISCOMFORT. ASSESSMENT COMPLETED AT 2004 HRS. VSS. SR PER CM HR 91. ALERT AND ORIENTED TO PERSON, PLACE AND TIME. GREWAL. IV TO LFA SL. O2 3LNC. LUNGS DIMINSHED IN BASES BILAT. BRUISES NOTED TO R SIDE OF FACE AND R HIP. PM MEDS GIVEN. PT CURRENTLY RESTING WITH EYES CLOSED. RESP EVEN AND REGULAR. SR UP X2,CALL LIGHT WITHIN REACH.
--- NOTE | 2019-07-14 23:21 | NUR ---
PT AWAKE; DENIES ANY DISCOMFORT. SR UP X1, CALL LIGHT WITHIN REACH.
[2019-07-15] VITALS: BP 111/58
--- NOTE | 2019-07-15 02:43 | NUR ---
PT AAKE; DENIES ANY DISCOMFORT. SR UP X2, CALL LGHT WITHIN REACH.
[2019-07-15 04:00] VITALS: BP 138/67
[2019-07-15 06:06] LABS: BASOPHILS 0 % (0-2); EOSINOPHILS 0 % (0-7); HEMATOCRIT 32.2 % (36.0-48.0); HEMOGLOBIN 10.5 g/dL (12-16); IMMATURE GRANULOCYTES 0.1 % (0-5); LYMPHOCYTES 6.8 % (15-50); MCH 28.2 pg (26.0-34.0); MCHC 32.6 g/dL (31.0-37.0); MCV 86.6 fL (80.0-100.0); MEAN PLATELET VOLUME 8.6 fL (7.4-10.4); MONOCYTES 3.7 % (2-11); NEUTROPHILS 89.4 % (40-80); PLATELET COUNT 307 10x3/uL (130-400); RBC 3.72 10x6/uL (4.00-5.40); RDW 16.1 % (11.5-14.5)
[2019-07-15 06:09] LABS: WBC 10.9 10x3/uL (4.8-10.8)
--- NOTE | 2019-07-15 06:24 | NUR ---
VSS THROUGHOUT. PT STATES MOTRIN CONTROLLED HER SHOULDER PAIN. NEEDS MET; WILL CONTINUE TO MONITOR.
[2019-07-15 06:31] LABS: ALBUMIN 3.4 g/dL (3.4-5.0); ANION GAP 13.5 mmol/L (8-16); BILIRUBIN - TOTAL 0.31 mg/dL (0.2-1.3); CALCIUM 9.6 mg/dL (8.5-10.1); CARBON DIOXIDE 29.6 mmol/L (21.0-32.0); CREATININE - SERUM 0.9 mg/dL (0.6-1.3); POTASSIUM - SERUM 4.1 mmol/L (3.5-5.1); PROTEIN - SERUM 8.4 g/dL (6.4-8.2)
--- NOTE | 2019-07-15 07:15 | NUR ---
PT AWAKE AND ORIENTED, UP TO COFFEE AT NURSES DESK. STATES SHE FEELS MUCH BETTER TODAY AND IS HOPEFUL TO GO HOME. NO FAMILY AT BEDSIDE. CL IN REACH,SR X2 PT BACK IN ROOM.
--- NOTE | 2019-07-15 09:40 | NUR ---
I have reviewed this patient and I concur with the Shift Assessment completed by the Licensed Practical Nurse today this shift.
[2019-07-15] MEDS ORDERED: BROVANA15 MCG/2 M INH (10:45)
[2019-07-15] MEDS ORDERED: PREDNISONE10 MG PO (10:46)
[2019-07-15 10:56] VITALS: BP 130/66
--- NOTE | 2019-07-15 11:16 | NUR ---
CONFIRMED WITH DR JOVEL THAT PT SHOULD BE ON TRELEGY INHALER, NOT TRILOGY.
--- NOTE | 2019-07-15 12:09 | NUR ---
PT ESCORTED OUT VIA WHEELCHIAR TO DAUGHTERS POV.
--- NOTE | 2019-07-16 09:19 | NUR ---
PT CALLED AND REPORTS HER PRESCRIPTIONS WERE NOT AT PHARMACY. WENT TO [facility] [address], SHOULD HAVE GONE TO [address] CALLED AND SPOKE TO PHARMACIST AT [address] [place] [address] AND SHE WILL TRANSFER.
== END 2019-07-15 12:09 | disposition home or self-care (01) | DRG 193 ==
LOC: D.ER 12:43 → D.M2 17:56
PROVIDERS: Emergency Medicine; ADMIT Internal Medicine Nephrology; ATTEND Internal Medicine Nephrology
DX: J18.9 Pneumonia, unspecified organism (principal); J96.21 Acute and chronic respiratory failure with hypoxia; I50.43 Acute on chronic combined systolic (congestive) and diastolic (congestive) heart failure; J44.0 Chronic obstructive pulmonary disease with (acute) lower respiratory infection; J44.1 Chronic obstructive pulmonary disease with (acute) exacerbation; Z91.81 History of falling; E86.0 Dehydration; D64.9 Anemia, unspecified; I25.119 Atherosclerotic heart disease of native coronary artery with unspecified angina pectoris; Z72.89 Other problems related to lifestyle; F32.9 Major depressive disorder, single episode, unspecified; K21.9 Gastro-esophageal reflux disease without esophagitis; Z87.891 Personal history of nicotine dependence; Z86.73 Personal history of transient ischemic attack (TIA), and cerebral infarction without residual deficits; I11.0 Hypertensive heart disease with heart failure

== ENCOUNTER 2020-10-06 18:56 | Emergency (ER) | payer MEDICARE, MEDICAID ==
[~2020-10-06] VITALS: Ht 152.4 cm; Wt 63.5 kg
[~2020-10-06 18:56] MED LIST changes: +BROVANA15 MCG/2 M INH; +PREDNISONE10 MG PO
[2020-10-06 19:14] VITALS: Ht 152.4 cm; Wt 63.5 kg
[2020-10-06 19:48] LABS: BASOPHILS 0.4 % (0-2); EOSINOPHILS 0.1 % (0-7); HEMATOCRIT 34.4 % (36.0-48.0); HEMOGLOBIN 11.4 g/dL (12-16); MCH 27.5 pg (26.0-34.0); MCHC 33.1 g/dL (31.0-37.0); MEAN PLATELET VOLUME 6.6 fL (7.4-10.4); NEUTROPHILS 76.5 % (40-80); PLATELET COUNT 314 10x3/uL (130-400); RBC 4.15 10x6/uL (4.00-5.40); RDW 15.8 % (11.5-14.5); WBC 7.3 10x3/uL (4.8-10.8)
[2020-10-06 20:02] LABS: CALC OSMOLALITY 264 mosm/kg (275-300); CHLORIDE - SERUM 94 mmol/L (98-107); CREATININE - SERUM 0.9 mg/dL (0.6-1.3); GLUCOSE 108 mg/dL (74-106); POTASSIUM - SERUM 3.4 mmol/L (3.5-5.1); SODIUM 131 mmol/L (136-145); UREA NITROGEN 16 mg/dL (7-18); eGFR NON AFRICAN AMERICAN 67 mL/min (90-120)
[2020-10-06 20:08] LABS: ALBUMIN 3.3 g/dL (3.4-5.0); ALKALINE PHOSPHATASE 70 U/L (30-120); ALT (SGPT) 42 U/L (10-68); PRO BNP 436 pg/mL (0-125); PROTEIN - SERUM 7.9 g/dL (6.4-8.2)
[2020-10-06 20:11] LABS: C-REACTIVE PROTEIN 0.2 mg/dL (0.0-0.9); TROPONIN-I < 0.017 ng/mL (0.000-0.060)
[2020-10-06] MEDS ORDERED: STERAPRED DS 1010 MG PO (21:57)
[2020-10-06] MEDS ORDERED: DOXYCYCLINE HY100 M2 PO (21:57)
[2020-10-06 22:38] VITALS: BP 187/95
== END 2020-10-06 22:42 | disposition home or self-care (01) ==
LOC: D.ER 18:56
PROVIDERS: Emergency Medicine
DX: J44.9 Chronic obstructive pulmonary disease, unspecified (principal); J20.9 Acute bronchitis, unspecified; I10 Essential (primary) hypertension; K21.9 Gastro-esophageal reflux disease without esophagitis; M79.7 Fibromyalgia; R06.02 Shortness of breath; R07.9 Chest pain, unspecified

== ENCOUNTER 2020-10-09 10:58 | Inpatient (IN) | payer MEDICARE, MEDICAID ==
[~2020-10-09] VITALS: Ht 154.9 cm; Wt 72.8 kg
[~2020-10-09 10:58] MED LIST changes: +ACETAMINOPHEN325 MG PO; +BAYER CHEWABLE81 MG PO; +DOXYCYCLINE HY100 M2 PO; +ISOSORBIDE; +METOPROLOL TART25 MG PO; +MUCINEX DM ER1 EAC1 PO; +NEURONTIN600 MG PO; +NYSTATIN100000 UN4 PO; +PERFOROMIS20 MCG/21 INH; +PROTONIX20 MG PO; +PROZAC10 MG PO; +STERAPRED DS 1010 MG PO; +VALSARTAN-HCTZ1 EAC1 PO; +VENTOLIN HFA [SP8 GM INH
[2020-10-09 11:49] LABS: BASOPHILS 0.3 % (0-2); EOSINOPHILS 0 % (0-7); HEMATOCRIT 33.8 % (36.0-48.0); HEMOGLOBIN 11.2 g/dL (12-16); MCH 27.3 pg (26.0-34.0); MCV 82.7 fL (80.0-100.0); MEAN PLATELET VOLUME 6.7 fL (7.4-10.4); MONOCYTES 3.2 % (2-11); NEUTROPHILS 91.5 % (40-80); RBC 4.09 10x6/uL (4.00-5.40); RDW 15.7 % (11.5-14.5); WBC 11.9 10x3/uL (4.8-10.8)
[2020-10-09 12:03] LABS: CALC OSMOLALITY 254 mosm/kg (275-300); CALCIUM 9.3 mg/dL (8.5-10.1); CARBON DIOXIDE 27.9 mmol/L (21.0-32.0); CHLORIDE - SERUM 88 mmol/L (98-107); CREATININE - SERUM 0.9 mg/dL (0.6-1.3); GLUCOSE 91 mg/dL (74-106); POTASSIUM - SERUM 4.5 mmol/L (3.5-5.1); SODIUM 125 mmol/L (136-145); UREA NITROGEN 20 mg/dL (7-18); eGFR NON AFRICAN AMERICAN 67 mL/min (90-120)
[2020-10-09 12:08] LABS: SARS-CoV-2 ANTIGEN POSITIVE- SARS-COV-2 (NEGATIVE)
[2020-10-09 12:20] LABS: ALBUMIN 3.3 g/dL (3.4-5.0); ALKALINE PHOSPHATASE 74 U/L (30-120); ALT (SGPT) 43 U/L (10-68); BILIRUBIN - TOTAL 0.43 mg/dL (0.2-1.3); CKMB 0.4 U/L (0.0-3.6); CREATINE KINASE 54 UL (21-215); PROTEIN - SERUM 8.3 g/dL (6.4-8.2); TROPONIN-I < 0.017 ng/mL (0.000-0.060)
[2020-10-09 12:27] LABS: PLATELET COUNT 323 10x3/uL (130-400)
[2020-10-09 13:35] LABS: APTT 27.1 SECONDS (22.8-39.4); INR 0.98 (0.85-1.17)
[2020-10-09 16:03] VITALS: BP 107/62; BMI 26.7
--- NOTE | 2020-10-09 16:16 | NUR ---
NURSE RECEIVED PATIENT FROM ER, PATIENT IS AWAKE ALERT AND ORIENTED. NURSE COMPLETES VITALS AT THIS TIME, NURSE WAS ONLY ABLE TO GET PATIENT'S O2 UP TO 89 PERCENT AFTER SITTING AND COACHING PATIENT TO BREATHE IN THRU NOSE AND OUT THRU MOUTH. PATIENT DOES SAY SHE HAS BEEN WEARING 2LITERS AT ALL TIMES FOR THE LAST COUPLE OF DAYS. PLAN OF CARE REVIEWED AND ASSESSMENTHAS BEEN COMPLETED. PATIENT DENIES PAIN, NURSE TO START IV FLUIDS (NS AT 75). CALL LIGHT IN REACH
[2020-10-10 00:24] VITALS: BP 102/57
[2020-10-10 04:41] VITALS: BP 145/76
[2020-10-10 06:13] LABS: BASOPHILS 0.1 % (0-2); EOSINOPHILS 0 % (0-7); HEMATOCRIT 31.9 % (36.0-48.0); HEMOGLOBIN 10.5 g/dL (12-16); LYMPHOCYTES 7.4 % (15-50); MCH 27.1 pg (26.0-34.0); MCHC 32.9 g/dL (31.0-37.0); MCV 82.6 fL (80.0-100.0); MEAN PLATELET VOLUME 6.8 fL (7.4-10.4); MONOCYTES 4.1 % (2-11); NEUTROPHILS 88.4 % (40-80); PLATELET COUNT 309 10x3/uL (130-400); RBC 3.87 10x6/uL (4.00-5.40); RDW 15.8 % (11.5-14.5); WBC 9.6 10x3/uL (4.8-10.8)
[2020-10-10 06:48] LABS: ALBUMIN 2.6 g/dL (3.4-5.0); ALKALINE PHOSPHATASE 60 U/L (30-120); ALT (SGPT) 34 U/L (10-68); BILIRUBIN - TOTAL 0.31 mg/dL (0.2-1.3); C-REACTIVE PROTEIN 5.1 mg/dL (0.0-0.9); CALC OSMOLALITY 269 mosm/kg (275-300); CALCIUM 8.6 mg/dL (8.5-10.1); CARBON DIOXIDE 26.6 mmol/L (21.0-32.0); CHLORIDE - SERUM 96 mmol/L (98-107); CREATININE - SERUM 0.8 mg/dL (0.6-1.3); FERRITIN 354 ng/mL (3-244); GLUCOSE 128 mg/dL (74-106); LDH 269 U/L (81-234); PROTEIN - SERUM 7.1 g/dL (6.4-8.2); SODIUM 132 mmol/L (136-145); UREA NITROGEN 20 mg/dL (7-18); eGFR NON AFRICAN AMERICAN 77 mL/min (90-120)
[2020-10-10 06:49] LABS: POTASSIUM - SERUM 3.6 mmol/L (3.5-5.1)
--- NOTE | 2020-10-10 07:13 | NUR ---
RECEIVE SHIFT REPORT. RESTING IN BED. DENIES ANY NEEDS AT THIS TIME. RECEIVED IN REPORT PATIENT BUMPED UP TO 11L HFNC. WILL CONTINUE MONITORING O2 SAT FREQUENTLY. CONTINUE POC AND SAFETY PRECAUTIONS. CALL LIGHT IN REACH.
--- NOTE | 2020-10-10 07:43 | HP ---
PATIENT: CORRINE TOMLIN MEDICAL RECORD: [id number] ACCOUNT: [id number] LOCATION:[address] : 56 ADMISSION DATE: 10/09/20 PCP: No PCP HISTORY AND PHYSICAL EXAMINATION REASON FOR ADMISSION: Shortness of breath and cough and COVID positive. HISTORY OF PRESENT ILLNESS: The patient is a 60-year-old female with history of COPD, CAD, and diabetes mellitus. The patient states that she was diagnosed with COVID on the quick [facility] at [facility] approximately 09[facility]27/2020. She was treated with a Z-Sara at that time and did well until about the when she went to the ED at [facility]. Her saturations were in the 96% range. Chest x-ray showed bilateral interstitial changes, not severe and she was given a gram of Rocephin and sent home on a Z-Sara. She states for the last 2 days, she has had increasing cough, congestion with some brownish phlegm, more short of breath, and could not keep her sats over 90%. She has been doing updrafts at home as well. She was seen by Dr. Linares for ongoing COPD. She denies any loss of taste or smell or GI symptoms. She denies headache. She came to the ED today because of these increasing respiratory symptoms, pO2 was low. For that reason, she is now being admitted. PAST MEDICAL HISTORY: COPD; nicotine use, having quit in 2013; history of CAD, post-2 vessel CABG at [facility] in 2016; essential hypertension; history of fibromyalgia; depression; cerebrovascular disease; congestive heart failure, diastolic type; osteoarthritis; last echo showed EF of 50%; hyponatremia; and diabetic neuropathy. PAST SURGICAL HISTORY: She has had cataract surgery, thromboendarterectomy, neck incision, PTCA, negative heart catheterization June of this year at [facility], two vessel CABG 2017, carotid endarterectomy, colposcopy times 2. FAMILY HISTORY: Daughter with depression. Daughter also had diabetes. Heart disease in her brother, maternal grandfather and maternal grandmother. Hypertension in brother, daughter and mother, leukemia maternal aunt, stroke in brother. SOCIAL HISTORY: She quit smoking 10 years ago, had a [id number] history prior to that. She has never used smokeless tobacco. She does not drink alcohol. ALLERGIES: LISINOPRIL. HOME MEDICATIONS: Recently finished a Z-SARA times 2, albuterol updrafts q.6 hours, aspirin 81 mg a day, Plavix 75 mg a day, fish oil 1 daily, famotidine 20 mg tablets at bedtime, gabapentin 300 mg b.i.d., isosorbide dinitrate 1 daily, metoprolol XL 25 mg a day, Singulair 10 mg with evening meal, Nitrostat 0.4 sublingual p.r.n. chest pain, Prilosec 40 mg daily, pravastatin 40 mg with evening meal, Ranexa 500 mg p.o. b.i.d., Ellipta 62.5 actuation Diskus daily; vitamin E 1 daily. REVIEW OF SYSTEMS: GENERAL: She had fever to 101 a few days ago that has improved. She has felt fatigued with shortness of breath. RESPIRATORY: She has had increasing cough, congestion, shortness of breath, now some brownish sputum. Denies hemoptysis. HEENT: Denies change in smell or taste. HISTORY AND PHYSICAL [id number] CORRINE TOMLIN CARDIAC: No palpitations, claudication, exertional rest chest pain. GASTROINTESTINAL: No nausea, vomiting, change in stools, blood per rectum. GENITOURINARY: No incontinence. CLIENT SERVICES ADMINISTRATOR: No vaginal bleeding. ENDOCRINE: Denies polyuria, polydipsia, heat or cold intolerance. NEUROLOGIC: No history of stroke, TIA, vascular headaches. INTEGUMENT: No rash or itching. PSYCHIATRIC: Admits to depressed mood that is fairly stable currently. PHYSICAL EXAMINATION: VITAL SIGNS: Temperature 99.3, pulse 95 and regular, respirations 24, blood pressure 103/57 with a sat of 90% on room air. HEENT: Normocephalic. Eyes are clear with lens implants noted. NECK: No bruits or masses. CHEST: Reveals inspiratory crackles bibasilarly to the scapular tip left greater than right. No wheezes. HEART: Regular rate and rhythm without murmur. ABDOMEN: Soft, nontender. EXTREMITIES: No gross edema or cyanosis. NEUROLOGICAL: Oriented to person, place, and time. Cranial nerves are intact. Gait was not tested. No motor deficits appreciated. PSYCHIATRIC: No significant depressive symptoms elicited. Denies suicidal thoughts. DIAGNOSTIC DATA: Chest x-ray shows bibasilar interstitial opacities concerning for pneumonitis and/or right lung base pneumonia. LABORATORY DATA: Blood gas pH 7.5, pO2 is 47, pCO2 is 31 on room air. Sodium is 127. Serum electrolytes showed sodium of 125, CO2 of 27.9, BUN and creatinine of 20 and 0.9. Liver functions are normal. Troponin is less than 0.017. PT/INR is 0.98, PTT is 27.1. SARS antigen was positive on previous visit to the ED. ASSESSMENT: 1. Chronic obstructive pulmonary disease, [id number] with respiratory failure. 2. Recent positive COVID testing. 3. Chronic hyponatremia, probably diuretic induced. 4. Hypertension. 5. Hyperlipidemia. 6. Coronary artery disease, clinically stable. 7. History of gastroesophageal reflux disease. 8. Fibromyalgia. 9. Depression. PLAN: The patient will be admitted for COVID isolation. Pulmonary consult has been obtained. Further workup pending clinical course. We will hold parameters for now. TRANSINT:[id number] Voice Confirmation ID: [id number] DOCUMENT ID: [id number] HISTORY AND PHYSICAL [id number] CORRINE TOMLIN TIMOTHY MD at 0743 CC: [id number] DICTATION DATE: 10/09/20 1343 PROGRAM MANAGER TRANSPORTATION: 10/09/20 1426 ADM IN [place] [id number] [place] [id number]
[2020-10-10 07:51] VITALS: BP 167/87
[2020-10-10 08:39] VITALS: Ht 154.9 cm; Wt 72.8 kg
[2020-10-10 16:09] VITALS: BP 135/76
--- NOTE | 2020-10-10 19:30 | NUR ---
PT IN BED, AAO X 3, RESP EVEN AND UNLABORED, NO DISTRESS NOTED, CL IN REACH, SR UP X 2.
[2020-10-10 20:23] VITALS: BP 126/72
[2020-10-10 23:44] VITALS: BP 130/71
[2020-10-11 04:59] VITALS: BP 142/71
[2020-10-11 07:02] LABS: CREATININE - SERUM 0.7 mg/dL (0.6-1.3)
--- NOTE | 2020-10-11 08:00 | NUR ---
PT RECEIVED AWAKE AND ALERT, ASKING FOR BREAKFAST. BROUGHT TO ROOM THEN COMPLAINTS OF IT BEING COLD. TRIED TO ACCOMODATE. OXYGEN ON 12 LITER HI ERIN.
[2020-10-11 08:55] VITALS: BP 133/63
[2020-10-11 11:51] VITALS: BP 136/64
[2020-10-11 15:54] VITALS: BP 124/61
[2020-10-11 20:05] VITALS: BP 119/68
[2020-10-12] VITALS (12 sets, daily range): BP systolic 126–150; BP diastolic 68–89
--- NOTE | 2020-10-12 02:41 | NUR ---
10/11/20 @ 2044 PT STATES THAT SHE THOUGHT SHE WAS GETTING BETTER UNTIL THIS AFTERNOON WHEN SHE STARTED FEELING WORSE THAN SHE HAS. HIGH FLOW O2 @ 12L/M W/ O2 SAT 90%. ENCOURAGED TO US FLUTTER & IS OFTEN POSSIBLE. VERBALIZES UNDERSTANDING.
--- NOTE | 2020-10-12 07:00 | NUR ---
RECEIVED REPORT. ASSUMED CARE OF PATIENT. PATIENT REMAINS IN DROPLET ISOLATION FOR POSITIVE COVID. SR ON TELEMETRY, RATE 65.
[2020-10-12 08:01] LABS: BASOPHILS 0.1 % (0-2); EOSINOPHILS 0 % (0-7); HEMATOCRIT 33.5 % (36.0-48.0); LYMPHOCYTES 8.9 % (15-50); MCH 27.4 pg (26.0-34.0); MCHC 32.9 g/dL (31.0-37.0); MCV 83.5 fL (80.0-100.0); MEAN PLATELET VOLUME 6.8 fL (7.4-10.4); MONOCYTES 4.5 % (2-11); NEUTROPHILS 86.5 % (40-80); RBC 4.01 10x6/uL (4.00-5.40); RDW 16.2 % (11.5-14.5); WBC 9.6 10x3/uL (4.8-10.8)
[2020-10-12 08:02] LABS: ANION GAP 12.9 mmol/L (8-16); C-REACTIVE PROTEIN 3.5 mg/dL (0.0-0.9); CALCIUM 8.8 mg/dL (8.5-10.1); CARBON DIOXIDE 25.1 mmol/L (21.0-32.0)
[2020-10-12 08:05] LABS: CREATININE - SERUM 0.9 mg/dL (0.6-1.3)
[2020-10-12 08:13] LABS: PLATELET COUNT 399 10x3/uL (130-400)
--- NOTE | 2020-10-12 09:52 | NUR ---
PATIENT SITTING IN BED, O2 SAT 93%, TOLERATES ALL AM MEDS WELL. NO DISTRESS. CALL LIGHT WITHIN REACH.
--- NOTE | 2020-10-12 15:44 | NUR ---
CALLED ICU AND GAVE REPORT TO CASE, PATIENT TO ROOM 2114 WHEN RT ARRIVES TO UNIT.
--- NOTE | 2020-10-12 16:05 | NUR ---
PT ARRIVED TO UNIT AT THIS TIME VIA BED ACCOMPANIED BY HOSPITAL STAFF. NO ACUTE DISTRESS NOTED. WILL CONTINUE TO CLOSELY OBSERVE.
[2020-10-13] VITALS (23 sets, daily range): BP systolic 115–168; BP diastolic 62–95
[2020-10-13 04:45] LABS: CREATININE - SERUM 0.8 mg/dL (0.6-1.3)
--- NOTE | 2020-10-13 07:22 | NUR ---
REPORT RECEIVED FROM OFF GOING NURSE AND PATIENT CARE ASSUMED. PATIENT LAYING IN BED ON BACK AWAKE, ALERT AND ORIENTEDE X 4. VSS. ALL LINES CHECKED AND PATENT. PATIENT DENIES ANY NEEDS OR PAIN. WILL CONTINUE WITH PLAN OF CARE. SR UP X 2 BED IN LOW POSITION AND CALL LIGHT IN REACH.
--- NOTE | 2020-10-13 08:36 | NUR ---
Nutrition follow-up: Pt now in ICU due to breathing issues Vapotherm in use Diet order: low sodium PO intake poor due to breathing issues Labs reviewed Wt: 164# +BM + fluid balance at this time Recommend: If po intake continues to be poor, ProcalAmine PPN @ 75 ml/hr for short-term nutrition support. Follow-up in 2-3 days
[2020-10-14] VITALS (23 sets, daily range): BP systolic 115–163; BP diastolic 61–89
[2020-10-14 04:16] LABS: BASOPHILS 0.1 % (0-2); EOSINOPHILS 0 % (0-7); HEMATOCRIT 32.6 % (36.0-48.0); HEMOGLOBIN 10.7 g/dL (12-16); LYMPHOCYTES 8.1 % (15-50); MCH 27.1 pg (26.0-34.0); MCHC 32.7 g/dL (31.0-37.0); MEAN PLATELET VOLUME 6.5 fL (7.4-10.4); NEUTROPHILS 86.8 % (40-80); PLATELET COUNT 429 10x3/uL (130-400); RBC 3.93 10x6/uL (4.00-5.40); RDW 16.3 % (11.5-14.5)
[2020-10-14 04:20] LABS: WBC 15.1 10x3/uL (4.8-10.8)
[2020-10-14 04:38] LABS: ALBUMIN 2.3 g/dL (3.4-5.0); ANION GAP 11.2 mmol/L (8-16); BILIRUBIN - TOTAL 0.43 mg/dL (0.2-1.3); CALCIUM 8.3 mg/dL (8.5-10.1); CARBON DIOXIDE 25.5 mmol/L (21.0-32.0); CREATININE - SERUM 0.9 mg/dL (0.6-1.3); PROTEIN - SERUM 6.4 g/dL (6.4-8.2)
[2020-10-14 04:40] LABS: POTASSIUM - SERUM 4.7 mmol/L (3.5-5.1)
--- NOTE | 2020-10-14 12:14 | NUR ---
rt placed pt on bipap 40%, 04/19.
--- NOTE | 2020-10-14 14:46 | NUR ---
IV TO R HAND NOT PATIENT. RESITE TO L FA 20G X 2 STICKS. PT KELLY WELL.
[2020-10-15] VITALS (24 sets, daily range): BP systolic 109–185; BP diastolic 61–774
[2020-10-15 06:23] LABS: CALC OSMOLALITY 272 mosm/kg (275-300); CALCIUM 8.3 mg/dL (8.5-10.1); CARBON DIOXIDE 26.5 mmol/L (21.0-32.0); CHLORIDE - SERUM 99 mmol/L (98-107); CREATININE - SERUM 0.8 mg/dL (0.6-1.3); GLUCOSE 131 mg/dL (74-106); POTASSIUM - SERUM 4.1 mmol/L (3.5-5.1); SODIUM 132 mmol/L (136-145); UREA NITROGEN 29 mg/dL (7-18); eGFR NON AFRICAN AMERICAN 77 mL/min (90-120)
--- NOTE | 2020-10-15 07:10 | NUR ---
REPORT RECEIVED FROM OFF GOING NURSE AND PATIENT CARE ASSUMED. PATIENT LAYING IN BED ON BACK WITH HOB ELEVATED 30 DEGREES. VSS. PATIENT DENIES ANY NEEDS OR PAIN. WILL CONTINUE WITH PLAN OF CARE. SR UP X 2 BED IN LOW POSITION AND CALL LIGHT IN REACH.
--- NOTE | 2020-10-15 09:45 | NUR ---
DR JOVEL ON UNIT. NEW ORDERS RECEIVED. ASSISTED PATIENT TO BS COMMODE AND TO BS CHAIR. VSS. PATIENT DENIES ANY NEEDS OR PAIN. CALL LIGHT IN REACH.
--- NOTE | 2020-10-15 16:22 | NUR ---
PATIENT SITTING UP N BS CHAIR. VS. PATIENT DENIES ANY NEEDS OR PAIN. WILL CONTINUE TO MONITOR. CALL LIGHT IN REACH.
--- NOTE | 2020-10-15 18:30 | NUR ---
PATIENT ACCIDENTALLY PULLED OUT IV. RESITED IV TO LEFT INNER WRIST WITH 22 GAUGE WITHOUT DIFFICULTY.
[2020-10-16] VITALS (24 sets, daily range): BP systolic 11–162; BP diastolic 52–97
--- NOTE | 2020-10-16 02:33 | NUR ---
I have reviewed this patient and I concur with the Shift Assessment completed by the Licensed Practical Nurse today this shift.
[2020-10-16 05:21] LABS: BASOPHILS 0.1 % (0-2); EOSINOPHILS 0 % (0-7); HEMATOCRIT 32.5 % (36.0-48.0); HEMOGLOBIN 10.8 g/dL (12-16); LYMPHOCYTES 7.3 % (15-50); MCH 27.5 pg (26.0-34.0); MCHC 33.2 g/dL (31.0-37.0); MCV 82.9 fL (80.0-100.0); MEAN PLATELET VOLUME 6.4 fL (7.4-10.4); NEUTROPHILS 87.6 % (40-80); PLATELET COUNT 412 10x3/uL (130-400); RBC 3.92 10x6/uL (4.00-5.40); RDW 16.1 % (11.5-14.5); WBC 15.2 10x3/uL (4.8-10.8)
[2020-10-16 05:40] LABS: CALC OSMOLALITY 265 mosm/kg (275-300); CALCIUM 8.2 mg/dL (8.5-10.1); CARBON DIOXIDE 30.2 mmol/L (21.0-32.0); CHLORIDE - SERUM 96 mmol/L (98-107); CREATININE - SERUM 0.7 mg/dL (0.6-1.3); GLUCOSE 119 mg/dL (74-106); POTASSIUM - SERUM 3.7 mmol/L (3.5-5.1); SODIUM 130 mmol/L (136-145); UREA NITROGEN 25 mg/dL (7-18); eGFR NON AFRICAN AMERICAN 90 mL/min (90-120)
--- NOTE | 2020-10-16 07:00 | NUR ---
RECEIVED BEDSIDE REPORT ON PATIENT AND ASSUMED CARE. PATIENT ALERT AND ORIENTED, SITTING UP IN BED. VSS. ON VAPOTHERM AT 60% WITH SPO2 - 94%, CM HR 86 NSR, RR - 18, BBS - CLEAR BUT DIMINISHED IN THE BASES, IV 20 GA TO RIGHT AC INFUSING NS AT 10 ML/HR, AND 22 GA IV TO LEFT WRIST NSL. STATES IS UNSTEADY ON HER FEET WHEN MOVING TO CHAIR, AND ALMOST FELL LAST NIGHT WHEN GETTING UP. INSTRUCTED TO CALL FOR ASSISTANCE WHEN NEEDING UP. HEAD TO TOE ASSESSMENT COMPLETED.
--- NOTE | 2020-10-16 08:58 | NUR ---
PATIENT ATE 100% OF BREAKFAST TRAY, VSS. NO NEEDS AT THIS TIME. MORNING MEDS PER JUL.
--- NOTE | 2020-10-16 09:41 | NUR ---
DR. JOVEL AT ROOM UPDATED AND EXAMINES PATIENT. NOTIFIED OF NA 130, CL 96 NO NEW ORDERS RECEIVED.
--- NOTE | 2020-10-16 11:02 | NUR ---
REASSESSMENT COMPLETED. VSS. SITTING UP IN BED, NO NEEDS AT THIS TIME. FSBS - 129.
--- NOTE | 2020-10-16 12:11 | NUR ---
PATIENT ASSISTED UP TO BEDSIDE CHAIR, AND LINENS CHANGED.
--- NOTE | 2020-10-16 12:29 | NUR ---
Nutrition reassessment: Pt discussed during IDT team rounds. Diet order: low sodium PO Intake 100% of last 9 meals Labs reviewed Wt: 165# Estimated needs, nutrition diagnosis, nutrition goals and intervetnions remain the same as initial assessment on 10/10/20. Due to pt with extremely good po intake at this time, RDN will follow-up every 7 days unless there is a change in condition.
--- NOTE | 2020-10-16 14:34 | NUR ---
PATIENT GIVEN HOT TEA AND HOT COCOA PER REQUEST. VSS.
--- NOTE | 2020-10-16 14:55 | NUR ---
PATIENT REASSESSMENT COMPLETED. SITTING UP IN BEDSIDE CHAIR. OFFERED TO SET UP PATIENT BATH BUT PATIENT STATED NO. NO NEEDS A THIS TIME.
--- NOTE | 2020-10-16 18:56 | NUR ---
PATIENT ASSISTED BACK TO BED. VSS. NO NEEDS AT THIS TIME.
[2020-10-17] VITALS (24 sets, daily range): BP systolic 109–168; BP diastolic 54–103
--- NOTE | 2020-10-17 03:25 | NUR ---
I have reviewed this patient and I concur with the Shift Assessment completed by the Licensed Practical Nurse today this shift.
--- NOTE | 2020-10-17 10:36 | NUR ---
FOUND WITH R AC IV OUT, TIP INTACT. USING L WRIST IV. FULL BED BATH GIVEN. DR. BECKA CANCINO. NO NEW ORDERS AT THIS TIME.
--- NOTE | 2020-10-17 11:27 | NUR ---
NEW IV PLACED BY OLIVIA DOLL RN, TO RIGHT HAND. L WRIST ONE WAS OCCLUDED. L WRIST IV REMOVED, TIP INTACT.
[2020-10-18] VITALS (24 sets, daily range): BP systolic 111–162; BP diastolic 60–96
--- NOTE | 2020-10-18 08:30 | NUR ---
L HAND IV LEAKING BLOOD. REMOVED. ATTEMPTED ACCESS X 2 WITHOUT SUCCESS. AWAITING ANOTHER RN TO START IV SO I CAN GIVE DECADRON AND VANC.
--- NOTE | 2020-10-18 09:30 | NUR ---
DR. JOVEL ROUNDS, NO NEW ORDERS.
--- NOTE | 2020-10-18 10:22 | NUR ---
DR. JOVEL PAGED REGARDING FAILURE FOR US TO GET IV ACCESS. EXPLAINED WE HAVE IV DECADRON AND 2 MORE VANCS TO GIVE. HE ORDERS TO GIVE DECADRON PO AND TO LET THE VANC FALL OFF.
[2020-10-19] VITALS (8 sets, daily range): BP systolic 98–163; BP diastolic 61–109
--- NOTE | 2020-10-19 13:13 | NUR ---
ARRIVED TO FLOOR. STILL ON COVID ISO THOUGH PATIENT TESTED POSITIVE ON 09/27/20. DR. JOVEL STATES SHE DOES NOT NEED TO STAY IN ISOLATION, INFECTION CONTROL NOT HERE TODAY.
--- NOTE | 2020-10-19 15:03 | NUR ---
SITTING IN CHAIR ON VAPOTHERM, 45% 40L. DENIES ANY NEEDS AT THIS TIME. WILL CONTINUE POC AND SAFETY PRECAUTIONS.
--- NOTE | 2020-10-19 19:19 | NUR ---
INITIAL ROUNDS COMPLETED. PT TALKING ON PHONE. NO DISTRESS NOTED. CALL LIGHT WITHIN REACH.
--- NOTE | 2020-10-19 21:40 | NUR ---
ASSESSMENT COMPLETED AT 1945 HRS. VSS. PT ALERT AND ORIENTED TO PERSON, PLACE AND TIME. GREWAL. PALPABLE PERIPHERAL PULSES. NO IV. O2 40L AT 45% VIA VAPOTHERM. LUNGS DIMINISHED IN BASES BILAT BRUISES NOTED TO BILAT ARMS, ABD. PM [id number]. 4 UNITS HUMILIN GIVEN SUB-Q TO UPPER LARM. PM MEDS GIVEN. PT CURRENTLY WATCHING TV. CALL LIGHT WITHIN REACH.
--- NOTE | 2020-10-20 00:17 | NUR ---
PT RESTING WITH EYES CLOSED. RESP EVEN AND REGULAR. BIPAP IN USE. CALL LIGHT WITHIN REACH.
[2020-10-20 00:21] VITALS: BP 125/71
--- NOTE | 2020-10-20 02:09 | NUR ---
PT RESTING WITH EYES CLOSED. RESP EVEN AND REGULAR. BIPAP IN USE.
[2020-10-20 04:00] VITALS: BP 129/75
--- NOTE | 2020-10-20 04:16 | NUR ---
PT AWAKE; DENIES ANY DISCOMFORT. BIPAP IN USE.
--- NOTE | 2020-10-20 06:08 | NUR ---
PT DENIED ANY DISCOMFORT DURING SHIFT. BACK ON VAPOTHERM. AM FSBS 97. NO COVERAGE NECESSARY. NEEDS MET; WILL CONTINUE TO MONITOR.
--- NOTE | 2020-10-20 08:11 | NUR ---
May discontinue COVID 19 Isolation, confirmed with Dr. Coreas.
[2020-10-20 09:00] VITALS: BP 124/67
[2020-10-20 12:50] VITALS: BP 93/51
[2020-10-20 16:18] VITALS: BP 109/60
[2020-10-20 20:00] VITALS: BP 116/55
[2020-10-21] VITALS: BP 123/61
--- NOTE | 2020-10-21 01:16 | NUR ---
REPORT RECEIVED. PT A&O, UP IN BED WATCHING TV. NO S/S OF DISTRES OBSERVED. RR EVEN & UNLABORED ON 10LHF. NO IV ACCESS. AWARE. MEDS CHANGED TO PO PRIOR TO THIS SHIFT. BED LOCKED AND LOWERED, CL IN REACH. ASSESSMENT COMPLETE. WILL CONT POC.
[2020-10-21 04:00] VITALS: BP 117/70
[2020-10-21 08:14] VITALS: BP 129/70
[2020-10-21 11:37] VITALS: BP 96/55
[2020-10-21 16:00] VITALS: BP 94/48
--- NOTE | 2020-10-21 18:49 | MORECARE ---
CASE MANAGEMENT DISCHARGE SUMMARY PATIENT: CORRINE TOMLIN UNIT: [id number] ADM DATE: 10/09/20 AGE: 60 : 56 SEX: F ROOM/BED: D.2140 AUTHOR: NELSONDOC PHYSICIAN: REFERRING PHYSICIAN: MAGGI SKY MD DATE OF SERVICE: 10/21/20 Case Management Discharge Planning Summary DCP REVIEW SUMMARY ANTICIPATED D/C DATE: EXPECTED LOS : CASE STATUS: DCP Initiated INITIAL REVIEW: 10/09/2020 INITIAL REVIEWER: Geraldo Phelps FINAL DISCHARGE DISPOSITION: : FINAL REVIEWER: FINAL REVIEW DATE: DCP Focus Questions & Answers QUESTION: ANSWER : PATIENT: CORRINE TOMLIN ENCOUNTER: [id number] MEDICAL RECORD#: [id number] ADMISSION DATE: 10/09/2020 DISCHARGE DATE: ATTENDING MD: MAGGI DUPREE : AGE: 60 MARITAL STATUS: D DC PLAN ID: [id number] FACILITY: [facility] PRINTED ON: 10/21/20 18:49 CT All edits/amendments must be made on the electronic document DICTATION DATE: 10/21/201848 RIG SUPERVISOR: ANDRE 10/21/201848 RPT#: [id number] DC DATE: STATUS: ADM IN [facility] [address] [place] [address] END OF REPORT
--- NOTE | 2020-10-21 19:02 | MORECARE ---
CASE MANAGEMENT DISCHARGE SUMMARY PATIENT: CORRINE TOMLIN UNIT: [id number] ADM DATE: 10/09/20 AGE: 60 : 56 SEX: F ROOM/BED: D.2140 AUTHOR: JOSÉ MIGUEL DAMON PHYSICIAN: REFERRING PHYSICIAN: MAGGI SKY MD DATE OF SERVICE: 10/21/20 Case Management Discharge Planning Summary COMMENTS ENTERED DATE: 10/21/20 18:50 CT COMMENT TYPE: Discharge Planning REVIEWER: Geraldo Phelps CM met with patient to complete DC plan and to evaluate needs. Patient lives alone with strong support and stated that her person to notify is her friend, Tyson Chavez ([phone]). Patient stated that her home is safe and has electricity and running water. Patient stated that the home has multiple steps to enter and she is able to manage the steps without difficulty. Patient stated that she has no problems paying for medications and she fills her medications at [facility] on [address]. Patient stated that her primary care physician is Dr. Monica Brooke. At discharge, the patient plans to return home and feels this is a safe discharge. CM discussed availability of home health, rehab services, and medical equipment. Patient declined HHS, SNF, IPR, and DME. Patient stated that she currently has oxygen through [facility]. Patient voiced no other needs at this time and is satisfied with DC plan. DC IMM delivered, explained, signed by the patient, and placed in chart. Signed form also left with the patient. CM will continue to follow and will assist as needed with dc plans/needs. DCP REVIEW SUMMARY ANTICIPATED D/C DATE: EXPECTED LOS : CASE STATUS: DCP Initiated INITIAL REVIEW: 10/09/2020 INITIAL REVIEWER: Geraldo Phelps FINAL DISCHARGE DISPOSITION: : FINAL REVIEWER: FINAL REVIEW DATE: DCP Focus Questions & Answers DCP Evaluation QUESTION: ANSWER Patient gives permission to discuss discharge plans with: (name, relationship and number) : friend, Tyson Chavez ([phone]). Patient's ability to cope with chronic illness : d. No chronic illness Patient's current cognitive status: : *Oriented to person, place, situation, time and present Family / Caregiver's ability to cope with chronic illness: : a. Adequate (ability to meet patient's medical needs, ensures patient attends medical appts.) Patient and/or caregiver agree upon recommended discharge plan? : Yes Physical Status: : Independent with ADL's Family / Caregiver's ability to cope with chronic illness: : a. Adequate (ability to meet patient's medical needs, ensures patient attends medical appts.) Functional screen assessment: : Basic needs can adequately be met by self Does the patient have the ability to pay for or attain post discharge needs / services? : Yes Living Arrangements: : Home Alone with Support Is there a likelihood that the patient will require additional services to return to the preadmission environment? : No Equipment needed for post hospitalization: : None Baseline cognitive status: : *Oriented to person, place, situation, time and present Patient with capacity for self-care or can be cared for in same environment as prior to hospitalization? : Yes Physical environment modification needed / anticipated for discharge: : No Medication Management: : Patient states can afford medications Medication Management: : Patient states can read and understand medication labels Pharmacy name(s): : [facility] Does Patient have transportation to get home and to follow-up medical appointments when discharged from the hospital? : Yes Would patient like to participate in any Care Coordination programs (if applicable): : Not applicable Does the patient have electricity at home? : Yes Does the patient have running water in their house? : Yes Equipment in use: : Home Oxygen with Nasal Cannula Equipment agency name and contact information: : [facility] Mental [facility] screen: : No mental health history DCP Re-evaluation QUESTION: ANSWER Would patient like to participate in any Care Coordination programs (if applicable): : Not applicable PATIENT: CORRINE TOMLIN ENCOUNTER: [id number] MEDICAL RECORD#: [id number] ADMISSION DATE: 10/09/2020 DISCHARGE DATE: ATTENDING MD: MAGGI DUPREE : AGE: 60 MARITAL STATUS: D DC PLAN ID: [id number] FACILITY: [facility] PRINTED ON: 10/21/20 19:01 CT All edits/amendments must be made on the electronic document DICTATION DATE: 10/21/201900 PULVERIZER TENDER: ANDRE 10/21/201900 RPT#: [id number] DC DATE: STATUS: ADM IN [facility] [address] [place] [address] END OF REPORT
[2020-10-21 20:00] VITALS: BP 100/56
--- NOTE | 2020-10-21 23:00 | NUR ---
PT O2 SAT REMAINING >93% ON 8L. WEANED PT DOWN TO 7L. PTS O2 >93%.
[2020-10-22] VITALS: BP 122/67
[2020-10-22 04:00] VITALS: BP 156/78
--- NOTE | 2020-10-22 04:20 | NUR ---
PTS O2 >93%. WEANED PT DOWN TO 6L. O2 SAT REMAINING >93%.
[2020-10-22 06:29] LABS: BASOPHILS 0.5 % (0-2); EOSINOPHILS 0.3 % (0-7); HEMATOCRIT 28.5 % (36.0-48.0); HEMOGLOBIN 9.6 g/dL (12-16); LYMPHOCYTES 14.1 % (15-50); MCH 28.9 pg (26.0-34.0); MCHC 33.7 g/dL (31.0-37.0); MCV 85.8 fL (80.0-100.0); MEAN PLATELET VOLUME 6.7 fL (7.4-10.4); NEUTROPHILS 79.1 % (40-80); RBC 3.32 10x6/uL (4.00-5.40); RDW 16.4 % (11.5-14.5); WBC 15.1 10x3/uL (4.8-10.8)
--- NOTE | 2020-10-22 06:40 | NUR ---
PT SITTING IN CHAIR AT BED SIDE. RESP EVEN AND UNLABORED. AAO X4. O2 6 [address] V[address] NC IN PL[address]. DENIES NEEDS AT THIS TIME. CLIR.
[2020-10-22 06:54] LABS: CALC OSMOLALITY 257 mosm/kg (275-300); CALCIUM 8.3 mg/dL (8.5-10.1); CARBON DIOXIDE 29.5 mmol/L (21.0-32.0); CHLORIDE - SERUM 94 mmol/L (98-107); CREATININE - SERUM 0.7 mg/dL (0.6-1.3); GLUCOSE 84 mg/dL (74-106); POTASSIUM - SERUM 4.2 mmol/L (3.5-5.1); SODIUM 128 mmol/L (136-145); UREA NITROGEN 19 mg/dL (7-18); eGFR NON AFRICAN AMERICAN 90 mL/min (90-120)
[2020-10-22 07:20] LABS: PLATELET COUNT 260 10x3/uL (130-400)
[2020-10-22 09:00] VITALS: BP 135/65
--- NOTE | 2020-10-22 16:44 | NUR ---
I have reviewed this patient and I concur with the Shift Assessment completed by the Licensed Practical Nurse today this shift.
--- NOTE | 2020-10-22 19:00 | NUR ---
REPORT RECEIVED. PATIENT IS AAOX4, UP IN ROOM. NO S/S OF DISTRESS OBSERVED, RR EVEN AND UNLABORED ON 4L VIA NC. PATIENT DENIES NEEDS AT THIS TIME. CL IN REACH, BED LOCKED AND LOWERED. WILL CPOC.
[2020-10-22 20:00] VITALS: BP 140/68
[2020-10-23] VITALS: BP 127/67
--- NOTE | 2020-10-23 01:35 | NUR ---
I have reviewed this patient and I concur with the Shift Assessment completed by the Licensed Practical Nurse today this shift.
[2020-10-23 05:55] VITALS: BP 143/79
[2020-10-23] MEDS ORDERED: NORVASC2.5 MG PO (07:13)
[2020-10-23] MEDS ORDERED: VITAMIN D325 MC1 PO (07:15)
[2020-10-23] MEDS ORDERED: DECADRON4 MG PO (07:15)
[2020-10-23] MEDS ORDERED: ELIQUIS2.5 MG PO (07:16)
[2020-10-23] MEDS ORDERED: VITAMIN C PO (07:16)
[2020-10-23] MEDS ORDERED: PULMICORT0.5 MG/21 UPD (07:16)
[2020-10-23 08:50] VITALS: BP 155/50
--- NOTE | 2020-10-23 14:51 | MORECARE ---
CASE MANAGEMENT DISCHARGE SUMMARY PATIENT: CORRINE TOMLIN UNIT: [id number] ADM DATE: 10/09/20 AGE: 60 : 56 SEX: F ROOM/BED: D.2140 AUTHOR: NELSON,JOSÉ MIGUEL PHYSICIAN: REFERRING PHYSICIAN: MAGGI SKY MD DATE OF SERVICE: 10/23/20 Case Management Discharge Planning Summary COMMENTS ENTERED DATE: 10/23/20 14:45 CT COMMENT TYPE: Discharge Planning REVIEWER: Vita Hendricks Pt requested portable tank from [facility] upon discharge. [facility] delivered tank prior to discharge. ENTERED DATE: 10/21/20 18:50 CT COMMENT TYPE: Discharge Planning REVIEWER: Geraldo Phelps CM met with patient to complete DC plan and to evaluate needs. Patient lives alone with strong support and stated that her person to notify is her friend, Tyson Chavez ([phone]). Patient stated that her home is safe and has electricity and running water. Patient stated that the home has multiple steps to enter and she is able to manage the steps without difficulty. Patient stated that she has no problems paying for medications and she fills her medications at [facility]. Patient stated that her primary care physician is Dr. Monica Brooke. At discharge, the patient plans to return home and feels this is a safe discharge. CM discussed availability of home health, rehab services, and medical equipment. Patient declined HHS, SNF, IPR, and DME. Patient stated that she currently has oxygen through [facility]. Patient voiced no other needs at this time and is satisfied with DC plan. DC IMM delivered, explained, signed by the patient, and placed in chart. Signed form also left with the patient. CM will continue to follow and will assist as needed with dc plans/needs. DCP REVIEW SUMMARY ANTICIPATED D/C DATE: EXPECTED LOS : CASE STATUS: DCP Initiated INITIAL REVIEW: 10/09/2020 INITIAL REVIEWER: Geraldo Phelps FINAL DISCHARGE DISPOSITION: : FINAL REVIEWER: FINAL REVIEW DATE: DCP Focus Questions & Answers DCP Evaluation QUESTION: ANSWER Patient and/or caregiver agree upon recommended discharge plan? : Yes Family / Caregiver's ability to cope with chronic illness: : a. Adequate (ability to meet patient's medical needs, ensures patient attends medical appts.) Patient's current cognitive status: : *Oriented to person, place, situation, time and present Patient's ability to cope with chronic illness : d. No chronic illness Patient gives permission to discuss discharge plans with: (name, relationship and number) : friend, Tyson Chavez ([phone]). Does the patient have the ability to pay for or attain post discharge needs / services? : Yes Functional screen assessment: : Basic needs can adequately be met by self Family / Caregiver's ability to cope with chronic illness: : a. Adequate (ability to meet patient's medical needs, ensures patient attends medical appts.) Physical Status: : Independent with ADL's Equipment needed for post hospitalization: : None Is there a likelihood that the patient will require additional services to return to the preadmission environment? : No Living Arrangements: : Home Alone with Support Patient with capacity for self-care or can be cared for in same environment as prior to hospitalization? : Yes Baseline cognitive status: : *Oriented to person, place, situation, time and present Physical environment modification needed / anticipated for discharge: : No Medication Management: : Patient states can read and understand medication labels Medication Management: : Patient states can afford medications Pharmacy name(s): : [facility] Does Patient have transportation to get home and to follow-up medical appointments when discharged from the hospital? : Yes Would patient like to participate in any Care Coordination programs (if applicable): : Not applicable Does the patient have electricity at home? : Yes Does the patient have running water in their house? : Yes Equipment in use: : Home Oxygen with Nasal Cannula Equipment agency name and contact information: : [facility] Mental health screen: : No mental health history DCP Re-evaluation QUESTION: ANSWER Would patient like to participate in any Care Coordination programs (if applicable): : Not applicable PATIENT: CORRINE TOMLIN ENCOUNTER: [id number] MEDICAL RECORD#: [id number] ADMISSION DATE: 10/09/2020 DISCHARGE DATE: 10/23/2020 ATTENDING MD: MAGGI DUPREE : AGE: 60 MARITAL STATUS: D DC PLAN ID: [id number] FACILITY: [facility] PRINTED ON: 10/23/20 14:50 CT All edits/amendments must be made on the electronic document DICTATION DATE: 10/23/201449 WATERSHED COORDINATOR: ANDRE 10/23/201449 RPT#: [id number] DC DATE:10/23/20 STATUS: DIS IN [facility] [address] [place] [address] END OF REPORT
== END 2020-10-23 12:51 | disposition home or self-care (01) | DRG 177 ==
LOC: D.ER 10:58 → D.ICU 12:48 → D.M2 12:48 → D.ICU 10-12 16:02 → D.M2 10-19 13:10
PROVIDERS: Emergency Medicine; Internal Medicine Pulmonary Disease; ADMIT Family Medicine; ATTEND Family Medicine
PROC: XW033E5 Introduction of Remdesivir Anti-infective into Peripheral Vein, Percutaneous Approach, New Technology Group 5 (ICD-10-PCS; principal; 2020-10-09)
DX: U07.1 COVID-19 (principal); J12.82 Pneumonia due to coronavirus disease 2019; J96.01 Acute respiratory failure with hypoxia; I50.30 Unspecified diastolic (congestive) heart failure; J44.1 Chronic obstructive pulmonary disease with (acute) exacerbation; J45.901 Unspecified asthma with (acute) exacerbation; E22.2 Syndrome of inappropriate secretion of antidiuretic hormone; E87.1 Hypo-osmolality and hyponatremia; I25.10 Atherosclerotic heart disease of native coronary artery without angina pectoris; Z95.1 Presence of aortocoronary bypass graft; M79.7 Fibromyalgia; I67.9 Cerebrovascular disease, unspecified; I11.0 Hypertensive heart disease with heart failure; E11.40 Type 2 diabetes mellitus with diabetic neuropathy, unspecified; F32.9 Major depressive disorder, single episode, unspecified; D64.9 Anemia, unspecified; B37.9 Candidiasis, unspecified

== ENCOUNTER 2020-11-04 10:08 | Inpatient (IN) | payer MEDICARE, MEDICAID ==
[~2020-11-04] VITALS: Ht 154.9 cm; Wt 63.5 kg
[~2020-11-04 10:08] MED LIST changes: +DECADRON4 MG PO; +ELIQUIS2.5 MG PO; +PULMICORT0.5 MG/21 UPD; +VITAMIN C PO; +VITAMIN D325 MC1 PO
[2020-11-04 11:33] LABS: BASOPHILS 0.5 % (0-2); HEMATOCRIT 29.8 % (36.0-48.0); HEMOGLOBIN 9.7 g/dL (12-16); MCH 29.9 pg (26.0-34.0); MCHC 32.4 g/dL (31.0-37.0); MCV 92.2 fL (80.0-100.0); MEAN PLATELET VOLUME 6.1 fL (7.4-10.4); MONOCYTES 6.2 % (2-11); NEUTROPHILS 75.3 % (40-80); PLATELET COUNT 263 10x3/uL (130-400); RBC 3.24 10x6/uL (4.00-5.40); RDW 22.1 % (11.5-14.5); WBC 6.4 10x3/uL (4.8-10.8)
[2020-11-04 11:55] LABS: ALBUMIN 2.3 g/dL (3.4-5.0); ALKALINE PHOSPHATASE 56 U/L (30-120); ALT (SGPT) 48 U/L (10-68); CALC OSMOLALITY 265 mosm/kg (275-300); CALCIUM 7.7 mg/dL (8.5-10.1); CARBON DIOXIDE 22.5 mmol/L (21.0-32.0); CHLORIDE - SERUM 99 mmol/L (98-107); CKMB 0.1 U/L (0.0-3.6); CREATINE KINASE 43 UL (21-215); CREATININE - SERUM 0.6 mg/dL (0.6-1.3); GLUCOSE 151 mg/dL (74-106); POTASSIUM - SERUM 3.6 mmol/L (3.5-5.1); PRO BNP 1694 pg/mL (0-125); PROTEIN - SERUM 6.3 g/dL (6.4-8.2); SODIUM 131 mmol/L (136-145); TROPONIN-I < 0.017 ng/mL (0.000-0.060); UREA NITROGEN 13 mg/dL (7-18); eGFR NON AFRICAN AMERICAN > 90 mL/min (90-120)
[2020-11-04 13:56] LABS: SARS-CoV-2 ANTIGEN NEGATIVE- SARS-COV-2 (NEGATIVE)
--- NOTE | 2020-11-04 15:13 | NUR ---
O2 SAT 96%. O2 REMOVED ORDERED WILL MONITOR- PULSEOX IN PLACE.
--- NOTE | 2020-11-04 15:45 | NUR ---
O2SAT STAYING IN UPPER 90'S- 97% AT PRESENT- PATIENT SITTING UP IN BED AWAKE ALERT AND PLAYING ON PHONE.
[2020-11-04 16:46] VITALS: BP 89/48
--- NOTE | 2020-11-04 16:54 | NUR ---
LAST ENTRY ON WRONG PATIENT. PT IS NOT ON O2 AND SATS ARE 98%.
--- NOTE | 2020-11-04 16:58 | NUR ---
O2 PLACED BACK ON PATIENT DUE TO SATS DROPING IN THE UPPER 70'S. PLACED ON 4L NC- MD NOTIFIED. WILL CON'T TO MONITOR.
[2020-11-04 19:00] VITALS: BP 109/80
--- NOTE | 2020-11-04 19:40 | NUR ---
PT RESTING IN POSITION OF COMFORT, RIGHT SIDE. RESPIRATIONS TACHYPNEIC, REPORTS TAKING O2 OFF TO CHANGE INTO WARMER SHIRT BRIEFLY. 4L O2 APPLIED, RESPIRATIONS IMPROVED. CALL LIGHT WITHIN REACH, PT DENIES CURRENT NEEDS.
[2020-11-04 21:00] VITALS: BP 131/71
[2020-11-04 21:49] LABS: APTT 36.9 SECONDS (22.8-39.4); INR 1.25 (0.85-1.17); PROTIME 14.6 SECONDS (11.6-15.0)
[2020-11-04 21:50] LABS: D-DIMER-QUANTITATIVE 1.07 ug/mLFEU (0.20-0.54)
[2020-11-04 23:00] VITALS: BP 135/72
[2020-11-05 01:00] VITALS: BP 134/77
[2020-11-05 03:00] VITALS: BP 141/77
[2020-11-05 05:01] VITALS: BP 141/69
[2020-11-05 08:00] LABS: ALBUMIN 2.5 g/dL (3.4-5.0); ALKALINE PHOSPHATASE 69 U/L (30-120); ALT (SGPT) 51 U/L (10-68); BILIRUBIN - TOTAL 0.39 mg/dL (0.2-1.3); CALCIUM 7.9 mg/dL (8.5-10.1); CARBON DIOXIDE 23.5 mmol/L (21.0-32.0); CHLORIDE - SERUM 100 mmol/L (98-107); CREATININE - SERUM 0.5 mg/dL (0.6-1.3); PHOSPHOROUS 2.3 mg/dL (2.5-4.9); PROTEIN - SERUM 6.3 g/dL (6.4-8.2); SODIUM 133 mmol/L (136-145); UREA NITROGEN 13 mg/dL (7-18); eGFR NON AFRICAN AMERICAN > 90 mL/min (90-120)
[2020-11-05 08:04] LABS: CALC OSMOLALITY 271 mosm/kg (275-300); GLUCOSE 200 mg/dL (74-106); POTASSIUM - SERUM 4.4 mmol/L (3.5-5.1)
[2020-11-05 08:28] LABS: BASOPHILS 1.4 % (0-2); EOSINOPHILS 0.2 % (0-7); HEMATOCRIT 30.5 % (36.0-48.0); HEMOGLOBIN 9.8 g/dL (12-16); LYMPHOCYTES 10.7 % (15-50); MCH 29.9 pg (26.0-34.0); MCHC 32.2 g/dL (31.0-37.0); MCV 92.9 fL (80.0-100.0); MEAN PLATELET VOLUME 6.8 fL (7.4-10.4); MONOCYTES 2.3 % (2-11); NEUTROPHILS 85.4 % (40-80); PLATELET COUNT 270 10x3/uL (130-400); RBC 3.29 10x6/uL (4.00-5.40); RDW 22.2 % (11.5-14.5); WBC 6.2 10x3/uL (4.8-10.8)
[2020-11-05 14:23] VITALS: BP 122/72
[2020-11-05 15:20] VITALS: Ht 154.9 cm; Wt 63.5 kg
--- NOTE | 2020-11-05 15:37 | NUR ---
TELEMETRY APPLIED, ST 101
--- NOTE | 2020-11-05 19:30 | NUR ---
PT IN BED, AAO X 4, RESP EVEN AND UNLABORED, NO DISTRESS NOTED, CL IN REACH, SR UP X 2.
--- NOTE | 2020-11-05 21:00 | NUR ---
PT IV INFILTRATED, NEW 22 G PLACED TO RIGHT WRIST AT THIS TIME, OLD IV REMOVED FOR LEFT FOREARM.
[2020-11-06] VITALS (8 sets, daily range): BP systolic 106–153; BP diastolic 55–80
[2020-11-06 04:06] LABS: BILIRUBIN NEGATIVE (NEGATIVE); KETONE NEGATIVE mg/dL (< 1+); NITRITE NEGATIVE (NEGATIVE); UROBILINOGEN NORMAL mg/dL (< 2)
--- NOTE | 2020-11-06 04:07 | NUR ---
I have reviewed this patient and I concur with the Shift Assessment completed by the Licensed Practical Nurse today this shift.
[2020-11-06 04:12] LABS: SQUAMOUS EPITHELIAL 7 HPF (0-4); WHITE CELLS - URINE 1 HPF (0-4)
[2020-11-06 06:25] LABS: ALBUMIN 2.5 g/dL (3.4-5.0); ALKALINE PHOSPHATASE 64 U/L (30-120); ALT (SGPT) 42 U/L (10-68); BASOPHILS 0.1 % (0-2); BILIRUBIN - TOTAL 0.33 mg/dL (0.2-1.3); CALC OSMOLALITY 270 mosm/kg (275-300); CALCIUM 8.7 mg/dL (8.5-10.1); CHLORIDE - SERUM 102 mmol/L (98-107); CREATININE - SERUM 0.5 mg/dL (0.6-1.3); EOSINOPHILS 0 % (0-7); GLUCOSE 155 mg/dL (74-106); HEMATOCRIT 27.8 % (36.0-48.0); HEMOGLOBIN 9.2 g/dL (12-16); LYMPHOCYTES 7.2 % (15-50); MAGNESIUM - SERUM 2.1 mg/dL (1.8-2.4); MCH 29.3 pg (26.0-34.0); MCHC 33.1 g/dL (31.0-37.0); MEAN PLATELET VOLUME 6.4 fL (7.4-10.4); MONOCYTES 3.3 % (2-11); NEUTROPHILS 89.4 % (40-80); PHOSPHOROUS 2.8 mg/dL (2.5-4.9); POTASSIUM - SERUM 3.7 mmol/L (3.5-5.1); PROTEIN - SERUM 6.8 g/dL (6.4-8.2); RBC 3.14 10x6/uL (4.00-5.40); RDW 20.7 % (11.5-14.5); SODIUM 135 mmol/L (136-145); UREA NITROGEN 8 mg/dL (7-18); eGFR NON AFRICAN AMERICAN > 90 mL/min (90-120)
[2020-11-06 06:51] LABS: MCV 88.5 fL (80.0-100.0); PLATELET COUNT 338 10x3/uL (130-400); WBC 9.7 10x3/uL (4.8-10.8)
--- NOTE | 2020-11-06 08:52 | NUR ---
AM ROUNDING DONE WITH PATIENT VOICING NO NEEDS. ON HEART MONITOR AT THIS TIME SHOWING ST, HR 107. ON 4L PER NS. LEFT WRIST PIV SEEN SALINE LOCK. ON EP, LABS WNL. ON LOVENOX. WILL MONITOR.
[2020-11-07] VITALS (7 sets, daily range): BP systolic 107–155; BP diastolic 61–77
[2020-11-07 06:22] LABS: BASOPHILS 0.2 % (0-2); EOSINOPHILS 0 % (0-7); HEMATOCRIT 27.5 % (36.0-48.0); HEMOGLOBIN 8.9 g/dL (12-16); LYMPHOCYTES 6.7 % (15-50); MCH 29.1 pg (26.0-34.0); MCHC 32.3 g/dL (31.0-37.0); MEAN PLATELET VOLUME 6.5 fL (7.4-10.4); MONOCYTES 5.3 % (2-11); NEUTROPHILS 87.8 % (40-80); RBC 3.06 10x6/uL (4.00-5.40); RDW 21.3 % (11.5-14.5)
[2020-11-07 06:32] LABS: ALBUMIN 2.3 g/dL (3.4-5.0); ALKALINE PHOSPHATASE 55 U/L (30-120); ALT (SGPT) 47 U/L (10-68); BILIRUBIN - TOTAL 0.28 mg/dL (0.2-1.3); CALC OSMOLALITY 280 mosm/kg (275-300); CALCIUM 8.8 mg/dL (8.5-10.1); CARBON DIOXIDE 24.7 mmol/L (21.0-32.0); CHLORIDE - SERUM 105 mmol/L (98-107); CREATININE - SERUM 0.6 mg/dL (0.6-1.3); GLUCOSE 133 mg/dL (74-106); MAGNESIUM - SERUM 2.3 mg/dL (1.8-2.4); PHOSPHOROUS 2.9 mg/dL (2.5-4.9); PROTEIN - SERUM 6.4 g/dL (6.4-8.2); SODIUM 138 mmol/L (136-145); eGFR NON AFRICAN AMERICAN > 90 mL/min (90-120)
[2020-11-07 06:33] LABS: UREA NITROGEN 22 mg/dL (7-18)
[2020-11-07 06:41] LABS: PLATELET COUNT 432 10x3/uL (130-400)
--- NOTE | 2020-11-07 12:19 | NUR ---
Nutrition Reassessment/Follow-up: Eating well. Diet: Cardiac PO intake: 100% x 3 yesterday WT: 140# (11/05) Labs noted: Na 138, Glu 133, Alb 2.3 Meds noted: Lasix, KDur, Pepcid, Nystatin, Florajen, Protonix, Solumedrol, electrolyte protocol -Pt at low nutrition risk at this time. Will follow along and monitor pt's progress during hospital stay. -Nutrition needs unchanged since initial assessment. -Continue current diet as tolerated. -Monitor wt. -RD will follow up within 5-7 days.
--- NOTE | 2020-11-07 20:00 | NUR ---
INITIAL ROUNDS AND ASSESSMENT COMPLETED. PT RESTING IN BED. C/O IV TO RIGHT WRIST HURTING. SITE IS SWOLLEN/LEAKING. DISCONTINUED IV AT THIS TIME. WILL ATTEMPT RESITE. SR PER TELEMETRY. NONLABORED RESPIRATIONS. CALL LIGHT IN REACH.
--- NOTE | 2020-11-08 01:00 | NUR ---
22G IV STARTED IN LFA. ABT RESUMMED.
[2020-11-08 05:41] VITALS: BP 183/93
[2020-11-08 08:34] LABS: BASOPHILS 0.2 % (0-2); EOSINOPHILS 0.1 % (0-7); HEMATOCRIT 29.4 % (36.0-48.0); HEMOGLOBIN 9.7 g/dL (12-16); LYMPHOCYTES 9.8 % (15-50); MCH 29.4 pg (26.0-34.0); MCHC 32.9 g/dL (31.0-37.0); MCV 89.3 fL (80.0-100.0); MEAN PLATELET VOLUME 6.4 fL (7.4-10.4); MONOCYTES 5.1 % (2-11); NEUTROPHILS 84.8 % (40-80); PLATELET COUNT 479 10x3/uL (130-400); RBC 3.29 10x6/uL (4.00-5.40); RDW 21.2 % (11.5-14.5); WBC 10.7 10x3/uL (4.8-10.8)
[2020-11-08 09:11] VITALS: BP 154/88
[2020-11-08 09:11] LABS: ALBUMIN 2.5 g/dL (3.4-5.0); ALKALINE PHOSPHATASE 65 U/L (30-120); ALT (SGPT) 51 U/L (10-68); BILIRUBIN - TOTAL 0.26 mg/dL (0.2-1.3); CALC OSMOLALITY 276 mosm/kg (275-300); CALCIUM 8.7 mg/dL (8.5-10.1); CARBON DIOXIDE 27.9 mmol/L (21.0-32.0); CHLORIDE - SERUM 102 mmol/L (98-107); CREATININE - SERUM 0.6 mg/dL (0.6-1.3); GLUCOSE 145 mg/dL (74-106); MAGNESIUM - SERUM 2.1 mg/dL (1.8-2.4); PHOSPHOROUS 3.4 mg/dL (2.5-4.9); POTASSIUM - SERUM 4.5 mmol/L (3.5-5.1); PROTEIN - SERUM 6.2 g/dL (6.4-8.2); SODIUM 136 mmol/L (136-145); UREA NITROGEN 19 mg/dL (7-18); eGFR NON AFRICAN AMERICAN > 90 mL/min (90-120)
[2020-11-08 16:39] VITALS: BP 146/84
--- NOTE | 2020-11-08 20:00 | NUR ---
RESTING IN BED WITH NO DISTRESS. ALERT/ORIENTED. NO C/O PAIN OR DISCOMFORT. O2 @ 3L/NC. SR PER TELEMETRY. IV TO LFA WITH NS @ [facility] FOR ABT. PT STATES MD TOLD HER SHE MIGHT GET TO GO HOME TOMORROW AND SHE IS HAPPY. STATES SHE IS FEELING BETTER. CALL LIGHT IN REACH.
[2020-11-08 20:48] VITALS: BP 107/62
[2020-11-09 01:45] VITALS: BP 146/86
[2020-11-09 05:35] VITALS: BP 156/86
[2020-11-09 07:47] LABS: BASOPHILS 0.3 % (0-2); EOSINOPHILS 0.2 % (0-7); HEMATOCRIT 31.8 % (36.0-48.0); HEMOGLOBIN 10.4 g/dL (12-16); LYMPHOCYTES 12.4 % (15-50); MCH 28.9 pg (26.0-34.0); MCHC 32.6 g/dL (31.0-37.0); MCV 88.4 fL (80.0-100.0); MEAN PLATELET VOLUME 6.5 fL (7.4-10.4); MONOCYTES 7.9 % (2-11); NEUTROPHILS 79.2 % (40-80); PLATELET COUNT 532 10x3/uL (130-400); RDW 20.7 % (11.5-14.5); WBC 9.4 10x3/uL (4.8-10.8)
[2020-11-09 08:01] VITALS: BP 140/88
[2020-11-09 08:18] LABS: ALBUMIN 2.7 g/dL (3.4-5.0); ALKALINE PHOSPHATASE 66 U/L (30-120); BILIRUBIN - TOTAL 0.29 mg/dL (0.2-1.3); CALCIUM 8.8 mg/dL (8.5-10.1); CARBON DIOXIDE 29.9 mmol/L (21.0-32.0); CHLORIDE - SERUM 101 mmol/L (98-107); CREATININE - SERUM 0.7 mg/dL (0.6-1.3); GLUCOSE 124 mg/dL (74-106); MAGNESIUM - SERUM 2.4 mg/dL (1.8-2.4); POTASSIUM - SERUM 4.7 mmol/L (3.5-5.1); PROTEIN - SERUM 6.5 g/dL (6.4-8.2); SODIUM 138 mmol/L (136-145); eGFR NON AFRICAN AMERICAN 90 mL/min (90-120)
[2020-11-09 08:22] LABS: CALC OSMOLALITY 281 mosm/kg (275-300); PHOSPHOROUS 4.4 mg/dL (2.5-4.9); UREA NITROGEN 27 mg/dL (7-18)
[2020-11-09 08:23] LABS: ALT (SGPT) 74 U/L (10-68)
[2020-11-09 11:02] VITALS: BP 134/75
--- NOTE | 2020-11-09 20:13 | NUR ---
INITIAL ROUNDS COMPLWTED AT 1920 HRS. PT STAES IV HURTING. IV CHECKED ANDIT WAS INFILTRATED. DC'D WITH CATHETER INTACT. ATTEMPTED IV X2 WITHOUT SUCESS. PT TOLERATED PROCEDURE WELL.
[2020-11-09 20:26] VITALS: BP 144/77
--- NOTE | 2020-11-10 00:29 | NUR ---
ASSESSMENT COMPLETED AT [address] PER CM HR 102. ALERT AND ORIENTED TO PERSON, PLACE AND TIME. GREWAL. PALPABLE PERIPHERAL PULSES. O2 3LNC. LUNGS DIMINISHED IN BASES BILAT. PO MEDS GIVNE AT 5 HRS. REFUSES NYSTATIN. [facility] STARTED IV #20 TO RAC AREA WITH ATTEMPT X1 AT 2029 HRS. PT TOLERATED ACTIVITY WELL. IV SOLUMEDROL GIVEN. VANC IVPB HUMG. PT CURRENTLY RESTING WTH EYES CLOSED. RESP EVEN AND REGULAR. SR UP X1,CALL LIGHT WITHINREACH.
--- NOTE | 2020-11-10 02:59 | NUR ---
PT AWAKE; DENIES ANY DISCOMFORT. PT WILL NOT ALLOW IVAB TO INFUSE FASTER THAN 75CC/HR. WILL CONTINUE TO MONITOR.
[2020-11-10 05:30] VITALS: BP 156/79
[2020-11-10 06:48] LABS: HEMATOCRIT 30.1 % (36.0-48.0); MCH 29.2 pg (26.0-34.0); MCHC 33.1 g/dL (31.0-37.0); MCV 88.1 fL (80.0-100.0); MEAN PLATELET VOLUME 6.4 fL (7.4-10.4); PLATELET COUNT 533 10x3/uL (130-400); RBC 3.42 10x6/uL (4.00-5.40); RDW 21.1 % (11.5-14.5); WBC 9.6 10x3/uL (4.8-10.8)
--- NOTE | 2020-11-10 06:49 | NUR ---
VSS THORUGHOUT NIGHT. SR PER CM. PT RESTED WELL DURING SHIFT. NEEDS MET; WILL CONTINUE TO MONITOR.
[2020-11-10 06:52] LABS: ALBUMIN 2.4 g/dL (3.4-5.0); ALKALINE PHOSPHATASE 66 U/L (30-120); ALT (SGPT) 57 U/L (10-68); BILIRUBIN - TOTAL 0.23 mg/dL (0.2-1.3); CALC OSMOLALITY 277 mosm/kg (275-300); CALCIUM 8.3 mg/dL (8.5-10.1); CHLORIDE - SERUM 103 mmol/L (98-107); CREATININE - SERUM 0.6 mg/dL (0.6-1.3); GLUCOSE 155 mg/dL (74-106); POTASSIUM - SERUM 4.2 mmol/L (3.5-5.1); PROTEIN - SERUM 6.4 g/dL (6.4-8.2); SODIUM 136 mmol/L (136-145); UREA NITROGEN 22 mg/dL (7-18); eGFR NON AFRICAN AMERICAN > 90 mL/min (90-120)
[2020-11-10 09:43] VITALS: BP 108/57
[2020-11-10 13:30] VITALS: BP 128/71
[2020-11-10] MEDS ORDERED: FEXOFENADINE HC60 MG PO (13:46)
[2020-11-10] MEDS ORDERED: DIFLUCAN100 MG PO (13:47)
[2020-11-10] MEDS ORDERED: NYSTATIN100000 UN4 PO (13:48)
[2020-11-10] MEDS ORDERED: DALIRESP250 MCG PO (13:49)
[2020-11-10] MEDS ORDERED: MUCINEX600 MG PO (13:49)
[2020-11-10] MEDS ORDERED: PREDNISONE20 MG PO (13:50)
[2020-11-10] MEDS ORDERED: AZITHROMYCIN500 MG PO (13:51)
[2020-11-10] MEDS ORDERED: CLEOCIN HCL300 MG PO (13:52)
[2020-11-10] MEDS ORDERED: IPRAT-ALBUT 0.5-3 ML UPD (13:53)
[2020-11-10 14:49] LABS: ANISOCYTOSIS OCC; LYMPHOCYTES 16 % (15-50); MONOCYTES 6 % (2-11); NEUTROPHILS 78 % (40-80); PLATELET ESTIMATE INCREASED; ROULEAUX OCC
--- NOTE | 2020-11-10 17:08 | NUR ---
ALERT AND ORIENTED X4. SITTING UP IN CHAIR. DC RT FA IV TIP INTACT. DISCHARGE INSTRUCTIONS GIVEN VERBALLY AND WRITTEN. DISCHARGE PAPERS SIGNED ON CHART. PORTABLE OXYGEN ARRIVES. ESCORT TO RIDE VIA WHEELCHAIR. REMAINS FREE FROM INJURY.
== END 2020-11-10 17:11 | disposition home or self-care (01) | DRG 193 ==
LOC: D.ER 10:08 → D.EDHOLD 18:23 → D.M2 18:23
PROVIDERS: Family Medicine; Internal Medicine Pulmonary Disease; ADMIT Family Medicine; ATTEND Family Medicine
DX: J18.9 Pneumonia, unspecified organism (principal); I50.33 Acute on chronic diastolic (congestive) heart failure; J96.21 Acute and chronic respiratory failure with hypoxia; B37.0 Candidal stomatitis; Z86.73 Personal history of transient ischemic attack (TIA), and cerebral infarction without residual deficits; I11.0 Hypertensive heart disease with heart failure; J44.9 Chronic obstructive pulmonary disease, unspecified; M79.7 Fibromyalgia; K21.9 Gastro-esophageal reflux disease without esophagitis; E78.5 Hyperlipidemia, unspecified; Z79.82 Long term (current) use of aspirin; D64.9 Anemia, unspecified; I25.10 Atherosclerotic heart disease of native coronary artery without angina pectoris; Z95.5 Presence of coronary angioplasty implant and graft; F32.9 Major depressive disorder, single episode, unspecified; Z87.891 Personal history of nicotine dependence; Z99.81 Dependence on supplemental oxygen; Y95 Nosocomial condition; I08.1 Rheumatic disorders of both mitral and tricuspid valves; E09.65 Drug or chemical induced diabetes mellitus with hyperglycemia; B37.9 Candidiasis, unspecified; J84.10 Pulmonary fibrosis, unspecified; Z20.822 Contact with and (suspected) exposure to COVID-19; Z79.01 Long term (current) use of anticoagulants